=== PATIENT | male | born 1960 | race Caucasian/White ===

== ENCOUNTER 2017-02-16 21:49 | Emergency (ER) | payer OTHER ==
--- NOTE | 2017-02-17 00:19 | ED ---
General Adult HPI - General Chief complaint: Urogenital Stated complaint: Blood in Urine Time Seen by Provider: 02/16/17 23:46 Source: patient, RN notes reviewed, old records reviewed Mode of arrival: ambulatory Limitations: no limitations - History of Present Illness Initial comments: This is a 48-year-old male to the ER for evaluation. This patient presents to ER for evaluation of blood in his urine. Patient has no history of blood and urine blood thinners. Patient denies any significant history of similar symptoms. Patient is a history of smoking. Patient has had blood in his urine for about a day and a half with occasional clots. No burning or urinary symptoms. No recent fevers or abdominal pain. No back pain or flank pain - Related Data Home Medications Medication Instructions Recorded Confirmed Aspirin 325 mg PO DAILY 02/16/17 02/16/17 Atorvastatin Calcium [Lipitor] 10 mg PO HS 02/16/17 02/16/17 Gabapentin [Neurontin] 100 mg PO 02/16/17 HYDROcodone/APAP 10-325MG [[place] 1 tab PO Q6H PRN 02/16/17 02/16/17 10-325] Hydrochlorothiazide 25 mg PO 02/16/17 Metoprolol Tartrate [Lopressor] 37.5 mg PO 02/16/17 Naproxen Sodium [Aleve] 220 mg PO BID 02/16/17 02/16/17 amLODIPine BESYLATE [Norvasc] 10 mg PO 02/16/17 metFORMIN HCL [Glucophage] 1,000 mg PO BID 02/16/17 02/16/17 Allergies Allergy/AdvReac Type Severity Reaction Status Date / Time No Known Allergies Allergy Verified 02/16/17 22:32 Review of Systems ROS Statement: Those systems with pertinent positive or pertinent negative responses have been documented in the HPI. ROS Other: All systems not noted in ROS Statement are negative. Past Medical History Past Medical History: Diabetes Mellitus, Hypertension, Myocardial Infarction ([place] ) History of Any Multi-Drug Resistant Organisms: None Reported Past Surgical History: Heart Catheterization With Stent, Hernia Repair Past Psychological History: No Psychological Hx Reported Smoking Status: Current every day smoker Past Alcohol Use History: Occasional Past Drug Use History: None Reported General Exam Limitations: no limitations General appearance: alert, in no apparent distress Head exam: Present: atraumatic, normocephalic, normal inspection Eye exam: Present: normal appearance, PERRL, EOMI. Absent: scleral icterus, conjunctival injection, periorbital swelling ENT exam: Present: normal exam, mucous membranes moist Neck exam: Present: normal inspection. Absent: tenderness, meningismus, lymphadenopathy Respiratory exam: Present: normal lung sounds bilaterally. Absent: respiratory distress, wheezes, rales, rhonchi, stridor Cardiovascular Exam: Present: regular rate, normal rhythm, normal heart sounds. Absent: systolic murmur, diastolic murmur, rubs, gallop, clicks GI/Abdominal exam: Present: soft, normal bowel sounds. Absent: distended, tenderness, guarding, rebound, rigid Extremities exam: Present: normal inspection, full ROM, normal capillary refill. Absent: tenderness, pedal edema, joint swelling, calf tenderness Back exam: Present: normal inspection Neurological exam: Present: alert, oriented X3, CN II-XII intact Psychiatric exam: Present: normal affect, normal mood Skin exam: Present: warm, dry, intact, normal color. Absent: rash Course Vital Signs 02/16/17 02/17/17 22:28 00:06 Temperature 97.7 F 98.0 F Pulse Rate 85 84 Respiratory 18 16 Rate Blood Pressure 158/76 147/89 O2 Sat by Pulse 99 99 Oximetry Medical Decision Making - Medical Decision Making Physical female here for evaluation of hematuria, patient installs at length regarding need to follow-up with urology, CT negative, no infection, patient to be discharged home - Radiology Data Radiology results: report reviewed (CT pelvis is negative for acute disease), image reviewed Disposition Clinical Impression: Hematuria Disposition: HOME SELF-CARE Condition: Undetermined Instructions: Hematuria (ED) Referrals: Teodoro Blanchard MD [STAFF PHYSICIAN] - 1-2 days
[2017-02-17 00:27] LABS: Appearance,Urine Clear (Clear); Bilirubin,Urine Negative (Negative); Glucose,Urine (UA) Negative (Negative); Ketones,Urine Negative (Negative); Leukocyte Esterase,Urine Negative (Negative); Mucus,Urine Rare /hpf; Nitrite,Urine Negative (Negative); Particle Count 8052; Protein,Urine 1+ (Negative); RBC,Urine >182 /hpf (0-5); Specific Gravity,Urine 1.017 (1.001-1.035); Squamous Epithelial Cell,Urine <1 /hpf (0-4); UA Billing (MACRO vs. MICRO) MICRO; Urobilinogen,Urine <2.0 mg/dL (<2.0); WBC,Urine 21 /hpf (0-5)
--- NOTE | 2017-02-17 01:06 | CT ---
EXAM: CT Abdomen and Pelvis Without Intravenous Contrast CLINICAL HISTORY: Reason: Low back pain and hematuria TECHNIQUE: Axial computed tomography images of the abdomen and pelvis without intravenous contrast. CTDI is 9.10 mGy and DLP is 458.30 mGy-cm. This CT exam was performed using one or more of the following dose reduction techniques: automated exposure control, adjustment of the mA and/or kV according to patient size, and/or use of iterative reconstruction technique. COMPARISON: None. FINDINGS: Lower thorax: Diffuse coronary arterial, partially imaged aortic valve, and heavy mitral annular calcifications. ABDOMEN: Liver: Unremarkable. Gallbladder and bile ducts: Unremarkable. No calcified stones. No ductal dilation. Pancreas: Within normal limits. Spleen: Unremarkable. No splenomegaly. Adrenals: Unremarkable. No mass. Kidneys and ureters: The kidneys are symmetric in appearance without evidence of stone or hydronephrosis. No ureter stone or hydroureter. Stomach and bowel: Descending and sigmoid colonic diverticulosis without diverticulitis. Of incidental note is redundancy of the sigmoid colon. No obstruction. Appendix: No findings to suggest acute appendicitis. PELVIS: Bladder: No bladder stone or wall thickening. Reproductive: Enlarged prostate gland, containing calcification centrally within, and causing extrinsic mass effect upon the bladder base. ABDOMEN and PELVIS: Intraperitoneal space: No free air. No significant fluid collection. Bones/joints: Moderate dextroscoliosis, and multilevel degenerative changes throughout the spine, and notably including severe right hip joint DJD with a lesser degree of left hip joint DJD. No acute fracture or dislocation. Soft tissues: Unremarkable. Vasculature: Diffuse arterial vascular calcifications without abdominal aortic aneurysm. Lymph nodes: No bulky adenopathy. IMPRESSION: 1. No urinary tract stone or secondary signs of urinary tract obstruction. 2. Enlarged prostate gland. 3. Additional nonacute findings including distal colonic diverticulosis, moderate dextroscoliosis and multilevel degenerative changes throughout the spine and notably within the right hip, as above.
[2017-02-17 01:41] VITALS: BP 142/76; PULSE 75; RESP 18; TEMP 98.4
== END 2017-02-17 01:54 | disposition home or self-care (01) ==
LOC: EC 21:49
DX: R31.9 Hematuria, unspecified (principal); E11.9 Type 2 diabetes mellitus without complications; I10 Essential (primary) hypertension; I25.2 Old myocardial infarction; F17.200 Nicotine dependence, unspecified, uncomplicated; Z79.82 Long term (current) use of aspirin; Z79.84 Long term (current) use of oral hypoglycemic drugs; Z79.899 Other long term (current) drug therapy
CPT/HCPCS: 74176; 81001; 87086; 99284

== ENCOUNTER → 2017-04-12 | Outpatient (CLI) | payer OTHER ==
--- NOTE | 2017-04-12 18:55 | US ---
EXAMINATION TYPE: US venous doppler duplex LE RT DATE OF EXAM: 04/12/2017 5:28 PM COMPARISON: NONE CLINICAL HISTORY: M25.551 Pain R hip, I80.9 Phlebitis/thrombophlebit. right leg edema SIDE PERFORMED: Right TECHNIQUE: The lower extremity deep venous system is examined utilizing real time linear array sonog trev with graded compression, doppler sonography and color-flow sonography. VESSELS IMAGED: External Iliac Vein (EIV) Common Femoral Vein Deep Femoral Vein Greater Saphenous Vein * Femoral Vein Popliteal Vein Small Saphenous Vein * Proximal Calf Veins (* superficial vessels) Right Leg: Negative for DVT No evidence of DVT right leg IMPRESSION: Normal exam. No evidence of deep venous thrombosis in the right leg.
== END | disposition home or self-care (01) ==
LOC: RADUSMAIN 16:58
PROVIDERS: ATTEND Orthopaedic Surgery
DX: I80.9 Phlebitis and thrombophlebitis of unspecified site (principal); M16.11 Unilateral primary osteoarthritis, right hip

== ENCOUNTER → 2017-05-16 | Outpatient (CLI) | payer OTHER ==
[2017-05-16 11:37] LABS: Appearance,Urine Clear (Clear); Bilirubin,Urine Negative (Negative); CH 29.5; CHCM 32.6; Glucose,Urine (UA) Negative (Negative); HCT 38.6 % (39.0-53.0); HDW 2.46; Ketones,Urine Negative (Negative); Leukocyte Esterase,Urine Negative (Negative); MCH 30.5 pg (25.0-35.0); MCHC 33.6 g/dL (31.0-37.0); MCV 90.9 fL (80.0-100.0); Mean Platelet Volume 7.2; Nitrite,Urine Negative (Negative); PH, Urine 6.5 (5.0-8.0); Protein,Urine Negative (Negative); RBC 4.25 m/uL (4.30-5.90); Specific Gravity,Urine 1.017 (1.001-1.035); UA Billing (MACRO vs. MICRO) CHEM; Urobilinogen,Urine <2.0 mg/dL (<2.0)
[2017-05-16 11:39] LABS: Partial Thromboplastin Time 25.1 sec (22.0-30.0)
[2017-05-16 11:52] LABS: ALT 28 U/L (21-72); AST 16 U/L (17-59); Alkaline Phosphatase 62 U/L (38-126); Anion Gap 13 mmol/L; Blood Urea Nitrogen 18 mg/dL (9-20); Calcium 9.8 mg/dL (8.4-10.2); Carbon Dioxide 25 mmol/L (22-30); Chloride 101 mmol/L (98-107); Glucose 156 mg/dL (74-99); Non-African American GFR(MDRD) >60 (>60 ml/min/1.73 sqM); Potassium 4.1 mmol/L (3.5-5.1); Sodium 139 mmol/L (137-145); Total Bilirubin 0.2 mg/dL (0.2-1.3); Total Protein 7.3 g/dL (6.3-8.2)
== END | disposition home or self-care (01) ==
LOC: LABPAT 11:04
PROVIDERS: ATTEND Orthopaedic Surgery
DX: Z01.812 Encounter for preprocedural laboratory examination (principal)
CPT/HCPCS: 36415; 80053; 81003; 85027; 85610; 85730; 87070

== ENCOUNTER → 2017-07-03 | Outpatient (CLI) | payer OTHER ==
[2017-07-03 15:05] LABS: CH 29.3; CHCM 32.2; HCT 40.6 % (39.0-53.0); HGB 13.2 gm/dL (13.0-17.5); MCH 29.7 pg (25.0-35.0); MCHC 32.4 g/dL (31.0-37.0); MCV 91.5 fL (80.0-100.0); Mean Platelet Volume 7.4; RBC 4.43 m/uL (4.30-5.90); RDW 14.4 % (11.5-15.5); WBC 7.9 k/uL (3.8-10.6)
[2017-07-03 15:14] LABS: Partial Thromboplastin Time 24.8 sec (22.0-30.0); Prothrombin Time 10.3 sec (9.0-12.0)
[2017-07-03 15:20] LABS: Appearance,Urine Clear (Clear); Bilirubin,Urine Negative (Negative); Glucose,Urine (UA) Negative (Negative); Ketones,Urine Negative (Negative); Leukocyte Esterase,Urine Negative (Negative); Nitrite,Urine Negative (Negative); PH, Urine 6.5 (5.0-8.0); Protein,Urine Negative (Negative); Specific Gravity,Urine 1.018 (1.001-1.035); UA Billing (MACRO vs. MICRO) CHEM; Urobilinogen,Urine <2.0 mg/dL (<2.0)
[2017-07-03 15:21] LABS: ALT 34 U/L (21-72); AST 16 U/L (17-59); Alkaline Phosphatase 56 U/L (38-126); Anion Gap 12 mmol/L; Blood Urea Nitrogen 24 mg/dL (9-20); Calcium 9.8 mg/dL (8.4-10.2); Carbon Dioxide 26 mmol/L (22-30); Chloride 100 mmol/L (98-107); Glucose 133 mg/dL (74-99); Non-African American GFR(MDRD) >60 (>60 ml/min/1.73 sqM); Potassium 4.2 mmol/L (3.5-5.1); Sodium 138 mmol/L (137-145); Total Bilirubin 0.3 mg/dL (0.2-1.3); Total Protein 6.9 g/dL (6.3-8.2)
== END | disposition home or self-care (01) ==
LOC: LABPAT 14:18
PROVIDERS: ATTEND Orthopaedic Surgery
DX: Z01.812 Encounter for preprocedural laboratory examination (principal)
CPT/HCPCS: 80053; 81003; 85027; 85610; 85730

== ENCOUNTER → 2017-11-30 | Outpatient (CLI) | payer OTHER ==
--- NOTE | 2017-11-30 12:36 | MR ---
EXAMINATION TYPE: MR lumbar spine wo con DATE OF EXAM: 11/30/2017 COMPARISON: CT abdomen pelvis 02/17/2017 HISTORY: Low back pain / Disc degeneration TECHNIQUE: Multiplanar, multisequence images of the lumbar spine were acquired. L1-L2: Facet arthropathy with hypertrophy ligamentum flavum causes some encroachment on the lateral r ecesses, circumferential posterior disc bulge causes mild anterior mass effect on the thecal sac, the re is no significant central stenosis, lateral extension of endplate disc complex encroaches minimall y on the foramina. L2-L3: Circumferential extension of endplate disc complex results in some foraminal encroachment grea ter on the left likely contributed by the scoliosis, there is anterior mass effect on the thecal sac causing mild to moderate central canal stenosis. Facet arthropathy changes are present. L3-L4: Circumferential extension endplate disc complex results in foraminal encroachment greater on t he left, there is mild anterior mass effect on the thecal sac. Facet arthropathy with hypertrophy lig amentum flavum results in a trefoil appearance of the thecal sac, moderate to severe central canal st enosis. L4-L5: Circumferential posterior disc bulge causes anterior mass effect on the thecal sac, there is m ild to moderate central canal stenosis. Facet arthropathy is present with hypertrophy ligamentum flav um encroaches somewhat on the lateral recesses, differential extension endplate disc complex results in foraminal encroachment greater on the right. L5-S1: There is facet arthropathy change present causing some encroachment on the lateral recesses. C ircumferential extension of endplate disc complex results in bilateral foraminal encroachment bilater ally. Small central disc protrusion noted. No significant central stenosis. Lumbar segments are intact. No paraspinal masses are identified. Conus medullaris has a normal appe arance. There is a marked dextroscoliosis of the lumbar spine as noted on prior exam. Multilevel spon dylosis is present with endplate discogenic marrow signal change, loss of disc height signal at the i ntervertebral levels is accompanied by vacuum phenomenon. Small cystic focus is associated with the r ight kidney measuring approximately 1 cm. IMPRESSION: Degenerative disc disease, multilevel foraminal encroachment, spinal stenosis, facet arthropathy as d escribed.
== END | disposition home or self-care (01) ==
LOC: RADMRIMAIN 09:39
PROVIDERS: ATTEND Physical Medicine & Rehabilitation
DX: M48.061 Spinal stenosis, lumbar region without neurogenic claudication (principal); M51.16 Intervertebral disc disorders with radiculopathy, lumbar region; M46.96 Unspecified inflammatory spondylopathy, lumbar region; E11.9 Type 2 diabetes mellitus without complications
CPT/HCPCS: 72148

== ENCOUNTER 2018-06-27 23:16 | Inpatient (IN) | payer OTHER ==
[2018-06-27] MEDS ORDERED: ASPIRIN 81 MG PO STA (23:27)
--- NOTE | 2018-06-27 23:30 | ED ---
General Adult HPI - General Stated complaint: CHEST PAIN Time Seen by Provider: 06/27/18 23:23 Source: patient, family, RN notes reviewed Limitations: no limitations - History of Present Illness Initial comments: Patient is a pleasant 58-year-old male presenting to the emergency department complaints of chest discomfort. Onset of symptoms was around an hour or so ago prior to arrival. Patient was at rest. Discomfort is starting to become severe. Discomfort feels like pressure. No associated dyspnea, nausea, or diaphoresis. No radiation. Patient does have history of previous cardiac stents. - Related Data Home Medications Medication Instructions Recorded Confirmed Atorvastatin Calcium [Lipitor] 10 mg PO HS 02/16/17 06/27/18 Hydrochlorothiazide 25 mg PO DAILY 02/16/17 06/27/18 amLODIPine BESYLATE [Norvasc] 10 mg PO DAILY 02/16/17 06/27/18 metFORMIN HCL [Glucophage] 1,000 mg PO BID 02/16/17 06/27/18 Metoprolol Tartrate [Lopressor] 37.5 mg PO HS 07/11/17 06/27/18 Aspirin 325 mg PO DAILY 06/27/18 06/27/18 Gabapentin [Neurontin] 300 mg PO TID PRN 06/27/18 06/27/18 HYDROcodone/APAP 10-325MG [[place] 1 tab PO Q6H PRN 06/27/18 06/27/18 10-325] Naproxen Sodium [Aleve] 440 mg PO BID PRN 06/27/18 06/27/18 Nitroglycerin Sl Tabs [Nitrostat] 0.4 mg SUBLINGUAL Q5M PRN 06/27/18 06/27/18 Allergies Allergy/AdvReac Type Severity Reaction Status Date / Time No Known Allergies Allergy Verified 06/27/18 23:37 Review of Systems ROS Statement: Those systems with pertinent positive or pertinent negative responses have been documented in the HPI. ROS Other: All systems not noted in ROS Statement are negative. Constitutional: Denies: fever Eyes: Denies: eye pain ENT: Denies: ear pain Respiratory: Denies: cough Cardiovascular: Reports: chest pain Endocrine: Denies: fatigue Gastrointestinal: Denies: abdominal pain, nausea Genitourinary: Denies: dysuria Musculoskeletal: Reports: back pain (Chronic and unchanged) Neurological: Denies: weakness Past Medical History Past Medical History: Diabetes Mellitus, Hypertension, Myocardial Infarction ([place] ) Additional Past Medical History / Comment(s): BACK AND RIGHT HIP PAIN., STATES SURGERY RESCHEDULED DUE TO RASH MIRIAM GROINS WHICH IS NOW RESOLVED. Last Myocardial Infarction Date:: 2000 History of Any Multi-Drug Resistant Organisms: None Reported Past Surgical History: Heart Catheterization With Stent, Hernia Repair Past Anesthesia/Blood Transfusion Reactions: No Reported Reaction Date of Last Stent Placement:: 2000 Additional Past Alcohol Use History / Comment(s): 1ppd for on & off since early - Past Family History Mother Family Medical History: No Reported History General Exam Limitations: no limitations General appearance: alert, other (Patient does appear uncomfortable) Head exam: Present: atraumatic Eye exam: Present: normal appearance, PERRL ENT exam: Present: normal oropharynx Neck exam: Present: normal inspection Respiratory exam: Present: normal lung sounds bilaterally. Absent: chest wall tenderness Cardiovascular Exam: Present: regular rate, normal rhythm Expanded Peripheral pulses: 2+: Radial (R), Radial (L), Dorsalis Pedis (R), Dorsalis Pedis (L) GI/Abdominal exam: Present: soft. Absent: tenderness Extremities exam: Present: normal inspection. Absent: pedal edema, calf tenderness Neurological exam: Present: alert Psychiatric exam: Present: normal affect, normal mood Skin exam: Present: normal color Course Vital Signs 06/27/18 06/27/18 06/27/18 23:18 23:40 23:45 Temperature 98.2 F Pulse Rate 72 86 101 H Respiratory 18 18 18 Rate Blood Pressure 170/105 153/98 143/95 O2 Sat by Pulse 98 99 99 Oximetry 06/27/18 23:50 Temperature Pulse Rate 92 Respiratory 18 Rate Blood Pressure 140/90 O2 Sat by Pulse 98 Oximetry - Reevaluation(s) Reevaluation #1: 06/27/18 23:27 STEMI alert was called. Cardiology was paged. 06/27/18 23:39 Cardiology paged again and tried at home. 06/27/18 23:44 Right-sided EKG does not have elevation in lead V4. Normal sinus rhythm 96. WA 184. QRS 92. QT 350. QTC 442. Normal axis. Normal QRS. Inferior ST elevation. 06/27/18 23:52 Unable to get a hold of Dr. Cole. I did speak with Dr. Min who states he is on backup and will come in. 06/27/18 23:56 Patient reevaluated. Case was discussed with Dr. Lopez, who will admit covering for Dr. Jarvis. EKG Findings - EKG Comments: EKG Findings:: Normal sinus rhythm 95. WA 196. QRS 90. QT 352. QTC 442. Normal axis. Inferior ST elevation. Normal QRS. Borderline ST elevation in V5 V6. Medical Decision Making - Lab Data Result diagrams: 06/27/18 23:39 Lab Results 06/27/18 Range/Units 23:39 WBC 10.8 H (3.8-10.6) k/uL RBC 4.53 (4.30-5.90) m/uL Hgb 13.9 (13.0-17.5) gm/dL Hct 40.8 (39.0-53.0) % MCV 90.1 (80.0-100.0) fL MCH 30.7 (25.0-35.0) pg MCHC 34.1 (31.0-37.0) g/dL RDW 13.6 (11.5-15.5) % Plt Count 313 (150-450) k/uL Neutrophils % 59 % Lymphocytes % 26 % Monocytes % 8 % Eosinophils % 3 % Basophils % 1 % Neutrophils # 6.4 (1.3-7.7) k/uL Lymphocytes # 2.8 (1.0-4.8) k/uL Monocytes # 0.9 (0-1.0) k/uL Eosinophils # 0.4 (0-0.7) k/uL Basophils # 0.1 (0-0.2) k/uL - Radiology Data Interpreted by me: Chest x-ray shows no acute process Critical Care Time Critical Care Time: Yes Total Critical Care Time: 33 Disposition Clinical Impression: ST elevation myocardial infarction (STEMI) Disposition: ADMITTED IP TO THIS HOSP Condition: Serious Is patient prescribed a controlled substance at d/c from ED?: No Referrals: Shaji Jarvis MD [Primary Care Provider] - 1-2 days Decision Time: 23:59
[2018-06-27] MEDS ORDERED: HEPARIN SODIUM,PORCINE 5,000 UNIT/ML 1 ML VIAL IV PRN (23:37)
[2018-06-27] MEDS ORDERED: HEPARIN SODIUM,PORCINE 5,000 UNIT/ML 1 ML VIAL IV ONE (23:37)
[2018-06-27] MEDS: NITROGLYCERIN SL TABS 0.4 MG TAB SUBLINGUAL PRN ×3 (23:40→23:50)
[2018-06-27] MEDS ORDERED: HEPARIN SOD,PORK IN 0.45% NACL 25,000 UNIT in 0.45% NACL 1 500ML.BAG IV SCH (23:45)
--- NOTE | 2018-06-27 23:47 | XR ---
EXAMINATION TYPE: XR chest 1V portable DATE OF EXAM: 06/27/2018 COMPARISON: NONE HISTORY: Chest pain TECHNIQUE: Single frontal view of the chest is obtained. FINDINGS: There is no heart failure nor confluent pneumonic infiltrate. Costophrenic angles are berenice r. Thoracic aorta is atheromatous. There are chest leads. IMPRESSION: No active cardiopulmonary disease. Normal heart.
[2018-06-27] MEDS ORDERED: MORPHINE SULFATE 4 MG/ML SYRINGE IVP STA (23:53)
[2018-06-27 23:54] LABS: Basophils # (A) 0.1 k/uL (0-0.2); Basophils % (A) 1 %; Eosinophils # (A) 0.4 k/uL (0-0.7); Eosinophils % (A) 3 %; HCT 40.8 % (39.0-53.0); HGB 13.9 gm/dL (13.0-17.5); Lymphocytes # (A) 2.8 k/uL (1.0-4.8); Lymphocytes % (A) 26 %; MCH 30.7 pg (25.0-35.0); MCHC 34.1 g/dL (31.0-37.0); MCV 90.1 fL (80.0-100.0); Monocytes # (A) 0.9 k/uL (0-1.0); Monocytes % (A) 8 %; Neutrophils # (A) 6.4 k/uL (1.3-7.7); Neutrophils % (A) 59 %; Platelet Count 313 k/uL (150-450); RBC 4.53 m/uL (4.30-5.90); RDW 13.6 % (11.5-15.5); WBC 10.8 k/uL (3.8-10.6)
[2018-06-27] MEDS ORDERED: ATORVASTATIN 80 MG TAB PO STA (23:54)
[2018-06-28 00:14] LABS: Partial Thromboplastin Time 22.5 sec (22.0-30.0); Prothrombin Time 9.7 sec (9.0-12.0)
[2018-06-28 00:16] LABS: ALT 21 U/L (21-72); AST 17 U/L (17-59); Albumin 4.1 g/dL (3.5-5.0); Alkaline Phosphatase 44 U/L (38-126); Anion Gap 11 mmol/L; Blood Urea Nitrogen 24 mg/dL (9-20); Calcium 10.1 mg/dL (8.4-10.2); Carbon Dioxide 24 mmol/L (22-30); Chloride 101 mmol/L (98-107); Glucose 252 mg/dL (74-99); Potassium 4.4 mmol/L (3.5-5.1); Sodium 136 mmol/L (137-145); Total Bilirubin 0.5 mg/dL (0.2-1.3); Total Protein 6.7 g/dL (6.3-8.2)
[2018-06-28] MEDS ORDERED: LIDOCAINE 2% INJ 20 MG/ML SQ ONE (00:20)
[2018-06-28 00:21] LABS: Creatine Kinase 55 U/L (55-170)
[2018-06-28] MEDS ORDERED: fentaNYL (PF) 50 MCG/ML 2 ML AMP IVP ONE (00:23)
[2018-06-28] MEDS ORDERED: MIDAZOLAM 2 MG/2 ML VIAL IVP ONE (00:23)
[2018-06-28] MEDS ORDERED: IV FLUID CONTINUATION 1,000 ML IV ONE (00:24)
[2018-06-28] MEDS ORDERED: BIVALIRUDIN BOLUS 250 MG/50 ML IV ONE (00:29)
[2018-06-28] MEDS ORDERED: TICAGRELOR 90 MG TAB PO ONE (00:29)
[2018-06-28] MEDS ORDERED: BIVALIRUDIN 250 MG in SODIUM CHLORIDE 0.9% 50 ML IV ONE ×2 (00:30→01:11)
[2018-06-28 00:34] LABS: Creatine Kinase MB 2.7 ng/mL (0.0-2.4); Troponin I <0.012 ng/mL (0.000-0.034)
[2018-06-28] MEDS ORDERED: IOPAMIDOL-370 125ML BTL INJ ONE (00:50)
[2018-06-28] MEDS ORDERED: IOPAMIDOL-370 100ML BTL INJ ONE ×3 (01:18→01:55)
[2018-06-28] MEDS ORDERED: NITROGLYCERIN SL TABS 0.4 MG TAB SUBLINGUAL PRN (02:07)
[2018-06-28] MEDS ORDERED: MAG HYDROX/AL HYDROX/SIMETH 30 ML CUP PO PRN (02:07)
[2018-06-28] MEDS ORDERED: ATROPINE SULFATE 0.1 MG/ML 10ML SYRINGE IV PRN (02:07)
[2018-06-28] MEDS ORDERED: RX INFO: IV CONTRAST WAS GIVEN 1 EACH MISC MISCELLANE PRN (02:07)
[2018-06-28] MEDS ORDERED: ZOLPIDEM 5 MG TAB PO PRN (02:07)
[2018-06-28] MEDS ORDERED: GABAPENTIN 100 MG CAP PO PRN (02:09)
[2018-06-28] MEDS ORDERED: SODIUM CHLORIDE 0.9% 1,000 ML IV SCH (02:15)
[2018-06-28 02:32] LABS: Glucose,Whole Blood 204 mg/dL (75-99)
[2018-06-28 04:13] LABS: Basophils % (A) 0 %; Eosinophils # (A) 0.1 k/uL (0-0.7); Eosinophils % (A) 1 %; HCT 36.5 % (39.0-53.0); HGB 12.4 gm/dL (13.0-17.5); Lymphocytes # (A) 1.6 k/uL (1.0-4.8); Lymphocytes % (A) 16 %; MCH 30.3 pg (25.0-35.0); MCHC 33.9 g/dL (31.0-37.0); MCV 89.5 fL (80.0-100.0); Mean Platelet Volume 6.9; Monocytes # (A) 0.6 k/uL (0-1.0); Monocytes % (A) 6 %; Neutrophils # (A) 7.1 k/uL (1.3-7.7); Neutrophils % (A) 74 %; Platelet Count 284 k/uL (150-450); RBC 4.07 m/uL (4.30-5.90); RDW 13.5 % (11.5-15.5); WBC 9.5 k/uL (3.8-10.6)
[2018-06-28 04:23] LABS: INR 1.1 (<1.2); Partial Thromboplastin Time 32.9 sec (22.0-30.0); Prothrombin Time 10.6 sec (9.0-12.0)
[2018-06-28 04:51] VITALS: BMI 26.9
[2018-06-28 04:58] LABS: Anion Gap 8 mmol/L; Blood Urea Nitrogen 18 mg/dL (9-20); Calcium 9.4 mg/dL (8.4-10.2); Carbon Dioxide 23 mmol/L (22-30); Chloride 103 mmol/L (98-107); Cholesterol 190 mg/dL (<200); Glucose 187 mg/dL (74-99); HDL Cholesterol 34 mg/dL (40-60); LDL Cholesterol,Calculated 119 mg/dL (0-99); Magnesium 1.9 mg/dL (1.6-2.3); Potassium 4.2 mmol/L (3.5-5.1); Sodium 134 mmol/L (137-145); Triglycerides 184 mg/dL (<150)
[2018-06-28] MEDS: MAGNESIUM SULFATE-D5W PMX 1 GM in DEXTROSE/WATER 1 100ML.BAG IVPB SCH ×2 (06:55→09:50)
[2018-06-28] MEDS: INSULIN ASPART 100 UNIT/ML 1 ML 10 ML VIAL SQ SCH ×5 (06:55→21:04)
[2018-06-28 06:56] LABS: Glucose,Whole Blood 176 mg/dL (75-99)
[2018-06-28] MEDS: METOPROLOL TARTRATE 25 MG TAB PO SCH ×2 (09:33→21:04)
[2018-06-28] MEDS: LISINOPRIL 5 MG TAB PO SCH ×2 (09:33→21:04)
[2018-06-28] MEDS: ASPIRIN 81 MG PO SCH (09:33)
[2018-06-28] MEDS: TICAGRELOR 90 MG TAB PO SCH ×2 (09:33→21:04)
--- NOTE | 2018-06-28 11:23 | CONS ---
CONSULTATION Mr. Jo is a 58-year-old male with known history of hypertension, hyperlipidemia, diabetes mellitus, and history of coronary artery disease, status post stenting about 15 years ago as well as history of chronic tobacco use, who presented with an acute onset chest discomfort. He has not been followed since his intervention today after getting home. He complained of severe chest discomfort and jaw discomfort, came into the emergency room and was found to have EKG changes consistent with an inferior wall myocardial infarction. The patient according to him, has been having exertional chest pain for the last week on and off. He denies any history of chronic peripheral edema noted. No PND, no orthopnea. No dizziness, palpitation, or syncope. His coronary risk factors are remarkable for hypertension, hyperlipidemia, diabetes mellitus, and chronic tobacco use. MEDICATION: At home include aspirin once a day, metformin, amlodipine 10 mg daily, Naprosyn, metoprolol tartrate 37.5 mg daily, hydrochlorothiazide 25 mg daily, gabapentin 300 mg on a p.r.n. basis, Lipitor 10 mg daily. REVIEW OF SYSTEMS: RESPIRATORY SYSTEM: He has no dyspnea on exertion. No recent wheezing. Had a history of chronic tobacco use. GI SYSTEM: No recent GI bleeding. No peptic ulcer disease. SYSTEM: No dysuria or hematuria. NERVOUS SYSTEM: No stroke or seizure. PHYSICAL EXAMINATION: He is a 58-year-old male, alert, oriented, in no apparent distress. Blood pressure 140/70 with a heart rate in the 80s. HEAD: Normocephalic. EYES: Sclerae nonicteric. NECK: Good upstroke, no bruit, no jugular venous distention. LUNGS: Clear to auscultation. HEART: Regular rate and rhythm. S1, S2. No S3. No S4. No rub. ABDOMEN: Soft, nontender. Positive bowel sounds, no organomegaly. EXTREMITIES: No edema, intact distal pulses. LAB DATA: EKG sinus mechanism with ST-segment elevation in the inferior leads consistent with an acute inferior myocardial infarction. BUN and creatinine of 24 and 0.52. Troponin less than 0.052. Hemoglobin of 13.9. The chest x-ray shows no acute infiltrate. IMPRESSION: 1. Acute ST-segment elevation myocardial infarction in the inferior leads. 2. History of coronary artery disease with prior stenting. 3. Hypertension. 4. Hyperlipidemia. 5. Diabetes mellitus. 6. Chronic tobacco use. RECOMMENDATION: I recommend proceeding with coronary angiography. The procedures, risks and complications were discussed with the patient who is in full understanding and agreement. Thank you for this consult. Will follow with you. MARAH / DOROTHYN: [id number] /
--- NOTE | 2018-06-28 11:26 | CC ---
CARDIAC CATHETERIZATION REPORT Ms. Jo is a 58-year-old male with a known history of coronary artery disease who presented with an acute inferior myocardial infarction. He has a history of hypertension, hyperlipidemia, diabetes mellitus, and chronic tobacco use. In view of that, recommendation regarding cardiac catheterization. The procedures, risks and complications were discussed with the patient who is in full understanding and agreement. PROCEDURE: Patient was brought to the carpenter/labor. He received Benadryl and fentanyl and after achieving moderate conscious sedated state, using Xylocaine anesthesia and Seldinger technique, a 6-[place] sheath was introduced in the right femoral artery. Selective right coronary angiography was performed using 6-[place] FR4 guiding catheter after obtaining images with the right coronary artery and performing coronary angioplasty and stenting, images of the left system using a 6-[place] 4 bend left Janet catheter were performed. Following that, a 6-[place] tight pigtail catheter was introduced in the left ventricle and pressures were calculated. Following that, catheter was removed, sheath was sutured in place. The patient is returned to his room in stable condition. FINDINGS: LEFT MAIN: This is a large-sized vessel, bifurcating into left circumflex, left anterior descending artery. Left main coronary artery has no evidence of high-grade stenosis. LEFT ANTERIOR DESCENDING ARTERY: This is a large-sized vessel, reaching toward the apex with a wraparound apex segment. The left anterior descending artery proximally has a 20% to 30% plaque at the apex, has an area of stenosis up to 85%,, beyond that the vessel is small in caliber. LEFT CIRCUMFLEX: This is a nondominant vessel, giving rise to a very large proximal obtuse marginal branch that has a 30% to 40% plaque. The second obtuse marginal branch is small in caliber and has diffuse intimal disease with area of stenosis up to 80%. The caliber of the vessel is small. RIGHT CORONARY ARTERY: This is a large dominant vessel, bifurcating distally into PDA and posterolateral segment and branches. The stented segment proximally has a 70%-80% stenosis. The mid stent is patent, beyond this mid stent there is an area of 70%-80% stenosis. The vessel bifurcating in the PLV that is totally occluded and a PDA that has a 99% stenosis. LEFT VENTRICULOGRAM: Left ventriculogram was not performed. HEMODYNAMICS: There was no gradient across the aortic valve. The left ventricular end-diastolic pressure was 8-10 mmHg. CONCLUSION: 1. Acutely occluded right PLV with severe stenosis involving the right PDA as well as significant stenosis in the mid and proximal right coronary artery. 2. Significant stenosis in the distal apical segment of the LAD and in the second small obtuse marginal branch. RECOMMENDATION: In view of finding anatomy, I recommend proceeding with angioplasty and stenting of the right coronary artery. The procedures, risks and complication were discussed with the patient who is in full understanding and agreement. MMDORENEL / DOROTHYN: [id number] /
--- NOTE | 2018-06-28 11:39 | PTCA ---
PERCUTANEOUSTRANS CORORONARY ANGIOGRAPHY Mr. Jo is a 58-year-old male who presented with an acute inferior myocardial infarction, underwent cardiac catheterization, was found to have a totally occluded right PLV with significant stenosis involving the right PDA as well as the proximal and mid right coronary artery. In view of that, recommendation were made regarding coronary angioplasty and stenting. The procedures, risks and complication were discussed with the patient who is in full understanding and agreement. PROCEDURE: After obtaining images of the right coronary artery, a 0.014 balanced medium weight J- wire was advanced across the system with a FineCross catheter and a total occlusion of the right PLV was crossed. Following that, a FineCross catheter was removed and a 2.5 x 12 mm Trek balloon was advanced and 2 inflations at 8 atmospheres were done. Following that, a 2.5 x 18 mm Xience CR stent was deployed, postdilated at 16 atmospheres and after removing the balloon, a 2.5 x 12 mm Xience stent was deployed proximal to the first one and postdilated to 16 atmospheres. Following that, the balloon was removed and a whisper J-wire was advanced into the right PLV and a 2.5 x 12 mm Trek balloon was advanced and one inflation was done at 8 atmospheres. Following that, a 2.5 x 15 mm Xience Ellyn stent was deployed, postdilated at 16 atmospheres. After removing the balloon, the whisper J-wire was removed and a 3.25 x 15 mm Xience Ellyn stent was deployed in the mid segment, post dilated to 16 atmospheres. After removing the balloon, a 3.5 x 18 mm Xience CR stent was deployed proximally and post dilated at 16 atmospheres. After removing the balloon, a 4.0 x 12 mm NC Trek balloon was advanced and inflation in the proximal segment of the proximal stent was done at 12 atmospheres. After the last inflation, after appropriate wait, the balloon and the guidewire were withdrawn back in the guiding catheter. Images were obtained and repeated. Those images reveal stable successful stenting. Following that, angiography of the left coronary artery system and left ventricle end-diastolic pressure were measured. Following that, catheter were removed, sheath was sutured in place. The patient was returned to his room in stable condition. Of note, the patient received Angiomax per protocol as well as oral loading dose of Brilinta. His EKG changes have resolved and his chest discomfort has improved. RESULTS: 1. Successful stenting of the right PLV with reduction of stenosis from 100% to 0%. 2. Successful stenting of the right PDA with reduction of stenosis from 99% to 0%. 3. Successful stenting of the mid right coronary artery with reduction of stenosis from 80% to 0%. 4. Successful stenting of the proximal right coronary artery with reduction of stenosis from 80% to 0%. RECOMMENDATION: Patient will be continued on aspirin, Brilinta, beta tomas, MINISTERIO inhibitor, statin. The importance of dual antiplatelet treatment were discussed with the patient and his family who are in full understanding and agreement. Duration of the procedure is 93 minutes. MMODL / IJN: [id number] /
[2018-06-28 12:14] LABS: Glucose,Whole Blood 246 mg/dL (75-99)
--- NOTE | 2018-06-28 12:17 | ECHOF ---
Referral Reason:mi MEASUREMENTS -------- HEIGHT: 177.8 cm WEIGHT: 88.5 kg BP: 128/82 RVIDd: 3.2 cm (< 3.3) IVSd: 1.1 cm (0.6 - 1.1) LVIDd: 4.3 cm (3.9 - 5.3) LVPWd: 1.1 cm (0.6 - 1.1) IVSs: 1.3 cm LVIDs: 3.3 cm LVPWs: 1.3 cm LAESV Index (A-L): 24.98 ml/m Ao Diam: 2.8 cm (2.0 - 3.7) AV Cusp: 1.2 cm (1.5 - 2.6) LA Diam: 3.6 cm (2.7 - 3.8) MV E Casey: 0.79 m/s MV DecT: 366 ms MV A Casey: 1.16 m/s MV E/A Ratio: 0.68 AV maxP.03 mmHg AV meanP.36 mmHg RAP: 5.00 mmHg RVSP: 20.74 mmHg FINDINGS -------- Sinus rhythm. This was a technically good study. The left ventricular size is normal. There is borderline concentric left ventricular hypertrophy. Overall left ventricular systolic function is low-normal with, an EF between 50 - 55 %. The right ventricle is normal in size and function. Normal LA size by volume 22+/-6 ml/m2. The right atrium is normal in size. There is moderate aortic valve sclerosis. There is no evidence of aortic regurgitation. There is mild aortic stenosis present. Peak/mean gradient across the Aortic Valve is 18.03mmHg / 11.36mmHg. Mild mitral annular calcification present. There is trace to mild mitral regurgitation. Trace tricuspid regurgitation present. Right ventricular systolic pressure is normal at < 35 mmHg. There is no evidence of pulmonary hypertension. The pulmonic valve was not well visualized. The aortic root size is normal. Normal inferior vena cava with normal inspiratory collapse consistent with estimated right atrial pre ssure of 5 mmHg. There is no pericardial effusion. CONCLUSIONS -------- 1. Sinus rhythm. 2. This was a technically good study. 3. The left ventricular size is normal. 4. There is borderline concentric left ventricular hypertrophy. 5. Overall left ventricular systolic function is low-normal with, an EF between 50 - 55 %. 6. Normal LA size by volume 22+/-6 ml/m2. 7. There is moderate aortic valve sclerosis. 8. There is mild aortic stenosis present. 9. Peak/mean gradient across the Aortic Valve is 18.03mmHg / 11.36mmHg. 10. Mild mitral annular calcification present. 11. There is trace to mild mitral regurgitation. 12. Trace tricuspid regurgitation present. 13. Right ventricular systolic pressure is normal at < 35 mmHg. 14. There is no evidence of pulmonary hypertension. 15. The pulmonic valve was not well visualized. 16. The aortic root size is normal. 17. There is no pericardial effusion. PROFESSIONAL ORGANIZER: Richard Claire RDCS
--- NOTE | 2018-06-28 15:51 | P.PN ---
Subjective This patient is status post inferior wall myocardial infarction and is status post stent placement. Patient is laying comfortably in bed does denies any chest pain or shortness of breath this and is stable hemodynamically Objective - Vital Signs Vital signs: Vital Signs Temp 98.8 F 06/28/18 09:00 Pulse 69 06/28/18 15:00 Resp 13 06/28/18 15:00 BP 121/80 06/28/18 15:00 Pulse Ox 94 L 06/28/18 15:00 Intake & Output 06/27/18 06/28/18 06/28/18 18:59 06:59 18:59 Intake Total 755 800 Output Total 1300 1500 Balance -545 -700 Weight 82.5 kg 82.5 kg Intake: IV 655 800 Magnesium Sulfate-D5w Pmx 200 1 gm In Dextrose/Water 1 100ml.bag @ 100 mls/hr IVPB Q1H TREVA Rx#: [id number] Sodium Chloride 0.9% 1, 400 600 000 ml @ 100 mls/hr IV . Q10H TREVA Rx#:[id number] Intake, IV Titration 100 Amount Sodium Chloride 0.9% 1, 100 000 ml @ 100 mls/hr IV . Q10H TREVA Rx#:[id number] Oral 0 Output: Urine 1300 1500 Other: Voiding Method Urinal ABP, PAP, CO, CI - Last Documented Arterial Blood Pressure 146/69 - Exam Patient is comfortable Patient's vital signs are reviewed. The patient is alert awake and in no acute distress. HEENT negative. Neck-supple no increase in JVP noted no carotid bruits noted. Chest-symmetrical. Heart-first and second heart sounds are normal. No S3 or S4 is noted. No significant murmurs are noted. Lungs bilateral good at entry is noted. No rales or rhonchi are noted Abdomen-soft. Liver and spleen are not enlarged. The bowel sounds are normal. No tenderness noted Extremities-peripheral pulses since are 2+. No significant leg edema noted. Neuro-no significant gross abnormality noted. - Labs CBC & Chem 7: 06/28/18 03:58 06/28/18 03:58 Labs: Abnormal Lab Results - Last 24 Hours (Table) 06/27/18 06/27/18 06/27/18 Range/Units 23:39 23:39 23:39 WBC 10.8 H (3.8-10.6) k/uL RBC (4.30-5.90) m/uL Hgb (13.0-17.5) gm/dL Hct (39.0-53.0) % APTT (22.0-30.0) sec Sodium 136 L (137-145) mmol/L BUN 24 H (9-20) mg/dL Creatinine 0.52 L (0.66-1.25) mg/dL Glucose 252 H (74-99) mg/dL POC Glucose (mg/dL) (75-99) mg/dL CK-MB (CK-2) 2.7 H (0.0-2.4) ng/mL Troponin I (0.000-0.034) ng/mL Triglycerides (<150) mg/dL LDL Cholesterol, Calc (0-99) mg/dL HDL Cholesterol (40-60) mg/dL 06/28/18 06/28/18 06/28/18 Range/Units 02:20 03:58 03:58 WBC (3.8-10.6) k/uL RBC 4.07 L (4.30-5.90) m/uL Hgb 12.4 L (13.0-17.5) gm/dL Hct 36.5 L (39.0-53.0) % APTT 32.9 H (22.0-30.0) sec Sodium (137-145) mmol/L BUN (9-20) mg/dL Creatinine (0.66-1.25) mg/dL Glucose (74-99) mg/dL POC Glucose (mg/dL) 204 H (75-99) mg/dL CK-MB (CK-2) (0.0-2.4) ng/mL Troponin I (0.000-0.034) ng/mL Triglycerides (<150) mg/dL LDL Cholesterol, Calc (0-99) mg/dL HDL Cholesterol (40-60) mg/dL 06/28/18 06/28/18 06/28/18 Range/Units 03:58 03:58 06:44 WBC (3.8-10.6) k/uL RBC (4.30-5.90) m/uL Hgb (13.0-17.5) gm/dL Hct (39.0-53.0) % APTT (22.0-30.0) sec Sodium 134 L (137-145) mmol/L BUN (9-20) mg/dL Creatinine 0.39 L (0.66-1.25) mg/dL Glucose 187 H (74-99) mg/dL POC Glucose (mg/dL) 176 H (75-99) mg/dL CK-MB (CK-2) (0.0-2.4) ng/mL Troponin I 13.500 H* (0.000-0.034) ng/mL Triglycerides 184 H (<150) mg/dL LDL Cholesterol, Calc 119 H (0-99) mg/dL HDL Cholesterol 34 L (40-60) mg/dL 06/28/18 06/28/18 Range/Units 11:38 12:02 WBC (3.8-10.6) k/uL RBC (4.30-5.90) m/uL Hgb (13.0-17.5) gm/dL Hct (39.0-53.0) % APTT (22.0-30.0) sec Sodium (137-145) mmol/L BUN (9-20) mg/dL Creatinine (0.66-1.25) mg/dL Glucose (74-99) mg/dL POC Glucose (mg/dL) 246 H (75-99) mg/dL CK-MB (CK-2) (0.0-2.4) ng/mL Troponin I 21.200 H* (0.000-0.034) ng/mL Triglycerides (<150) mg/dL LDL Cholesterol, Calc (0-99) mg/dL HDL Cholesterol (40-60) mg/dL Assessment and Plan Assessment: This patient is status post inferior wall myocardial infarction. Patient is stable hemodynamically or arrhythmias are noted. Continue the current medications
[2018-06-28 17:20] LABS: Glucose,Whole Blood 137 mg/dL (75-99)
--- NOTE | 2018-06-28 20:03 | HP ---
HISTORY AND PHYSICAL DATE OF ADMISSION: 06/27/2018 DATE OF SERVICE: 06/28/2018 PRESENTING COMPLAINT: Indigestion. HISTORY OF PRESENTING COMPLAINT: This is a very pleasant 58-year-old patient of Dr. Jarvis. Chronic stable medical conditions include diabetes, hypertension, osteoarthritis. The patient had a stent back in 1999. Yesterday patient felt indigestion and it kept going up his chest to his throat. There was no shortness of breath, no dizziness, but he did feel nauseated. The patient did feel tired and rundown. Then the discomfort started going to the jaw and shoulder. Patient decided to present to the ER last night. The patient was found to have inferior wall ST-elevation myocardial infarction and the patient was taken to the cardiac animal laboratory technician by Dr. Min. About 5 stents were placed; more details in his notes. The patient was then admitted to the ICU. The patient is currently symptom-free. The patient had been a smoker; stopped smoking for 13 years, then started smoking again about 5 years ago. REVIEW OF SYSTEMS: CONSTITUTIONAL: Tired. HEENT: None. RESPIRATORY: As above. CARDIOVASCULAR: As above. GASTROINTESTINAL: Some heartburn. GENITOURINARY: None. MUSCULOSKELETAL: Arthritic pain in the joints. DERMATOLOGICAL: None. HEMATOLOGICAL: None. LYMPHATICS: None. PSYCHIATRY: None. NEUROLOGICAL: None. PAST MEDICAL HISTORY: 1. Coronary artery disease with stent. 2. Diabetes. 3. Hypertension. 4. Back and right hip pain. PAST SURGICAL HISTORY: 1. Hernia repair. 2. Cardiac cath with stent. SOCIAL HISTORY: The patient smoked for close to 33 years, stopped for 13 years and started smoking again 5 years ago, averaging about a pack a day. Used to work for [employer]. . FAMILY HISTORY: Myocardial infarction. HOME MEDICATIONS: 1. Glucophage 1000 mg p.o. b.i.d. 2. Norvasc 10 mg p.o. daily. 3. Nitrostat 0.4 sublingually p.r.n. 4. Naproxen 440 mg p.o. b.i.d. p.r.n. 5. Lopressor 37.5 p.o. at bedtime. 6. Hydrochlorothiazide 25 mg p.o. daily. 7. [place] 10 one tablet q.6 p.r.n. 8. Neurontin 300 mg p.o. t.i.d. p.r.n. 9. Lipitor 10 mg p.o. at bedtime. 10.Aspirin 325 p.o. daily. ALLERGIES: NONE. PHYSICAL EXAMINATION: Temperature 98.8, pulse 81, respiration 14, blood pressure 134/88, pulse ox 96% on room air. GENERAL APPEARANCE: Average build. Lying in bed, comfortable. EYES: Pupils equal. Conjunctivae normal. HEENT: External appearance of nose and ears normal. Oral cavity normal. NECK: JVD not raised. Mass not palpable. RESPIRATORY: Effort normal. LUNGS: Fair air entry. CARDIOVASCULAR: First and second sounds normal. No edema. ABDOMEN: Soft, non-tender. Liver and spleen not palpable. LYMPHATIC: No lymph node palpable in neck or axillae. PSYCHIATRY: Alert and oriented x3. Mood and affect normal. NEUROLOGICAL: Pupils equal. Cranial nerves grossly intact. Power and sensation grossly intact. INVESTIGATIONS: White count 9.5, hemoglobin 12.4, potassium 4.2, BUN 18, creatinine 0.39. Accu-Cheks 204, 176. Troponin less than 0.012, 13.5, 21.2. LDL 119. EKG tracing, personally reviewed by me, showed ST elevation in inferior leads. Chest x- ray film, personally reviewed by me, shows slight cardiomegaly. Lung roche are clear. ASSESSMENT: 1. Acute ST-elevation inferior wall acute myocardial infarction leading to emergent cardiac catheterization with patient getting 4 stents. 2. Coronary artery disease with prior history of stent. 3. Hyperlipidemia. 4. Essential hypertension. 5. Diabetes mellitus, type 2, on oral hypoglycemic, uncontrolled with hyperglycemia. 6. Primary osteoarthritis. 7. Chronic nicotine dependence. Patient is a cigarette smoker. PLAN: Patient is status post coronary intervention. More details in cardiology notes. Patient's current medications include aspirin, Lipitor, Neurontin, Zestril, Lopressor, Brilinta. Patient was prescribed Chantix per Dr. Paul Waller. The patient does not want to take the same. In the past, acupuncture and hypnosis have worked for him. For his diabetes, currently metformin is held because of the contrast dye. Will start the patient on NovoLog 4 units with meals and 14 units of Levemir starting tonight. Will go further from here, depending how his sugars behave. We will also check a glycosylated hemoglobin in the morning. Care was discussed with the patient and his . Questions were answered. Smoking cessation counseling was done with the patient. Different modalities of smoking cessation were discussed. The patient is not keen to take Chantix at the present time. More than 3 minutes was spent on this aspect of the case. MARAH / JONAS: [id number] /
[2018-06-28 20:59] LABS: Glucose,Whole Blood 188 mg/dL (75-99)
[2018-06-28] MEDS: ATORVASTATIN 80 MG TAB PO SCH (21:04)
[2018-06-28] MEDS: INSULIN DETEMIR 100 UNIT/ML 10 ML VIAL SQ SCH (21:04)
[2018-06-29 05:48] LABS: Anion Gap 7 mmol/L; Blood Urea Nitrogen 15 mg/dL (9-20); Calcium 9.2 mg/dL (8.4-10.2); Carbon Dioxide 23 mmol/L (22-30); Chloride 107 mmol/L (98-107); Cholesterol 165 mg/dL (<200); Glucose 159 mg/dL (74-99); HDL Cholesterol 30 mg/dL (40-60); LDL Cholesterol,Calculated 103 mg/dL (0-99); Magnesium 2.2 mg/dL (1.6-2.3); Potassium 4.3 mmol/L (3.5-5.1); Sodium 137 mmol/L (137-145); Triglycerides 159 mg/dL (<150)
[2018-06-29 06:05] LABS: Prothrombin Time 9.9 sec (9.0-12.0)
[2018-06-29 06:33] LABS: Basophils % (A) 0 %; Eosinophils # (A) 0.1 k/uL (0-0.7); Eosinophils % (A) 1 %; HCT 39.2 % (39.0-53.0); HGB 12.9 gm/dL (13.0-17.5); Lymphocytes # (A) 1.6 k/uL (1.0-4.8); Lymphocytes % (A) 15 %; MCH 29.9 pg (25.0-35.0); MCV 90.6 fL (80.0-100.0); Mean Platelet Volume 6.7; Monocytes # (A) 0.8 k/uL (0-1.0); Monocytes % (A) 7 %; Neutrophils # (A) 8.1 k/uL (1.3-7.7); Neutrophils % (A) 75 %; Platelet Count 297 k/uL (150-450); RBC 4.33 m/uL (4.30-5.90); RDW 13.5 % (11.5-15.5); WBC 10.8 k/uL (3.8-10.6)
[2018-06-29] MEDS: INSULIN ASPART 100 UNIT/ML 1 ML 10 ML VIAL SQ SCH ×7 (07:05→22:13)
[2018-06-29 07:11] LABS: Glucose,Whole Blood 166 mg/dL (75-99)
[2018-06-29] MEDS: METOPROLOL TARTRATE 25 MG TAB PO SCH ×2 (08:26→20:18)
[2018-06-29] MEDS: LISINOPRIL 5 MG TAB PO SCH ×3 (08:26→20:18)
[2018-06-29] MEDS: ASPIRIN 81 MG PO SCH (08:26)
[2018-06-29] MEDS: TICAGRELOR 90 MG TAB PO SCH ×2 (08:27→20:18)
[2018-06-29] MEDS: HYDROcodone/APAP 10-325MG 1 EACH TAB PO PRN ×2 (08:30→20:18)
[2018-06-29] MEDS: VARENICLINE 0.5 MG TAB PO SCH (08:39)
--- NOTE | 2018-06-29 10:46 | PN ---
PROGRESS NOTE This patient is status post inferior wall myocardial infarction and multiple stents in the RCA. Patient remains stable, hemodynamically. Denies any chest pain or shortness of breath. Patient's medications are reviewed. Blood pressure is 105/80 mmHg, heart rate is 78 per minute, oxygen saturation is 96%. First and second heart sounds are heard. Lungs are normal. Lungs are clinically clear to auscultation and percussion. Abdomen is soft. Patient's creatinine is 0.4. Patient will be ambulated and transferred to the step-down unit. MMODL / IJN: [id number] /
[2018-06-29 12:18] LABS: Glucose,Whole Blood 164 mg/dL (75-99)
[2018-06-29 17:52] LABS: Glucose,Whole Blood 144 mg/dL (75-99)
[2018-06-29] MEDS: ATORVASTATIN 80 MG TAB PO SCH (20:18)
[2018-06-29 20:59] LABS: Glucose,Whole Blood 184 mg/dL (75-99)
[2018-06-29] MEDS: INSULIN DETEMIR 100 UNIT/ML 10 ML VIAL SQ SCH (22:22)
--- NOTE | 2018-06-30 01:09 | PN ---
PROGRESS NOTE DATE OF SERVICE: 06/29/2018. PRESENT COMPLAINT: Acute CO. INTERVAL HISTORY: The patient presented with acute CO. Is doing much better. Moved out of ICU. Up and about in the hallway. No chest pain or short of breath. No lightheaded and dizziness. Did tolerate a diet. REVIEW OF SYSTEMS: Done for constitutional, cardiovascular, GI, pulmonary; relevant findings above. CURRENT MEDICATIONS: Reviewed that include aspirin and Brilinta. EXAMINATION: Afebrile, pulse 80, respiration 16, blood pressure 132/80, pulse ox 100 percent on room air general is lying in bed comfortable awake eyes look good normal. HEENT: External appearance of nose and ears normal. Oral cavity normal. NECK: JVD not raised. Mass not palpable. Respiratory effort normal. LUNGS: Clear. CARDIOVASCULAR: 1st and 2nd sounds no edema. ABDOMEN: Soft nontender liver is not palpable. PSYCHIATRY: Alert and oriented x3. Mood and affect normal. INVESTIGATIONS: White count 10.8, potassium 4.3 Accu-Cheks noted. LDL 103. ASSESSMENT: 1. Acute ST-elevation inferior wall acute CO leading to emergent cardiac catheterization with the patient getting for four stents. 2. Coronary artery disease with prior history of stents. 3. Hyperlipidemia. 4. Essential hypertension. 5. Diabetes mellitus type 2 on oral hypoglycemics, uncontrolled with hypoglycemia. 6. Primary osteoarthritis. 7. Chronic nicotine dependence patient is a cigarette smoker. PLAN: Care was discussed with the patient. Questions were answered. Encouraged to ambulate more. Hopefully looking at discharge tomorrow. MMODL / IJN: [id number] /
[2018-06-30] MEDS: HYDROcodone/APAP 10-325MG 1 EACH TAB PO PRN (04:43)
[2018-06-30 06:28] LABS: Glucose,Whole Blood 159 mg/dL (75-99)
[2018-06-30 06:29] LABS: Basophils % (A) 0 %; Eosinophils # (A) 0.2 k/uL (0-0.7); Eosinophils % (A) 2 %; HCT 36.9 % (39.0-53.0); HGB 12.8 gm/dL (13.0-17.5); Lymphocytes # (A) 1.5 k/uL (1.0-4.8); Lymphocytes % (A) 14 %; MCH 31.7 pg (25.0-35.0); MCHC 34.7 g/dL (31.0-37.0); MCV 91.1 fL (80.0-100.0); Monocytes # (A) 0.8 k/uL (0-1.0); Monocytes % (A) 8 %; Neutrophils # (A) 7.6 k/uL (1.3-7.7); Neutrophils % (A) 73 %; Platelet Count 266 k/uL (150-450); RBC 4.04 m/uL (4.30-5.90); RDW 13.5 % (11.5-15.5); WBC 10.4 k/uL (3.8-10.6)
[2018-06-30] MEDS: INSULIN ASPART 100 UNIT/ML 1 ML 10 ML VIAL SQ SCH ×4 (07:32→13:16)
[2018-06-30] MEDS: METOPROLOL TARTRATE 25 MG TAB PO SCH (08:32)
[2018-06-30] MEDS: TICAGRELOR 90 MG TAB PO SCH (08:32)
[2018-06-30] MEDS: VARENICLINE 0.5 MG TAB PO SCH (08:32)
[2018-06-30] MEDS: ASPIRIN 81 MG PO SCH (08:33)
[2018-06-30] MEDS: LISINOPRIL 5 MG TAB PO SCH (08:33)
[2018-06-30 08:37] VITALS: TEMP 98.1
[2018-06-30 11:58] LABS: Glucose,Whole Blood 126 mg/dL (75-99)
--- NOTE | 2018-06-30 15:10 | P.PN ---
Subjective Patient is seen and examined sitting up in chair in no acute distress. He denies any symptoms of chest discomfort, shortness of breath, dizziness or palpitations. He is status post inferior wall myocardial infarction and stent placement. Blood pressure 113/65 heart rate 75 afebrile maintaining oxygen saturation on room air. Laboratory data reviewed, hemoglobin 12.8 and platelets 266. He is currently maintained on aspirin 81 mg daily, atorvastatin 40 mg daily, Proventil 90 mg twice a day, Lopressor 25 mg twice a day and lisinopril 5 mg twice a day. GENERAL: Well-appearing, well-nourished and in no acute distress. NECK: Supple without JVD or thyromegaly. LUNGS: Breath sounds clear to auscultation bilaterally. Respiration equal and unlabored. No wheezes, rales or rhonchi. HEART: Regular rate and rhythm without murmurs, rubs or gallops. S1 and S2 heard. EXTREMITIES: Normal range of motion, no edema. No clubbing or cyanosis. Peripheral pulses intact. Right groin soft with no evidence of hematoma or bleeding. ASSESSMENT Acute inferior wall myocardial infarction status post angioplasty History of known coronary artery disease Hypertension Dyslipidemia Diabetes mellitus Chronic nicotine dependence PLAN Hemodynamically stable. Appropriate for discharge from a cardiac perspective. Follow-up with Dr. Mni in the office in one week. Discharge medications to include Brilinta, lisinopril, atorvastatin as well as aspirin. He will continue his metoprolol. Nurse Practitioner note has been reviewed, I agree with a documented findings and plan of care. Patient was seen and examined. Objective - Vital Signs Vital signs: Vital Signs Temp 98.1 F 06/30/18 08:00 Pulse 75 06/30/18 08:00 Resp 18 06/30/18 08:00 BP 113/65 06/30/18 08:00 Pulse Ox 96 06/30/18 08:00 Intake & Output 06/29/18 06/30/18 06/30/18 18:59 06:59 18:59 Intake Total 980 360 Balance 980 360 Weight 81.9 kg Intake: Oral 980 360 Other: Voiding Method Urinal Urinal # Voids 1 1 ABP, PAP, CO, CI - Last Documented Arterial Blood Pressure 146/69 - Labs CBC & Chem 7: 06/30/18 05:43 06/29/18 04:43 Labs: Abnormal Lab Results - Last 24 Hours (Table) 06/29/18 06/29/18 06/30/18 Range/Units 17:41 20:58 05:43 RBC 4.04 L (4.30-5.90) m/uL Hgb 12.8 L (13.0-17.5) gm/dL Hct 36.9 L (39.0-53.0) % POC Glucose (mg/dL) 144 H 184 H (75-99) mg/dL 06/30/18 06/30/18 Range/Units 06:27 11:56 RBC (4.30-5.90) m/uL Hgb (13.0-17.5) gm/dL Hct (39.0-53.0) % POC Glucose (mg/dL) 159 H 126 H (75-99) mg/dL
[2018-06-30 15:48] VITALS: BP 99/63; PULSE 68; RESP 16
[2018-06-30 16:26] LABS: Glucose,Whole Blood 190 mg/dL (75-99)
[2018-06-30] MEDS ORDERED: ATORVASTATIN 40 MG TAB PO SCH (21:00)
--- NOTE | 2018-07-01 08:32 | DS ---
DISCHARGE SUMMARY DATE OF ADMISSION: June 27, 2018. DATE OF DISCHARGE: June 30, 2018. FINAL DIAGNOSES: 1. Acute ST-elevation inferior wall myocardial infarction leading to emergent cardiac catheterization with 4 stents. 2. Coronary artery disease with prior history of stent. 3. Hyperlipidemia. 4. Essential hypertension. 5. Diabetes mellitus type 2, on oral hypoglycemics, uncontrolled with hypoglycemia. 6. Primary osteoarthritis. 7. Chronic nicotine dependence. Patient is a cigarette smoker. 8. Diabetes mellitus type 2, uncontrolled with hyperglycemia and not hypoglycemia as dictated above. CONSULTATIONS: Dr. Paul Waller from Cardiology, Dr. Min from interventional cardiology. HOSPITAL COURSE: This patient presented with acute [place], was still smoking, had 4 stents done. More details in Dr. Min's note. The patient's 2D echocardiogram showed the EF of 50-55 percent. The patient has moderate aortic valve sclerosis. By the time of discharge up and about in the hallway. No chest pain or shortness of breath. Care was discussed at length with the patient. PHYSICAL EXAMINATION: Temperature 98.1, pulse 68, respiratory rate 16, blood pressure 99/73, pulse ox 97% on room air. Lungs slightly decreased breath sounds. Cardiovascular: 1st and 2nd sounds normal. DISCHARGE MEDICATIONS: 1. Metformin 1000 mg p.o. b.i.d. 2. Neurontin 300 mg p.o. t.i.d. p.r.n. 3. Silvis 10 1 tablet p.o. q.6h p.r.n. 4. Nitrostat 0.4 sublingual q.5 p.r.n. 5. Aspirin 81 mg a day. 6. Lipitor 40 mg q.h.s. The patient gets cramps and lower dose is being given. 7. Zestril 10 mg p.o. daily. 8. Lopressor 25 mg b.i.d. 9. Brilinta 90 mg p.o. b.i.d. FOLLOWUP: Follow up with Dr. Min in 1 week, follow up with Dr. Jarvis in 1 week. Post cath orders per Dr. Min. The patient is counseled against smoking. Copy to Dr. Jarvis. MMODL / IJN: [id number] /
== END 2018-06-30 16:54 | disposition home or self-care (01) | DRG 246 ==
LOC: EC 23:16 → 2SICU 23:54 → 3SCARD 06-29 14:13
PROVIDERS: ADMIT Hospitalist; ATTEND Hospitalist
PROC: B3101ZZ Fluoroscopy of Thoracic Aorta using Low Osmolar Contrast (ICD-10-PCS; 2018-06-28)
PROC: 027237Z Dilation of Coronary Artery, Three Arteries with Four or More Drug-eluting Intraluminal Devices, Percutaneous Approach (ICD-10-PCS; principal; 2018-06-28 00:03)
PROC: 4A023N7 Measurement of Cardiac Sampling and Pressure, Left Heart, Percutaneous Approach (ICD-10-PCS; 2018-06-28 00:03)
PROC: B2111ZZ Fluoroscopy of Multiple Coronary Arteries using Low Osmolar Contrast (ICD-10-PCS; 2018-06-28 00:03)
DX: I21.19 ST elevation (STEMI) myocardial infarction involving other coronary artery of inferior wall (principal); E11.65 Type 2 diabetes mellitus with hyperglycemia; E78.5 Hyperlipidemia, unspecified; F17.210 Nicotine dependence, cigarettes, uncomplicated; Z71.6 Tobacco abuse counseling; I10 Essential (primary) hypertension; I25.10 Atherosclerotic heart disease of native coronary artery without angina pectoris; I35.8 Other nonrheumatic aortic valve disorders; M19.91 Primary osteoarthritis, unspecified site; Z79.82 Long term (current) use of aspirin; Z79.84 Long term (current) use of oral hypoglycemic drugs; Z79.899 Other long term (current) drug therapy; Z82.49 Family history of ischemic heart disease and other diseases of the circulatory system; M54.9 Dorsalgia, unspecified; M25.559 Pain in unspecified hip; Z95.5 Presence of coronary angioplasty implant and graft
CPT/HCPCS: 36415; 71045; 80048; 80053; 80061; 82550; 82553; 83735; 84100; 84484; 85025; 85610; 85730; 93005; 93306; 93458; 96374; 96375; 99291; C1874

== ENCOUNTER 2018-07-04 14:39 | Emergency (ER) | payer OTHER ==
[2018-07-04 15:20] VITALS: RESP 18
[2018-07-04] MEDS ORDERED: SODIUM CHLORIDE 0.9% 500 ML 500 ML IV STA (15:45)
[2018-07-04] MEDS ORDERED: ONDANSETRON 4 MG/2 ML VIAL IVP STA (15:45)
[2018-07-04] MEDS ORDERED: SODIUM CHLORIDE 0.9% 1,000 ML IV STA (15:45)
--- NOTE | 2018-07-04 15:50 | ED ---
General Adult HPI - General Chief complaint: Nausea/Vomiting/Diarrhea Stated complaint: Nausea, Referred by Dr Time Seen by Provider: 07/04/18 15:36 Source: patient, RN notes reviewed, old records reviewed Mode of arrival: ambulatory Limitations: no limitations - History of Present Illness Initial comments: 58 -year-old male presents for evaluation nausea, diarrhea, and decreased appetite. Patient was recently admitted to the hospital with [place]. He received 5 cardiac stents. He has been on aspirin and Brillinta. No chest pain. Patient does report some mild weakness. No fever. No cough. No recent antibiotic exposure. He's had several episodes of watery diarrhea. Patient states he felt this way prior to discharge and this has continued at home for the past several days. He is concerned about dehydration. - Related Data Home Medications Medication Instructions Recorded Confirmed metFORMIN HCL [Glucophage] 1,000 mg PO BID 02/16/17 06/27/18 Gabapentin [Neurontin] 300 mg PO TID PRN 06/27/18 06/27/18 HYDROcodone/APAP 10-325MG [[place] 1 tab PO Q6H PRN 06/27/18 06/27/18 10-325] Nitroglycerin Sl Tabs [Nitrostat] 0.4 mg SUBLINGUAL Q5M PRN 06/27/18 06/27/18 Previous Rx's Medication Instructions Recorded Aspirin 81 mg PO DAILY chew 06/30/18 Atorvastatin [Lipitor] 40 mg PO HS #30 tab 06/30/18 Lisinopril [Zestril] 10 mg PO DAILY #30 tab 06/30/18 Metoprolol Tartrate [Lopressor] 25 mg PO BID #60 tab 06/30/18 Ticagrelor [Brilinta] 90 mg PO BID #60 tab 06/30/18 Ondansetron Odt [Zofran Odt] 4 mg PO Q8HR PRN #10 tab 07/04/18 Allergies Allergy/AdvReac Type Severity Reaction Status Date / Time No Known Allergies Allergy Verified 07/04/18 15:18 Review of Systems ROS Statement: Those systems with pertinent positive or pertinent negative responses have been documented in the HPI. ROS Other: All systems not noted in ROS Statement are negative. Past Medical History Past Medical History: Diabetes Mellitus, Hypertension, Myocardial Infarction ([place] ) Additional Past Medical History / Comment(s): BACK AND RIGHT HIP PAIN., STATES SURGERY RESCHEDULED DUE TO RASH MIRIAM GROINS WHICH IS NOW RESOLVED. Last Myocardial Infarction Date:: 2000 History of Any Multi-Drug Resistant Organisms: None Reported Past Surgical History: Heart Catheterization With Stent, Hernia Repair Additional Past Surgical History / Comment(s): 5 recent stents placed Past Anesthesia/Blood Transfusion Reactions: No Reported Reaction Date of Last Stent Placement:: 2000 Past Psychological History: No Psychological Hx Reported Smoking Status: Current every day smoker Past Alcohol Use History: Occasional Past Drug Use History: None Reported - Past Family History Mother Family Medical History: Cancer, Myocardial Infarction ([place]) Father Family Medical History: Myocardial Infarction ([place]) General Exam Limitations: no limitations General appearance: alert, in no apparent distress Head exam: Present: atraumatic, normocephalic Eye exam: Present: normal appearance, PERRL ENT exam: Present: mucous membranes dry Neck exam: Present: normal inspection. Absent: tenderness, meningismus Respiratory exam: Present: normal lung sounds bilaterally. Absent: respiratory distress, wheezes Cardiovascular Exam: Present: regular rate, normal rhythm GI/Abdominal exam: Present: soft. Absent: distended, tenderness Extremities exam: Present: normal inspection, normal capillary refill. Absent: pedal edema Neurological exam: Present: alert, oriented X3, CN II-XII intact. Absent: motor sensory deficit Psychiatric exam: Present: normal affect, normal mood Skin exam: Present: warm, dry, intact. Absent: cyanosis, diaphoretic Course Vital Signs 07/04/18 07/04/18 15:16 17:00 Temperature 98.7 F Pulse Rate 83 75 Respiratory 18 18 Rate Blood Pressure 128/79 135/75 O2 Sat by Pulse 98 100 Oximetry EKG Findings - EKG Comments: EKG Findings:: EKG: Normal sinus rhythm, rate of 81, MS interval 160, QRS duration 98, QTC 425 T waves are upright, there is questionable ST segment elevation in V3 although there is no change in V2 or V4 and no reciprocal change. This is likely baseline artifact. EKG significantly improved compared to previous which showed inferior [place]. Medical Decision Making - Medical Decision Making 58-year-old male presenting with nausea and decreased by mouth intake as well as 2 episodes of watery diarrhea. Patient has no chest pain, no dyspnea, no abdominal pain. Patient has normal CBC, normal CMP, he is unable to provide a stool sample, we will monitor his diarrhea and follow-up with his primary care physician. On reevaluation is feeling much better. He will be prescribed some Zofran and is encouraged to continue to eat and drink at home. We will repeat present with worsening or changing symptoms. - Lab Data Result diagrams: 07/04/18 15:54 07/04/18 15:54 Lab Results 07/04/18 07/04/18 Range/Units 15:54 15:54 WBC 9.0 (3.8-10.6) k/uL RBC 4.47 (4.30-5.90) m/uL Hgb 13.7 (13.0-17.5) gm/dL Hct 40.8 (39.0-53.0) % MCV 91.3 (80.0-100.0) fL MCH 30.6 (25.0-35.0) pg MCHC 33.5 (31.0-37.0) g/dL RDW 13.3 (11.5-15.5) % Plt Count 322 (150-450) k/uL Neutrophils % 75 % Lymphocytes % 14 % Monocytes % 6 % Eosinophils % 1 % Basophils % 1 % Neutrophils # 6.8 (1.3-7.7) k/uL Lymphocytes # 1.3 (1.0-4.8) k/uL Monocytes # 0.5 (0-1.0) k/uL Eosinophils # 0.1 (0-0.7) k/uL Basophils # 0.1 (0-0.2) k/uL Sodium 135 L (137-145) mmol/L Potassium 4.9 (3.5-5.1) mmol/L Chloride 101 (98-107) mmol/L Carbon Dioxide 23 (22-30) mmol/L Anion Gap 11 mmol/L BUN 18 (9-20) mg/dL Creatinine 0.57 L (0.66-1.25) mg/dL Est GFR (CKD-EPI)AfAm >90 (>60 ml/min/1.73 sqM) Est GFR (CKD-EPI)NonAf >90 (>60 ml/min/1.73 sqM) Glucose 143 H (74-99) mg/dL Calcium 9.8 (8.4-10.2) mg/dL Total Bilirubin 0.5 (0.2-1.3) mg/dL AST 20 (17-59) U/L ALT 35 (21-72) U/L Alkaline Phosphatase 43 (38-126) U/L Total Protein 6.7 (6.3-8.2) g/dL Albumin 3.9 (3.5-5.0) g/dL Disposition Clinical Impression: Dehydration, Nausea Disposition: HOME SELF-CARE Condition: Stable Instructions: Acute Nausea and Vomiting (ED) Prescriptions: Ondansetron Odt [Zofran Odt] 4 mg PO Q8HR PRN #10 tab PRN Reason: Vomiting Is patient prescribed a controlled substance at d/c from ED?: No When asked, does pt state using other controlled substances?: No Referrals: Shaji Jarvis MD [Primary Care Provider] - 1-2 days Time of Disposition: 17:15
[2018-07-04 16:25] LABS: Basophils # (A) 0.1 k/uL (0-0.2); Basophils % (A) 1 %; Eosinophils # (A) 0.1 k/uL (0-0.7); Eosinophils % (A) 1 %; HCT 40.8 % (39.0-53.0); HGB 13.7 gm/dL (13.0-17.5); Lymphocytes # (A) 1.3 k/uL (1.0-4.8); Lymphocytes % (A) 14 %; MCH 30.6 pg (25.0-35.0); MCHC 33.5 g/dL (31.0-37.0); MCV 91.3 fL (80.0-100.0); Mean Platelet Volume 6.5; Monocytes # (A) 0.5 k/uL (0-1.0); Monocytes % (A) 6 %; Neutrophils # (A) 6.8 k/uL (1.3-7.7); Neutrophils % (A) 75 %; Platelet Count 322 k/uL (150-450); RBC 4.47 m/uL (4.30-5.90); RDW 13.3 % (11.5-15.5)
[2018-07-04 16:39] LABS: ALT 35 U/L (21-72); AST 20 U/L (17-59); Albumin 3.9 g/dL (3.5-5.0); Alkaline Phosphatase 43 U/L (38-126); Anion Gap 11 mmol/L; Blood Urea Nitrogen 18 mg/dL (9-20); Calcium 9.8 mg/dL (8.4-10.2); Carbon Dioxide 23 mmol/L (22-30); Chloride 101 mmol/L (98-107); Glucose 143 mg/dL (74-99); Potassium 4.9 mmol/L (3.5-5.1); Sodium 135 mmol/L (137-145); Total Bilirubin 0.5 mg/dL (0.2-1.3); Total Protein 6.7 g/dL (6.3-8.2)
--- NOTE | 2018-07-04 16:42 | XR ---
EXAMINATION TYPE: XR KUB DATE OF EXAM: 07/04/2018 COMPARISON: NONE HISTORY: Vomiting and diarrhea. Nausea. TECHNIQUE: 2 views upright FINDINGS: There is no sign of intestinal obstruction or pneumoperitoneum. Fecal pattern is normal. Th ere is lumbar dextrorotoscoliosis. There are no pathologic calcifications over the kidneys. Lung base s are clear. There is right hip prosthesis. IMPRESSION: Nonacute abdomen.
[2018-07-04] MEDS ORDERED: CEFEPIME 2 GM in SODIUM CHLORIDE 0.9% 50 ML IVPB STA (17:02)
[2018-07-04] MEDS ORDERED: VANCOMYCIN IV PER PHARMACY 1 EACH MISC MISCELLANE PRN (17:02)
[2018-07-04 17:36] VITALS: BP 121/76; PULSE 70; TEMP 98
== END 2018-07-04 17:34 | disposition home or self-care (01) ==
LOC: EC 14:39
DX: E86.0 Dehydration (principal); R11.0 Nausea; R19.7 Diarrhea, unspecified; E11.9 Type 2 diabetes mellitus without complications; I25.2 Old myocardial infarction; F17.200 Nicotine dependence, unspecified, uncomplicated; Z95.5 Presence of coronary angioplasty implant and graft; Z98.890 Other specified postprocedural states; Z79.84 Long term (current) use of oral hypoglycemic drugs; Z79.899 Other long term (current) drug therapy
CPT/HCPCS: 36415; 93005; 80053; 85025; 74018; 99284; 96374; 96361; J2405

== ENCOUNTER → 2018-07-23 | Outpatient (CLI) | payer OTHER ==
--- NOTE | 2018-07-25 10:15 | P.ARTDOP ---
Arterial Doppler LOWER EXTREMITY ARTERIAL DOPPLER: DATE OF SERVICE: 07/23/2018 Reason for study: Suspected lower extremity occlusive disease. Doppler waveforms: Multiphasic bilaterally throughout. Pulse volume recording: Normal configuration. Pressure gradients: None. Ankle-brachial indices: Greater than 1 bilaterally. Toe pressures: 90 on the right, 125 on the left Impression: Normal study.
== END | disposition home or self-care (01) ==
LOC: RADUSWWP 08:49
PROVIDERS: ATTEND Family Medicine
DX: I73.9 Peripheral vascular disease, unspecified (principal)
CPT/HCPCS: 93923

== ENCOUNTER → 2018-10-02 | Outpatient (CLI) | payer OTHER ==
[2018-10-02 11:55] LABS: Albumin 4.5 g/dL (3.80-4.90); Albumin/Globulin Ratio 2.37 (1.60-3.17); Anion Gap 7.5 mmol/L (4.00-12.00); Calcium 9.4 mg/dL (8.7-10.3); Carbon Dioxide 28.5 mmol/L (21.6-31.8); Globulin 1.9 g/dL (1.6-3.3); LDL Cholesterol,Calculated 63.2 mg/dL (0.0-131.0); Potassium 4.6 mmol/L (3.5-5.5); Total Bilirubin 0.4 mg/dL (0.3-1.2); Total Protein 6.4 g/dL (6.2-8.2); VLDL Calculation 14.8 mg/dL (5.00-40.00)
== END | disposition home or self-care (01) ==
LOC: LABWHC1 06:51
PROVIDERS: ATTEND Internal Medicine Interventional Cardiology
DX: E78.2 Mixed hyperlipidemia (principal)
CPT/HCPCS: 36415; 80053; 80061

== ENCOUNTER 2018-10-31 19:50 | Observation (INO) | payer OTHER ==
[2018-10-31] MEDS ORDERED: ASPIRIN 81 MG PO STA (20:16)
[2018-10-31] MEDS ORDERED: SODIUM CHLORIDE 0.9% 1,000 ML IV STA ×2 (20:16)
--- NOTE | 2018-10-31 20:24 | ED ---
Headache HPI - General Chief Complaint: Headache Stated Complaint: Headache, sweating, nausea Time Seen by Provider: 10/31/18 20:00 Source: RN notes reviewed, old records reviewed Mode of arrival: ambulatory Limitations: no limitations - History of Present Illness Initial Comments: Patient is a 58-year-old male presents emergency Department today with c omplaints of a flushed, diaphoretic feeling today this morning while driving his vehicle. He also complains of nausea at that time. Patient states she's had intermittent nausea throughout the day. He also complains that he's been seen by Dr. Min or monitoring his blood pressure. He reports that he has been having daily headaches. He reports that his headache at this time is a 1 out of 10. Patient states that he has no chest pain at this time or associated shortness of breath. Patient denies any vomiting episodes or diarrhea. Patient states that he had a severe diaphoretic episode this morning while he was driving. Patient has had 5 stents placed in June as well as 2 previous stents and 2009. - Related Data Home Medications Medication Instructions Recorded Confirmed metFORMIN HCL [Glucophage] 1,000 mg PO BID 02/16/17 10/31/18 Gabapentin [Neurontin] 300 mg PO TID PRN 06/27/18 10/31/18 HYDROcodone/APAP 10-325MG [[place] 1 tab PO Q6H PRN 06/27/18 10/31/18 10-325] Nitroglycerin Sl Tabs [Nitrostat] 0.4 mg SUBLINGUAL Q5M PRN 06/27/18 10/31/18 Aspirin [Adult Low Dose Aspirin EC] 81 mg PO DAILY 10/31/18 10/31/18 Clopidogrel Bisulfate [Plavix] 75 mg PO DAILY 10/31/18 10/31/18 Previous Rx's Medication Instructions Recorded Atorvastatin [Lipitor] 40 mg PO HS #30 tab 06/30/18 Lisinopril [Zestril] 10 mg PO DAILY #30 tab 06/30/18 Metoprolol Tartrate [Lopressor] 25 mg PO BID #60 tab 06/30/18 Allergies Allergy/AdvReac Type Severity Reaction Status Date / Time No Known Allergies Allergy Verified 10/31/18 20:08 Review of Systems ROS Statement: Those systems with pertinent positive or pertinent negative responses have been documented in the HPI. ROS Other: All systems not noted in ROS Statement are negative. Past Medical History Past Medical History: Diabetes Mellitus, Hypertension, Myocardial Infarction ([place]) Additional Past Medical History / Comment(s): BACK AND RIGHT HIP PAIN., STATES SURGERY RESCHEDULED DUE TO RASH MIRIAM GROINS WHICH IS NOW RESOLVED. Last Myocardial Infarction Date:: 2000 History of Any Multi-Drug Resistant Organisms: None Reported Past Surgical History: Heart Catheterization, Heart Catheterization With Stent, Hernia Repair Additional Past Surgical History / Comment(s): 5 recent stents placed Past Anesthesia/Blood Transfusion Reactions: No Reported Reaction Date of Last Stent Placement:: 2000 Past Psychological History: No Psychological Hx Reported Smoking Status: Current every day smoker Past Alcohol Use History: Occasional Past Drug Use History: None Reported - Past Family History Mother Family Medical History: Cancer, Myocardial Infarction ([place]) Father Family Medical History: Myocardial Infarction ([place]) General Exam - General Exam Comments Initial Comments: 4-year-old male. Alert and oriented 3. No distress. Limitations: no limitations General appearance: alert, in no apparent distress Head exam: Present: atraumatic, normocephalic, normal inspection Eye exam: Present: normal appearance, PERRL, EOMI. Absent: scleral icterus, conjunctival injection, periorbital swelling ENT exam: Present: normal exam, mucous membranes moist Neck exam: Present: normal inspection. Absent: tenderness, meningismus, lymphadenopathy Respiratory exam: Present: normal lung sounds bilaterally. Absent: respiratory distress, wheezes, rales, rhonchi, stridor Cardiovascular Exam: Present: regular rate, normal rhythm, systolic murmur. Absent: normal heart sounds, diastolic murmur, rubs, gallop, clicks GI/Abdominal exam: Present: soft, normal bowel sounds. Absent: distended, tenderness, guarding, rebound, rigid Extremities exam: Present: normal inspection, full ROM, normal capillary refill. Absent: tenderness, pedal edema, joint swelling, calf tenderness Back exam: Present: normal inspection Neurological exam: Present: alert, oriented X3, CN II-XII intact Psychiatric exam: Present: normal affect, normal mood Skin exam: Present: warm, dry, intact, normal color. Absent: rash Course Vital Signs 10/31/18 10/31/18 19:52 21:21 Temperature 98.6 F Pulse Rate 80 72 Respiratory 17 18 Rate Blood Pressure 177/92 159/76 O2 Sat by Pulse 95 96 Oximetry - Reevaluation(s) Reevaluation #1: 10/31/18 21:30 Patient is reevaluated and resting comfortably in bed at this time. He denies any complaints of pain. Before Patient have some changes with an EKG. Medical Decision Making - Medical Decision Making Patient is a 4-year-old male who presents emergency department today after an episode of flushing feeling and diaphoresis. Patient states that he's had a slight headache at this time. He has no neurological deficits and otherwise appears well. Patient remove a slightly elevated blood pressure 177/86. After fluids and aspirin he had his blood pressure rechecked 154/76. Patient complains of no chest pain. With a significant cardiac history we did check an EKG. Does seem to be some changes over the inferior leads. Patient's troponin test is negative. Chest x-ray was negative for any acute process. Patient states he's had no further episodes of chest pain while in the emergency department. Patient will be admitted at this time for concerns for ACS rule out. Consults to patient's furniture fabricator Dr. Min. - Lab Data Result diagrams: 10/31/18 20:25 10/31/18 20:25 Lab Results 10/31/18 10/31/18 10/31/18 Range/Units 20:25 20:25 20:25 WBC 6.5 (3.8-10.6) k/uL RBC 4.51 (4.30-5.90) m/uL Hgb 12.9 L (13.0-17.5) gm/dL Hct 39.5 (39.0-53.0) % MCV 87.7 (80.0-100.0) fL MCH 28.7 (25.0-35.0) pg MCHC 32.7 (31.0-37.0) g/dL RDW 13.5 (11.5-15.5) % Plt Count 253 (150-450) k/uL Neutrophils % 61 % Lymphocytes % 24 % Monocytes % 8 % Eosinophils % 3 % Basophils % 1 % Neutrophils # 4.0 (1.3-7.7) k/uL Lymphocytes # 1.6 (1.0-4.8) k/uL Monocytes # 0.5 (0-1.0) k/uL Eosinophils # 0.2 (0-0.7) k/uL Basophils # 0.1 (0-0.2) k/uL PT 10.1 (9.0-12.0) sec INR 0.9 (<1.2) APTT 23.4 (22.0-30.0) sec Sodium 136 L (137-145) mmol/L Potassium 4.4 (3.5-5.1) mmol/L Chloride 100 (98-107) mmol/L Carbon Dioxide 26 (22-30) mmol/L Anion Gap 10 mmol/L BUN 16 (9-20) mg/dL Creatinine 0.51 L (0.66-1.25) mg/dL Est GFR (CKD-EPI)AfAm >90 (>60 ml/min/1.73 sqM) Est GFR (CKD-EPI)NonAf >90 (>60 ml/min/1.73 sqM) Glucose 225 H (74-99) mg/dL Calcium 9.7 (8.4-10.2) mg/dL Magnesium 1.8 (1.6-2.3) mg/dL Total Bilirubin 0.4 (0.2-1.3) mg/dL AST 19 (17-59) U/L ALT 27 (21-72) U/L Alkaline Phosphatase 44 (38-126) U/L Troponin I (0.000-0.034) ng/mL NT-Pro-B Natriuret Pep pg/mL Total Protein 6.7 (6.3-8.2) g/dL Albumin 4.2 (3.5-5.0) g/dL Amylase <30 L (30-110) U/L Lipase 28 (23-300) U/L 10/31/18 10/31/18 Range/Units 20:25 20:25 WBC (3.8-10.6) k/uL RBC (4.30-5.90) m/uL Hgb (13.0-17.5) gm/dL Hct (39.0-53.0) % MCV (80.0-100.0) fL MCH (25.0-35.0) pg MCHC (31.0-37.0) g/dL RDW (11.5-15.5) % Plt Count (150-450) k/uL Neutrophils % % Lymphocytes % % Monocytes % % Eosinophils % % Basophils % % Neutrophils # (1.3-7.7) k/uL Lymphocytes # (1.0-4.8) k/uL Monocytes # (0-1.0) k/uL Eosinophils # (0-0.7) k/uL Basophils # (0-0.2) k/uL PT (9.0-12.0) sec INR (<1.2) APTT (22.0-30.0) sec Sodium (137-145) mmol/L Potassium (3.5-5.1) mmol/L Chloride (98-107) mmol/L Carbon Dioxide (22-30) mmol/L Anion Gap mmol/L BUN (9-20) mg/dL Creatinine (0.66-1.25) mg/dL Est GFR (CKD-EPI)AfAm (>60 ml/min/1.73 sqM) Est GFR (CKD-EPI)NonAf (>60 ml/min/1.73 sqM) Glucose (74-99) mg/dL Calcium (8.4-10.2) mg/dL Magnesium (1.6-2.3) mg/dL Total Bilirubin (0.2-1.3) mg/dL AST (17-59) U/L ALT (21-72) U/L Alkaline Phosphatase (38-126) U/L Troponin I <0.012 (0.000-0.034) ng/mL NT-Pro-B Natriuret Pep 302 pg/mL Total Protein (6.3-8.2) g/dL Albumin (3.5-5.0) g/dL Amylase (30-110) U/L Lipase (23-300) U/L 10/31/18 20:42 EKG reviewed at 2025 shows normal sinus rhythm with ST elevation consider early re-pole pericarditis or injury. This is abnormal EKG noted. Ventricular rate 60 bpm. We'll is 172 ms. QRS duration is 86 ms. QT QTC 370/393 ms. - Radiology Data Radiology results: report reviewed Normal chest x-ray no changes. Disposition Clinical Impression: Unstable angina, HTN (hypertension) Disposition: ADMITTED IP TO THIS [facility] Condition: Stable Is patient prescribed a controlled substance at d/c from ED?: No Referrals: Shaji Jarvis MD [Primary Care Provider] - 1-2 days Time of Disposition: 21:34
[2018-10-31 20:38] LABS: Basophils # (A) 0.1 k/uL (0-0.2); Basophils % (A) 1 %; Eosinophils # (A) 0.2 k/uL (0-0.7); Eosinophils % (A) 3 %; HCT 39.5 % (39.0-53.0); HGB 12.9 gm/dL (13.0-17.5); Lymphocytes # (A) 1.6 k/uL (1.0-4.8); Lymphocytes % (A) 24 %; MCH 28.7 pg (25.0-35.0); MCHC 32.7 g/dL (31.0-37.0); MCV 87.7 fL (80.0-100.0); Mean Platelet Volume 6.7; Monocytes # (A) 0.5 k/uL (0-1.0); Monocytes % (A) 8 %; Neutrophils % (A) 61 %; Platelet Count 253 k/uL (150-450); RBC 4.51 m/uL (4.30-5.90); RDW 13.5 % (11.5-15.5); WBC 6.5 k/uL (3.8-10.6)
[2018-10-31 20:48] LABS: INR 0.9 (<1.2); Partial Thromboplastin Time 23.4 sec (22.0-30.0); Prothrombin Time 10.1 sec (9.0-12.0)
--- NOTE | 2018-10-31 20:52 | XR ---
EXAMINATION TYPE: XR chest 2V DATE OF EXAM: 10/31/2018 COMPARISON: 06/27/2018 HISTORY: Chest pain TECHNIQUE: Frontal and lateral views of the chest are obtained. FINDINGS: Heart and mediastinum are normal. Lungs are clear. Diaphragm is normal. Bony thorax appear s normal. There are chest leads. IMPRESSION: Normal chest. No change.
[2018-10-31 20:53] LABS: ALT 27 U/L (21-72); AST 19 U/L (17-59); Albumin 4.2 g/dL (3.5-5.0); Alkaline Phosphatase 44 U/L (38-126); Amylase <30 U/L (30-110); Anion Gap 10 mmol/L; Blood Urea Nitrogen 16 mg/dL (9-20); Calcium 9.7 mg/dL (8.4-10.2); Carbon Dioxide 26 mmol/L (22-30); Chloride 100 mmol/L (98-107); Glucose 225 mg/dL (74-99); Lipase 28 U/L (23-300); Magnesium 1.8 mg/dL (1.6-2.3); Potassium 4.4 mmol/L (3.5-5.1); Sodium 136 mmol/L (137-145); Total Bilirubin 0.4 mg/dL (0.2-1.3); Total Protein 6.7 g/dL (6.3-8.2)
[2018-10-31] MEDS ORDERED: hydrALAZINE HCL 20 MG/ML 1 ML VIAL IVP STA (21:14)
[2018-10-31] MEDS ORDERED: NALOXONE 0.4 MG/ML 1 ML VIAL IV PRN (21:35)
[2018-10-31] MEDS ORDERED: ONDANSETRON 4 MG/2 ML VIAL IVP PRN (21:35)
[2018-10-31] MEDS ORDERED: KETOROLAC 30 MG/ML 1 ML VIAL IVP PRN (21:35)
[2018-10-31] MEDS ORDERED: ACETAMINOPHEN TAB 325 MG TAB PO PRN (21:35)
[2018-10-31] MEDS ORDERED: MORPHINE SULFATE 4 MG/ML SYRINGE IV PRN (21:35)
[2018-10-31] MEDS ORDERED: IBUPROFEN 400 MG TAB PO PRN (21:35)
[2018-10-31] MEDS ORDERED: NITROGLYCERIN SL TABS 0.4 MG TAB SUBLINGUAL PRN (21:37)
[2018-11-01] MEDS: SODIUM CHLORIDE 0.9% 1,000 ML IV SCH ×2 (00:09→06:13)
[2018-11-01 00:45] VITALS: BMI 31.6
[2018-11-01 04:22] LABS: Cholesterol 113 mg/dL (<200); HDL Cholesterol 40 mg/dL (40-60); LDL Cholesterol,Calculated 52 mg/dL (0-99); Triglycerides 103 mg/dL (<150)
[2018-11-01 05:41] LABS: Glucose,Whole Blood 150 mg/dL (75-99)
[2018-11-01] MEDS: INSULIN ASPART (NovoLOG) 100 UNIT/ML VIAL SQ SCH ×4 (06:13→21:06)
--- NOTE | 2018-11-01 08:57 | P.CRDCN ---
History of Present Illness Consult date: 11/01/18 Requesting physician: Hilton Lopez Consult reason: hypertension Chief complaint: Nausea, diaphoresis History of present illness: This is a pleasant 58-year-old gentleman who follows regularly with Dr. Min in the office. He has a known history of hypertension, hyperlipidemia, diabetes, coronary artery disease for which the patient underwent stenting approximately 15 years ago, chronic nicotine dependence, most recently in June 2018 he presented to the hospital with an acute inferior wall myocardial infarction, at that time the patient underwent successful stenting of the right PLV, right PDA, mid RCA, and proximal RCA by Dr. Min. At that time patient was also found to have significant stenosis in the distal apical segment of the LAD and in the second small obtuse marginal branch. He presents to the hospital on this occasion with symptoms of nausea and diaphores is. According to the patient, he was driving down to the city to visit with his sister when all of a sudden he became quite nauseous, he states that he became sweaty from head to toe, and had a flushed sensation. He also had some mild associated body aches and chills. He denies any chest discomfort and is breathing overall has been stable. According to the patient, his blood pressure has been running high lately and Dr. Min is asked him to keep records of his blood pressures at home. Chest x-ray on admission was normal. Initial EKG on presentation here showed a normal sinus rhythm with ST-T wave changes noted in the inferior leads, similar to prior EKGs. Blood pressure on arrival here 177/90 with a heart rate in the 80s, 95% on room air. Blood pressure this morning 164/100 with a heart rate in the 60s, 97% on room air. White blood cell count is normal, hemoglobin 12.9, platelet count 253. Sodium 136, potassium 4.4, BUN 16 and creatinine 0.5. Troponins have been negative 2, BNP is 302. At the time of my examination this morning, patient denies any chest discomfort, no difficulty in breathing, no further episodes of nausea or diaphoresis. He does feel as though he is developing sinus cold at this time. Past Medical History Past Medical History: Diabetes Mellitus, Hypertension, Myocardial Infarction ([place]) Additional Past Medical History / Comment(s): Patient was a stemi in june 2018 got stents X 5 Last Myocardial Infarction Date:: 2018 History of Any Multi-Drug Resistant Organisms: None Reported Past Surgical History: Heart Catheterization, Heart Catheterization With Stent, Hernia Repair Additional Past Surgical History / Comment(s): 5 recent stents placed Past Anesthesia/Blood Transfusion Reactions: No Reported Reaction Date of Last Stent Placement:: 2017 Past Psychological History: No Psychological Hx Reported Smoking Status: Current every day smoker Past Alcohol Use History: Occasional Additional Past Alcohol Use History / Comment(s): 1ppd for on & off since 1971, quit for approx 13 years and restarted approx 3 years ago. Past Drug Use History: None Reported - Past Family History Mother Family Medical History: Cancer, Myocardial Infarction ([place]) Father Family Medical History: Myocardial Infarction ([place]) Medications and Allergies Home Medications Medication Instructions Recorded Confirmed Type metFORMIN HCL [Glucophage] 1,000 mg PO BID 02/16/17 10/31/18 History Gabapentin [Neurontin] 300 mg PO TID PRN 06/27/18 10/31/18 History HYDROcodone/APAP 10-325MG [[place] 1 tab PO Q6H PRN 06/27/18 10/31/18 History 10-325] Nitroglycerin Sl Tabs [Nitrostat] 0.4 mg SUBLINGUAL Q5M PRN 06/27/18 10/31/18 History Atorvastatin [Lipitor] 40 mg PO HS #30 tab 06/30/18 10/31/18 Rx Lisinopril [Zestril] 10 mg PO DAILY #30 tab 06/30/18 10/31/18 Rx Metoprolol Tartrate [Lopressor] 25 mg PO BID #60 tab 06/30/18 10/31/18 Rx Aspirin [Adult Low Dose Aspirin EC] 81 mg PO DAILY 10/31/18 10/31/18 History Clopidogrel Bisulfate [Plavix] 75 mg PO DAILY 10/31/18 10/31/18 History Allergies Allergy/AdvReac Type Severity Reaction Status Date / Time No Known Allergies Allergy Verified 10/31/18 20:08 Physical Exam Vitals: Vital Signs Temp Pulse Pulse Resp BP BP Pulse Ox 11/01/18 04:00 98 F 66 18 164/100 97 11/01/18 00:00 98.2 F 72 18 171/93 97 10/31/18 23:37 98.1 F 65 18 153/94 98 03/20/19 23:15 71 18 160/100 98 10/31/18 22:58 98.4 F 69 19 184/97 98 10/31/18 21:21 72 18 159/76 96 10/31/18 19:52 98.6 F 80 17 177/92 95 Intake and Output 10/31/18 11/01/18 11/01/18 22:59 06:59 14:59 Intake Total 500 Balance 500 Intake: Intake, IV Titration 500 Amount Sodium Chloride 0.9% 1, 500 000 ml @ 100 mls/hr IV . Q10H [facility] Rx#:[id number] Other: Weight 94.529 kg 92.8 kg PHYSICAL EXAMINATION: GENERAL: 58-year-old gentleman in no acute distress at the time of my examination HEENT: Head is atraumatic, normocephalic. Pupils equal, round. Sclera anicteric. Conjunctiva are clear. Mucous membranes of the mouth are moist. Neck is supple. There is no elevated jugular venous pressure. Left carotid bruit is heard. HEART EXAMINATION: Heart S1, S2 normal. No murmur or gallop heard. CHEST EXAMINATION: Lungs are clear to auscultation and precussion. No chest wall tenderness is noted on palpation or with deep breathing. ABDOMEN: Soft, nontender. Bowel sounds are heard. No organomegaly noted. EXTREMITIES: 2+ peripheral pulses with no evidence of peripheral edema and no calf tenderness noted. NEUROLOGIC patient is awake, alert and oriented 3 . . Results 10/31/18 20:25 10/31/18 20:25 Cardiac Enzymes 10/31/18 10/31/18 11/01/18 Range/Units 20:25 20:25 02:06 AST 19 (17-59) U/L Troponin I <0.012 <0.012 (0.000-0.034) ng/mL Coagulation 10/31/18 Range/Units 20:25 PT 10.1 (9.0-12.0) sec APTT 23.4 (22.0-30.0) sec Lipids 10/31/18 Range/Units 20:25 Triglycerides 103 (<150) mg/dL Cholesterol 113 (<200) mg/dL HDL Cholesterol 40 (40-60) mg/dL CBC 10/31/18 Range/Units 20:25 WBC 6.5 (3.8-10.6) k/uL RBC 4.51 (4.30-5.90) m/uL Hgb 12.9 L (13.0-17.5) gm/dL Hct 39.5 (39.0-53.0) % Plt Count 253 (150-450) k/uL Comprehensive Metabolic Panel 10/31/18 Range/Units 20:25 Sodium 136 L (137-145) mmol/L Potassium 4.4 (3.5-5.1) mmol/L Chloride 100 (98-107) mmol/L Carbon Dioxide 26 (22-30) mmol/L BUN 16 (9-20) mg/dL Creatinine 0.51 L (0.66-1.25) mg/dL Glucose 225 H (74-99) mg/dL Calcium 9.7 (8.4-10.2) mg/dL AST 19 (17-59) U/L ALT 27 (21-72) U/L Alkaline Phosphatase 44 (38-126) U/L Total Protein 6.7 (6.3-8.2) g/dL Albumin 4.2 (3.5-5.0) g/dL Current Medications Generic Name Dose Route Start Last Admin Trade Name Freq PRN Reason Stop Dose Admin Acetaminophen 650 mg 10/31/18 21:35 Tylenol Tab PO Q6HR PRN Mild Pain or Fever > 100.5 Sodium Chloride 1,000 mls @ 100 mls/hr 10/31/18 21:45 11/01/18 06:13 Saline 0.9% IV Not Given .Q10H [facility] Ibuprofen 400 mg 10/31/18 21:35 Motrin PO Q6HR PRN Mild Pain or Fever > 100.5 Insulin Aspart 0 unit 11/01/18 07:30 11/01/18 06:13 Novolog SQ Not Given ACHS [facility] Protocol Ketorolac Tromethamine 30 mg 10/31/18 21:35 Toradol IVP 11/05/18 21:36 Q6HR PRN Moderate Pain Morphine Sulfate 4 mg 10/31/18 21:35 Morphine Sulfate (Inj) IV Q4HR PRN Severe Pain Naloxone HCl 0.2 mg 10/31/18 21:35 Narcan IV Q2M PRN Opioid Reversal Nitroglycerin 0.4 mg 10/31/18 21:37 Nitrostat SUBLINGUAL Q5M PRN Chest Pain Ondansetron HCl 4 mg 10/31/18 21:35 Zofran IVP Q8HR PRN Nausea And Vomiting Pantoprazole Sodium 40 mg 11/01/18 09:00 Protonix IV DAILY [facility] Intake and Output 10/31/18 11/01/18 11/01/18 22:59 06:59 14:59 Intake Total 500 Balance 500 Intake: Intake, IV Titration 500 Amount Sodium Chloride 0.9% 1, 500 000 ml @ 100 mls/hr IV . Q10H [facility] Rx#:[id number] Other: Weight 94.529 kg 92.8 kg 10/31/18 20:25 10/31/18 20:25 EKG Interpretations (text) EKG shows a normal sinus rhythm with ST-T wave changes noted in the inferior leads similar to prior exam. Assessment and Plan Plan: Assessment and plan #1 symptoms of nausea with associated diaphoresis and chills #2 accelerated hypertension #3 known history of coronary artery disease with prior stent placements, most recently in June 2018 patient underwent successful stenting of the right PLV, right PDA, mid RCA, and proximal RCA. He was also found at that time to have distal stenosis of the LAD. #4 hyperlipidemia #5 diabetes #6 history of nicotine dependence #7 chronic back pain Plan We will obtain an echocardiogram with Doppler study. A third troponin will also be requested. We will obtain Dr. Min's progress note from the office and adjustments will be made to optimize blood pressure control. We will also obtain an influenza swab. Obtain carotid Doppler study. We will put the patient on a baby aspirin as well as Plavix, Lipitor and lisinopril, metoprolol. We will increase the dose of metoprolol to 50 mg one tablet by mouth twice a day. Further recommendations to follow. DNP note has been reviewed, I agree with a documented findings and plan of care. Patient was seen and examined.
[2018-11-01] MEDS ORDERED: METOPROLOL TARTRATE 25 MG TAB PO SCH (09:00)
[2018-11-01] MEDS: PANTOPRAZOLE 40 MG/10 ML VIAL IV SCH (09:40)
[2018-11-01] MEDS: METOPROLOL TARTRATE 50 MG TAB PO SCH ×2 (09:40→21:06)
[2018-11-01] MEDS: LISINOPRIL 10 MG TAB PO SCH (09:40)
[2018-11-01] MEDS: ASPIRIN 81 MG PO SCH (09:40)
[2018-11-01] MEDS: CLOPIDOGREL 75 MG TAB PO SCH (09:41)
[2018-11-01 11:35] LABS: Glucose,Whole Blood 183 mg/dL (75-99)
--- NOTE | 2018-11-01 14:12 | US ---
EXAMINATION TYPE: US carotid duplex BILAT DATE OF EXAM: 11/01/2018 COMPARISON: NONE CLINICAL HISTORY: carotid bruit. sweating and nausea episode EXAM MEASUREMENTS: RIGHT: Peak Systolic Velocity (PSV) cm/sec ----- Right CCA: 60.9 ----- Right ICA: 85.3 ----- Right ECA: 92.0 ICA/CCA ratio: 1.4 RIGHT: End Diastole cm/sec ----- Right CCA: 15.9 ----- Right ICA: 39.1 ----- Right ECA: 2.5 LEFT: Peak Systolic Velocity (PSV) cm/sec ----- Left CCA: 57.2 ----- Left ICA: 83.1 ----- Left ECA: 98.6 ICA/CCA ratio: 1.5 LEFT: End Diastole cm/sec ----- Left CCA: 16.2 ----- Left ICA: 25.9 ----- Left ECA: 0.0 VERTEBRALS (direction of flow): Right Vertebral: Antegrade Left Vertebral: Antegrade Rhythm: Normal Mild intimal wall changes are seen at bilateral carotid bifurcation, but PSV is wnl bilaterally. Salter scale, color Doppler, spectral Doppler imaging performed of the carotid arteries. Waveform analysis d oes not show significant stenosis. IMPRESSION: No hemodynamic significant stenosis of the proximal internal carotid arteries bilaterall y by Doppler criteria, an indirect measurement of carotid stenosis
--- NOTE | 2018-11-01 14:27 | ECHOF ---
Referral Reason:nausea, diaph MEASUREMENTS -------- HEIGHT: 172.7 cm WEIGHT: 92.5 kg BP: IVSd: 1.4 cm (0.6 - 1.1) LVIDd: 5.6 cm (3.9 - 5.3) LVPWd: 1.5 cm (0.6 - 1.1) IVSs: 1.8 cm LVIDs: 3.8 cm LVPWs: 1.3 cm LA Diam: 3.5 cm (2.7 - 3.8) LAESV Index (A-L): 33.14 ml/m Ao Diam: 3.3 cm (2.0 - 3.7) AV Cusp: 1.6 cm (1.5 - 2.6) LA Diam: 4.0 cm (2.7 - 3.8) MV EXCURSION: 15.965 mm (> 18.000) MV EF SLOPE: 66 mm/s (70 - 150) EPSS: 0.9 cm MV E Casey: 0.58 m/s MV DecT: 216 ms MV A Casey: 1.07 m/s MV E/A Ratio: 0.55 AV maxP.20 mmHg AV meanP.32 mmHg RAP: 5.00 mmHg RVSP: 21.66 mmHg FINDINGS -------- Sinus rhythm. This was a technically good study. The left ventricular size is normal. There is mild concentric left ventricular hypertrophy. Overa ll left ventricular systolic function is low-normal with, an EF between 50 - 55 %. Basal inferior L V wall motion is hypokinetic. The right ventricle is normal in size. The left atrial size is normal. The right atrial size is normal. There is mild aortic valve sclerosis. Peak/mean gradient across the Aortic Valve is 21.20mmHg / 11. 32mmHg. Mild mitral annular calcification present. Mild mitral regurgitation is present. Mild tricuspid regurgitation present. There is no evidence of pulmonary hypertension. The right v entricular systolic pressure, as measured by Doppler, is 21.66mmHg. There is no pulmonic regurgitation present. The aortic root size is normal. There is no pericardial effusion. CONCLUSIONS -------- 1. The left ventricular size is normal. 2. There is mild concentric left ventricular hypertrophy. 3. Overall left ventricular systolic function is low-normal with, an EF between 50 - 55 %. 4. Basal inferior LV wall motion is hypokinetic. 5. The right ventricle is normal in size. 6. The left atrial size is normal. 7. The right atrial size is normal. 8. There is mild aortic valve sclerosis. 9. Peak/mean gradient across the Aortic Valve is 21.20mmHg / 11.32mmHg. 10. Mild mitral annular calcification present. 11. Mild mitral regurgitation is present. 12. Mild tricuspid regurgitation present. 13. There is no evidence of pulmonary hypertension. 14. The right ventricular systolic pressure, as measured by Doppler, is 21.66mmHg. 15. There is no pulmonic regurgitation present. 16. The aortic root size is normal. 17. There is no pericardial effusion. INTERFACE DESIGNER: Shu Hagan RDCS
[2018-11-01 16:45] LABS: Glucose,Whole Blood 149 mg/dL (75-99)
[2018-11-01] MEDS ORDERED: MAG HYDROX/AL HYDROX/SIMETH 30 ML CUP PO PRN (17:22)
[2018-11-01] MEDS ORDERED: ALPRAZolam 0.25 MG TAB PO PRN (17:22)
[2018-11-01] MEDS ORDERED: CALCIUM CARBONATE 500 MG CHEWABLE PO PRN (17:22)
[2018-11-01] MEDS ORDERED: MELATONIN 3 MG TABLET PO PRN (17:22)
[2018-11-01] MEDS ORDERED: MAGNESIUM HYDROXIDE 2,400 MG/10 ML CUP PO PRN (17:22)
[2018-11-01] MEDS ORDERED: LACTULOSE 20 GM/30 ML CUP PO PRN (17:22)
--- NOTE | 2018-11-01 18:28 | HP ---
HISTORY AND PHYSICAL DATE OF ADMISSION: 10/31/2018 DATE OF SERVICE: 11/01/2018 PRESENTING COMPLAINT: Broke out in a sweat. HISTORY OF PRESENTING COMPLAINT: This is a pleasant 58-year-old patient of Dr. Shaji Jarvis. The patient was here in June of last year and at that time did undergo angioplasty and stenting to the PLV, PDA, mid RCA and proximal RCA following an acute ST-elevation myocardial infarction. The patient has been stable from a cardiac standpoint since that time. Other chronic stable medical conditions include hypertension, hyperlipidemia, diabetes, osteoarthritis. The patient was driving to his sister's yesterday and suddenly became very clammy and became drenched, had to take off his hat and became wet. He also was having nausea. He went down to his sister's place and he was told that he was very pale. They went out for lunch, but he really did not feel like eating. He felt extremely tired and rundown. There was no chest pain, no palpitations. He finally decided to get to the ER. Troponin was negative. His blood pressure has been running high and he has seen Dr. Min. It is often up to 170s, 180s. Because he has chronic low back pain, his medications were not adjusted, wondering if that was contributing to his blood pressure. The patient does feel a bit better this afternoon. His is present at the bedside. He was seen by Cardiology, who did increase his dose of Lopressor. Normally with exertion the patient does not get any chest pain or pressure. The patient has not smoked since the last episode in June. REVIEW OF SYSTEMS: CONSTITUTIONAL: Tired. HEENT: None. RESPIRATORY: None. CARDIOVASCULAR: None. GASTROINTESTINAL: None. GENITOURINARY: None. MUSCULOSKELETAL: Arthritic pain in the joints. DERMATOLOGICAL: None. HEMATOLOGICAL: None. LYMPHATICS: None. PSYCHIATRY: None. NEUROLOGICAL: None. PAST MEDICAL HISTORY: 1. ST-elevation myocardial infarction in June 2018 with 4 stents. 2. Hyperlipidemia. 3. Hypertension. 4. Diabetes mellitus, type 2. 5. Primary osteoarthritis. PAST SURGICAL HISTORY: 1. Coronary stents. 2. Hernia repair. SOCIAL HISTORY: The patient has been smoking since 1971; stopped finally in 2017. . Used to work for [employer] 7 years ago. Now helps out with his son's [employer]. FAMILY HISTORY: Myocardial infarction, cancer. HOME MEDICATIONS: 1. Glucophage 1000 mg b.i.d. 2. Nitrostat 0.4 sublingually q.5 p.r.n. 3. Lopressor 25 p.o. b.i.d. 4. Zestril 10 mg p.o. daily. 5. [place] 10 one tablet q.6 p.r.n. 6. Neurontin 300 mg p.o. t.i.d. p.r.n. 7. Plavix 75 mg p.o. daily. 8. Lipitor 40 mg at bedtime. 9. Aspirin 81 mg p.o. daily. ALLERGIES: NONE. PHYSICAL EXAMINATION: VITAL SIGNS ON PRESENTATION: Temperature 98.6, pulse 80, respiration 17, blood pressure 177/92, pulse ox 95% on room air. GENERAL APPEARANCE: Well built; BMI 31.1. Sitting up, comfortable. EYES: Pupils equal. Conjunctivae normal. HEENT: External appearance of nose and ears normal. Oral cavity normal. NECK: JVD not raised. Mass not palpable. RESPIRATORY: Effort normal. LUNGS: Fair air entry. CARDIOVASCULAR: First and second sounds normal. No edema. ABDOMEN: Soft, non-tender. Liver and spleen not palpable. LYMPHATIC: No lymph node palpable in neck or axillae. PSYCHIATRY: Alert and oriented x3. Mood and affect normal. NEUROLOGICAL: Pupils equal. Cranial nerves grossly intact. Power and sensation grossly intact. INVESTIGATIONS: White count 6.5, hemoglobin 12.9, platelets 253, potassium 4.4. BUN and creatinine are normal. Troponin x3 negative. Influenza A and B negative. Chest x-ray film, personally reviewed by me, shows cardiomegaly; no obvious venous prominence. EKG tracing shows nonspecific ST-segment findings and flipped T-waves in the inferior lead. Two-D echocardiogram shows an EF of 50% to 55%. No wall motion abnormality reported. Carotid Doppler: No significant stenosis reported. ASSESSMENT: 1. This is a patient who presented with a bout of severe perspiration, weak, tired, nausea lasting for quite a while. This could be unstable angina equivalent. Patient is a diabetic; hence may not manifest as chest pain. The troponins have been negative. Patient's dose of beta tomas has been increased. 2. Essential hypertension, uncontrolled. It has been running high even as an outpatient. Beta tomas has been increased. 3. Hyperlipidemia. 4. Diabetes mellitus, type 2, on oral hypoglycemic. 5. Primary osteoarthritis. 6. Chronic low back pain from arthritis. PLAN: Continue current medication and treatment plan. Troponins have been negative. Cardiology was consulted. Will increase patient's Lopressor. Two-D echo does not show any wall motion abnormality. Will see how the patient does. Encouraged him to ambulate. MMODL / IJN: [id number] /
[2018-11-01 20:45] LABS: Glucose,Whole Blood 183 mg/dL (75-99)
[2018-11-01] MEDS ORDERED: ATORVASTATIN 40 MG TAB PO SCH (21:00)
[2018-11-02 06:06] LABS: Glucose,Whole Blood 168 mg/dL (75-99)
[2018-11-02] MEDS: INSULIN ASPART (NovoLOG) 100 UNIT/ML VIAL SQ SCH ×3 (06:12→18:04)
[2018-11-02] MEDS: LISINOPRIL 10 MG TAB PO SCH (10:00)
[2018-11-02] MEDS: METOPROLOL TARTRATE 50 MG TAB PO SCH (10:00)
[2018-11-02] MEDS: CLOPIDOGREL 75 MG TAB PO SCH (10:00)
[2018-11-02] MEDS: ASPIRIN 81 MG PO SCH (10:00)
[2018-11-02] MEDS: PANTOPRAZOLE 40 MG/10 ML VIAL IV SCH ×2 (10:01→11:56)
[2018-11-02] MEDS ORDERED: amLODIPine 5 MG TAB PO SCH (11:30)
[2018-11-02 11:41] LABS: Glucose,Whole Blood 159 mg/dL (75-99)
[2018-11-02] MEDS: PANTOPRAZOLE 40 MG TABLET PO SCH ×2 (11:58→18:04)
--- NOTE | 2018-11-02 13:58 | P.PN ---
Subjective Progress Note Date: 11/02/18 This is a pleasant 58-year-old gentleman who follows regularly with Dr. Min in the office. He has a known history of hypertension, hyperlipidemia, diabetes, coronary artery disease for which the patient underwent stenting approximately 15 years ago, chronic nicotine dependence, most recently in June 2018 he presented to the hospital with an acute inferior wall myocardial infarction, at that time the patient underwent successful stenting of the right PLV, right PDA, mid RCA, and proximal RCA by Dr. Min. At that time patient was also found to have significant stenosis in the distal apical segment of the LAD and in the second small obtuse marginal branch. He presents to the hospital on this occasion with symptoms of nausea and diaphoresis. According to the patient, he was driving down to the city to visit with his sister when all of a sudden he became quite nauseous, he states that he became sweaty from head to toe, and had a flushed sensation. He also had some mild associated body aches and chills. He denies any chest discomfort and is breathing overall has been stable. According to the patient, his blood pressure has been running high lately and Dr. Min is asked him to keep records of his blood pressures at home. Chest x-ray on admission was normal. Initial EKG on presentation here showed a normal sinus rhythm with ST-T wave changes noted in the inferior leads, similar to prior EKGs. Blood pressure on arrival here 177/90 with a heart rate in the 80s, 95% on room air. Blood pressure this morning 164/100 with a heart rate in the 60s, 97% on room air. White blood cell count is normal, hemoglobin 12.9, platelet count 253. Sodium 136, potassium 4.4 , BUN 16 and creatinine 0.5. Troponins have been negative 2, BNP is 302. At the time of my examination this morning, patient denies any chest discomfort, no difficulty in breathing, no further episodes of nausea or diaphoresis. He does feel as though he is developing sinus cold at this time. 11/02/2018 Patient seen and examined this morning, he's been up ambulating in the hallway without any difficulty. Denies any nausea and no diaphoresis or chills. Blood pressure continues to be on the high side in the 160s systolic. We will add Norvasc 5 mg to his medication regime. Echo was performed which revealed an ejection fraction of 50-55%, carotid duplex study was negative overall. Objective - Vital Signs Vital signs: Vital Signs Temp 97.6 F 11/02/18 08:00 Pulse 77 11/02/18 08:00 Resp 16 11/02/18 08:00 BP 168/88 11/02/18 08:00 Pulse Ox 96 11/02/18 08:00 Intake & Output 11/01/18 11/02/18 11/02/18 18:59 06:59 18:59 Intake Total 1060 240 240 Balance 1060 240 240 Weight 89.3 kg Intake: Oral 1060 240 240 Other: # Voids 1 - Exam PHYSICAL EXAMINATION: GENERAL: 58-year-old gentleman in no acute distress at the time of my examination HEENT: Head is atraumatic, normocephalic. Pupils equal, round. Sclera anicte kaylynn. Conjunctiva are clear. Mucous membranes of the mouth are moist. Neck is supple. There is no elevated jugular venous pressure. Left carotid bruit is heard. HEART EXAMINATION: Heart S1, S2 normal. No murmur or gallop heard. CHEST EXAMINATION: Lungs are clear to auscultation and precussion. No chest wall tenderness is noted on palpation or with deep breathing. ABDOMEN: Soft, nontender. Bowel sounds are heard. No organomegaly noted. EXTREMITIES: 2+ peripheral pulses with no evidence of peripheral edema and no calf tenderness noted. NEUROLOGIC patient is awake, alert and oriented 3 . . - Labs CBC & Chem 7: 10/31/18 20:25 10/31/18 20:25 Labs: Abnormal Lab Results - Last 24 Hours (Table) 11/01/18 11/01/18 11/02/18 Range/Units 16:42 20:43 06:04 POC Glucose (mg/dL) 149 H 183 H 168 H (75-99) mg/dL 11/02/18 Range/Units 11:37 POC Glucose (mg/dL) 159 H (75-99) mg/dL Assessment and Plan Plan: Assessment and plan #1 symptoms of nausea with associated diaphoresis and chills #2 accelerated hypertension #3 known history of coronary artery disease with prior stent placements, most recently in June 2018 patient underwent successful stenting of the right PLV, right PDA, mid RCA, and proximal RCA. He was also found at that time to have distal stenosis of the LAD. #4 hyperlipidemia #5 diabetes #6 history of nicotine dependence #7 chronic back pain Plan Echocardiogram with Doppler study revealed a normal left ventricular systolic function. Carotid duplex study was negative. D-dimer 0.6. We will add Norvasc 5 mg daily to the patient's medication regime. He may be able to be discharged home from our perspective. We will recommend he follow-up with Dr. andrews on in the office post discharge. DNP note has been reviewed, I agree with a documented findings and plan of care. Patient was seen and examined.
[2018-11-02 16:15] VITALS: BP 125/74; PULSE 74; RESP 14; TEMP 98.1
[2018-11-02 16:28] LABS: Glucose,Whole Blood 200 mg/dL (75-99)
--- NOTE | 2018-11-03 05:08 | DS ---
DISCHARGE SUMMARY DATE OF ADMISSION: October 31, 2018 DATE OF DISCHARGE: November 02, 2018. FINAL DIAGNOSES: 1. Essential hypertension, uncontrolled. 2. Hyperlipidemia. 3. Diabetes mellitus type 2 on oral hypoglycemics. 4. Primary osteoarthritis. 5. Chronic low back pain from arthritis. 6. Coronary artery disease with prior stenting. HOSPITAL COURSE: This patient with known coronary artery disease, presented with episode of perspiration, dizzy, lightheaded. This patient's blood pressure is running high as an outpatient. The patient's 2D echocardiogram showed preserved LV function. Troponins were negative. Carotid Doppler is unremarkable. Blood pressure medications adjusted. No further episodes in the hospital. Cleared by Cardiology to go home. PHYSICAL EXAMINATION: Temperature 98.1, pulse 74, respirations 14, blood pressure 125/74, pulse ox 96 percent on room air. Lungs are clear. Cardiovascular: 1st and 2nd sounds normal. INVESTIGATIONS: Accu-Cheks are noted. Troponin was negative. DISCHARGE MEDICATIONS: 1. Glucophage 1000 mg p.o. b.i.d. 2. Neurontin 300 mg p.o. t.i.d. p.r.n. 3. [place] 10 1 tablet p.o. q.6h p.r.n. 4. Nitrostat 0.4 sublingual q.5 p.r.n. 5. Lipitor 40 mg at bedtime. 6. Zestril 10 mg p.o. daily. 7. Aspirin 81 mg p.o. daily. 8. Plavix 75 mg p.o. daily. 9. Lopressor 50 mg p.o. b.i.d. 10.Norvasc 5 mg p.o. daily. FOLLOWUP: Follow up with Dr. Min in 1 week, follow up with Dr. Jarvis on November 09, 2018. Copy to Dr. Jarvis. MMODL / IJN: [id number] /
--- NOTE | 2018-11-06 08:10 | CDI ---
Documentation Clarification Form Date: 11/06/18 From: Paulette Razo Phone: If you have a question regarding this query, please contact Ellie Juarez at [phone] between 8am and 5pm. Admit Date: 10/31/2018 9:56:00 PM Patient Name: Santiago Jo Visit Number: [id number] Discharge Date: 11/02/2018 6:38:00 PM ATTENTION: The Clinical Documentation Specialists (CDI) and [facility] Coding Staff appreciate your assistance in clarifying documentation. Please respond to the clarification below the line at the bottom and electronically sign. The CDI & [facility] Coding staff will review the response and follow-up if needed. Please note: Queries are made part of the Legal Health Record. If you have any questions, please contact the author of this message via ITS. Dr. Hilton Lopez The patient presented with a bout of severe perspiration, weak, tired, headaches and nausea for quite a while. History/Risk Factors: Patient's hypertension was uncontrolled on admission which has been running high as an outpatient. The patient also has diabetes, CAD with previous stent placement and a previous [place]. Clinical Indicators: Perspiration, dizzy, lightheaded Vital Signs: On admission: T. 98.6, P. 80, R. 17, BP 177/92. Other blood pressures 10/31/18: 23:15 160/100, 23:37 153/94, 22:58 184/97. On 11/01/18: 00:00 171/93, 04:00 164/100, 08:30 169/85 Treatment: Zestril 10 mg daily(home med), Lopressor (home med) increased from 25 mg bid to 50 mg bid, added Norvasc 5 mg daily Consults: Tawana bhatt documented accelerated hypertension. In your professional opinion, can you please clarify the patient's uncontrolled hypertension? Crisis Urgency Emergency Accelerated Other, please specify Unable to determine hypertensive urgency L[facility]AD
== END 2018-11-02 18:38 | disposition home or self-care (01) ==
LOC: EC 19:50 → INTOOBSV 21:56 → 3SCARD 21:56 → UNDODISIN 11-02 18:38
PROVIDERS: ADMIT Hospitalist; ATTEND Hospitalist
DX: I11.9 Hypertensive heart disease without heart failure (principal); I25.10 Atherosclerotic heart disease of native coronary artery without angina pectoris; E11.9 Type 2 diabetes mellitus without complications; E78.5 Hyperlipidemia, unspecified; G89.29 Other chronic pain; M25.551 Pain in right hip; M54.5 Low back pain; M47.9 Spondylosis, unspecified; R68.83 Chills (without fever); M19.91 Primary osteoarthritis, unspecified site; Z79.02 Long term (current) use of antithrombotics/antiplatelets; Z79.82 Long term (current) use of aspirin; Z79.84 Long term (current) use of oral hypoglycemic drugs; Z79.899 Other long term (current) drug therapy; I25.2 Old myocardial infarction; Z87.891 Personal history of nicotine dependence; Z95.5 Presence of coronary angioplasty implant and graft; Z82.49 Family history of ischemic heart disease and other diseases of the circulatory system; Z80.9 Family history of malignant neoplasm, unspecified
CPT/HCPCS: 96361 ×2; 96374; 99285; 36415; 94760 ×2; 93005; 93306; 85379; 83880; 80061; 80053; 82150; 83690; 83735; 84484 ×2; 85025; 85610; 85730; 87502; 71046; 93880; G0378 ×3; C9113; 96360

== ENCOUNTER 2018-11-09 13:28 | Inpatient (IN) | payer OTHER ==
[2018-11-09] MEDS ORDERED: SODIUM CHLORIDE 0.9% 1,000 ML IV STA ×3 (14:29→16:25)
--- NOTE | 2018-11-09 14:29 | ED ---
General Adult HPI - General Chief complaint: Extremity Injury, Lower Stated complaint: Infection in hip-Dr sent Time Seen by Provider: 11/09/18 14:03 Source: patient, RN notes reviewed, old records reviewed Mode of arrival: ambulatory Limitations: no limitations - History of Present Illness Initial comments: This is a 4-year-old male the ER for evaluation. Presents for evaluation of left hip pain. Patient was sent in by family doctor for evaluation of left hip pain. Recent diagnosis of prostatitis, medication no fevers. Patient did fall 2 days ago takes pain may relate may be related to his fall. Denies any dysuria or problems with his bowel movements. No abdominal pain. He also is complaining of pain into his left leg and left -: days(s) (2) Location: left, lower extremity Radiation: extremity Severity scale (1-10): 7 Quality: burning, aching Consistency: constant Improves with: none Worsens with: none Treatments Prior to Arrival: none - Related Data Home Medications Medication Instructions Recorded Confirmed metFORMIN HCL [Glucophage] 1,000 mg PO BID 02/16/17 11/09/18 Gabapentin [Neurontin] 300 mg PO TID PRN 06/27/18 11/09/18 HYDROcodone/APAP 10-325MG [[place] 1 tab PO TID PRN 06/27/18 11/09/18 10-325] Nitroglycerin Sl Tabs [Nitrostat] 0.4 mg SUBLINGUAL Q5M PRN 06/27/18 11/09/18 Aspirin [Adult Low Dose Aspirin EC] 81 mg PO DAILY 10/31/18 11/09/18 Clopidogrel Bisulfate [Plavix] 75 mg PO DAILY 10/31/18 11/09/18 Ciprofloxacin HCl [Cipro] 500 mg PO Q12HR 11/09/18 11/09/18 Lisinopril [Zestril] 20 mg PO DAILY 11/09/18 11/09/18 sitaGLIPtin [Januvia] 100 mg PO DAILY 11/09/18 11/09/18 Previous Rx's Medication Instructions Recorded Atorvastatin [Lipitor] 40 mg PO HS #30 tab 06/30/18 Metoprolol Tartrate [Lopressor] 50 mg PO BID #60 tab 11/02/18 amLODIPine [Norvasc] 5 mg PO DAILY #30 tab 11/02/18 Allergies Allergy/AdvReac Type Severity Reaction Status Date / Time No Known Allergies Allergy Verified 11/09/18 15:43 Review of Systems ROS Statement: Those systems with pertinent positive or pertinent negative responses have been documented in the HPI. ROS Other: All systems not noted in ROS Statement are negative. Past Medical History Past Medical History: Diabetes Mellitus, Hypertension, Myocardial Infarction ([place]) Additional Past Medical History / Comment(s): Patient was a stemi in june 2018 got stents X 5 Last Myocardial Infarction Date:: 2017 History of Any Multi-Drug Resistant Organisms: None Reported Past Surgical History: Heart Catheterization, Heart Catheterization With Stent, Hernia Repair Additional Past Surgical History / Comment(s): 5 recent stents placed Past Anesthesia/Blood Transfusion Reactions: No Reported Reaction Date of Last Stent Placement:: 2017 Past Psychological History: No Psychological Hx Reported Smoking Status: Current every day smoker Past Alcohol Use History: Occasional Past Drug Use History: None Reported - Past Family History Mother Family Medical History: Cancer, Myocardial Infarction ([place]) Father Family Medical History: Myocardial Infarction ([place]) General Exam Limitations: no limitations General appearance: alert, in no apparent distress Head exam: Present: atraumatic, normocephalic, normal inspection Eye exam: Present: normal appearance, PERRL, EOMI. Absent: scleral icterus, conjunctival injection, periorbital swelling ENT exam: Present: normal exam, mucous membranes moist Neck exam: Present: normal inspection. Absent: tenderness, meningismus, lymphadenopathy Respiratory exam: Present: normal lung sounds bilaterally. Absent: respiratory distress, wheezes, rales, rhonchi, stridor Cardiovascular Exam: Present: regular rate, normal rhythm, normal heart sounds. Absent: systolic murmur, diastolic murmur, rubs, gallop, clicks GI/Abdominal exam: Present: soft, normal bowel sounds. Absent: distended, guarding, rebound, rigid Extremities exam: Present: normal inspection, full ROM, normal capillary refill, other (Left hip tenderness left hip edema left hip tenderness and range of motion, swelling up into the pelvic area down to the upper thigh). Absent: tenderness, pedal edema, joint swelling, calf tenderness Back exam: Present: normal inspection Neurological exam: Present: alert, oriented X3, CN II-XII intact Psychiatric exam: Present: normal affect, normal mood Skin exam: Present: warm, dry, intact, normal color. Absent: rash Course Vital Signs 11/09/18 11/09/18 11/09/18 13:38 15:54 17:25 Temperature 97.5 F L 98.3 F Pulse Rate 71 63 85 Respiratory 16 16 16 Rate Blood Pressure 102/66 90/52 105/65 O2 Sat by Pulse 95 98 98 Oximetry 11/09/18 18:40 Temperature 98.8 F Pulse Rate 78 Respiratory 16 Rate Blood Pressure 100/69 O2 Sat by Pulse 98 Oximetry - Reevaluation(s) Reevaluation #1: 11/09/18 19:06 Medical record is reviewed Reevaluation #2: 11/09/18 19:06 Patient's pain is controlled Reevaluation #3: 11/09/18 19:[address] Garcia, some physicians okay for admission - Consultations Consultation #1: Spoke with Dr. Gutierrez who is aware of patient Consultation #2: Spoke with interventional radiology will be able to drain fluid Consultation #3: Spoke with Dr. Ratliff who is aware of patient Medical Decision Making - Medical Decision Making 4-year-old male the ER for evasive left hip pain. 2 days he thought it may be related to fall. Patient was on antibiotics for prostatitis recently. Has not been taking them. No fevers. Patient has persistent left hip pain. Patient did have computed tomography scan showing developing abscess, fluid in left hip, patient will be admitted for IV antibiotics, drainage of fluid, further consultation and management - Lab Data Result diagrams: 11/10/18 07:07 11/10/18 07:07 Lab Results 11/09/18 11/09/18 11/09/18 Range/Units 14:25 14:25 14:25 WBC 10.5 (3.8-10.6) k/uL RBC 4.01 L (4.30-5.90) m/uL Hgb 11.4 L (13.0-17.5) gm/dL Hct 34.3 L (39.0-53.0) % MCV 85.6 (80.0-100.0) fL MCH 28.3 (25.0-35.0) pg MCHC 33.1 (31.0-37.0) g/dL RDW 14.7 (11.5-15.5) % Plt Count 212 (150-450) k/uL Neutrophils % 90 % Lymphocytes % 4 % Monocytes % 3 % Eosinophils % 1 % Basophils % 0 % Neutrophils # 9.5 H (1.3-7.7) k/uL Lymphocytes # 0.4 L (1.0-4.8) k/uL Monocytes # 0.3 (0-1.0) k/uL Eosinophils # 0.1 (0-0.7) k/uL Basophils # 0.0 (0-0.2) k/uL ESR (0-15) mm/hr PT 9.9 (9.0-12.0) sec INR 0.9 (<1.2) APTT 28.1 (22.0-30.0) sec D-Dimer 7.05 H (<0.60) mg/L FEU Sodium 128 L (137-145) mmol/L Potassium 4.6 (3.5-5.1) mmol/L Chloride 94 L (98-107) mmol/L Carbon Dioxide 20 L (22-30) mmol/L Anion Gap 14 mmol/L BUN 58 H (9-20) mg/dL Creatinine 1.13 (0.66-1.25) mg/dL Est GFR (CKD-EPI)AfAm 82 (>60 ml/min/1.73 sqM) Est GFR (CKD-EPI)NonAf 71 (>60 ml/min/1.73 sqM) Glucose 225 H (74-99) mg/dL Lactic Ac Sepsis Rflx Plasma Lactic Acid Timothy (0.7-2.0) mmol/L Calcium 8.4 (8.4-10.2) mg/dL Phosphorus 4.3 (2.5-4.5) mg/dL Magnesium 2.5 H (1.6-2.3) mg/dL Total Bilirubin 1.1 (0.2-1.3) mg/dL AST 419 H (17-59) U/L ALT 155 H (21-72) U/L Alkaline Phosphatase 83 (38-126) U/L Troponin I (0.000-0.034) ng/mL C-Reactive Protein (<10.0) mg/L NT-Pro-B Natriuret Pep pg/mL Total Protein 6.2 L (6.3-8.2) g/dL Albumin 3.1 L (3.5-5.0) g/dL Urine Color Urine Appearance (Clear) Urine pH (5.0-8.0) Ur Specific [place] (1.001-1.035) Urine Protein (Negative) Urine Glucose (UA) (Negative) Urine Ketones (Negative) Urine Blood (Negative) Urine Nitrite (Negative) Urine Bilirubin (Negative) Urine Urobilinogen (<2.0) mg/dL Ur Leukocyte Esterase (Negative) Urine RBC (0-5) /hpf Urine WBC (0-5) /hpf Ur Squamous Epith Cells (0-4) /hpf Hyaline Casts (0-2) /lpf Urine Mucus (None) /hpf 11/09/18 11/09/18 11/09/18 Range/Units 14:25 14:25 14:25 WBC (3.8-10.6) k/uL RBC (4.30-5.90) m/uL Hgb (13.0-17.5) gm/dL Hct (39.0-53.0) % MCV (80.0-100.0) fL MCH (25.0-35.0) pg MCHC (31.0-37.0) g/dL RDW (11.5-15.5) % Plt Count (150-450) k/uL Neutrophils % % Lymphocytes % % Monocytes % % Eosinophils % % Basophils % % Neutrophils # (1.3-7.7) k/uL Lymphocytes # (1.0-4.8) k/uL Monocytes # (0-1.0) k/uL Eosinophils # (0-0.7) k/uL Basophils # (0-0.2) k/uL ESR (0-15) mm/hr PT (9.0-12.0) sec INR (<1.2) APTT (22.0-30.0) sec D-Dimer (<0.60) mg/L FEU Sodium (137-145) mmol/L Potassium (3.5-5.1) mmol/L Chloride (98-107) mmol/L Carbon Dioxide (22-30) mmol/L Anion Gap mmol/L BUN (9-20) mg/dL Creatinine (0.66-1.25) mg/dL Est GFR (CKD-EPI)AfAm (>60 ml/min/1.73 sqM) Est GFR (CKD-EPI)NonAf (>60 ml/min/1.73 sqM) Glucose (74-99) mg/dL Lactic Ac Sepsis Rflx Plasma Lactic Acid Timothy 2.4 H* (0.7-2.0) mmol/L Calcium (8.4-10.2) mg/dL Phosphorus (2.5-4.5) mg/dL Magnesium (1.6-2.3) mg/dL Total Bilirubin (0.2-1.3) mg/dL AST (17-59) U/L ALT (21-72) U/L Alkaline Phosphatase (38-126) U/L Troponin I 0.560 H* (0.000-0.034) ng/mL C-Reactive Protein (<10.0) mg/L NT-Pro-B Natriuret Pep 716 pg/mL Total Protein (6.3-8.2) g/dL Albumin (3.5-5.0) g/dL Urine Color Urine Appearance (Clear) Urine pH (5.0-8.0) Ur Specific [place] (1.001-1.035) Urine Protein (Negative) Urine Glucose (UA) (Negative) Urine Ketones (Negative) Urine Blood (Negative) Urine Nitrite (Negative) Urine Bilirubin (Negative) Urine Urobilinogen (<2.0) mg/dL Ur Leukocyte Esterase (Negative) Urine RBC (0-5) /hpf Urine WBC (0-5) /hpf Ur Squamous Epith Cells (0-4) /hpf Hyaline Casts (0-2) /lpf Urine Mucus (None) /hpf 11/09/18 11/09/18 11/09/18 Range/Units 14:25 14:53 16:30 WBC (3.8-10.6) k/uL RBC (4.30-5.90) m/uL Hgb (13.0-17.5) gm/dL Hct (39.0-53.0) % MCV (80.0-100.0) fL MCH (25.0-35.0) pg MCHC (31.0-37.0) g/dL RDW (11.5-15.5) % Plt Count (150-450) k/uL Neutrophils % % Lymphocytes % % Monocytes % % Eosinophils % % Basophils % % Neutrophils # (1.3-7.7) k/uL Lymphocytes # (1.0-4.8) k/uL Monocytes # (0-1.0) k/uL Eosinophils # (0-0.7) k/uL Basophils # (0-0.2) k/uL ESR (0-15) mm/hr PT (9.0-12.0) sec INR (<1.2) APTT (22.0-30.0) sec D-Dimer (<0.60) mg/L FEU Sodium (137-145) mmol/L Potassium (3.5-5.1) mmol/L Chloride (98-107) mmol/L Carbon Dioxide (22-30) mmol/L Anion Gap mmol/L BUN (9-20) mg/dL Creatinine (0.66-1.25) mg/dL Est GFR (CKD-EPI)AfAm (>60 ml/min/1.73 sqM) Est GFR (CKD-EPI)NonAf (>60 ml/min/1.73 sqM) Glucose (74-99) mg/dL Lactic Ac Sepsis Rflx Y Plasma Lactic Acid Timothy (0.7-2.0) mmol/L Calcium (8.4-10.2) mg/dL Phosphorus (2.5-4.5) mg/dL Magnesium (1.6-2.3) mg/dL Total Bilirubin (0.2-1.3) mg/dL AST (17-59) U/L ALT (21-72) U/L Alkaline Phosphatase (38-126) U/L Troponin I (0.000-0.034) ng/mL C-Reactive Protein 350.6 H (<10.0) mg/L NT-Pro-B Natriuret Pep pg/mL Total Protein (6.3-8.2) g/dL Albumin (3.5-5.0) g/dL Urine Color Yellow Urine Appearance Cloudy (Clear) Urine pH 5.0 (5.0-8.0) Ur Specific [place] 1.034 (1.001-1.035) Urine Protein 1+ H (Negative) Urine Glucose (UA) Negative (Negative) Urine Ketones Negative (Negative) Urine Blood Trace H (Negative) Urine Nitrite Negative (Negative) Urine Bilirubin Negative (Negative) Urine Urobilinogen <2.0 (<2.0) mg/dL Ur Leukocyte Esterase Moderate H (Negative) Urine RBC 2 (0-5) /hpf Urine WBC 25 H (0-5) /hpf Ur Squamous Epith Cells 1 (0-4) /hpf Hyaline Casts 6 H (0-2) /lpf Urine Mucus Rare H (None) /hpf 11/09/18 11/09/18 Range/Units 17:23 18:39 WBC (3.8-10.6) k/uL RBC (4.30-5.90) m/uL Hgb (13.0-17.5) gm/dL Hct (39.0-53.0) % MCV (80.0-100.0) fL MCH (25.0-35.0) pg MCHC (31.0-37.0) g/dL RDW (11.5-15.5) % Plt Count (150-450) k/uL Neutrophils % % Lymphocytes % % Monocytes % % Eosinophils % % Basophils % % Neutrophils # (1.3-7.7) k/uL Lymphocytes # (1.0-4.8) k/uL Monocytes # (0-1.0) k/uL Eosinophils # (0-0.7) k/uL Basophils # (0-0.2) k/uL ESR 126 H (0-15) mm/hr PT (9.0-12.0) sec INR (<1.2) APTT (22.0-30.0) sec D-Dimer (<0.60) mg/L FEU Sodium (137-145) mmol/L Potassium (3.5-5.1) mmol/L Chloride (98-107) mmol/L Carbon Dioxide (22-30) mmol/L Anion Gap mmol/L BUN (9-20) mg/dL Creatinine (0.66-1.25) mg/dL Est GFR (CKD-EPI)AfAm (>60 ml/min/1.73 sqM) Est GFR (CKD-EPI)NonAf (>60 ml/min/1.73 sqM) Glucose (74-99) mg/dL Lactic Ac Sepsis Rflx Plasma Lactic Acid [place] 1.8 (0.7-2.0) mmol/L Calcium (8.4-10.2) mg/dL Phosphorus (2.5-4.5) mg/dL Magnesium (1.6-2.3) mg/dL Total Bilirubin (0.2-1.3) mg/dL AST (17-59) U/L ALT (21-72) U/L Alkaline Phosphatase (38-126) U/L Troponin I (0.000-0.034) ng/mL C-Reactive Protein (<10.0) mg/L NT-Pro-B Natriuret Pep pg/mL Total Protein (6.3-8.2) g/dL Albumin (3.5-5.0) g/dL Urine Color Urine Appearance (Clear) Urine pH (5.0-8.0) Ur Specific [place] (1.001-1.035) Urine Protein (Negative) Urine Glucose (UA) (Negative) Urine Ketones (Negative) Urine Blood (Negative) Urine Nitrite (Negative) Urine Bilirubin (Negative) Urine Urobilinogen (<2.0) mg/dL Ur Leukocyte Esterase (Negative) Urine RBC (0-5) /hpf Urine WBC (0-5) /hpf Ur Squamous Epith Cells (0-4) /hpf Hyaline Casts (0-2) /lpf Urine Mucus (None) /hpf - Radiology Data Radiology results: report reviewed (Ultrasound left lower extremity negative for DVT, CT left hip left leg does show inflammation and fluid in joint likely developing abscess), image reviewed Disposition Clinical Impression: Abscess, gluteal, left Disposition: ADMITTED IP TO THIS HOSP Condition: Fair Is patient prescribed a controlled substance at d/c from ED?: No
[2018-11-09] MEDS ORDERED: MORPHINE SULFATE 4 MG/ML SYRINGE IVP STA (14:30)
[2018-11-09 14:40] LABS: Basophils % (A) 0 %; Eosinophils # (A) 0.1 k/uL (0-0.7); Eosinophils % (A) 1 %; HCT 34.3 % (39.0-53.0); HGB 11.4 gm/dL (13.0-17.5); Lymphocytes # (A) 0.4 k/uL (1.0-4.8); Lymphocytes % (A) 4 %; MCH 28.3 pg (25.0-35.0); MCHC 33.1 g/dL (31.0-37.0); MCV 85.6 fL (80.0-100.0); Mean Platelet Volume 9.4; Monocytes # (A) 0.3 k/uL (0-1.0); Monocytes % (A) 3 %; Neutrophils # (A) 9.5 k/uL (1.3-7.7); Neutrophils % (A) 90 %; Platelet Count 212 k/uL (150-450); RBC 4.01 m/uL (4.30-5.90); RDW 14.7 % (11.5-15.5); WBC 10.5 k/uL (3.8-10.6)
[2018-11-09 14:51] LABS: Albumin 3.1 g/dL (3.5-5.0); Calcium 8.4 mg/dL (8.4-10.2); Phosphorus 4.3 mg/dL (2.5-4.5); Total Bilirubin 1.1 mg/dL (0.2-1.3); Total Protein 6.2 g/dL (6.3-8.2)
[2018-11-09 14:53] LABS: Magnesium 2.5 mg/dL (1.6-2.3); Potassium 4.6 mmol/L (3.5-5.1)
--- NOTE | 2018-11-09 15:15 | US ---
EXAMINATION TYPE: US venous doppler duplex LE LT DATE OF EXAM: 11/09/2018 3:09 PM COMPARISON: NONE CLINICAL HISTORY: Pain. pain and swelling left leg SIDE PERFORMED: Left TECHNIQUE: The lower extremity deep venous system is examined utilizing real time linear array sonog trev with graded compression, doppler sonography and color-flow sonography. VESSELS IMAGED: External Iliac Vein (EIV) Common Femoral Vein Deep Femoral Vein Greater Saphenous Vein * Femoral Vein Popliteal Vein Small Saphenous Vein * Proximal Calf Veins (* superficial vessels) Left Leg: Negative for DVT Rouleaux flow noted throughout. IMPRESSION: 1. No diagnostic evidence of DVT as visualized.
[2018-11-09 15:18] LABS: INR 0.9 (<1.2); Partial Thromboplastin Time 28.1 sec (22.0-30.0); Prothrombin Time 9.9 sec (9.0-12.0)
[2018-11-09 15:43] LABS: D-Dimer 7.05 mg/L FEU (<0.60)
--- NOTE | 2018-11-09 15:54 | CT ---
EXAMINATION TYPE: CT pelvis w con, CT femur LT w con DATE OF EXAM: 11/09/2018 COMPARISON: None. HISTORY: Left side lower back, pelvic, and femur pain with posterior thigh redness and swelling. CT DLP: 981.1 mGycm Automated exposure control for dose reduction was used. CONTRAST: Performed with IV Contrast, patient injected with 100 mL of Isovue 300. FINDINGS: No acute fracture or dislocation in pelvis is identified. Metallic artifact from right hip arthroplas ty is seen. Dextroconvex scoliosis with multilevel disc space narrowing and vacuum disc phenomenon as well as left lateral spurring in the visualized lumbar spine. There is moderate axial joint space lo ss with mild to moderate acetabular spurring and mild subchondral cystic change in the left hip. Pubi c symphysis is intact. No suspicious bowel dilatation is seen. Bladder is felt within normal limits. Prostate gland is enlarged in size. Streak artifact right hip arthroplasty is present. Visualized right femur shows no acute fracture or dislocation. Incidental moderate narrowing medial t ibiofemoral and patellofemoral compartment of the left knee. Muscle bulk in the left lower extremity and thigh is maintained. There is [id number] diffuse subcutaneous edema along the lateral aspec t of the femur. In addition there is mild diffuse subcutaneous edema with blurring of fat planes in t he posterior gluteal muscles at level of left hip, there is focus of air and 1.3 cm round small fluid thin-walled collection posterior to the left hip joint seen best coronal image 46. There is larger t hin-walled fluid collection along superior lateral aspect of left hip joint measuring 2.1 cm coronal image 66 of pelvic images. No suspicious cortical destruction or periosteal reaction is identified currently. IMPRESSION: MARKED INFLAMMATORY CHANGE OR INFECTION INVOLVING THE LEFT POSTERIOR GLUTEAL MUSCLES AT LEVEL OF LEFT HIP WITH FORMING THIN-WALLED FLUID COLLECTIONS IDENTIFIED INCLUDING A LARGER COLLECTION ALONG SUPERI OR LATERAL ASPECT OF LEFT HIP JOINT WORRISOME FOR DEVELOPING ABSCESSES.
[2018-11-09] MEDS ORDERED: VANCOMYCIN IV PER PHARMACY 1 EACH MISC MISCELLANE PRN (16:43)
[2018-11-09] MEDS ORDERED: PIPERACILLIN-TAZOBACTAM 3.375 GM in SODIUM CHLORIDE 0.9% 100 ML IVPB STA (16:43)
[2018-11-09 16:44] LABS: Appearance,Urine Cloudy (Clear); Bilirubin,Urine Negative (Negative); Blood,Urine Trace (Negative); Color,Urine Yellow; Glucose,Urine (UA) Negative (Negative); Hyaline Casts,Urine 6 /lpf (0-2); Ketones,Urine Negative (Negative); Leukocyte Esterase,Urine Moderate (Negative); Mucus,Urine Rare /hpf; Nitrite,Urine Negative (Negative); Protein,Urine 1+ (Negative); RBC,Urine 2 /hpf (0-5); Specific Gravity,Urine 1.034 (1.001-1.035); Squamous Epithelial Cell,Urine 1 /hpf (0-4); Urobilinogen,Urine <2.0 mg/dL (<2.0); WBC,Urine 25 /hpf (0-5)
[2018-11-09] MEDS ORDERED: VANCOMYCIN 1,750 MG in SODIUM CHLORIDE 0.9% 500 ML 500 ML IVPB STA (16:50)
[2018-11-09] MEDS ORDERED: MORPHINE SULFATE 4 MG/ML SYRINGE IVP PRN (19:03)
--- NOTE | 2018-11-09 19:48 | US ---
EXAMINATION TYPE: US extremity nonvasc mass LT DATE OF EXAM: 11/09/2018 COMPARISON: CT done earlier today, please compare CLINICAL HISTORY: Left Hip. Technologist scanned left hip area. There is a hypoechoic somewhat circular area measuring with mixed echogenicity measuring 2.5 x 2.3 x 3.1cm. It is unclear whether this corresponds with either area seen on CT. IMPRESSION: Complex area is rounded and adjacent the bone and apparently is the hypodense area later al to the left acetabulum on the CT scan today. Sonographic appearance is nonspecific. This could be a phlegmon or complex abscess.
[2018-11-09 21:51] LABS: Glucose,Whole Blood 113 mg/dL (75-99)
[2018-11-09] MEDS ORDERED: GABAPENTIN 100 MG CAP PO PRN (22:41)
[2018-11-09] MEDS ORDERED: MAG HYDROX/AL HYDROX/SIMETH 30 ML CUP PO PRN (22:43)
[2018-11-09] MEDS ORDERED: ACETAMINOPHEN TAB 325 MG TAB PO PRN (22:43)
[2018-11-09] MEDS ORDERED: ONDANSETRON 4 MG/2 ML VIAL IVP PRN (22:43)
[2018-11-09] MEDS ORDERED: MELATONIN 3 MG TABLET PO PRN (22:43)
[2018-11-09] MEDS ORDERED: HYDROmorphone 1 MG/ML 1 ML SYRINGE IV PRN (22:43)
[2018-11-09] MEDS ORDERED: NALOXONE 0.4 MG/ML 1 ML VIAL IV PRN (22:43)
--- NOTE | 2018-11-09 23:20 | P.HPIM ---
History of Present Illness H&P Date: 11/09/18 Chief Complaint: sent in from his PCP office 58 year old male with history of hypertension , DM, CAD s/p stents. patient has not been feeling well for the past 2 weeks. he was discharged form the hospital 1 week ago where he was diagnosed with uncontrlled hypertension and his meds were adjusted. 2 days later he went to his pcp and was reporting some trouble urinating and loss of bladder control, he was given cipro for possible UTI and prostatitis. he admits to long history of weak stream interrupted stream, and difficulty urinating. patient also reports a fall at home 2 nights ago, in the middle of the night when he got up of the bed felt dizzy , then powered through it till he made it to the bathroom and fell. denies any loss of consciousness or hitting his head. he landed on his right side. did not think much of it. but his noticed that he was slower than usual and was not up to do anything . he admits to generalized malaise and weakness. today he visited his PCP who advised him to go to the hospital . he reported increase pain over his left hip than his usual arthritis pain, and feeling overall sick. denies any fevers or chills, denies any chest pain or trouble breathing. pain is mainly over the left hip and limiting his activity. he has history of severe arthritis and right hip replacement . pain is 6-8 /10 , burning in nature, constant non radiating, worse with movement and touch. he also noticed blister over his righ leg that he gets all the time. he denies any gi bleeding , nausea or vomiting , denes any abd pain , denies any alcohol use. in the ED, CT of the hip showed 2 abscesses and subcutaneous edema without any free gas. doppler US of the leg showed no acute DVT Review of Systems Pertinent positives as noted in HPI. All other systems were reviewed and are negative Past Medical History Past Medical History: Diabetes Mellitus, Hypertension, Myocardial Infarction ([place]) Additional Past Medical History / Comment(s): Patient was a stemi in june 2018 got stents X 5 Last Myocardial Infarction Date:: 2017 History of Any Multi-Drug Resistant Organisms: None Reported Past Surgical History: Heart Catheterization, Heart Catheterization With Stent, Hernia Repair Additional Past Surgical History / Comment(s): 5 recent stents placed Past Anesthesia/Blood Transfusion Reactions: No Reported Reaction Date of Last Stent Placement:: 2017 Past Psychological History: No Psychological Hx Reported Smoking Status: Current every day smoker Past Alcohol Use History: Occasional Past Drug Use History: None Reported - Past Family History Mother Family Medical History: Cancer, Myocardial Infarction ([place]) Father Family Medical History: Myocardial Infarction ([place]) Medications and Allergies Home Medications Medication Instructions Recorded Confirmed Type metFORMIN HCL [Glucophage] 1,000 mg PO BID 02/16/17 11/09/18 History Gabapentin [Neurontin] 300 mg PO TID PRN 06/27/18 11/09/18 History HYDROcodone/APAP 10-325MG [[place] 1 tab PO TID PRN 06/27/18 11/09/18 History 10-325] Nitroglycerin Sl Tabs [Nitrostat] 0.4 mg SUBLINGUAL Q5M PRN 06/27/18 11/09/18 History Atorvastatin [Lipitor] 40 mg PO HS #30 tab 06/30/18 11/09/18 Rx Aspirin [Adult Low Dose Aspirin EC] 81 mg PO DAILY 10/31/18 11/09/18 History Clopidogrel Bisulfate [Plavix] 75 mg PO DAILY 10/31/18 11/09/18 History Metoprolol Tartrate [Lopressor] 50 mg PO BID #60 tab 11/02/18 11/09/18 Rx amLODIPine [Norvasc] 5 mg PO DAILY #30 tab 11/02/18 11/09/18 Rx Ciprofloxacin HCl [Cipro] 500 mg PO Q12HR 11/09/18 11/09/18 History Lisinopril [Zestril] 20 mg PO DAILY 11/09/18 11/09/18 History sitaGLIPtin [Januvia] 100 mg PO DAILY 11/09/18 11/09/18 History Allergies Allergy/AdvReac Type Severity Reaction Status Date / Time No Known Allergies Allergy Verified 11/09/18 15:43 Physical Exam Vitals: Vital Signs Temp Pulse Resp BP Pulse Ox 11/09/18 18:40 98.8 F 78 16 100/69 98 11/09/18 17:25 85 16 105/65 98 11/09/18 15:54 98.3 F 63 16 90/52 98 11/09/18 13:38 97.5 F L 71 16 102/66 95 Intake and Output 11/09/18 11/09/1811/09/19 06:59 14:59 22:59 Other: Weight 88.451 kg Constitutional: No acute distress, conversant, pleasant Eyes: Anicteric sclerae, moist conjunctiva, no lid-lag Pupils equal round reactive to light ENMT: NC/AT Oropharynx clear, no erythema, exudates Neck: Supple, FROM, no masses, or JVD No carotid bruits No thyromegaly Lungs: Clear to auscultation Clear to percussion Normal respiratory effort, no accessory muscle use Cardiovascular: Heart regular in rate and rhythm, No murmurs, gallops, or rubs No peripheral edema Abdominal: Soft Nontender, no guarding, rebound or rigidity Abdomen moving with respiration Normoactive bowel sounds No hepatomegaly, No splenomegaly No palpable mass No abdominal wall hernia noted Skin: There is multiple superficial scrapings over right and left dorsum of the hand Patient has a small 1 x 1 cm list are filled with pus over the medial aspect of his right leg surrounded by minimal erythema no induration There is area of increased warmth to the touch and slight erythema over the lateral aspect of the left hip and thigh extending all the way down to the knee over the lateral aspect tender to palpation no visible cuts ulcers or any drainage Normal temperature, tone, texture, turgor No subcutaneous nodules Extremities: No digital cyanosis No clubbing Pedal pulses intact and symmetrical Radial pulses intact and symmetrical No calf tenderness Psychiatric: Alert and oriented to person, place and time Appropriate affect fair judgment Neuro Muscles Strength 4/5 in all 4 extremities Sensation to light touch grossly present throughout Cranial nerves II-XII grossly intact No focal sensory deficits Lymphatics: no palpable cervical or supraclavicular , or inguinal lymph nodes Results CBC & Chem 7: 11/09/18 14:25 11/09/18 14:25 Labs: Abnormal Lab Results - Last 24 Hours (Table) 11/09/18 11/09/18 11/09/18 Range/Units 14:25 14:25 14:25 RBC 4.01 L (4.30-5.90) m/uL Hgb 11.4 L (13.0-17.5) gm/dL Hct 34.3 L (39.0-53.0) % Neutrophils # 9.5 H (1.3-7.7) k/uL Lymphocytes # 0.4 L (1.0-4.8) k/uL ESR (0-15) mm/hr D-Dimer 7.05 H (<0.60) mg/L FEU Sodium 128 L (137-145) mmol/L Chloride 94 L (98-107) mmol/L Carbon Dioxide 20 L (22-30) mmol/L BUN 58 H (9-20) mg/dL Glucose 225 H (74-99) mg/dL Plasma Lactic Acid Timothy (0.7-2.0) mmol/L Magnesium 2.5 H (1.6-2.3) mg/dL AST 419 H (17-59) U/L ALT 155 H (21-72) U/L Troponin I (0.000-0.034) ng/mL C-Reactive Protein (<10.0) mg/L Total Protein 6.2 L (6.3-8.2) g/dL Albumin 3.1 L (3.5-5.0) g/dL Urine Protein (Negative) Urine Blood (Negative) Ur Leukocyte Esterase (Negative) Urine WBC (0-5) /hpf Hyaline Casts (0-2) /lpf Urine Mucus (None) /hpf 11/09/18 11/09/18 11/09/18 Range/Units 14:25 14:25 14:25 RBC (4.30-5.90) m/uL Hgb (13.0-17.5) gm/dL Hct (39.0-53.0) % Neutrophils # (1.3-7.7) k/uL Lymphocytes # (1.0-4.8) k/uL ESR (0-15) mm/hr D-Dimer (<0.60) mg/L FEU Sodium (137-145) mmol/L Chloride (98-107) mmol/L Carbon Dioxide (22-30) mmol/L BUN (9-20) mg/dL Glucose (74-99) mg/dL Plasma Lactic Acid Timothy 2.4 H* (0.7-2.0) mmol/L Magnesium (1.6-2.3) mg/dL AST (17-59) U/L ALT (21-72) U/L Troponin I 0.560 H* (0.000-0.034) ng/mL C-Reactive Protein 350.6 H (<10.0) mg/L Total Protein (6.3-8.2) g/dL Albumin (3.5-5.0) g/dL Urine Protein (Negative) Urine Blood (Negative) Ur Leukocyte Esterase (Negative) Urine WBC (0-5) /hpf Hyaline Casts (0-2) /lpf Urine Mucus (None) /hpf 11/09/18 11/09/18 Range/Units 16:30 17:23 RBC (4.30-5.90) m/uL Hgb (13.0-17.5) gm/dL Hct (39.0-53.0) % Neutrophils # (1.3-7.7) k/uL Lymphocytes # (1.0-4.8) k/uL ESR 126 H (0-15) mm/hr D-Dimer (<0.60) mg/L FEU Sodium (137-145) mmol/L Chloride (98-107) mmol/L Carbon Dioxide (22-30) mmol/L BUN (9-20) mg/dL Glucose (74-99) mg/dL Plasma Lactic Acid Timothy (0.7-2.0) mmol/L Magnesium (1.6-2.3) mg/dL AST (17-59) U/L ALT (21-72) U/L Troponin I (0.000-0.034) ng/mL C-Reactive Protein (<10.0) mg/L Total Protein (6.3-8.2) g/dL Albumin (3.5-5.0) g/dL Urine Protein 1+ H (Negative) Urine Blood Trace H (Negative) Ur Leukocyte Esterase Moderate H (Negative) Urine WBC 25 H (0-5) /hpf Hyaline Casts 6 H (0-2) /lpf Urine Mucus Rare H (None) /hpf Assessment and Plan Assessment: 58 year old male , history of HTN, DM, CAD s/p stents , admitted as inpatient with anticipated length of stay >48 hours. found to have two small abscess around left hip along with swelling and erythema over the left thigh. admitted for ABX, and drainage of the abscess. he also has transaminitis awaiting further workup , mild anemia, and hyponatremia patient reported feeling ill for about 1-2 weeks now. he was taking ciprofloxacin for possible prostatitis as OP,. Plan: left hip abscess skin blister right leg follow up cultures ID consultation vanc and zosyn IVF hydration pain control GEN surg evaluation IR for drainage of two abscess in the hip CT of the hip reviewed Lactic acidosis , resolved with IVF hydration Elevated D dimer doppler US was negative for acute DVT Slightly elevated troponin no chest pain continue to monitor Hyponatremia IVF hydration with normal saline , follow up electrolytes Transaminitis , possible cipro hepatotoxicity denies alcohol intake check liver US check hepatitis panel BPH clinical symptoms suggestive of BPH flomax mild anemia denies any GI bleeding chronic conditions DM , on insulin sliding scale while inpatient CAD s/p stents, continue plavix, aspirin , statin Hypertension , continue home meds ACEI DVT PPX , heparin sc tid Surrogate decision-maker: jackyt CODE STATUS:full code Discussed with: Patient, ER, RN Anticipated discharge: 48-[address]: pending clinical course , mostly home A total of 60 minutes was spent on the care of this complex patient more than 50% of the time was spent in counseling and care coordination.
[2018-11-09] MEDS: PIPERACILLIN-TAZOBACTAM 3.375 GM in SODIUM CHLORIDE 0.9% 100 ML IVPB SCH (23:52)
[2018-11-09] MEDS: MORPHINE SULFATE 4 MG/ML SYRINGE IVP PRN (23:52)
[2018-11-09] MEDS: HEPARIN SODIUM,PORCINE 5,000 UNIT/ML 1 ML VIAL SQ SCH (23:53)
[2018-11-09] MEDS: SODIUM CHLORIDE 0.9% 1,000 ML IV SCH (23:53)
[2018-11-09] MEDS: METOPROLOL TARTRATE 50 MG TAB PO SCH (23:53)
[2018-11-10 05:55] LABS: Glucose,Whole Blood 199 mg/dL (75-99)
[2018-11-10] MEDS ORDERED: VANCOMYCIN 1,500 MG in SODIUM CHLORIDE 0.9% 250 ML IVPB SCH ×2 (06:00→14:00)
[2018-11-10] MEDS: SODIUM CHLORIDE 0.9% 1,000 ML IV SCH ×3 (06:07→23:29)
[2018-11-10] MEDS: INSULIN ASPART (NovoLOG) 100 UNIT/ML VIAL SQ SCH ×4 (06:07→21:12)
[2018-11-10] MEDS: PANTOPRAZOLE 40 MG TABLET PO SCH (06:07)
[2018-11-10 07:54] LABS: Basophils % (A) 0 %; Eosinophils # (A) 0.1 k/uL (0-0.7); Eosinophils % (A) 2 %; HCT 30.8 % (39.0-53.0); HGB 10.3 gm/dL (13.0-17.5); Lymphocytes # (A) 0.3 k/uL (1.0-4.8); Lymphocytes % (A) 4 %; MCH 28.7 pg (25.0-35.0); MCHC 33.4 g/dL (31.0-37.0); Mean Platelet Volume 8.5; Monocytes # (A) 0.3 k/uL (0-1.0); Monocytes % (A) 4 %; Neutrophils # (A) 6.4 k/uL (1.3-7.7); Neutrophils % (A) 88 %; Platelet Count 194 k/uL (150-450); RBC 3.59 m/uL (4.30-5.90); RDW 14.7 % (11.5-15.5); WBC 7.3 k/uL (3.8-10.6)
[2018-11-10 08:17] LABS: ALT 146 U/L (21-72); AST 258 U/L (17-59); Albumin 2.5 g/dL (3.5-5.0); Alkaline Phosphatase 84 U/L (38-126); Anion Gap 7 mmol/L; Blood Urea Nitrogen 30 mg/dL (9-20); Calcium 7.8 mg/dL (8.4-10.2); Carbon Dioxide 24 mmol/L (22-30); Chloride 104 mmol/L (98-107); Glucose 180 mg/dL (74-99); Potassium 3.5 mmol/L (3.5-5.1); Sodium 135 mmol/L (137-145); Total Bilirubin 0.7 mg/dL (0.2-1.3)
--- NOTE | 2018-11-10 08:48 | P.CNOR ---
History of Present Illness - [facility] Consult date: 11/10/18 History of present illness: The patient is a very pleasant 58-year-old male with multiple medical problems including coronary artery disease having recently undergone 5 stents in June 2018 was well known to our group. He is previously undergone a right total hip replacement by Dr. Jun Zuniga and has had issues with his back managed by Dr. Lester and Sandro. Over the last week the patient is had increasing pain over the lateral aspect of his left hip. He denies any trauma. He is also had low-grade fevers and chills. He was seen in the office by his primary care physician who started him on an antibiotic for a presumed urinary tract infection and possibly prostatitis. He was seen in the office yesterday where there was concern for deep infection around the left hip. He was seen in the emergency department where workup included x-rays and a computed tomography scan with contrast. He was initially seen by general surgery who also had concern about septic arthritis of the left hip. The patient was given IV antibiotics and admitted to internal medicine. I was consulted this morning to evaluate the patient's left hip. At the time of my evaluation the patient is complaining of lateral sided hip pain over the gluteal region and low back. He denies any groin pain. He has chronic low back pain which is unchanged. He denies any pain in the right hip. Past Medical History Past Medical History: Diabetes Mellitus, Hypertension, Myocardial Infarction ([place]) Additional Past Medical History / Comment(s): Patient was a stemi in june 2018 got stents X 5 Last Myocardial Infarction Date:: 2017 History of Any Multi-Drug Resistant Organisms: None Reported Past Surgical History: Heart Catheterization, Heart Catheterization With Stent, Hernia Repair Additional Past Surgical History / Comment(s): 5 recent stents placed Past Anesthesia/Blood Transfusion Reactions: No Reported Reaction Date of Last Stent Placement:: 2017 Past Psychological History: No Psychological Hx Reported Smoking Status: Current every day smoker Past Alcohol Use History: Occasional Past Drug Use History: None Reported - Past Family History Mother Family Medical History: Cancer, Myocardial Infarction ([place]) Father Family Medical History: Myocardial Infarction ([place]) Medications and Allergies Home Medications Medication Instructions Recorded Confirmed Type metFORMIN HCL [Glucophage] 1,000 mg PO BID 02/16/17 11/09/18 History Gabapentin [Neurontin] 300 mg PO TID PRN 06/27/18 11/09/18 History HYDROcodone/APAP 10-325MG [[place] 1 tab PO TID PRN 06/27/18 11/09/18 History 10-325] Nitroglycerin Sl Tabs [Nitrostat] 0.4 mg SUBLINGUAL Q5M PRN 06/27/18 11/09/18 History Atorvastatin [Lipitor] 40 mg PO HS #30 tab 06/30/18 11/09/18 Rx Aspirin [Adult Low Dose Aspirin EC] 81 mg PO DAILY 10/31/18 11/09/18 History Clopidogrel Bisulfate [Plavix] 75 mg PO DAILY 10/31/18 11/09/18 History Metoprolol Tartrate [Lopressor] 50 mg PO BID #60 tab 11/02/18 11/09/18 Rx amLODIPine [Norvasc] 5 mg PO DAILY #30 tab 11/02/18 11/09/18 Rx Ciprofloxacin HCl [Cipro] 500 mg PO Q12HR 11/09/18 11/09/18 History Lisinopril [Zestril] 20 mg PO DAILY 11/09/18 11/09/18 History sitaGLIPtin [Januvia] 100 mg PO DAILY 11/09/18 11/09/18 History Allergies Allergy/AdvReac Type Severity Reaction Status Date / Time No Known Allergies Allergy Verified 11/09/18 15:43 Physical Examination The patient is alert and resting in bed in no apparent distress. He demonstrates nonlabored breathing. On inspection of the right hip there is a well-healed surgical incision with no surrounding erythema or warmth. He has no pain with passive range of motion of the right hip. On inspection of the left hip there is mild erythema and induration over the lateral aspect of the hip and buttock with no palpable fluctuance or open wounds. The patient has no pain with logroll or passive range of motion of the left hip. Distally the left leg is neurovascularly intact. Results X-rays of the pelvis and hip show a stable right total hip replacement. X-rays of the left hip show arthritic changes in the hip but no evidence of deep infection or pathologic processes. Computed tomography scan with contrast of the pelvis and hip showed possible fluid collection in the gluteal region and degenerative changes in the hip. - Labs Labs: Abnormal Lab Results - Last 24 Hours (Table) 11/09/18 11/09/18 11/09/18 Range/Units 14:25 14:25 14:25 RBC 4.01 L (4.30-5.90) m/uL Hgb 11.4 L (13.0-17.5) gm/dL Hct 34.3 L (39.0-53.0) % Neutrophils # 9.5 H (1.3-7.7) k/uL Lymphocytes # 0.4 L (1.0-4.8) k/uL ESR (0-15) mm/hr D-Dimer 7.05 H (<0.60) mg/L FEU Sodium 128 L (137-145) mmol/L Chloride 94 L (98-107) mmol/L Carbon Dioxide 20 L (22-30) mmol/L BUN 58 H (9-20) mg/dL Glucose 225 H (74-99) mg/dL POC Glucose (mg/dL) (75-99) mg/dL Plasma Lactic Acid Timothy (0.7-2.0) mmol/L Calcium (8.4-10.2) mg/dL Magnesium 2.5 H (1.6-2.3) mg/dL AST 419 H (17-59) U/L ALT 155 H (21-72) U/L Troponin I (0.000-0.034) ng/mL C-Reactive Protein (<10.0) mg/L Total Protein 6.2 L (6.3-8.2) g/dL Albumin 3.1 L (3.5-5.0) g/dL Urine Protein (Negative) Urine Blood (Negative) Ur Leukocyte Esterase (Negative) Urine WBC (0-5) /hpf Hyaline Casts (0-2) /lpf Urine Mucus (None) /hpf 11/09/18 11/09/18 11/09/18 Range/Units 14:25 14:25 14:25 RBC (4.30-5.90) m/uL Hgb (13.0-17.5) gm/dL Hct (39.0-53.0) % Neutrophils # (1.3-7.7) k/uL Lymphocytes # (1.0-4.8) k/uL ESR (0-15) mm/hr D-Dimer (<0.60) mg/L FEU Sodium (137-145) mmol/L Chloride (98-107) mmol/L Carbon Dioxide (22-30) mmol/L BUN (9-20) mg/dL Glucose (74-99) mg/dL POC Glucose (mg/dL) (75-99) mg/dL Plasma Lactic Acid Timothy 2.4 H* (0.7-2.0) mmol/L Calcium (8.4-10.2) mg/dL Magnesium (1.6-2.3) mg/dL AST (17-59) U/L ALT (21-72) U/L Troponin I 0.560 H* (0.000-0.034) ng/mL C-Reactive Protein 350.6 H (<10.0) mg/L Total Protein (6.3-8.2) g/dL Albumin (3.5-5.0) g/dL Urine Protein (Negative) Urine Blood (Negative) Ur Leukocyte Esterase (Negative) Urine WBC (0-5) /hpf Hyaline Casts (0-2) /lpf Urine Mucus (None) /hpf 11/09/18 11/09/18 11/09/18 Range/Units 16:30 17:23 21:50 RBC (4.30-5.90) m/uL Hgb (13.0-17.5) gm/dL Hct (39.0-53.0) % Neutrophils # (1.3-7.7) k/uL Lymphocytes # (1.0-4.8) k/uL ESR 126 H (0-15) mm/hr D-Dimer (<0.60) mg/L FEU Sodium (137-145) mmol/L Chloride (98-107) mmol/L Carbon Dioxide (22-30) mmol/L BUN (9-20) mg/dL Glucose (74-99) mg/dL POC Glucose (mg/dL) 113 H (75-99) mg/dL Plasma Lactic Acid Timothy (0.7-2.0) mmol/L Calcium (8.4-10.2) mg/dL Magnesium (1.6-2.3) mg/dL AST (17-59) U/L ALT (21-72) U/L Troponin I (0.000-0.034) ng/mL C-Reactive Protein (<10.0) mg/L Total Protein (6.3-8.2) g/dL Albumin (3.5-5.0) g/dL Urine Protein 1+ H (Negative) Urine Blood Trace H (Negative) Ur Leukocyte Esterase Moderate H (Negative) Urine WBC 25 H (0-5) /hpf Hyaline Casts 6 H (0-2) /lpf Urine Mucus Rare H (None) /hpf 11/10/18 11/10/18 11/10/18 Range/Units 05:54 07:07 07:07 RBC 3.59 L (4.30-5.90) m/uL Hgb 10.3 L (13.0-17.5) gm/dL Hct 30.8 L (39.0-53.0) % Neutrophils # (1.3-7.7) k/uL Lymphocytes # 0.3 L (1.0-4.8) k/uL ESR (0-15) mm/hr D-Dimer (<0.60) mg/L FEU Sodium 135 L (137-145) mmol/L Chloride (98-107) mmol/L Carbon Dioxide (22-30) mmol/L BUN 30 H (9-20) mg/dL Glucose 180 H (74-99) mg/dL POC Glucose (mg/dL) 199 H (75-99) mg/dL Plasma Lactic Acid Timothy (0.7-2.0) mmol/L Calcium 7.8 L (8.4-10.2) mg/dL Magnesium (1.6-2.3) mg/dL AST 258 H (17-59) U/L ALT 146 H (21-72) U/L Troponin I (0.000-0.034) ng/mL C-Reactive Protein (<10.0) mg/L Total Protein 5.0 L (6.3-8.2) g/dL Albumin 2.5 L (3.5-5.0) g/dL Urine Protein (Negative) Urine Blood (Negative) Ur Leukocyte Esterase (Negative) Urine WBC (0-5) /hpf Hyaline Casts (0-2) /lpf Urine Mucus (None) /hpf Microbiology - Last 24 Hours (Table) 11/09/18 14:25 Blood Culture Gram Stain - Preliminary Blood 11/09/18 14:25 Blood Culture - Final Blood 11/09/18 16:30 Urine Culture - Preliminary Urine,Voided H & H 11/09/18 11/10/18 Range/Units 14:25 07:07 Hgb 11.4 L 10.3 L (13.0-17.5) gm/dL Hct 34.3 L 30.8 L (39.0-53.0) % Coagulation 11/09/18 Range/Units 14:25 INR 0.9 (<1.2) Result Diagrams: 11/10/18 07:07 11/10/18 07:07 Assessment and Plan (1) Abscess, gluteal, left Current Visit: Yes Status: Acute Code(s): L02.31 - CUTANEOUS ABSCESS OF BUTTOCK SNOMED Code(s): 93894083 (2) S/P total hip arthroplasty Current Visit: No Status: Acute Code(s): Z96.649 - PRESENCE OF UNSPECIFIED ARTIFICIAL HIP JOINT SNOMED Code(s): 937398476984 Plan: At the time of my evaluation the patient has no evidence of left hip septic arth ritis as he has minimal to no pain with passive range of motion of the left hip. Most of his tenderness is over the lateral aspect of the hip and is consistent with a possible gluteal abscess as seen on the computed tomography scan with contrast. I have no plans for surgical intervention at this time. I would recommend an image guided aspiration and drainage of the gluteal fluid collection by interventional radiology and continued IV antibiotics under the guidance of infectious disease. If the patient fails to improve I would recommend getting an MRI of the patient's lumbar spine and pelvis. We will continue to follow while the patient is an inpatient. Time with Patient: Greater than 30
--- NOTE | 2018-11-10 08:54 | US ---
EXAMINATION TYPE: US liver DATE OF EXAM: 11/10/2018 COMPARISON: CT 02/17/2017 CLINICAL HISTORY: transaminitis. Difficult and limited exam due to overlying bowel gas EXAM MEASUREMENTS: Liver Length: 21.1 cm Gallbladder Wall: 0.2 cm CBD: 0.7 cm Right Kidney: 13.8 x 5.7 x 5.5 cm Pancreas: Obscured by bowel gas Liver: Enlarged. Echogenic, possible dilated intrahepatic ducts Gallbladder: wnl Evidence for sonographic Russell's sign: No CBD: Dilated, distal portion obscured by bowel gas Right Kidney: No hydronephrosis. Echogenic area visualized upper pole measuring 0.9 x 0.8 x 0.8 cm, possible angiomyolipoma Limited views of the pancreas are unremarkable. The liver is enlarged measuring 21 cm. It is echogenic and likely fatty infiltrated. The gallbladder is unremarkable without cholelithiasis. The gallbladder wall measures 2 mm. The dista l common hepatic duct measures 7 mm. There is an echogenic focus in the upper pole of the right kidney measuring 9 mm. This may represent an angiomyolipoma. IMPRESSION: 1. HEPATOMEGALY AND FATTY INFILTRATION OF THE LIVER. 2. 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
[2018-11-10] MEDS: MORPHINE SULFATE 4 MG/ML SYRINGE IVP PRN ×2 (11:01→21:13)
[2018-11-10] MEDS: CLOPIDOGREL 75 MG TAB PO SCH (11:01)
[2018-11-10] MEDS: PIPERACILLIN-TAZOBACTAM 3.375 GM in SODIUM CHLORIDE 0.9% 100 ML IVPB SCH (11:01)
[2018-11-10] MEDS: ASPIRIN 81 MG PO SCH (11:01)
[2018-11-10] MEDS: amLODIPine 5 MG TAB PO SCH (11:02)
[2018-11-10] MEDS: LISINOPRIL 20 MG TAB PO SCH (11:02)
[2018-11-10] MEDS: TAMSULOSIN 0.4 MG CAP.ER.24H PO SCH (11:02)
[2018-11-10] MEDS: METOPROLOL TARTRATE 50 MG TAB PO SCH ×2 (11:03→20:02)
[2018-11-10] MEDS: HEPARIN SODIUM,PORCINE 5,000 UNIT/ML 1 ML VIAL SQ SCH ×3 (11:03→23:23)
[2018-11-10 11:12] LABS: Color,BF Yellow
[2018-11-10 11:13] LABS: Appearance,BF Cloudy; Nucleated Cells, Body Fluid 120500 /uL; RBC, Body Fluid 4000 /uL
[2018-11-10 11:15] LABS: Mononuclear WBC,Body Fluid 4 %; Polynuclear WBC,Body Fluid 96 %; Total Cells Counted,Body Fluid 100
[2018-11-10 11:29] LABS: Hepatitis A Antibody IgM Non-Reactive (Non-Reactive); Hepatitis B Core IgM Non-Reactive (Non-Reactive)
[2018-11-10 11:43] LABS: Glucose,Whole Blood 160 mg/dL (75-99)
[2018-11-10 16:28] LABS: Glucose,Whole Blood 194 mg/dL (75-99)
[2018-11-10] MEDS: ceFAZolin IN SWFI 2 GM/20 ML SYRINGE IVP SCH ×2 (16:55→23:24)
--- NOTE | 2018-11-10 17:28 | P.PN ---
Subjective Progress Note Date: 11/10/18 The patient is a 58-year-old male with a PMH of hypertension, diabetes mellitus, and CAD status post stents who presented to the ED for feeling ill over the past few weeks. The patient reports that he was recently admitted to the hospital for chest pain, when he was diagnosed with uncontrolled hypertension and was started on new medications along with being started on oral ciprofloxacin for suspected prostatitis. He also reported having a fall at home 2 nights prior to presentation when he felt lightheaded and fell down on his right hip, though denied head trauma, loss of consciousness, urinary, or bowel incontinence. The patient subsequently was admitted his PCP on the day of presentation and re ported worsening left sided hip pain. The patient also reports noticing a blister on his right lombardo which appeared 2-3 days prior. The patient underwent an extensive evaluation in the ED and had a CT scan of the hip which revealed abscesses forming in the muscles along with a cutaneous edema. Venous duplex of left lower extremity was negative for DVT. The patient was started on broad- spectrum antibiotics and was admitted for further management. Interventional radiology was consulted and the patient underwent a needle aspiration of the abscesses uneventfully. Infectious disease was also consulted for guidance with antibiotics. The patient was seen and examined at the bedside on 11/10/2018. He reports continued left hip pain, especially worsened with movement, improved from presentation. He reports the pain at a 3-4 out of 10, burning like. He otherwise denied fever, chills, nausea, vomiting, chest pain, shortness of breath. Objective - Vital Signs Vital signs: Vital Signs Temp 97.7 F 11/10/18 12:00 Pulse 80 11/10/18 12:00 Resp 16 11/10/18 12:00 BP 105/64 11/10/18 12:00 Pulse Ox 97 11/10/18 12:00 Intake & Output 11/09/18 11/10/18 11/10/18 18:59 06:59 18:59 Intake Total 480 240 Output Total 600 Balance 480 -360 Weight 88.451 kg 90.4 kg Intake: Intake, IV Titration 480 Amount Sodium Chloride 0.9% 1, 480 000 ml @ 120 mls/hr IV . Q8H20M [facility] Rx#:[id number] Oral 240 Output: Urine 600 Other: Voiding Method Toilet Urinal # Voids 1 - Exam General: Non-toxic, in no acute distress, appears stated age, normal weight HEENT: NC/AT, anicteric sclerae, moist conjunctiva, no lid-lag, PERRLA Cardiovascular: S1/S2 wnl, no murmurs, rubs, or gallops Lungs: Clear to auscultation, normal respiratory effort, no accessory muscle use Abdominal: Soft, non-tender, non-distended, no guarding, rebound, or rigidity Skin: Warm, dry Extremities: Left lateral and posterior hip with erythema and warmth, extending to the level of the knee, with no ulcers or drainage, tender to palpation, pus filled 1 cm x 1 similar ulcer noted at the right lombardo Psychiatric: Alert and oriented to person, place and time, appropriate affect Neuro: CN II-XII grossly intact, Strength 4/5 in all 4 extremities, Speech intact, Sensation to light touch grossly intact throughout - Labs CBC & Chem 7: 11/10/18 07:07 11/10/18 07:07 Labs: Abnormal Lab Results - Last 24 Hours (Table) 11/09/18 11/09/18 11/09/18 Range/Units 14:25 17:23 21:50 RBC (4.30-5.90) m/uL Hgb (13.0-17.5) gm/dL Hct (39.0-53.0) % Lymphocytes # (1.0-4.8) k/uL ESR 126 H (0-15) mm/hr Sodium (137-145) mmol/L BUN (9-20) mg/dL Glucose (74-99) mg/dL POC Glucose (mg/dL) 113 H (75-99) mg/dL Calcium (8.4-10.2) mg/dL AST (17-59) U/L ALT (21-72) U/L C-Reactive Protein 350.6 H (<10.0) mg/L Total Protein (6.3-8.2) g/dL Albumin (3.5-5.0) g/dL 11/10/18 11/10/18 11/10/18 Range/Units 05:54 07:07 07:07 RBC 3.59 L (4.30-5.90) m/uL Hgb 10.3 L (13.0-17.5) gm/dL Hct 30.8 L (39.0-53.0) % Lymphocytes # 0.3 L (1.0-4.8) k/uL ESR (0-15) mm/hr Sodium 135 L (137-145) mmol/L BUN 30 H (9-20) mg/dL Glucose 180 H (74-99) mg/dL POC Glucose (mg/dL) 199 H (75-99) mg/dL Calcium 7.8 L (8.4-10.2) mg/dL AST 258 H (17-59) U/L ALT 146 H (21-72) U/L C-Reactive Protein (<10.0) mg/L Total Protein 5.0 L (6.3-8.2) g/dL Albumin 2.5 L (3.5-5.0) g/dL 11/10/18 11/10/18 Range/Units 11:12 16:14 RBC (4.30-5.90) m/uL Hgb (13.0-17.5) gm/dL Hct (39.0-53.0) % Lymphocytes # (1.0-4.8) k/uL ESR (0-15) mm/hr Sodium (137-145) mmol/L BUN (9-20) mg/dL Glucose (74-99) mg/dL POC Glucose (mg/dL) 160 H 194 H (75-99) mg/dL Calcium (8.4-10.2) mg/dL AST (17-59) U/L ALT (21-72) U/L C-Reactive Protein (<10.0) mg/L Total Protein (6.3-8.2) g/dL Albumin (3.5-5.0) g/dL Microbiology - Last 24 Hours (Table) 11/09/18 14:25 Blood Culture Gram Stain - Preliminary Blood Blood Culture - Preliminary Staphylococcus aureus 11/09/18 14:25 Blood Culture - Final Blood 11/09/18 16:30 Urine Culture - Preliminary Urine,Voided Assessment and Plan Plan: Left hip abscess, right leg 1 cm blister -Continue with broad-spectrum antibiotics -Awaiting culture results -ID consultation pending -Pain control Transaminitis, improved -Hepatitis panel negative -Possibly ciprofloxacin hepatotoxicity Hyponatremia, improved -Monitor for now Diabetes mellitus -Blood glucose monitoring and insulin sliding scale Hypertension -Resume home medications Coronary artery disease status post stents -Continue with home medications aspirin, Plavix, statin DVT//GI prophylaxis -Heparin -Protonix Discussed with: Patient Anticipated discharge date: 11/12/[address]: Home A total of 30 minutes was spent on the care of this complex patient more than 50% of the time was spent in counseling and care coordination.
[2018-11-10] MEDS: ATORVASTATIN 40 MG TAB PO SCH (20:02)
[2018-11-10 21:03] LABS: Glucose,Whole Blood 248 mg/dL (75-99)
[2018-11-11] MEDS: MORPHINE SULFATE 4 MG/ML SYRINGE IVP PRN ×2 (03:47→07:58)
[2018-11-11] MEDS ORDERED: VANCOMYCIN TROUGH DUE 1 EACH MISC MISCELLANE ONE (05:00)
[2018-11-11] MEDS: PANTOPRAZOLE 40 MG TABLET PO SCH (06:00)
[2018-11-11 06:11] LABS: Glucose,Whole Blood 179 mg/dL (75-99)
[2018-11-11] MEDS: INSULIN ASPART (NovoLOG) 100 UNIT/ML VIAL SQ SCH ×4 (06:25→22:21)
[2018-11-11 06:53] LABS: HCT 28.3 % (39.0-53.0); HGB 9.3 gm/dL (13.0-17.5); MCH 28.3 pg (25.0-35.0); MCHC 32.7 g/dL (31.0-37.0); MCV 86.5 fL (80.0-100.0); Mean Platelet Volume 8.7; Platelet Count 244 k/uL (150-450); RBC 3.27 m/uL (4.30-5.90); RDW 14.7 % (11.5-15.5); WBC 8.4 k/uL (3.8-10.6)
[2018-11-11 07:03] LABS: ALT 99 U/L (21-72); AST 104 U/L (17-59); Albumin 2.3 g/dL (3.5-5.0); Alkaline Phosphatase 87 U/L (38-126); Anion Gap 7 mmol/L; Blood Urea Nitrogen 14 mg/dL (9-20); Calcium 7.5 mg/dL (8.4-10.2); Carbon Dioxide 27 mmol/L (22-30); Chloride 102 mmol/L (98-107); Glucose 165 mg/dL (74-99); Potassium 3.6 mmol/L (3.5-5.1); Sodium 136 mmol/L (137-145); Total Bilirubin 0.8 mg/dL (0.2-1.3); Total Protein 4.8 g/dL (6.3-8.2)
[2018-11-11] MEDS: amLODIPine 5 MG TAB PO SCH (07:58)
[2018-11-11] MEDS: HEPARIN SODIUM,PORCINE 5,000 UNIT/ML 1 ML VIAL SQ SCH ×3 (07:58→22:20)
[2018-11-11] MEDS: TAMSULOSIN 0.4 MG CAP.ER.24H PO SCH (07:59)
[2018-11-11] MEDS: SODIUM CHLORIDE 0.9% 1,000 ML IV SCH (07:59)
[2018-11-11] MEDS: CLOPIDOGREL 75 MG TAB PO SCH (07:59)
[2018-11-11] MEDS: METOPROLOL TARTRATE 50 MG TAB PO SCH ×2 (07:59→22:21)
[2018-11-11] MEDS: LISINOPRIL 20 MG TAB PO SCH (07:59)
[2018-11-11] MEDS: ASPIRIN 81 MG PO SCH (07:59)
[2018-11-11] MEDS: ceFAZolin IN SWFI 2 GM/20 ML SYRINGE IVP SCH ×3 (08:05→22:20)
[2018-11-11] MEDS ORDERED: MORPHINE SULFATE 4 MG/ML SYRINGE IVP PRN (08:13)
--- NOTE | 2018-11-11 09:50 | P.PN ---
Subjective Progress Note Date: 11/11/18 Principal diagnosis: fatigue Patient is a 58-year-old male past medical history of hypertension, diabetes, coronary artery disease status post stenting who presented at the direction of his PCP for lightheadedness and dizziness. He has subsequently been found have a left gluteal abscess which was drained by interventional radiology. He has been found to have staph aureus bacteremia. He was seen by Ortho Tejal recommended I&D via interventional radiology but no surgical intervention. Patient seen and examined at bedside. He is having increasing pain in his left gluteal area today, he states the pain medications are feeling less effective. He still feeling overall fatigued and weak. He denies any chest pain, shortness of breath, nausea, vomiting, or diarrhea. He reports that he has a history of forming vesicles with purulent material and has one now on his left lombardo is noted by [employer]. Has seen dermatology about these in the past. Objective - Vital Signs Vital signs: Vital Signs Temp 98.2 F 11/11/18 08:00 Pulse 89 11/11/18 08:00 Resp 18 11/11/18 08:00 BP 109/69 11/11/18 08:00 Pulse Ox 93 L 11/11/18 08:00 Intake & Output 11/10/18 11/11/18 11/11/18 18:59 06:59 18:59 Intake Total 462 810 240 Output Total 1200 800 Balance -738 10 240 Weight 90.4 kg Intake: Intake, IV Titration 460 Amount Sodium Chloride 0.9% 1, 460 000 ml @ 120 mls/hr IV . Q8H20M [facility] Rx#:[id number] Oral 462 350 240 Output: Urine 1200 800 Other: Voiding Method Toilet Urinal # Voids 1 - Exam General: ill appearing, no distress, appears at stated age Derm: warm, dry Head: atraumatic, normocephalic, symmetric Eyes: EOMI, no lid lag, anicteric sclera Mouth: no lip lesion, mucus membranes moist Cardiovascular: S1S2 reg, no murmur, positive posterior tibial pulse bilateral, Lungs: CTA bilateral, no rhonchi, no rales , no accessory muscle use Abdominal: soft, nontender to palpation, no guarding, no appreciable organomegaly Ext: no gross muscle atrophy, no edema, no contractures, Left buttocks with edema Neuro: CN II-XI grossly intact, no focal neuro deficits Psych: Alert, oriented, appropriate affect Ext: Fluid filled blister containing pus. aspirated 1 CC of purulent material left open to drain. Culture sent - Labs CBC & Chem 7: 11/11/18 05:43 11/11/18 05:43 Labs: Abnormal Lab Results - Last 24 Hours (Table) 11/10/18 11/10/18 11/10/18 Range/Units 11:12 16:14 21:02 RBC (4.30-5.90) m/uL Hgb (13.0-17.5) gm/dL Hct (39.0-53.0) % Sodium (137-145) mmol/L Creatinine (0.66-1.25) mg/dL Glucose (74-99) mg/dL POC Glucose (mg/dL) 160 H 194 H 248 H (75-99) mg/dL Calcium (8.4-10.2) mg/dL AST (17-59) U/L ALT (21-72) U/L Total Protein (6.3-8.2) g/dL Albumin (3.5-5.0) g/dL 11/11/18 11/11/18 11/11/18 Range/Units 05:43 05:43 06:09 RBC 3.27 L (4.30-5.90) m/uL Hgb 9.3 L (13.0-17.5) gm/dL Hct 28.3 L (39.0-53.0) % Sodium 136 L (137-145) mmol/L Creatinine 0.41 L (0.66-1.25) mg/dL Glucose 165 H (74-99) mg/dL POC Glucose (mg/dL) 179 H (75-99) mg/dL Calcium 7.5 L (8.4-10.2) mg/dL AST 104 H (17-59) U/L ALT 99 H (21-72) U/L Total Protein 4.8 L (6.3-8.2) g/dL Albumin 2.3 L (3.5-5.0) g/dL Microbiology - Last 24 Hours (Table) 11/10/18 09:15 Gram Stain - Preliminary Aspirate Body Fluid Culture - Preliminary Presumptive Staph aureus 11/09/18 16:30 Urine Culture - Final Urine,Voided 11/10/18 09:15 Anaerobic Culture - Preliminary Aspirate 11/09/18 14:25 Blood Culture Gram Stain - Preliminary Blood Blood Culture - Preliminary Staphylococcus aureus 11/09/18 14:25 Blood Culture - Final Blood Assessment and Plan Assessment: Staph aureus gluteral abscess resulting in staph aureus bacteremia - Appears to be MSSA, cefazolin - ID consult - Increased pain will re ultrasound site - Pain control - no echo at this time as had one 11/01 without signs of valvular dysfunction. - fluid filled blister from right leg aspirated and sent for culture. DM 2 - on orals at home, resume januvia hold metformin - SSI - follow BS - await A1C Elevated toponin - ekg ordered and reviewed - repeat troponin pending - on ASA, plavix, statin and BB HTN, controlled - continue current medications - follow blood pressure Transaminitis, improving - likely due to stress from infection - hep profile negative - liver US without abscess/gallbladder disease - repeat in AM Hyponatremia, improved elevated lactic acid, resolved BPH - flomax Mild anemia, stable - follow CBC - outpatient evaluation DVT prophylaxis: Heparin Discussed with: PAtient and nursing Anticipated discharge: 1-[address]: home A total of 40 minutes was spent on the care of this complex patient more than 50 % of the time was spent in counseling and care coordination.
--- NOTE | 2018-11-11 11:10 | P.PN ---
Subjective Progress Note Date: 11/11/18 The patient is a very pleasant 58-year-old male with multiple medical problems including coronary artery disease having recently undergone 5 stents in June 2018 was well known to our group. He is previously undergone a right total hip replacement by Dr. Jun Zuniga and has had issues with his back managed by Dr. Lester and Sandro. Over the last week the patient is had increasing pain over the lateral aspect of his left hip. He denies any trauma. He is also had low-grade fevers and chills. He was seen in the office by his primary care physician who started him on an antibiotic for a presumed urinary tract infection and possibly prostatitis. He was seen in the office yesterday where there was concern for deep infection around the left hip. He was seen in the emergency department where workup included x-rays and a computed tomography scan with contrast. He was initially seen by general surgery who also had concern about septic arthritis of the left hip. The patient was given IV antibiotics and admitted to internal medicine. Orthopedics was consulted to evaluate the patient's left hip. Patient underwent a CT-guided needle aspiration yesterday with interventional radiology. Currently, the patient states the pain in his left hip has increased since yesterday. He states he believes IR only aspirated a very small amount from his hip yesterday. Per nursing, the patient has asked for pain medication more often than yesterday. The patient states overall he is feeling well, despite feeling generalized fatigue. He denies fevers, chills, shortness of breath, nausea, or vomiting. Vital signs stable. A superficial pus-filled vesicle was noticed on his left lombardo this morning, which was aspirated and sent to culture by Dr. Ratliff. Objective - Vital Signs Vital signs: Vital Signs Temp 98.2 F 11/11/18 08:00 Pulse 89 11/11/18 08:00 Resp 18 11/11/18 08:00 BP 109/69 11/11/18 08:00 Pulse Ox 93 L 11/11/18 08:00 Intake & Output 11/10/18 11/11/18 11/11/18 18:59 06:59 18:59 Intake Total 462 810 240 Output Total 1200 800 Balance -738 10 240 Weight 90.4 kg Intake: Intake, IV Titration 460 Amount Sodium Chloride 0.9% 1, 460 000 ml @ 120 mls/hr IV . Q8H20M [facility] Rx#:[id number] Oral 462 350 240 Output: Urine 1200 800 Other: Voiding Method Toilet Urinal # Voids 1 - Exam On examination, the patient is alert and orientated x3. He is resting in bed in no apparent distress. On inspection of the left hip there is a bandage present over the lateral aspect of the hip. There is mild induration over this area as well as the buttock with no palpable fluctuance. The patient has no pain with logroll or passive range of motion of the left hip. Distally the left leg is neurovascularly intact. - Labs CBC & Chem 7: 11/11/18 05:43 11/11/18 05:43 Labs: Abnormal Lab Results - Last 24 Hours (Table) 11/10/18 11/10/18 11/10/18 Range/Units 11:12 16:14 21:02 RBC (4.30-5.90) m/uL Hgb (13.0-17.5) gm/dL Hct (39.0-53.0) % Sodium (137-145) mmol/L Creatinine (0.66-1.25) mg/dL Glucose (74-99) mg/dL POC Glucose (mg/dL) 160 H 194 H 248 H (75-99) mg/dL Calcium (8.4-10.2) mg/dL AST (17-59) U/L ALT (21-72) U/L Troponin I (0.000-0.034) ng/mL Total Protein (6.3-8.2) g/dL Albumin (3.5-5.0) g/dL 11/11/18 11/11/18 11/11/18 Range/Units 05:43 05:43 05:43 RBC 3.27 L (4.30-5.90) m/uL Hgb 9.3 L (13.0-17.5) gm/dL Hct 28.3 L (39.0-53.0) % Sodium 136 L (137-145) mmol/L Creatinine 0.41 L (0.66-1.25) mg/dL Glucose 165 H (74-99) mg/dL POC Glucose (mg/dL) (75-99) mg/dL Calcium 7.5 L (8.4-10.2) mg/dL AST 104 H (17-59) U/L ALT 99 H (21-72) U/L Troponin I 0.125 H* (0.000-0.034) ng/mL Total Protein 4.8 L (6.3-8.2) g/dL Albumin 2.3 L (3.5-5.0) g/dL 11/11/18 Range/Units 06:09 RBC (4.30-5.90) m/uL Hgb (13.0-17.5) gm/dL Hct (39.0-53.0) % Sodium (137-145) mmol/L Creatinine (0.66-1.25) mg/dL Glucose (74-99) mg/dL POC Glucose (mg/dL) 179 H (75-99) mg/dL Calcium (8.4-10.2) mg/dL AST (17-59) U/L ALT (21-72) U/L Troponin I (0.000-0.034) ng/mL Total Protein (6.3-8.2) g/dL Albumin (3.5-5.0) g/dL Microbiology - Last 24 Hours (Table) 11/10/18 09:15 Gram Stain - Preliminary Aspirate Body Fluid Culture - Preliminary Presumptive Staph aureus 11/09/18 16:30 Urine Culture - Final Urine,Voided 11/10/18 09:15 Anaerobic Culture - Preliminary Aspirate 11/09/18 14:25 Blood Culture Gram Stain - Preliminary Blood Blood Culture - Preliminary Staphylococcus aureus 11/09/18 14:25 Blood Culture - Final Blood - Imaging and Cardiology X-rays of the pelvis and hip show a stable right total hip replacement. X-rays of the left hip show arthritic changes in the hip but no evidence of deep infection or pathologic processes. Computed tomography scan with contrast of the pelvis and hip showed possible fluid collection in the gluteal region and degenerative changes in the hip. Assessment and Plan Assessment: Left staph aureus gluteal abscess Staph aureus bacteremia History of right total hip arthroplasty (1) Bacteremia Current Visit: Yes Status: Acute Code(s): R78.81 - BACTEREMIA SNOMED Code(s): 2571452 (2) Abscess, gluteal, left Current Visit: Yes Status: Acute Code(s): L02.31 - CUTANEOUS ABSCESS OF BUTTOCK SNOMED Code(s): 00756297 (3) S/P total hip arthroplasty Current Visit: No Status: Acute Code(s): Z96.649 - PRESENCE OF UNSPECIFIED ARTIFICIAL HIP JOINT SNOMED Code(s): 131321751338 Plan: - Recommend MRI w and wo contrast of the patient's lumbar spine and pelvis, which is ordered today. This will not be able to be obtained until tomorrow, therefore we will obtain an US of the left gluteal area today. Interventional radiology re-consulted for placement of pig tail drain. - Culture results showing staph aureus gluteal abscess, and staph aureus bacteremia. Continue IV antibiotics per infectious disease. - Pain management per primary team. - We will continue to follow patient while he remains inpatient. Patient discussed with Dr. Ratliff.
[2018-11-11 11:35] LABS: Glucose,Whole Blood 230 mg/dL (75-99)
--- NOTE | 2018-11-11 14:15 | US ---
EXAMINATION TYPE: US extremity nonvascular ltd LT DATE OF EXAM: 11/11/2018 COMPARISON: US CLINICAL HISTORY: left gluteal area for reoccurrence of abscess. Left hip and gluteal pain. Oval hypoechoic area is noted posterior to needle aspiration site and may be area of abscess previous seen left posterolateral hip: size of this area = 2.4 x 3.0 x 1.3cm. IMPRESSION: 1. Persistent eccentric hypoechoic collection could represent persistent abscess following attempted are aspiration.
[2018-11-11 16:40] LABS: Glucose,Whole Blood 229 mg/dL (75-99)
[2018-11-11] MEDS ORDERED: chlorproMAZINE 25 MG TAB PO ONE (17:55)
--- NOTE | 2018-11-11 20:52 | P.PN ---
Progress Note - Text Progress Note Date: 11/11/18 The patient continues to have pain along the lateral aspect of the hip and buttock, but no pain with PROM of hip. Unfortunately, IR only attempted an aspiration and did not place a pig tail drain in the fluid collection as I had requested. The patient's CT scan from Monday and ultrasound today shows only a very small fluid collection, neither of which were that impressive. We are planning on getting an MRI of the lumbar spine, pelvis and left hip to further evaluate the source of the patient's infection and to identify if there is an abscess that needs to be surgically drained or is amenable to IR placing a drain. In the event that the patient requires surgical drainage, we will make him NPO after midnight.
[2018-11-11 20:54] LABS: Glucose,Whole Blood 216 mg/dL (75-99)
[2018-11-11] MEDS: ATORVASTATIN 40 MG TAB PO SCH (22:21)
--- NOTE | 2018-11-11 22:41 | P.CONS ---
History of Present Illness - Reason for Consult Consult date: 11/11/18 - Chief Complaint Pain left buttocks - History of Present Illness 58-year-old male with a history of recent hospitalization where he had uncontrolled hypertension, with alteration of his medications and cardiology intervention he had some improvement in was feeling somewhat better. He however several days ago suffered a fall. He denies loss of consciousness but likely was presyncopal ,he does not believe he had much injury but is now had progressive discomfort over the left buttocks and left hip area. He has a history of some chronic lower back pain which itself is not markedly worsened but has had increasing difficulties with day-to-day living because of increasing pain. He was seen by his primary care physician and advised for admission as of his changes of his status. Patient has a known history of diabetes mellitus type 2 also. Because of the pain at the site the patient imaging studies which failed to reveal evidence of fracture. However there was evidence of some phlegmon. Site is been aspirated and there is evidence now of a positive blood culture with staph aureus in with at the infectious diseases consultation was requested. No evidence of mecA gene with the staph aureus and likely not MRSA. Patient also has a known history of BPH and chronic urinary retention-like symptoms not acutely worsened as of now Review of Systems 58-year-old male modestly comfortable HEENT:Denies headache or acute visual change. Denies sinus or mouth discomforts. Denies neck stiffness or pain. Denies significant oral cavity pain. Denies difficulty on swallowing. Lungs: Denies significant shortness of breath, cough, sputum production, or hemoptysis. Cardiovascular: Denies significant shortness of breath, chest pain, chest wall pain, orthopnea, dyspnea on exertion, syncope Gastrointestinal:Denies nausea, vomiting, diarrhea, constipation, hematemesis, melena, hematochezia. No no significant change of bowel habit noticed. Musculoskeletal: denies significant myalgias or arthralgias. No new joint swelling. Denies new back pain. Skin: Denies new rash or lesions. No new ulcers or wounds are related.. Neuro: Denies headache or further episodes of fall he has had some difficulties with his gait he has a prior right total hip arthroplasty and chronic back pain Psychiatric:Denies anxiety or depression. Endocrine: Chronic fatigue weight is stable Past Medical History Past Medical History: Diabetes Mellitus, Hypertension, Myocardial Infarction ([place]) Additional Past Medical History / Comment(s): Patient was a stemi in june 2018 got stents X 5 Last Myocardial Infarction Date:: 2017 History of Any Multi-Drug Resistant Organisms: None Reported Past Surgical History: Heart Catheterization, Heart Catheterization With Stent, Hernia Repair Additional Past Surgical History / Comment(s): 5 recent stents placed Past Anesthesia/Blood Transfusion Reactions: No Reported Reaction Date of Last Stent Placement:: 2017 Past Psychological History: No Psychological Hx Reported Additional Psychological History / Comment(s): . Medically retired. Positive tobacco use. Not related to be a current alcohol user and no recreational drug use at this time. No animals in the home Smoking Status: Current every day smoker Past Alcohol Use History: Occasional Past Drug Use History: None Reported - Past Family History Mother Family Medical History: Cancer, Myocardial Infarction ([place]) Father Family Medical History: Myocardial Infarction ([place]) Medications and Allergies Home Medications and Allergies Comment(s): Current Medications Acetaminophen (Tylenol Tab) 650 mg PO Q6HR PRN PRN Reason: Mild Pain or Fever > 100.5 Hydrocodone Bitart/Acetaminophen (Chaplin 10) 1 each PO TID PRN PRN Reason: MODERATE Pain Al Hydroxide/Mg Hydroxide (Maalox) 15 ml PO Q6HR PRN PRN Reason: Indigestion Amlodipine Besylate (Norvasc) 5 mg PO DAILY [facility] Last Admin: 11/11/18 07:58 Dose: 5 mg Documented by: Aspirin (Aspirin) 81 mg PO DAILY [facility] Last Admin: 11/11/18 07:59 Dose: 81 mg Documented by: Atorvastatin Calcium (Lipitor) 40 mg PO HS [facility] Last Admin: 11/11/18 22:21 Dose: 40 mg Documented by: Cefazolin Sodium (Kefzol) 2 gm IVP Q8HR [facility] Last Admin: 11/11/18 22:20 Dose: 2 gm Documented by: Clopidogrel Bisulfate (Plavix) 75 mg PO DAILY [facility] Last Admin: 11/11/18 07:59 Dose: 75 mg Documented by: Gabapentin (Neurontin) 300 mg PO TID PRN PRN Reason: Pain Heparin Sodium (Porcine) (Heparin) 5,000 unit SQ Q8HR [facility] Last Admin: 11/11/18 22:20 Dose: 5,000 unit Documented by: Insulin Aspart (Novolog) 0 unit SQ [facility]; Protocol Last Admin: 11/11/18 22:21 Dose: 3 unit Documented by: Ketorolac Tromethamine (Toradol) 30 mg IVP Q6HR PRN PRN Reason: Moderate Pain Stop: 11/14/18 22:44 Linagliptin (Tradjenta) 5 mg PO DAILY [facility] Lisinopril (Zestril) 20 mg PO DAILY [facility] Last Admin: 11/11/18 07:59 Dose: 20 mg Documented by: Melatonin (Melatonin) 3 mg PO HS PRN PRN Reason: Insomnia Metoprolol Tartrate (Lopressor) 50 mg PO BID [facility] Last Admin: 11/11/18 22:21 Dose: 50 mg Documented by: Morphine Sulfate (Morphine Sulfate (Inj)) 4 mg IVP Q4HR PRN PRN Reason: SEVERE Pain Naloxone HCl (Narcan) 0.2 mg IV Q2M PRN PRN Reason: Opioid Reversal Ondansetron HCl (Zofran) 4 mg IVP Q8HR PRN PRN Reason: Nausea And Vomiting Pantoprazole Sodium (Protonix) 40 mg PO [facility] Last Admin: 11/11/18 06:00 Dose: 40 mg Documented by: Tamsulosin HCl (Flomax) 0.4 mg PO [facility] Last Admin: 11/11/18 07:59 Dose: 0.4 mg Documented by: Home Medications Medication Instructions Recorded Confirmed Type metFORMIN HCL [Glucophage] 1,000 mg PO BID 02/16/17 11/09/18 History Gabapentin [Neurontin] 300 mg PO TID PRN 06/27/18 11/09/18 History HYDROcodone/APAP 10-325MG [Chaplin 1 tab PO TID PRN 06/27/18 11/09/18 History 10-325] Nitroglycerin Sl Tabs [Nitrostat] 0.4 mg SUBLINGUAL Q5M PRN 06/27/18 11/09/18 History Atorvastatin [Lipitor] 40 mg PO HS #30 tab 06/30/18 11/09/18 Rx Aspirin [Adult Low Dose Aspirin EC] 81 mg PO DAILY 10/31/18 11/09/18 History Clopidogrel Bisulfate [Plavix] 75 mg PO DAILY 10/31/18 11/09/18 History Metoprolol Tartrate [Lopressor] 50 mg PO BID #60 tab 11/02/18 11/09/18 Rx amLODIPine [Norvasc] 5 mg PO DAILY #30 tab 11/02/18 11/09/18 Rx Ciprofloxacin HCl [Cipro] 500 mg PO Q12HR 11/09/18 11/09/18 History Lisinopril [Zestril] 20 mg PO DAILY 11/09/18 11/09/18 History sitaGLIPtin [Januvia] 100 mg PO DAILY 11/09/18 11/09/18 History Allergies Allergy/AdvReac Type Severity Reaction Status Date / Time No Known Allergies Allergy Verified 11/09/18 15:43 Physical Exam Vitals: Vital Signs Temp Pulse Resp BP Pulse Ox 11/11/18 16:00 98.7 F 83 16 124/67 96 11/11/18 12:00 98.7 F 83 16 114/64 11/11/18 08:00 98.2 F 89 18 109/69 93 L 11/11/18 03:51 82 20 11/11/18 03:45 98.6 F 82 20 120/69 96 11/10/18 23:59 80 20 11/10/18 23:20 98.7 F 80 20 115/67 97 Intake and Output 11/11/18 11/11/18 11/11/18 06:59 14:59 22:59 Intake Total 510 480 350 Output Total 800 700 Balance -290 -220 350 Intake: Intake, IV Titration 460 Amount Sodium Chloride 0.9% 1, 460 000 ml @ 120 mls/hr IV . Q8H20M [facility] Rx#:[id number] Oral 50 480 350 Output: Urine 800 700 Other: Voiding Method Toilet Toilet Urinal Urinal # Voids 1 Weight 90.4 kg 58-year-old male mildly overweight not in distress HEENT: Anicteric conjunctiva are pink and moist nasal mucosa grossly intact without significant lesions, there is no thrush. Neck: The neck is supple without significant lymphadenopathy or thyromegaly. Lungs: Good bilateral air entry without significant crackles or wheezing. There is no significant bronchial sounds. There is no egophony or dullness. Heart: Regular rate and rhythm with an audible S1-S2, no S3 no S4. There is no significant murmur click or rub, PMI was nondisplaced. Abdomen: Positive bowel sounds soft and nontender without palpable masses or organomegaly. There was no guarding or rebound. Extremities: The upper extremities have excellent pulses they are symmetric, no significant petechiae or telangiectasia. No splinter hemorrhages were noted. The right total hip arthroplasty site is well-healed without tenderness or erythema. The left buttocks and hip are evaluated. There is area of induration which is extremely tender especially over the buttocks at about the midpoint. The area is not fluctuant. It is warm to touch but there is no erythema Neuro: Awake alert oriented to person place and time. There are no acute new gross focal sensory motor deficits. The patient is somewhat vague though as a historian Results CBC & Chem 7: 11/11/18 05:43 11/11/18 05:43 Labs: Abnormal Lab Results - Last 24 Hours (Table) 11/11/18 11/11/18 11/11/18 Range/Units 05:43 05:43 05:43 RBC 3.27 L (4.30-5.90) m/uL Hgb 9.3 L (13.0-17.5) gm/dL Hct 28.3 L (39.0-53.0) % Sodium 136 L (137-145) mmol/L Creatinine 0.41 L (0.66-1.25) mg/dL Glucose 165 H (74-99) mg/dL POC Glucose (mg/dL) (75-99) mg/dL Calcium 7.5 L (8.4-10.2) mg/dL AST 104 H (17-59) U/L ALT 99 H (21-72) U/L Troponin I 0.125 H* (0.000-0.034) ng/mL Total Protein 4.8 L (6.3-8.2) g/dL Albumin 2.3 L (3.5-5.0) g/dL 11/11/18 11/11/18 11/11/18 Range/Units 06:09 11:33 16:14 RBC (4.30-5.90) m/uL Hgb (13.0-17.5) gm/dL Hct (39.0-53.0) % Sodium (137-145) mmol/L Creatinine (0.66-1.25) mg/dL Glucose (74-99) mg/dL POC Glucose (mg/dL) 179 H 230 H 229 H (75-99) mg/dL Calcium (8.4-10.2) mg/dL AST (17-59) U/L ALT (21-72) U/L Troponin I (0.000-0.034) ng/mL Total Protein (6.3-8.2) g/dL Albumin (3.5-5.0) g/dL 11/11/18 Range/Units 20:53 RBC (4.30-5.90) m/uL Hgb (13.0-17.5) gm/dL Hct (39.0-53.0) % Sodium (137-145) mmol/L Creatinine (0.66-1.25) mg/dL Glucose (74-99) mg/dL POC Glucose (mg/dL) 216 H (75-99) mg/dL Calcium (8.4-10.2) mg/dL AST (17-59) U/L ALT (21-72) U/L Troponin I (0.000-0.034) ng/mL Total Protein (6.3-8.2) g/dL Albumin (3.5-5.0) g/dL Microbiology - Last 24 Hours (Table) 11/11/18 09:20 Wound Culture - Preliminary Leg - Right 11/10/18 09:15 Gram Stain - Preliminary Aspirate Body Fluid Culture - Preliminary Presumptive Staph aureus 11/09/18 16:30 Urine Culture - Final Urine,Voided 11/10/18 09:15 Anaerobic Culture - Preliminary Aspirate Laboratory Results WBC 8.4 k/uL (3.8-10.6) 11/11/18 05:43 RBC 3.27 m/uL (4.30-5.90) L 11/11/18 05:43 Hgb 9.3 gm/dL (13.0-17.5) L 11/11/18 05:43 Hct 28.3 % (39.0-53.0) L 11/11/18 05:43 MCV 86.5 fL (80.0-100.0) 11/11/18 05:43 MCH 28.3 pg (25.0-35.0) 11/11/18 05:43 MCHC 32.7 g/dL (31.0-37.0) 11/11/18 05:43 RDW 14.7 % (11.5-15.5) 11/11/18 05:43 Plt Count 244 k/uL (150-450) 11/11/18 05:43 Neutrophils % 88 % 11/10/18 07:07 Lymphocytes % 4 % 11/10/18 07:07 Monocytes % 4 % 11/10/18 07:07 Eosinophils % 2 % 11/10/18 07:07 Basophils % 0 % 11/10/18 07:07 Neutrophils # 6.4 k/uL (1.3-7.7) 11/10/18 07:07 Lymphocytes # 0.3 k/uL (1.0-4.8) L 11/10/18 07:07 Monocytes # 0.3 k/uL (0-1.0) 11/10/18 07:07 Eosinophils # 0.1 k/uL (0-0.7) 11/10/18 07:07 Basophils # 0.0 k/uL (0-0.2) 11/10/18 07:07 ESR 126 mm/hr (0-15) H 11/09/18 17:23 PT 9.9 sec (9.0-12.0) 11/09/18 14:25 INR 0.9 (<1.2) 11/09/18 14:25 APTT 28.1 sec (22.0-30.0) 11/09/18 14:25 D-Dimer 7.05 mg/L FEU (<0.60) H 11/09/18 14:25 Sodium 136 mmol/L (137-145) L 11/11/18 05:43 Potassium 3.6 mmol/L (3.5-5.1) 11/11/18 05:43 Chloride 102 mmol/L (98-107) 11/11/18 05:43 Carbon Dioxide 27 mmol/L (22-30) 11/11/18 05:43 Anion Gap 7 mmol/L 11/11/18 05:43 BUN 14 mg/dL (9-20) 11/11/18 05:43 Creatinine 0.41 mg/dL (0.66-1.25) L 11/11/18 05:43 Est GFR (CKD-EPI)AfAm >90 (>60 ml/min/1.73 sqM) 11/11/18 05:43 Est GFR (CKD-EPI)NonAf >90 (>60 ml/min/1.73 sqM) 11/11/18 05:43 Glucose 165 mg/dL (74-99) H 11/11/18 05:43 POC Glucose (mg/dL) 216 mg/dL (75-99) H 11/11/18 20:53 POC Glu Portrait Photographer ID Kim Dudley 11/11/18 20:53 Lactic Ac Sepsis Rflx Y 11/09/18 14:53 Plasma Lactic Acid Timothy 1.8 mmol/L (0.7-2.0) 11/09/18 18:39 Calcium 7.5 mg/dL (8.4-10.2) L 11/11/18 05:43 Phosphorus 4.3 mg/dL (2.5-4.5) 11/09/18 14:25 Magnesium 2.5 mg/dL (1.6-2.3) H 11/09/18 14:25 Total Bilirubin 0.8 mg/dL (0.2-1.3) 11/11/18 05:43 AST 104 U/L (17-59) H 11/11/18 05:43 ALT 99 U/L (21-72) H 11/11/18 05:43 Alkaline Phosphatase 87 U/L (38-126) 11/11/18 05:43 Troponin I 0.125 ng/mL (0.000-0.034) H* 11/11/18 05:43 C-Reactive Protein 350.6 mg/L (<10.0) H 11/09/18 14:25 NT-Pro-B Natriuret Pep 716 pg/mL 11/09/18 14:25 Total Protein 4.8 g/dL (6.3-8.2) L 11/11/18 05:43 Albumin 2.3 g/dL (3.5-5.0) L 11/11/18 05:43 Urine Color Yellow 11/09/18 16:30 Urine Appearance Cloudy (Clear) 11/09/18 16:30 Urine pH 5.0 (5.0-8.0) 11/09/18 16:30 Ur Specific [place] 1.034 (1.001-1.035) 11/09/18 16:30 Urine Protein 1+ (Negative) H 11/09/18 16:30 Urine Glucose (UA) Negative (Negative) 11/09/18 16:30 Urine Ketones Negative (Negative) 11/09/18 16:30 Urine Blood Trace (Negative) H 11/09/18 16:30 Urine Nitrite Negative (Negative) 11/09/18 16:30 Urine Bilirubin Negative (Negative) 11/09/18 16:30 Urine Urobilinogen <2.0 mg/dL (<2.0) 11/09/18 16:30 Ur Leukocyte Esterase Moderate (Negative) H 11/09/18 16:30 Urine RBC 2 /hpf (0-5) 11/09/18 16:30 Urine WBC 25 /hpf (0-5) H 11/09/18 16:30 Ur Squamous Epith Cells 1 /hpf (0-4) 11/09/18 16:30 Hyaline Casts 6 /lpf (0-2) H 11/09/18 16:30 Urine Mucus Rare /hpf (None) H 11/09/18 16:30 Fluid Source 11/10/18 09:15 Fluid Color Yellow 11/10/18 09:15 Fluid Appearance Cloudy 11/10/18 09:15 Fluid RBC 4000 /uL 11/10/18 09:15 Fluid Nucleated Cells [id number] /uL 11/10/18 09:15 Fluid Polynuclear WBCs 96 % 11/10/18 09:15 Fluid Mononuclear WBCs 4 % 11/10/18 09:15 Vancomycin Trough <5.0 ug/mL 11/11/18 05:43 Hepatitis A IgM Ab Non-Reactive (Non-Reactive) 11/10/18 07:07 Hep Bs Antigen Non-Reactive (Non-Reactive) 11/10/18 07:07 Hep B Core IgM Ab Non-Reactive (Non-Reactive) 11/10/18 07:07 Hep C IgG Ab Non-Reactive (Non-Reactive) 11/10/18 07:07 Microbiology 11/11/18 09:20 Leg - Right Wound Culture - Preliminary 11/10/18 09:15 Aspirate Gram Stain - Preliminary 11/10/18 09:15 Aspirate Body Fluid Culture - Preliminary Presumptive Staph aureus 11/09/18 16:30 Urine,Voided Urine Culture - Final 11/10/18 09:15 Aspirate Anaerobic Culture - Preliminary 11/09/18 14:25 Blood Blood Culture Gram Stain - Preliminary 11/09/18 14:25 Blood Blood Culture - Preliminary Staphylococcus aureus 11/09/18 14:25 Blood Blood Culture - Final Assessment and Plan (1) Bacteremia due to Staphylococcus aureus Narrative/Plan: 58-year-old male who presents to Hospital with increasing pain and discomfort to his left hip area. His of the patient was recently hospitalized with a bout of uncontrolled hypertension and medications were altered. He was following with his primary care physician when he was noticing increasing discomfort to his left hip. As noted he had a episode that appeared to be presyncopal resulting in a fall to his left hip. He's had progressive discomfort since. He's had some fever at home and was feeling very poorly at the time of his presentation. It is noted there is evidence of positive blood culture likely with MSSA and aspiration to the left hip area has been performed and cultures are in process. Antibiotic therapy with cefazolin 2 g IV piggyback every 8 hours has been added in vancomycin has been discontinued. Patient is being evaluated by orthopedic surgeon and if there is evidence of ongoing abscess at the site may require more surgical incision and drainage of a percutaneous drain cannot be utilized to more effectively drain the site. Pain control appears to be adequate. He believes is up-to-date with his tetanus. Follow blood cultures are in process and negative so far. Patient needs enhance glucose control, the patient does have several risk factors for the current infection which includes a trauma and poorly controlled diabetes. Current Visit: Yes Status: Acute Code(s): R78.81 - BACTEREMIA SNOMED Code(s): 827653028 (2) Unspecified injury of muscle, fascia and tendon of left hip, initial encounter Current Visit: Yes Status: Acute Code(s): S76.002A - UNSP INJURY OF MUSCLE, FASCIA AND TENDON OF LEFT HIP, INIT SNOMED Code(s): 918257314 (3) Lactic acidosis Current Visit: Yes Status: Acute Code(s): E87.2 - ACIDOSIS SNOMED Code(s): 55396375
[2018-11-12 05:53] LABS: Glucose,Whole Blood 183 mg/dL (75-99)
[2018-11-12 07:23] LABS: ALT 65 U/L (21-72); AST 55 U/L (17-59); Albumin 2.3 g/dL (3.5-5.0); Alkaline Phosphatase 75 U/L (38-126); Anion Gap 4 mmol/L; Blood Urea Nitrogen 8 mg/dL (9-20); Calcium 7.7 mg/dL (8.4-10.2); Carbon Dioxide 31 mmol/L (22-30); Chloride 101 mmol/L (98-107); Glucose 175 mg/dL (74-99); Potassium 3.5 mmol/L (3.5-5.1); Sodium 136 mmol/L (137-145); Total Bilirubin 0.8 mg/dL (0.2-1.3); Total Protein 4.8 g/dL (6.3-8.2)
[2018-11-12 08:20] LABS: HCT 29.5 % (39.0-53.0); HGB 9.4 gm/dL (13.0-17.5); MCH 27.5 pg (25.0-35.0); MCHC 31.8 g/dL (31.0-37.0); MCV 86.6 fL (80.0-100.0); Platelet Count 271 k/uL (150-450); RDW 14.9 % (11.5-15.5); WBC 7.6 k/uL (3.8-10.6)
[2018-11-12] MEDS: INSULIN ASPART (NovoLOG) 100 UNIT/ML VIAL SQ SCH ×4 (09:45→22:17)
[2018-11-12] MEDS: ceFAZolin IN SWFI 2 GM/20 ML SYRINGE IVP SCH ×2 (10:08→16:46)
--- NOTE | 2018-11-12 10:12 | MR ---
EXAMINATION TYPE: MR lumbar spine wo/w con DATE OF EXAM: 11/12/2018 COMPARISON: MRI lumbar spine November 30, 2017 HISTORY: Gluteal abscess TECHNIQUE: Multiplanar, multisequence images of the lumbar spine is performed without and with IV contrast, util izing 9 mL intravenous Gadavist FINDINGS: Underlying dextroconvex scoliosis centered L2-L3 level is redemonstrated. Sagittal images o f the lumbar spine show vertebral body heights to remain satisfactory. Multilevel disc desiccation is redemonstrated with multilevel early moderate disc space narrowing and multilevel vacuum disc phenom enon. Multilevel posterior disc herniations are redemonstrated on sagittal images. The conus medullar is remains normal in position and signal ending mid L1 level. The bone marrow signal intensity is ov erall heterogeneous, there are some endplate changes identified Modic type II at left L2-L3 level wit h additional endplate changes superior L5 level. No suspicious enhancement is seen. Hemangioma right L2 level sagittal image 13 is redemonstrated. Axial images at the T12-L1 level shows mild broad disc bulge mildly effacing anterior thecal sac on i mage 28 with mild facet degenerative changes and ligamentum flavum hypertrophy effacing posterior lat eral thecal sac. Bilateral neural foramina are patent. No significant change from prior. Axial images at L1-L2 level show mild facet degenerative changes bilaterally effacing posterior later al thecal sac and mild broad disc bulge effacing anterior thecal sac with asymmetric mild right-sided anterior inferior neural foraminal narrowing. No significant change from prior. Axial images at the L2-L3 level show moderate to severe broad disc bulge effacing anterior thecal sac with mild facet degenerative changes bilaterally. There is left foraminal/lateral disc protrusion co mponent causing mild left-sided neural foraminal narrowing along posterior and inferior margin. Right -sided neural foramen is patent. No significant change from prior. Axial images at the L3-L4 level show moderate to severe broad disc bulge effacing anterior thecal sac on axial image 12 with mild/moderate facet degenerative changes bilaterally effacing posterior later al thecal sac. There is moderate left and mild right-sided neural foraminal narrowing. No significant change from prior. Axial images at the L4-L5 level show moderate facet degenerative changes bilaterally. There is broad disc bulge with central disc protrusion component effacing anterior thecal sac on axial image 8. Ther e is moderate to severe right-sided neural foraminal narrowing encroaching on the anterior margin rig ht L4 nerve sagittal image 12 redemonstrated. There is mild to moderate left-sided neural foraminal n arrowing noted. No significant change from prior. Axial images at L5-S1 level redemonstrate moderate facet degenerative changes bilaterally. There is c entral disc protrusion component effacing anterior thecal sac. There is moderate right and mild left- sided inferior neural foraminal narrowing. No suspicious enhancement is seen. No suspicious paraspinal fluid collections are noted. IMPRESSION: Scoliosis with multilevel degenerative changes as detailed above. No significant change o r progression from prior MRI. No suspicious enhancement is noted.
[2018-11-12] MEDS: CLOPIDOGREL 75 MG TAB PO SCH (11:01)
[2018-11-12] MEDS: ASPIRIN 81 MG PO SCH (11:01)
[2018-11-12] MEDS: HYDROcodone/APAP 10-325MG 1 EACH TAB PO PRN (11:01)
[2018-11-12] MEDS: PANTOPRAZOLE 40 MG TABLET PO SCH (11:01)
[2018-11-12] MEDS: METOPROLOL TARTRATE 50 MG TAB PO SCH ×2 (11:02→22:18)
--- NOTE | 2018-11-12 11:05 | CT ---
EXAMINATION TYPE: CT guided aspiration DATE OF EXAM: 11/12/2018 COMPARISON: 11/09/2018 HISTORY: Lt gluteal fluid aspiration. Request is for fine-needle aspiration of left hip fluid collect ion. CT DLP: 734 mGycm The procedure is discussed with the patient, the risks, complications, benefits and alternatives, wer e discussed and any questions were answered. Informed consent was obtained. The patient is placed p kait on the CT table, prepped and draped in the usual sterile fashion. Utilizing a 18 Chiba needle access into the left hip fluid collection was easily achieved. Sample obt ained and sent to pathology for analysis. All elements of maximal barrier and sterile technique were utilized. The patient remained stable throughout the procedure with no immediate postprocedural com plication. IMPRESSION: 1. Successful CT guided fine needle aspiration of a left hip fluid collection.
[2018-11-12] MEDS: TAMSULOSIN 0.4 MG CAP.ER.24H PO SCH (11:15)
[2018-11-12] MEDS: LINAGLIPTIN 5 MG TABLET PO SCH (11:15)
[2018-11-12] MEDS: HEPARIN SODIUM,PORCINE 5,000 UNIT/ML 1 ML VIAL SQ SCH ×2 (11:15→16:04)
--- NOTE | 2018-11-12 11:16 | P.PN ---
Subjective Progress Note Date: 11/12/18 Patient is doing well today. He was sleepy when I saw him. He denies any pain this morning. Objective - Vital Signs Vital signs: Vital Signs Temp 98.3 F 11/12/18 09:50 Pulse 73 11/12/18 08:00 Resp 18 11/12/18 08:00 BP 134/74 11/12/18 08:00 Pulse Ox 96 11/12/18 08:00 Intake & Output 11/11/18 11/12/18 11/12/18 18:59 06:59 18:59 Intake Total 830 Output Total 700 Balance 130 Intake: Oral 830 Output: Urine 700 Other: Voiding Method Toilet Toilet Urinal Urinal - Exam General: The patient is awake and alert, in no distress Eye: there is normal conjunctiva bilaterally. Neck: The neck is supple, there is no JVD. Cardiovascular: Normal S1-S2, no S3-S4, no murmurs. Respiratory: Lungs clear to auscultation bilaterally Gastrointestinal: Abdomen is soft, nontender Musculoskeletal: There is no pedal edema. Neurological:. Speech is normal. Skin: Skin is warm and dry - Labs CBC & Chem 7: 11/12/18 06:14 11/12/18 06:14 Labs: Abnormal Lab Results - Last 24 Hours (Table) 11/11/18 11/11/18 11/11/18 Range/Units 11:33 16:14 20:53 RBC (4.30-5.90) m/uL Hgb (13.0-17.5) gm/dL Hct (39.0-53.0) % Sodium (137-145) mmol/L Carbon Dioxide (22-30) mmol/L BUN (9-20) mg/dL Creatinine (0.66-1.25) mg/dL Glucose (74-99) mg/dL POC Glucose (mg/dL) 230 H 229 H 216 H (75-99) mg/dL Calcium (8.4-10.2) mg/dL Total Protein (6.3-8.2) g/dL Albumin (3.5-5.0) g/dL 11/12/18 11/12/18 11/12/18 Range/Units 05:51 06:14 06:14 RBC 3.40 L (4.30-5.90) m/uL Hgb 9.4 L (13.0-17.5) gm/dL Hct 29.5 L (39.0-53.0) % Sodium 136 L (137-145) mmol/L Carbon Dioxide 31 H (22-30) mmol/L BUN 8 L (9-20) mg/dL Creatinine 0.37 L (0.66-1.25) mg/dL Glucose 175 H (74-99) mg/dL POC Glucose (mg/dL) 183 H (75-99) mg/dL Calcium 7.7 L (8.4-10.2) mg/dL Total Protein 4.8 L (6.3-8.2) g/dL Albumin 2.3 L (3.5-5.0) g/dL Microbiology - Last 24 Hours (Table) 11/10/18 09:15 Gram Stain - Preliminary Aspirate Body Fluid Culture - Preliminary Staphylococcus aureus 11/11/18 06:26 Blood Culture - Preliminary Blood No Growth after 24 hours 11/11/18 09:20 Gram Stain - Preliminary Leg - Right Wound Culture - Preliminary Presumptive Staph aureus 11/11/18 05:43 Blood Culture Gram Stain - Preliminary Blood 11/11/18 05:43 Blood Culture - Final Blood 11/09/18 14:25 Blood Culture Gram Stain - Final Blood Blood Culture - Final Staphylococcus aureus Assessment and Plan Assessment: 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 MRI of the lumbar spine with no source of infection. Scheduled for MRI of the pelvis tomorrow - Appears to be MSSA, cefazolin - ID consult, appreciate recommendation - Pain control - no echo at this time as had one 11/01 without signs of valvular dysfunction. - fluid filled blister from right leg aspirated and sent for culture, pending DM 2 - on orals at home, hold metformin - SSI - follow BS - await A1C Elevated toponin - ekg with no acute ischemic changes. No chest pain. - repeat troponin trending down - on ASA, plavix, statin and BB HTN, controlled - continue current medications - follow blood pressure Transaminitis, improving - likely due to stress from infection - hep profile negative - liver US without abscess/gallbladder disease - repeat in AM Hyponatremia, improved elevated lactic acid, resolved BPH - flomax Mild anemia, stable - follow CBC - outpatient evaluation+
[2018-11-12 11:27] LABS: Glucose,Whole Blood 186 mg/dL (75-99)
[2018-11-12] MEDS: LISINOPRIL 20 MG TAB PO SCH (11:49)
[2018-11-12] MEDS: amLODIPine 5 MG TAB PO SCH (11:49)
[2018-11-12 12:54] LABS: Anion Gap 6 mmol/L; Blood Urea Nitrogen 8 mg/dL (9-20); Calcium 7.7 mg/dL (8.4-10.2); Carbon Dioxide 31 mmol/L (22-30); Chloride 99 mmol/L (98-107); Glucose 217 mg/dL (74-99); Potassium 3.2 mmol/L (3.5-5.1); Sodium 136 mmol/L (137-145)
--- NOTE | 2018-11-12 13:09 | P.PN ---
Subjective Progress Note Date: 11/12/18 This is a 58-year-old male who is admitted for increasing left hip pain and fever. Patient states that he continues to have pain in the left hip at rest or with walking. Patient states that his pain is over the entire left hip. Patient's blood cultures are positive for staph aureus. CT's of the pelvis and left femur show marked inflammatory change or infection involving the left posterior gluteal muscles at level of left hip with forming thin-walled fluid collections identified including a larger collection along superior lateral aspect of left joint worrisome for developing abscess. An ultrasound of the left lower extremity showed persistent eccentric hypoechoic collection which could r epresent persistent abscess. Patient underwent CT-guided fine needle aspiration of the left hip and cultures are positive for staph aureus. A lumbar spine MRI done today showed scoliosis with multilevel degenerative changes. No significant change or progression from prior MRI. No suspicious enhancement is noted. Additionally a Doppler ultrasound of the left lower extremity was negative for DVT. Patient is currently receiving IV cefazolin. Patient denies any new symptoms today. Objective - Vital Signs Vital signs: Vital Signs Temp 98.8 F 11/12/18 11:40 Pulse 89 11/12/18 11:40 Resp 20 11/12/18 11:40 BP 155/81 11/12/18 11:40 Pulse Ox 97 11/12/18 11:40 Intake & Output 11/11/18 11/12/18 11/12/18 18:59 06:59 18:59 Intake Total 830 Output Total 700 0 Balance 130 0 Intake: Oral 830 Output: Urine 700 0 Other: Voiding Method Toilet Toilet Toilet Urinal Urinal - Exam On exam patient is able to ambulate. Patient is alert and oriented x3 and in no acute distress. There is pain with active hip flexion. No pain with passive internal or external rotation. Mild swelling of the left lower extremity. Calf is soft and nontender to palpation. Patient has full foot and ankle motion without pain or difficulty. Sensation intact. Neurovascular status and circulatory status are intact. - Labs CBC & Chem 7: 11/12/18 06:14 11/12/18 12:21 Labs: Abnormal Lab Results - Last 24 Hours (Table) 11/11/18 11/11/18 11/12/18 Range/Units 16:14 20:53 05:51 RBC (4.30-5.90) m/uL Hgb (13.0-17.5) gm/dL Hct (39.0-53.0) % Sodium (137-145) mmol/L Carbon Dioxide (22-30) mmol/L BUN (9-20) mg/dL Creatinine (0.66-1.25) mg/dL Glucose (74-99) mg/dL POC Glucose (mg/dL) 229 H 216 H 183 H (75-99) mg/dL Calcium (8.4-10.2) mg/dL Total Protein (6.3-8.2) g/dL Albumin (3.5-5.0) g/dL 11/12/18 11/12/18 11/12/18 Range/Units 06:14 06:14 11:20 RBC 3.40 L (4.30-5.90) m/uL Hgb 9.4 L (13.0-17.5) gm/dL Hct 29.5 L (39.0-53.0) % Sodium 136 L (137-145) mmol/L Carbon Dioxide 31 H (22-30) mmol/L BUN 8 L (9-20) mg/dL Creatinine 0.37 L (0.66-1.25) mg/dL Glucose 175 H (74-99) mg/dL POC Glucose (mg/dL) 186 H (75-99) mg/dL Calcium 7.7 L (8.4-10.2) mg/dL Total Protein 4.8 L (6.3-8.2) g/dL Albumin 2.3 L (3.5-5.0) g/dL Microbiology - Last 24 Hours (Table) 11/11/18 05:43 Blood Culture Gram Stain - Preliminary Blood 11/10/18 09:15 Gram Stain - Preliminary Aspirate Body Fluid Culture - Preliminary Staphylococcus aureus 11/11/18 06:26 Blood Culture - Preliminary Blood No Growth after 24 hours 11/11/18 09:20 Gram Stain - Preliminary Leg - Right Wound Culture - Preliminary Presumptive Staph aureus 11/11/18 05:43 Blood Culture - Final Blood 11/09/18 14:25 Blood Culture Gram Stain - Final Blood Blood Culture - Final Staphylococcus aureus Assessment and Plan Assessment: Diabetes mellitus Hypertension History of STEMI with 5 stents. (1) Abscess, gluteal, left Current Visit: Yes Status: Acute Code(s): L02.31 - CUTANEOUS ABSCESS OF BUTTOCK SNOMED Code(s): 95938331 (2) Bacteremia due to Staphylococcus aureus Current Visit: Yes Status: Acute Code(s): R78.81 - BACTEREMIA SNOMED Code(s): 827050413 Plan: 1. Weightbearing as tolerated. 2. Awaiting MRI's of left hip and pelvis. 3. Continue IV antibiotics per infectious disease. 4. Cultures positive for staph aureus. 5. No surgical intervention planned. Will continue to follow closely.
[2018-11-12] MEDS ORDERED: POTASSIUM CHLORIDE ER 20 MEQ TAB.ER PO STA (14:52)
--- NOTE | 2018-11-12 15:55 | US ---
EXAMINATION TYPE: US venous doppler duplex LE LT DATE OF EXAM: 11/12/2018 3:25 PM COMPARISON: None CLINICAL HISTORY: R/O DVT. No hx of blood clots. On blood thinners. No pain. No previous surgeries . SIDE PERFORMED: Left TECHNIQUE: The lower extremity deep venous system is examined utilizing real time linear array sonog trev with graded compression, doppler sonography and color-flow sonography. VESSELS IMAGED: External Iliac Vein (EIV) Common Femoral Vein Deep Femoral Vein Greater Saphenous Vein * Femoral Vein Popliteal Vein Small Saphenous Vein * Proximal Calf Veins (* superficial vessels) Left Leg: Negative for DVT IMPRESSION: Grayscale, color doppler, spectral doppler imaging performed of the deep veins of the lo wer extremities. There is normal flow, compressibility, vascular waveforms.
[2018-11-12] MEDS: KETOROLAC 30 MG/ML 1 ML VIAL IVP PRN (16:03)
[2018-11-12 16:35] LABS: Glucose,Whole Blood 190 mg/dL (75-99)
[2018-11-12 20:46] LABS: Hemoglobin A1C 8.9 % (4.0-6.0)
[2018-11-12] MEDS: ATORVASTATIN 40 MG TAB PO SCH (22:17)
--- NOTE | 2018-11-12 22:35 | P.PN ---
Subjective Progress Note Date: 11/12/18 58-year-old male with a history of recent hospitalization where he had uncontrolled hypertension, with alteration of his medications and cardiology intervention he had some improvement in was feeling somewhat better. He however several days ago suffered a fall. He denies loss of consciousness but likely was presyncopal ,he does not believe he had much injury but is now had progressive discomfort over the left buttocks and left hip area. He has a history of some chronic lower back pain which itself is not markedly worsened but has had increasing difficulties with day-to-day living because of increasing pain. He was seen by his primary care physician and advised for admission as of his changes of his status. Patient has a known history of diabetes mellitus type 2 also. Because of the pain at the site the patient imaging studies which failed to reveal evidence of fracture. However there was evidence of some phlegmon. Site is been aspirated and there is evidence now of a positive blood culture with staph aureus in with at the infectious diseases consultation was requested. No evidence of mecA gene with the staph aureus and likely not MRSA. Patient also has a known history of BPH and chronic urinary retention-like symptoms not acutely worsened as of now 11/12/2018 the patient has had some improvement. His is present today. MRI of the lumbar spine roche reveal evidence of a new infection but does have degenerative joint disease. MRI of the left hip area is pending at this point in time to further characterize the fluid collection and abscess. The aspirate from the hip as well as a blood culture show evidence of MSSA. Receiving antibiotic therapy and feeling somewhat better. Still having pain to the left hip. is concerned that he was having some pain to that site before the fall occurred. Objective - Vital Signs Vital signs: Vital Signs Temp 99.8 F H 11/12/18 20:00 Pulse 83 11/12/18 20:00 Resp 18 11/12/18 20:00 BP 128/71 11/12/18 20:00 Pulse Ox 98 11/12/18 20:00 Intake & Output 11/12/18 11/12/18 11/13/18 06:59 18:59 06:59 Intake Total 120 Output Total 0 Balance 120 Intake: Oral 120 Output: Urine 0 Other: Voiding Method Toilet Toilet Toilet Urinal # Voids 2 - Exam 58-year-old male mildly overweight not in distress HEENT: Anicteric conjunctiva are pink and moist nasal mucosa grossly intact without significant lesions, there is no thrush. Neck: The neck is supple without significant lymphadenopathy or thyromegaly. Lungs: Good bilateral air entry without significant crackles or wheezing. There is no significant bronchial sounds. There is no egophony or dullness. Heart: Regular rate and rhythm with an audible S1-S2, no S3 no S4. There is no significant murmur click or rub, PMI was nondisplaced. Abdomen: Positive bowel sounds soft and nontender without palpable masses or organomegaly. There was no guarding or rebound. Extremities: The upper extremities have excellent pulses they are symmetric, no significant petechiae or telangiectasia. No splinter hemorrhages were noted. The right total hip arthroplasty site is well-healed without tenderness or erythema. The left buttocks and hip are evaluated. There is area of induration which is extremely tender especially over the buttocks at about the midpoint. The area is not fluctuant. It is warm to touch but there is no erythema Neuro: Awake alert oriented to person place and time. There are no acute new gross focal sensory motor deficits. The patient is somewhat vague though as a historian - Labs CBC & Chem 7: 11/12/18 06:14 11/12/18 12:21 Labs: Abnormal Lab Results - Last 24 Hours (Table) 11/12/18 11/12/18 11/12/18 Range/Units 05:51 06:14 06:14 RBC 3.40 L (4.30-5.90) m/uL Hgb 9.4 L (13.0-17.5) gm/dL Hct 29.5 L (39.0-53.0) % Sodium 136 L (137-145) mmol/L Potassium (3.5-5.1) mmol/L Carbon Dioxide 31 H (22-30) mmol/L BUN 8 L (9-20) mg/dL Creatinine 0.37 L (0.66-1.25) mg/dL Glucose 175 H (74-99) mg/dL POC Glucose (mg/dL) 183 H (75-99) mg/dL Hemoglobin A1c (4.0-6.0) % Calcium 7.7 L (8.4-10.2) mg/dL Total Protein 4.8 L (6.3-8.2) g/dL Albumin 2.3 L (3.5-5.0) g/dL 11/12/18 11/12/18 11/12/18 Range/Units 11:20 12:21 12:21 RBC (4.30-5.90) m/uL Hgb (13.0-17.5) gm/dL Hct (39.0-53.0) % Sodium 136 L (137-145) mmol/L Potassium 3.2 L (3.5-5.1) mmol/L Carbon Dioxide 31 H (22-30) mmol/L BUN 8 L (9-20) mg/dL Creatinine 0.35 L (0.66-1.25) mg/dL Glucose 217 H (74-99) mg/dL POC Glucose (mg/dL) 186 H (75-99) mg/dL Hemoglobin A1c 8.9 H (4.0-6.0) % Calcium 7.7 L (8.4-10.2) mg/dL Total Protein (6.3-8.2) g/dL Albumin (3.5-5.0) g/dL 11/12/18 Range/Units 16:29 RBC (4.30-5.90) m/uL Hgb (13.0-17.5) gm/dL Hct (39.0-53.0) % Sodium (137-145) mmol/L Potassium (3.5-5.1) mmol/L Carbon Dioxide (22-30) mmol/L BUN (9-20) mg/dL Creatinine (0.66-1.25) mg/dL Glucose (74-99) mg/dL POC Glucose (mg/dL) 190 H (75-99) mg/dL Hemoglobin A1c (4.0-6.0) % Calcium (8.4-10.2) mg/dL Total Protein (6.3-8.2) g/dL Albumin (3.5-5.0) g/dL Microbiology - Last 24 Hours (Table) 11/11/18 05:43 Blood Culture Gram Stain - Preliminary Blood Blood Culture - Preliminary Presumptive Staph aureus 11/10/18 09:15 Anaerobic Culture - Preliminary Aspirate 11/10/18 09:15 Gram Stain - Preliminary Aspirate Body Fluid Culture - Preliminary Staphylococcus aureus 11/11/18 06:26 Blood Culture - Preliminary Blood No Growth after 24 hours 11/11/18 09:20 Gram Stain - Preliminary Leg - Right Wound Culture - Preliminary Presumptive Staph aureus 11/11/18 05:43 Blood Culture - Final Blood 11/09/18 14:25 Blood Culture Gram Stain - Final Blood Blood Culture - Final Staphylococcus aureus Laboratory Results WBC 7.6 k/uL (3.8-10.6) 11/12/18 06:14 RBC 3.40 m/uL (4.30-5.90) L 11/12/18 06:14 Hgb 9.4 gm/dL (13.0-17.5) L 11/12/18 06:14 Hct 29.5 % (39.0-53.0) L 11/12/18 06:14 MCV 86.6 fL (80.0-100.0) 11/12/18 06:14 MCH 27.5 pg (25.0-35.0) 11/12/18 06:14 MCHC 31.8 g/dL (31.0-37.0) 11/12/18 06:14 RDW 14.9 % (11.5-15.5) 11/12/18 06:14 Plt Count 271 k/uL (150-450) 11/12/18 06:14 Neutrophils % 88 % 11/10/18 07:07 Lymphocytes % 4 % 11/10/18 07:07 Monocytes % 4 % 11/10/18 07:07 Eosinophils % 2 % 11/10/18 07:07 Basophils % 0 % 11/10/18 07:07 Neutrophils # 6.4 k/uL (1.3-7.7) 11/10/18 07:07 Lymphocytes # 0.3 k/uL (1.0-4.8) L 11/10/18 07:07 Monocytes # 0.3 k/uL (0-1.0) 11/10/18 07:07 Eosinophils # 0.1 k/uL (0-0.7) 11/10/18 07:07 Basophils # 0.0 k/uL (0-0.2) 11/10/18 07:07 ESR 126 mm/hr (0-15) H 11/09/18 17:23 PT 9.9 sec (9.0-12.0) 11/09/18 14:25 INR 0.9 (<1.2) 11/09/18 14:25 APTT 28.1 sec (22.0-30.0) 11/09/18 14:25 D-Dimer 7.05 mg/L FEU (<0.60) H 11/09/18 14:25 Sodium 136 mmol/L (137-145) L 11/12/18 12:21 Potassium 3.2 mmol/L (3.5-5.1) L 11/12/18 12:21 Chloride 99 mmol/L (98-107) 11/12/18 12:21 Carbon Dioxide 31 mmol/L (22-30) H 11/12/18 12:21 Anion Gap 6 mmol/L 11/12/18 12:21 BUN 8 mg/dL (9-20) L 11/12/18 12:21 Creatinine 0.35 mg/dL (0.66-1.25) L 11/12/18 12:21 Est GFR (CKD-EPI)AfAm >90 (>60 ml/min/1.73 sqM) 11/12/18 12:21 Est GFR (CKD-EPI)NonAf >90 (>60 ml/min/1.73 sqM) 11/12/18 12:21 Glucose 217 mg/dL (74-99) H 11/12/18 12:21 POC Glucose (mg/dL) 190 mg/dL (75-99) H 11/12/18 16:29 POC Glu Color Maker Dyer Victorina Gordon 11/12/18 16:[address] Glu mg/dL 209 11/12/18 12:21 Hemoglobin A1c 8.9 % (4.0-6.0) H 11/12/18 12:21 Lactic Ac Sepsis Rflx Y 11/09/18 14:53 Plasma Lactic Acid Timothy 1.8 mmol/L (0.7-2.0) 11/09/18 18:39 Calcium 7.7 mg/dL (8.4-10.2) L 11/12/18 12:21 Phosphorus 4.3 mg/dL (2.5-4.5) 11/09/18 14:25 Magnesium 2.5 mg/dL (1.6-2.3) H 11/09/18 14:25 Total Bilirubin 0.8 mg/dL (0.2-1.3) 11/12/18 06:14 AST 55 U/L (17-59) 11/12/18 06:14 ALT 65 U/L (21-72) 11/12/18 06:14 Alkaline Phosphatase 75 U/L (38-126) 11/12/18 06:14 Troponin I 0.125 ng/mL (0.000-0.034) H* 11/11/18 05:43 C-Reactive Protein 350.6 mg/L (<10.0) H 11/09/18 14:25 NT-Pro-B Natriuret Pep 716 pg/mL 11/09/18 14:25 Total Protein 4.8 g/dL (6.3-8.2) L 11/12/18 06:14 Albumin 2.3 g/dL (3.5-5.0) L 11/12/18 06:14 Urine Color Yellow 11/09/18 16:30 Urine Appearance Cloudy (Clear) 11/09/18 16:30 Urine pH 5.0 (5.0-8.0) 11/09/18 16:30 Ur Specific [place] 1.034 (1.001-1.035) 11/09/18 16:30 Urine Protein 1+ (Negative) H 11/09/18 16:30 Urine Glucose (UA) Negative (Negative) 11/09/18 16:30 Urine Ketones Negative (Negative) 11/09/18 16:30 Urine Blood Trace (Negative) H 11/09/18 16:30 Urine Nitrite Negative (Negative) 11/09/18 16:30 Urine Bilirubin Negative (Negative) 11/09/18 16:30 Urine Urobilinogen <2.0 mg/dL (<2.0) 11/09/18 16:30 Ur Leukocyte Esterase Moderate (Negative) H 11/09/18 16:30 Urine RBC 2 /hpf (0-5) 11/09/18 16:30 Urine WBC 25 /hpf (0-5) H 11/09/18 16:30 Ur Squamous Epith Cells 1 /hpf (0-4) 11/09/18 16:30 Hyaline Casts 6 /lpf (0-2) H 11/09/18 16:30 Urine Mucus Rare /hpf (None) H 11/09/18 16:30 Fluid Source 11/10/18 09:15 Fluid Color Yellow 11/10/18 09:15 Fluid Appearance Cloudy 11/10/18 09:15 Fluid RBC 4000 /uL 11/10/18 09:15 Fluid Nucleated Cells 014828 /uL 11/10/18 09:15 Fluid Polynuclear WBCs 96 % 11/10/18 09:15 Fluid Mononuclear WBCs 4 % 11/10/18 09:15 Vancomycin Trough <5.0 ug/mL 11/11/18 05:43 Hepatitis A IgM Ab Non-Reactive (Non-Reactive) 11/10/18 07:07 Hep Bs Antigen Non-Reactive (Non-Reactive) 11/10/18 07:07 Hep B Core IgM Ab Non-Reactive (Non-Reactive) 11/10/18 07:07 Hep C IgG Ab Non-Reactive (Non-Reactive) 11/10/18 07:07 Microbiology 11/11/18 05:43 Blood Blood Culture Gram Stain - Preliminary 11/11/18 05:43 Blood Blood Culture - Preliminary Presumptive Staph aureus 11/10/18 09:15 Aspirate Anaerobic Culture - Preliminary 11/10/18 09:15 Aspirate Gram Stain - Preliminary 11/10/18 09:15 Aspirate Body Fluid Culture - Preliminary Staphylococcus aureus 11/11/18 06:26 Blood Blood Culture - Preliminary No Growth after 24 hours 11/11/18 09:20 Leg - Right Gram Stain - Preliminary 11/11/18 09:20 Leg - Right Wound Culture - Preliminary Presumptive Staph aureus 11/11/18 05:43 Blood Blood Culture - Final 11/09/18 14:25 Blood Blood Culture Gram Stain - Final 11/09/18 14:25 Blood Blood Culture - Final Staphylococcus aureus 11/09/18 16:30 Urine,Voided Urine Culture - Final 11/09/18 14:25 Blood Blood Culture - Final Assessment and Plan (1) Bacteremia due to Staphylococcus aureus Narrative/Plan: 58-year-old male who presents to Hospital with increasing pain and discomfort to his left hip area. His of the patient was recently hospitalized with a bout of uncontrolled hypertension and medications were altered. He was following with his primary care physician when he was noticing increasing discomfort to his left hip. As noted he had a episode that appeared to be presyncopal resulting in a fall to his left hip. He's had progressive discomfort since. He's had some fever at home and was feeling very poorly at the time of his presentation. It is noted there is evidence of positive blood culture likely with MSSA and aspiration to the left hip area has been performed and cultures are in process. Antibiotic therapy with cefazolin 2 g IV piggyback every 8 hours has been added in vancomycin has been discontinued. Patient is being evaluated by orthopedic surgeon and if there is evidence of ongoing abscess at the site may require more surgical incision and drainage of a percutaneous drain cannot be utilized to more effectively drain the site. Pain control appears to be adequate. He believes is up-to-date with his tetanus. Follow blood cultures are in process and negative so far. Patient needs enhance glucose control, the patient does have several risk factors for the current infection which includes a trauma and poorly controlled diabetes. 11/12/2018 the patient continues to feel poorly. Continues to have pain to the left hip area which limits his ability to ambulate. This discussed that he has evidence of an abscess at that area and MRI will further help characterize that site. May still require surgical intervention depending on the findings of the MRI. The absolute area is likely the etiology of the current bacteremia. Follow blood culture is now also positive. Further cultures requested. Continue the high-dose Ancef at this point in time. No evidence of deep venous thrombosis. Echocardiogram requested given the persistent positive blood cultures. Patient and are instructed about the need for long-term intravenous antibiotic therapy for his Staphylococcus bacteremia. Current Visit: Yes Status: Acute Code(s): R78.81 - BACTEREMIA SNOMED Code(s): 298805148 (2) Unspecified injury of muscle, fascia and tendon of left hip, initial encounter Current Visit: Yes Status: Acute Code(s): S76.002A - UNSP INJURY OF MUSCLE, FASCIA AND TENDON OF LEFT HIP, INIT SNOMED Code(s): 603516111 (3) Lactic acidosis Current Visit: Yes Status: Acute Code(s): E87.2 - ACIDOSIS SNOMED Code(s): 20398528
[2018-11-12 23:18] LABS: Glucose,Whole Blood 261 mg/dL (75-99)
[2018-11-13] MEDS: ceFAZolin IN SWFI 2 GM/20 ML SYRINGE IVP SCH ×4 (00:23→23:13)
[2018-11-13] MEDS: HEPARIN SODIUM,PORCINE 5,000 UNIT/ML 1 ML VIAL SQ SCH ×4 (00:23→23:13)
[2018-11-13] MEDS: HYDROcodone/APAP 10-325MG 1 EACH TAB PO PRN ×4 (04:05→23:18)
[2018-11-13 05:46] LABS: Glucose,Whole Blood 167 mg/dL (75-99)
[2018-11-13] MEDS: PANTOPRAZOLE 40 MG TABLET PO SCH (05:55)
[2018-11-13] MEDS: INSULIN ASPART (NovoLOG) 100 UNIT/ML VIAL SQ SCH ×4 (06:30→21:31)
[2018-11-13 07:19] LABS: ALT 67 U/L (21-72); AST 72 U/L (17-59); Albumin 2.4 g/dL (3.5-5.0); Alkaline Phosphatase 81 U/L (38-126); Anion Gap 4 mmol/L; Blood Urea Nitrogen 9 mg/dL (9-20); Calcium 7.7 mg/dL (8.4-10.2); Carbon Dioxide 31 mmol/L (22-30); Chloride 100 mmol/L (98-107); Glucose 171 mg/dL (74-99); Potassium 3.9 mmol/L (3.5-5.1); Sodium 135 mmol/L (137-145); Total Bilirubin 0.7 mg/dL (0.2-1.3); Total Protein 5.3 g/dL (6.3-8.2)
[2018-11-13] MEDS: TAMSULOSIN 0.4 MG CAP.ER.24H PO SCH (09:08)
[2018-11-13] MEDS: LISINOPRIL 20 MG TAB PO SCH (09:09)
[2018-11-13] MEDS: amLODIPine 5 MG TAB PO SCH (09:09)
[2018-11-13] MEDS: CLOPIDOGREL 75 MG TAB PO SCH (09:09)
[2018-11-13] MEDS: METOPROLOL TARTRATE 50 MG TAB PO SCH ×2 (09:09→21:31)
[2018-11-13] MEDS: ASPIRIN 81 MG PO SCH (09:09)
[2018-11-13] MEDS: LINAGLIPTIN 5 MG TABLET PO SCH (09:09)
--- NOTE | 2018-11-13 09:25 | P.PN ---
Subjective Progress Note Date: 11/13/18 This is a 58-year-old male who is admitted for increasing left hip pain and fever. Patient states that he continues to have pain in the left hip at rest or with walking. Patient states that his pain is over the entire left hip. Patient's blood cultures are positive for staph aureus. CT's of the pelvis and left femur show marked inflammatory change or infection involving the left posterior gluteal muscles at level of left hip with forming thin-walled fluid collections identified including a larger collection along superior lateral aspect of left joint worrisome for developing abscess. An ultrasound of the left lower extremity showed persistent eccentric hypoechoic collection which could r epresent persistent abscess. Patient underwent CT-guided fine needle aspiration of the left hip and cultures are positive for staph aureus. A lumbar spine MRI done today showed scoliosis with multilevel degenerative changes. No significant change or progression from prior MRI. No suspicious enhancement is noted. Additionally a Doppler ultrasound of the left lower extremity was negative for DVT. Patient is currently receiving IV cefazolin. Patient denies any new symptoms today. 11/13/2018: Patient continues to complain of pain in the left hip at rest and with weightbearing. Patient denies any new complaints today. Patient is seen and evaluated at bedside with Dr. Jun Zuniga. Objective - Vital Signs Vital signs: Vital Signs Temp 99.3 F 11/13/18 04:15 Pulse 85 11/13/18 04:15 Resp 18 11/13/18 04:15 BP 143/78 11/13/18 04:15 Pulse Ox 96 11/13/18 04:15 Intake & Output 11/12/18 11/13/18 11/13/18 18:59 06:59 18:59 Intake Total 120 Output Total 0 Balance 120 Weight 93.8 kg Intake: Oral 120 Output: Urine 0 Other: Voiding Method Toilet Toilet # Voids 2 2 - Exam On exam patient is able to ambulate. Patient is alert and oriented x3 and in no acute distress. There is pain with active hip flexion. No pain with passive internal or external rotation. Mild swelling of the left lower extremity. Calf is soft and nontender to palpation. Patient has full foot and ankle motion without pain or difficulty. Sensation intact. Neurovascular status and circulatory status are intact. - Labs CBC & Chem 7: 11/12/18 06:14 11/13/18 06:04 Labs: Abnormal Lab Results - Last 24 Hours (Table) 11/12/18 11/12/18 11/12/18 Range/Units 11:20 12:21 12:21 Sodium 136 L (137-145) mmol/L Potassium 3.2 L (3.5-5.1) mmol/L Carbon Dioxide 31 H (22-30) mmol/L BUN 8 L (9-20) mg/dL Creatinine 0.35 L (0.66-1.25) mg/dL Glucose 217 H (74-99) mg/dL POC Glucose (mg/dL) 186 H (75-99) mg/dL Hemoglobin A1c 8.9 H (4.0-6.0) % Calcium 7.7 L (8.4-10.2) mg/dL AST (17-59) U/L Total Protein (6.3-8.2) g/dL Albumin (3.5-5.0) g/dL 11/12/18 11/12/18 11/13/18 Range/Units 16:29 21:20 05:44 Sodium (137-145) mmol/L Potassium (3.5-5.1) mmol/L Carbon Dioxide (22-30) mmol/L BUN (9-20) mg/dL Creatinine (0.66-1.25) mg/dL Glucose (74-99) mg/dL POC Glucose (mg/dL) 190 H 261 H 167 H (75-99) mg/dL Hemoglobin A1c (4.0-6.0) % Calcium (8.4-10.2) mg/dL AST (17-59) U/L Total Protein (6.3-8.2) g/dL Albumin (3.5-5.0) g/dL 11/13/18 Range/Units 06:04 Sodium 135 L (137-145) mmol/L Potassium (3.5-5.1) mmol/L Carbon Dioxide 31 H (22-30) mmol/L BUN (9-20) mg/dL Creatinine 0.40 L (0.66-1.25) mg/dL Glucose 171 H (74-99) mg/dL POC Glucose (mg/dL) (75-99) mg/dL Hemoglobin A1c (4.0-6.0) % Calcium 7.7 L (8.4-10.2) mg/dL AST 72 H (17-59) U/L Total Protein 5.3 L (6.3-8.2) g/dL Albumin 2.4 L (3.5-5.0) g/dL Microbiology - Last 24 Hours (Table) 11/11/18 06:26 Blood Culture - Preliminary Blood No Growth after 48 hours 11/11/18 05:43 Blood Culture Gram Stain - Preliminary Blood Blood Culture - Preliminary Presumptive Staph aureus 11/10/18 09:15 Anaerobic Culture - Preliminary Aspirate 11/10/18 09:15 Gram Stain - Preliminary Aspirate Body Fluid Culture - Preliminary Staphylococcus aureus 11/11/18 09:20 Gram Stain - Preliminary Leg - Right Wound Culture - Preliminary Presumptive Staph aureus Assessment and Plan Assessment: Diabetes mellitus Hypertension History of STEMI with 5 stents. (1) Abscess, gluteal, left Current Visit: Yes Status: Acute Code(s): L02.31 - CUTANEOUS ABSCESS OF BUTTOCK SNOMED Code(s): 42364108 (2) Bacteremia due to Staphylococcus aureus Current Visit: Yes Status: Acute Code(s): R78.81 - BACTEREMIA SNOMED Code(s): 150158789 Plan: 1. Weightbearing as tolerated. 2. Awaiting MRI's of left hip and pelvis. 3. Continue IV antibiotics per infectious disease. 4. Cultures positive for staph aureus. 5. No surgical intervention planned. Will continue to follow closely.
[2018-11-13] MEDS: INSULIN DETEMIR (LEVEMIR) 100 UNIT/ML SYR SQ SCH (09:55)
--- NOTE | 2018-11-13 09:58 | P.PN ---
Subjective Progress Note Date: 11/13/18 Patient is doing well today. He is scheduled for MRI of the pelvis today. He denies any pain at this time. Objective - Vital Signs Vital signs: Vital Signs Temp 99.3 F 11/13/18 04:15 Pulse 85 11/13/18 04:15 Resp 18 11/13/18 04:15 BP 143/78 11/13/18 04:15 Pulse Ox 96 11/13/18 04:15 Intake & Output 11/12/18 11/13/18 11/13/18 18:59 06:59 18:59 Intake Total 120 Output Total 0 Balance 120 Weight 93.8 kg Intake: Oral 120 Output: Urine 0 Other: Voiding Method Toilet Toilet # Voids 2 2 0 - Exam General: The patient is awake and alert, in no distress Eye: there is normal conjunctiva bilaterally. Neck: The neck is supple, there is no JVD. Cardiovascular: Normal S1-S2, no S3-S4, no murmurs. Respiratory: Lungs clear to auscultation bilaterally Gastrointestinal: Abdomen is soft, nontender Musculoskeletal: There is no pedal edema. Neurological:. Speech is normal. Skin: Skin is warm and dry - Labs CBC & Chem 7: 11/12/18 06:14 11/13/18 06:04 Labs: Abnormal Lab Results - Last 24 Hours (Table) 11/12/18 11/12/18 11/12/18 Range/Units 11:20 12:21 12:21 Sodium 136 L (137-145) mmol/L Potassium 3.2 L (3.5-5.1) mmol/L Carbon Dioxide 31 H (22-30) mmol/L BUN 8 L (9-20) mg/dL Creatinine 0.35 L (0.66-1.25) mg/dL Glucose 217 H (74-99) mg/dL POC Glucose (mg/dL) 186 H (75-99) mg/dL Hemoglobin A1c 8.9 H (4.0-6.0) % Calcium 7.7 L (8.4-10.2) mg/dL AST (17-59) U/L Total Protein (6.3-8.2) g/dL Albumin (3.5-5.0) g/dL 11/12/18 11/12/18 11/13/18 Range/Units 16:29 21:20 05:44 Sodium (137-145) mmol/L Potassium (3.5-5.1) mmol/L Carbon Dioxide (22-30) mmol/L BUN (9-20) mg/dL Creatinine (0.66-1.25) mg/dL Glucose (74-99) mg/dL POC Glucose (mg/dL) 190 H 261 H 167 H (75-99) mg/dL Hemoglobin A1c (4.0-6.0) % Calcium (8.4-10.2) mg/dL AST (17-59) U/L Total Protein (6.3-8.2) g/dL Albumin (3.5-5.0) g/dL 11/13/18 Range/Units 06:04 Sodium 135 L (137-145) mmol/L Potassium (3.5-5.1) mmol/L Carbon Dioxide 31 H (22-30) mmol/L BUN (9-20) mg/dL Creatinine 0.40 L (0.66-1.25) mg/dL Glucose 171 H (74-99) mg/dL POC Glucose (mg/dL) (75-99) mg/dL Hemoglobin A1c (4.0-6.0) % Calcium 7.7 L (8.4-10.2) mg/dL AST 72 H (17-59) U/L Total Protein 5.3 L (6.3-8.2) g/dL Albumin 2.4 L (3.5-5.0) g/dL Microbiology - Last 24 Hours (Table) 11/11/18 06:26 Blood Culture - Preliminary Blood No Growth after 48 hours 11/11/18 05:43 Blood Culture Gram Stain - Preliminary Blood Blood Culture - Preliminary Presumptive Staph aureus 11/10/18 09:15 Anaerobic Culture - Preliminary Aspirate 11/10/18 09:15 Gram Stain - Preliminary Aspirate Body Fluid Culture - Preliminary Staphylococcus aureus 11/11/18 09:20 Gram Stain - Preliminary Leg - Right Wound Culture - Preliminary Presumptive Staph aureus Assessment and Plan Assessment: 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 MRI of the lumbar spine with no source of infection. Scheduled for MRI of the pelvis today - Appears to be MSSA, on cefazolin - ID consult, appreciate recommendation - Pain control - Repeat echocardiogram ordered DM 2 - on orals at home, hold metformin - SSI - follow BS - await A1C Elevated toponin - ekg with no acute ischemic changes. No chest pain. - repeat troponin trending down - on ASA, plavix, statin and BB HTN, controlled - continue current medications - follow blood pressure Transaminitis, - likelyresolved due to stress from infection - hep profile negative - liver US without abscess/gallbladder disease Hyponatremia, improved elevated lactic acid, resolved BPH - flomax Mild anemia, stable - follow CBC - outpatient evaluation+
[2018-11-13 11:31] LABS: Glucose,Whole Blood 217 mg/dL (75-99)
--- NOTE | 2018-11-13 12:30 | ECHOF ---
Referral Reason:Endocarditis MEASUREMENTS -------- HEIGHT: 172.7 cm WEIGHT: 93.4 kg BP: RVIDd: 2.4 cm (< 3.3) IVSd: 1.2 cm (0.6 - 1.1) LVIDd: 4.7 cm (3.9 - 5.3) LVPWd: 1.1 cm (0.6 - 1.1) IVSs: 1.6 cm LVIDs: 3.5 cm LVPWs: 1.7 cm LAESV Index (A-L): 28.75 ml/m Ao Diam: 3.0 cm (2.0 - 3.7) AV Cusp: 2.3 cm (1.5 - 2.6) LA Diam: 3.9 cm (2.7 - 3.8) MV EXCURSION: 15.271 mm (> 18.000) MV EF SLOPE: 59 mm/s (70 - 150) EPSS: 1.2 cm MV E Casey: 1.02 m/s MV DecT: 243 ms MV A Casey: 1.38 m/s MV E/A Ratio: 0.74 AV maxP.09 mmHg AV meanP.90 mmHg RAP: 5.00 mmHg RVSP: 31.81 mmHg FINDINGS -------- Sinus rhythm. This was a technically good study. The left ventricular size is normal. There is borderline concentric left ventricular hypertrophy. Overall left ventricular systolic function is normal with, an EF between 55 - 60 %. The right ventricle is normal in size. Normal LA size by volume 22+/-6 ml/m2. The right atrial size is normal. Aortic valve is trileaflet and is mildly thickened. Peak/mean gradient across the Aortic Valve is 2 4.09mmHg / 14.90mmHg. Cannot rule out vegetation on the aortic valve. Valve is opening but has a gr adient. The mitral valve leaflets are mildly thickened. Mild mitral regurgitation is present. Mild tricuspid regurgitation present. The right ventricular systolic pressure, as measured by Doppl er, is 31.81mmHg. There is no pulmonic regurgitation present. The aortic root size is normal. Normal inferior vena cava with normal inspiratory collapse consistent with estimated right atrial pre ssure of 5 mmHg. There is no pericardial effusion. CONCLUSIONS -------- 1. Sinus rhythm. 2. This was a technically good study. 3. The left ventricular size is normal. 4. There is borderline concentric left ventricular hypertrophy. 5. Overall left ventricular systolic function is normal with, an EF between 55 - 60 %. 6. The right ventricle is normal in size. 7. Normal LA size by volume 22+/-6 ml/m2. 8. The right atrial size is normal. 9. Aortic valve is trileaflet and is mildly thickened. 10. Peak/mean gradient across the Aortic Valve is 24.09mmHg / 14.90mmHg. 11. Cannot rule out vegetation. on the aortic valve. Valve is opening but has a gradient. 12. The mitral valve leaflets are mildly thickened. 13. Mild mitral regurgitation is present. 14. Mild tricuspid regurgitation present. 15. The right ventricular systolic pressure, as measured by Doppler, is 31.81mmHg. 16. There is no pulmonic regurgitation present. 17. The aortic root size is normal. 18. Normal inferior vena cava with normal inspiratory collapse consistent with estimated right atrial pressure of 5 mmHg. 19. There is no pericardial effusion. DIRECTOR SOCIAL WELFARE: Cristina Carney RDCS
--- NOTE | 2018-11-13 16:14 | MR ---
MR pelvis with and without contrast HISTORY: Gluteal abscess Multiplanar multisequence and postcontrast images through the pelvis following 9 cc Gadavist IV. Correlation to CT pelvis dated 11/09/2018 Susceptibility artifact is present due to patient's right hip prosthesis. There is T2 hyperintense signal at the site of patient's previously identified gluteal abscess, appea jeramy is somewhat multilocular extending posterior to the proximal left femur and lesser trochanter. There are low signal internal foci present as well as a small air-fluid level, crescentic collection at the level of the lesser trochanter measures approximately 8.5 cm in transverse dimension by 3 cm i n anterior to posterior dimension by 17 cm in cephalad to caudal dimension extending to the level of the left sacral ala on coronal images but not included on the axial image data set, small crescentic collection extends to the level lateral to the greater trochanter which is sliver-like measuring 6.5 cm in anterior posterior dimension. Multilocular collection is present within the posterior aspect of the musculature measuring approximately 4 cm x 3 cm along the lateral level of the hamstring tendons and musculotendinous junction. Peripheral enhancement of these abscess collections is noted with ryan tral intermediate signal. There is an oval collection at the level of the gluteus angelika on the left measuring 5.6 x 1.7 cm on postcontrast axial image 34. At level posterior and slightly superior to t he left hip giant smaller collection is present measuring 2.3 cm in greatest dimension, axial image 2 5. There is diffuse muscular enhancement present on the left, enhancement along the intermuscular fas paul as well as superficial abnormal signal compatible with cellulitis. Small enhancing collection is present just deep to the left sacral ala on axial image 25 measuring approximately 2 cm in size. Erickson g the left pelvic sidewall there is a multilocular area of peripheral enhancement suggesting some loc al extension. The prostate is enlarged. Degenerative disc changes are noted in the visualized spine. Bone marrow si gnal is maintained. No evident osteomyelitis. Question an abnormal enhancement of the synovium on axi al image 17 on the postcontrast dataset, no definite septic arthritis identified however. Small hydro sol noted incidentally. IMPRESSION: Multilocular abscesses involving the left pelvis and proximal lower extremity as describe d. Suspect some extension into the left pelvic sidewall. Cellulitis and myositis. No definite septic arthritis or osteomyelitis. A Yellow level critical message alert has been initiated for Angel Garcia MD via the [employer] Critical Results System on 11/13/2018 4:12 PM. This message alert has been sent to Angel Garcia MD via the preferences provided by the clinician for the receipt of Radiology Critical Findings. Message ID [id number].
[2018-11-13 16:50] LABS: Glucose,Whole Blood 171 mg/dL (75-99)
[2018-11-13 20:53] LABS: Glucose,Whole Blood 167 mg/dL (75-99)
[2018-11-13] MEDS: ATORVASTATIN 40 MG TAB PO SCH (21:31)
[2018-11-13] MEDS: KETOROLAC 30 MG/ML 1 ML VIAL IVP PRN (21:31)
--- NOTE | 2018-11-13 22:04 | P.PN ---
Subjective Progress Note Date: 11/13/18 58-year-old male with a history of recent hospitalization where he had uncontrolled hypertension, with alteration of his medications and cardiology intervention he had some improvement in was feeling somewhat better. He however several days ago suffered a fall. He denies loss of consciousness but likely was presyncopal ,he does not believe he had much injury but is now had progressive discomfort over the left buttocks and left hip area. He has a history of some chronic lower back pain which itself is not markedly worsened but has had increasing difficulties with day-to-day living because of increasing pain. He was seen by his primary care physician and advised for admission as of his changes of his status. Patient has a known history of diabetes mellitus type 2 also. Because of the pain at the site the patient imaging studies which failed to reveal evidence of fracture. However there was evidence of some phlegmon. Site is been aspirated and there is evidence now of a positive blood culture with staph aureus in with at the infectious diseases consultation was requested. No evidence of mecA gene with the staph aureus and likely not MRSA. Patient also has a known history of BPH and chronic urinary retention-like symptoms not acutely worsened as of now 11/12/2018 the patient has had some improvement. His is present today. MRI of the lumbar spine roche reveal evidence of a new infection but does have degenerative joint disease. MRI of the left hip area is pending at this point in time to further characterize the fluid collection and abscess. The aspirate from the hip as well as a blood culture show evidence of MSSA. Receiving antibiotic therapy and feeling somewhat better. Still having pain to the left hip. is concerned that he was having some pain to that site before the fall occurred. 11/13/2018 patient is still feeling poorly. Ongoing pain to the left hip and buttocks area. Difficulty with ambulation. Fever has not recurred. But con tinues to have some possible cultures. MRI has been completed. Objective - Vital Signs Vital signs: Vital Signs Temp 98.4 F 11/13/18 16:00 Pulse 84 11/13/18 16:00 Resp 18 11/13/18 16:00 BP 129/71 11/13/18 16:00 Pulse Ox 95 11/13/18 16:00 Intake & Output 11/13/18 11/13/18 11/14/18 06:59 18:59 06:59 Intake Total 240 Balance 240 Weight 93.8 kg Intake: Oral 240 Other: Voiding Method Toilet # Voids 2 1 - Exam 58-year-old male mildly overweight not in distress HEENT: Anicteric conjunctiva are pink and moist nasal mucosa grossly intact without significant lesions, there is no thrush. Neck: The neck is supple without significant lymphadenopathy or thyromegaly. Lungs: Good bilateral air entry without significant crackles or wheezing. There is no significant bronchial sounds. There is no egophony or dullness. Heart: Regular rate and rhythm with an audible S1-S2, no S3 no S4. There is no significant murmur click or rub, PMI was nondisplaced. Abdomen: Positive bowel sounds soft and nontender without palpable masses or or ganomegaly. There was no guarding or rebound. Extremities: The upper extremities have excellent pulses they are symmetric, no significant petechiae or telangiectasia. No splinter hemorrhages were noted. The right total hip arthroplasty site is well-healed without tenderness or erythema. The left buttocks and hip are evaluated. There is area of induration which is extremely tender especially over the buttocks at about the midpoint. The area is not fluctuant. It is warm to touch but there is no erythema Neuro: Awake alert oriented to person place and time. There are no acute new gross focal sensory motor deficits. The patient is somewhat vague though as a historian - Labs CBC & Chem 7: 11/12/18 06:14 11/13/18 06:04 Labs: Abnormal Lab Results - Last 24 Hours (Table) 11/12/18 11/13/18 11/13/18 Range/Units 21:20 05:44 06:04 Sodium 135 L (137-145) mmol/L Carbon Dioxide 31 H (22-30) mmol/L Creatinine 0.40 L (0.66-1.25) mg/dL Glucose 171 H (74-99) mg/dL POC Glucose (mg/dL) 261 H 167 H (75-99) mg/dL Calcium 7.7 L (8.4-10.2) mg/dL AST 72 H (17-59) U/L Total Protein 5.3 L (6.3-8.2) g/dL Albumin 2.4 L (3.5-5.0) g/dL 11/13/18 11/13/1811/13/19 Range/Units 11:27 16:28 20:47 Sodium (137-145) mmol/L Carbon Dioxide (22-30) mmol/L Creatinine (0.66-1.25) mg/dL Glucose (74-99) mg/dL POC Glucose (mg/dL) 217 H 171 H 167 H (75-99) mg/dL Calcium (8.4-10.2) mg/dL AST (17-59) U/L Total Protein (6.3-8.2) g/dL Albumin (3.5-5.0) g/dL Microbiology - Last 24 Hours (Table) 11/11/18 05:43 Blood Culture Gram Stain - Final Blood Blood Culture - Final Staphylococcus aureus 11/12/18 12:21 Blood Culture Gram Stain - Preliminary Blood 11/12/18 12:48 Blood Culture - Preliminary Blood No Growth after 24 hours 11/12/18 12:21 Blood Culture - Preliminary Blood No Growth after 24 hours 11/10/18 09:15 Gram Stain - Final Aspirate Body Fluid Culture - Final Staphylococcus aureus 11/11/18 06:26 Blood Culture - Preliminary Blood No Growth after 48 hours Laboratory Results WBC 7.6 k/uL (3.8-10.6) 11/12/18 06:14 RBC 3.40 m/uL (4.30-5.90) L 11/12/18 06:14 Hgb 9.4 gm/dL (13.0-17.5) L 11/12/18 06:14 Hct 29.5 % (39.0-53.0) L 11/12/18 06:14 MCV 86.6 fL (80.0-100.0) 11/12/18 06:14 MCH 27.5 pg (25.0-35.0) 11/12/18 06:14 MCHC 31.8 g/dL (31.0-37.0) 11/12/18 06:14 RDW 14.9 % (11.5-15.5) 11/12/18 06:14 Plt Count 271 k/uL (150-450) 11/12/18 06:14 Neutrophils % 88 % 11/10/18 07:07 Lymphocytes % 4 % 11/10/18 07:07 Monocytes % 4 % 11/10/18 07:07 Eosinophils % 2 % 11/10/18 07:07 Basophils % 0 % 11/10/18 07:07 Neutrophils # 6.4 k/uL (1.3-7.7) 11/10/18 07:07 Lymphocytes # 0.3 k/uL (1.0-4.8) L 11/10/18 07:07 Monocytes # 0.3 k/uL (0-1.0) 11/10/18 07:07 Eosinophils # 0.1 k/uL (0-0.7) 11/10/18 07:07 Basophils # 0.0 k/uL (0-0.2) 11/10/18 07:07 ESR 126 mm/hr (0-15) H 11/09/18 17:23 PT 9.9 sec (9.0-12.0) 11/09/18 14:25 INR 0.9 (<1.2) 11/09/18 14:25 APTT 28.1 sec (22.0-30.0) 11/09/18 14:25 D-Dimer 7.05 mg/L FEU (<0.60) H 11/09/18 14:25 Sodium 135 mmol/L (137-145) L 11/13/18 06:04 Potassium 3.9 mmol/L (3.5-5.1) 11/13/18 06:04 Chloride 100 mmol/L (98-107) 11/13/18 06:04 Carbon Dioxide 31 mmol/L (22-30) H 11/13/18 06:04 Anion Gap 4 mmol/L 11/13/18 06:04 BUN 9 mg/dL (9-20) 11/13/18 06:04 Creatinine 0.40 mg/dL (0.66-1.25) L 11/13/18 06:04 Est GFR (CKD-EPI)AfAm >90 (>60 ml/min/1.73 sqM) 11/13/18 06:04 Est GFR (CKD-EPI)NonAf >90 (>60 ml/min/1.73 sqM) 11/13/18 06:04 Glucose 171 mg/dL (74-99) H 11/13/18 06:04 POC Glucose (mg/dL) 167 mg/dL (75-99) H 11/13/18 20:47 POC Glu Personalized Living Manager Nurse ID Isabel Pereira Candy 11/13/18 20:[address] Glu mg/dL 209 11/12/18 12:21 Hemoglobin A1c 8.9 % (4.0-6.0) H 11/12/18 12:21 Lactic Ac Sepsis Rflx Y 11/09/18 14:53 Plasma Lactic Acid Timothy 1.8 mmol/L (0.7-2.0) 11/09/18 18:39 Calcium 7.7 mg/dL (8.4-10.2) L 11/13/18 06:04 Phosphorus 4.3 mg/dL (2.5-4.5) 11/09/18 14:25 Magnesium 2.5 mg/dL (1.6-2.3) H 11/09/18 14:25 Total Bilirubin 0.7 mg/dL (0.2-1.3) 11/13/18 06:04 AST 72 U/L (17-59) H 11/13/18 06:04 ALT 67 U/L (21-72) 11/13/18 06:04 Alkaline Phosphatase 81 U/L (38-126) 11/13/18 06:04 Troponin I 0.125 ng/mL (0.000-0.034) H* 11/11/18 05:43 C-Reactive Protein 350.6 mg/L (<10.0) H 11/09/18 14:25 NT-Pro-B Natriuret Pep 716 pg/mL 11/09/18 14:25 Total Protein 5.3 g/dL (6.3-8.2) L 11/13/18 06:04 Albumin 2.4 g/dL (3.5-5.0) L 11/13/18 06:04 Urine Color Yellow 11/09/18 16:30 Urine Appearance Cloudy (Clear) 11/09/18 16:30 Urine pH 5.0 (5.0-8.0) 11/09/18 16:30 Ur Specific [place] 1.034 (1.001-1.035) 11/09/18 16:30 Urine Protein 1+ (Negative) H 11/09/18 16:30 Urine Glucose (UA) Negative (Negative) 11/09/18 16:30 Urine Ketones Negative (Negative) 11/09/18 16:30 Urine Blood Trace (Negative) H 11/09/18 16:30 Urine Nitrite Negative (Negative) 11/09/18 16:30 Urine Bilirubin Negative (Negative) 11/09/18 16:30 Urine Urobilinogen <2.0 mg/dL (<2.0) 11/09/18 16:30 Ur Leukocyte Esterase Moderate (Negative) H 11/09/18 16:30 Urine RBC 2 /hpf (0-5) 11/09/18 16:30 Urine WBC 25 /hpf (0-5) H 11/09/18 16:30 Ur Squamous Epith Cells 1 /hpf (0-4) 11/09/18 16:30 Hyaline Casts 6 /lpf (0-2) H 11/09/18 16:30 Urine Mucus Rare /hpf (None) H 11/09/18 16:30 Fluid Source 11/10/18 09:15 Fluid Color Yellow 11/10/18 09:15 Fluid Appearance Cloudy 11/10/18 09:15 Fluid RBC 4000 /uL 11/10/18 09:15 Fluid Nucleated Cells [id number] /uL 11/10/18 09:15 Fluid Polynuclear WBCs 96 % 11/10/18 09:15 Fluid Mononuclear WBCs 4 % 11/10/18 09:15 Vancomycin Trough <5.0 ug/mL 11/11/18 05:43 Hepatitis A IgM Ab Non-Reactive (Non-Reactive) 11/10/18 07:07 Hep Bs Antigen Non-Reactive (Non-Reactive) 11/10/18 07:07 Hep B Core IgM Ab Non-Reactive (Non-Reactive) 11/10/18 07:07 Hep C IgG Ab Non-Reactive (Non-Reactive) 11/10/18 07:07 Microbiology 11/11/18 05:43 Blood Blood Culture Gram Stain - Final 11/11/18 05:43 Blood Blood Culture - Final Staphylococcus aureus 11/12/18 12:21 Blood Blood Culture Gram Stain - Preliminary 11/12/18 12:48 Blood Blood Culture - Preliminary No Growth after 24 hours 11/12/18 12:21 Blood Blood Culture - Preliminary No Growth after 24 hours 11/10/18 09:15 Aspirate Gram Stain - Final 11/10/18 09:15 Aspirate Body Fluid Culture - Final Staphylococcus aureus 11/11/18 06:26 Blood Blood Culture - Preliminary No Growth after 48 hours 11/10/18 09:15 Aspirate Anaerobic Culture - Preliminary 11/11/18 09:20 Leg - Right Gram Stain - Preliminary 11/11/18 09:20 Leg - Right Wound Culture - Preliminary Presumptive Staph aureus 11/11/18 05:43 Blood Blood Culture - Final 11/09/18 14:25 Blood Blood Culture Gram Stain - Final 11/09/18 14:25 Blood Blood Culture - Final Staphylococcus aureus 11/09/18 16:30 Urine,Voided Urine Culture - Final 11/09/18 14:25 Blood Blood Culture - Final Assessment and Plan (1) Bacteremia due to Staphylococcus aureus Narrative/Plan: 58-year-old male who presents to Hospital with increasing pain and discomfort to his left hip area. His of the patient was recently hospitalized with a bout of uncontrolled hypertension and medications were altered. He was following with his primary care physician when he was noticing increasing discomfort to his left hip. As noted he had a episode that appeared to be presyncopal resulting in a fall to his left hip. He's had progressive discomfort since. He's had some fever at home and was feeling very poorly at the time of his presentation. It is noted there is evidence of positive blood culture likely with MSSA and aspiration to the left hip area has been performed and cultures are in process. Antibiotic therapy with cefazolin 2 g IV piggyback every 8 hours has been added in vancomycin has been discontinued. Patient is being evaluated by orthopedic surgeon and if there is evidence of ongoing abscess at the site may require more surgical incision and drainage of a percutaneous drain cannot be utilized to more effectively drain the site. Pain control appears to be adequate. He believes is up-to-date with his tetanus. Follow blood cultures are in process and negative so far. Patient needs enhance glucose control, the patient does have several risk fa ctors for the current infection which includes a trauma and poorly controlled diabetes. 11/12/2018 the patient continues to feel poorly. Continues to have pain to the left hip area which limits his ability to ambulate. This discussed that he has evidence of an abscess at that area and MRI will further help characterize that site. May still require surgical intervention depending on the findings of the MRI. The absolute area is likely the etiology of the current bacteremia. Follow blood culture is now also positive. Further cultures requested. Continue the high-dose Ancef at this point in time. No evidence of deep venous thrombosis. Echocardiogram requested given the persistent positive blood cultures. Patient and are instructed about the need for long-term intravenous antibiotic therapy for his Staphylococcus bacteremia. 11/13/2018 MRI has now been completed. The 5 x 8 x 17 cm fluid collection consistent with a abscess has been noted by MRI. Consequently the orthopedist surgeon is contacted. Patient is made nothing by mouth. We will evaluate for significant morning and schedule a surgical intervention tomorrow. The patient's and children are present and understand that the abscess to the left hip area which does not involve the joint or the bony structures is the etiology of his current illness. Once it strained would expect his bacteremia to resolve. He will then require the multiweek course of intravenous antibiotic therapy. Once the bacteremia clears IV access will be placed and hopefully he will be improved enough for discharge at that time. Current Visit: Yes Status: Acute Code(s): R78.81 - BACTEREMIA SNOMED Code(s): 309769894 (2) Unspecified injury of muscle, fascia and tendon of left hip, initial encounter Current Visit: Yes Status: Acute Code(s): S76.002A - UNSP INJURY OF MUSCLE, FASCIA AND TENDON OF LEFT HIP, INIT SNOMED Code(s): 450905814 (3) Lactic acidosis Current Visit: Yes Status: Acute Code(s): E87.2 - ACIDOSIS SNOMED Code(s): 79641625
[2018-11-14 06:13] LABS: Glucose,Whole Blood 154 mg/dL (75-99)
[2018-11-14] MEDS: PANTOPRAZOLE 40 MG TABLET PO SCH (06:14)
[2018-11-14] MEDS: INSULIN ASPART (NovoLOG) 100 UNIT/ML VIAL SQ SCH ×4 (06:15→21:15)
[2018-11-14] MEDS: HYDROcodone/APAP 10-325MG 1 EACH TAB PO PRN (06:19)
[2018-11-14] MEDS ORDERED: PROPOFOL 10 MG/ML 20 ML VIAL IV ONE (08:36)
[2018-11-14] MEDS ORDERED: SUCCINYLCHOLINE CHLORIDE 100 MG/5 ML SYR IV ONE (08:36)
[2018-11-14] MEDS ORDERED: fentaNYL (PF) 50 MCG/ML 2 ML AMP ONE (08:36)
[2018-11-14] MEDS ORDERED: MIDAZOLAM 2 MG/2 ML VIAL ONE (08:36)
[2018-11-14] MEDS ORDERED: HYDROmorphone (PF) 1 MG/ML ONE (08:36)
[2018-11-14] MEDS ORDERED: KETOROLAC 30 MG/ML 1 ML VIAL ONE (08:36)
[2018-11-14] MEDS: ceFAZolin IN SWFI 2 GM/20 ML SYRINGE IVP SCH ×3 (09:23→23:01)
[2018-11-14] MEDS: LISINOPRIL 20 MG TAB PO SCH (09:24)
[2018-11-14] MEDS: TAMSULOSIN 0.4 MG CAP.ER.24H PO SCH (09:24)
[2018-11-14] MEDS: HEPARIN SODIUM,PORCINE 5,000 UNIT/ML 1 ML VIAL SQ SCH ×3 (09:24→23:01)
[2018-11-14] MEDS: amLODIPine 5 MG TAB PO SCH (09:25)
[2018-11-14] MEDS: METOPROLOL TARTRATE 50 MG TAB PO SCH ×2 (09:25→21:15)
[2018-11-14] MEDS: INSULIN DETEMIR (LEVEMIR) 100 UNIT/ML SYR SQ SCH (10:01)
--- NOTE | 2018-11-14 11:39 | P.PN ---
Subjective Progress Note Date: 11/14/18 Patient is doing well today. He is scheduled for OR today. He denies any pain at this time. Objective - Vital Signs Vital signs: Vital Signs Temp 99.0 F 11/14/18 07:45 Pulse 83 11/14/18 07:45 Resp 18 11/14/18 07:45 BP 150/73 11/14/18 07:45 Pulse Ox 95 11/14/18 07:45 Intake & Output 11/13/18 11/14/18 11/14/18 18:59 06:59 18:59 Intake Total 240 Balance 240 Weight 92.8 kg Intake: Oral 240 Other: Voiding Method Toilet # Voids 1 1 - Exam General: The patient is awake and alert, in no distress Eye: there is normal conjunctiva bilaterally. Neck: The neck is supple, there is no JVD. Cardiovascular: Normal S1-S2, no S3-S4, no murmurs. Respiratory: Lungs clear to auscultation bilaterally Gastrointestinal: Abdomen is soft, nontender Musculoskeletal: There is no pedal edema. Neurological:. Speech is normal. Skin: Skin is warm and dry - Labs CBC & Chem 7: 11/12/18 06:14 11/13/18 06:04 Labs: Abnormal Lab Results - Last 24 Hours (Table) 11/13/18 11/13/18 11/14/18 Range/Units 16:28 20:47 06:05 POC Glucose (mg/dL) 171 H 167 H 154 H (75-99) mg/dL Microbiology - Last 24 Hours (Table) 11/12/18 12:21 Blood Culture - Final Blood 11/11/18 09:20 Gram Stain - Final Leg - Right Wound Culture - Final Staphylococcus aureus 11/11/18 06:26 Blood Culture - Preliminary Blood No Growth after 72 hours 11/12/18 12:21 Blood Culture Gram Stain - Preliminary Blood Blood Culture - Preliminary Presumptive Staph aureus 11/11/18 05:43 Blood Culture Gram Stain - Final Blood Blood Culture - Final Staphylococcus aureus 11/12/18 12:48 Blood Culture - Preliminary Blood No Growth after 24 hours 11/10/18 09:15 Gram Stain - Final Aspirate Body Fluid Culture - Final Staphylococcus aureus Assessment and Plan Assessment: Staph aureus gluteral abscess resulting in staph aureus bacteremia: Scheduled for OR today. - Multilocular abscess involving the left pelvis and proximal lower extremity as detailed in MRI report - MSSA bacteremia on cefazolin - ID consulted, appreciate recommendation - Pain control - Repeat echocardiogram ordered - Plan is to ensure clearance of bacteremia then inserted PICC line and arrange for home infusion DM 2 - on orals at home, hold metformin - SSI - follow BS - A1C 8.9 - Added Levemir 10 units once daily for better glucose control Elevated toponin - ekg with no acute ischemic changes. No chest pain. - repeat troponin trending down - on ASA, plavix, statin and BB HTN, controlled - continue current medications - follow blood pressure Transaminitis, - likelyresolved due to stress from infection - hep profile negative - liver US without abscess/gallbladder disease Hyponatremia, improved elevated lactic acid, resolved BPH - flomax Mild anemia, stable - follow CBC - outpatient evaluation+
[2018-11-14] MEDS ORDERED: HYDROcodone/APAP 5-325MG 1 EACH TAB PO PRN (11:52)
[2018-11-14] MEDS ORDERED: DIAZEPAM 5 MG TAB PO PRN (11:52)
[2018-11-14] MEDS ORDERED: NALOXONE 0.4 MG/ML 1 ML VIAL IV PRN (11:52)
[2018-11-14] MEDS ORDERED: hydrOXYzine PAMOATE 25 MG CAP PO PRN (11:52)
[2018-11-14] MEDS ORDERED: MAGNESIUM HYDROXIDE 2,400 MG/10 ML CUP PO PRN (11:52)
[2018-11-14 12:10] LABS: Glucose,Whole Blood 128 mg/dL (75-99)
--- NOTE | 2018-11-14 12:28 | P.PN ---
Subjective Progress Note Date: 11/14/18 This is a 58-year-old male who is admitted for increasing left hip pain and fever. Patient states that he continues to have pain in the left hip at rest or with walking. Patient states that his pain is over the entire left hip. Patient's blood cultures are positive for staph aureus. CT's of the pelvis and left femur show marked inflammatory change or infection involving the left posterior gluteal muscles at level of left hip with forming thin-walled fluid collections identified including a larger collection along superior lateral aspect of left joint worrisome for developing abscess. An ultrasound of the left lower extremity showed persistent eccentric hypoechoic collection which could r epresent persistent abscess. Patient underwent CT-guided fine needle aspiration of the left hip and cultures are positive for staph aureus. A lumbar spine MRI done today showed scoliosis with multilevel degenerative changes. No significant change or progression from prior MRI. No suspicious enhancement is noted. Additionally a Doppler ultrasound of the left lower extremity was negative for DVT. Patient is currently receiving IV cefazolin. Patient denies any new symptoms today. 11/13/2018: Patient continues to complain of pain in the left hip at rest and with weightbearing. Patient denies any new complaints today. Patient is seen and evaluated at bedside with Dr. Jun Zuniga. 11/14/2018: Patient is seen and evaluated at bedside with Dr. Jun Zuniga. Patient states that he is still having pain in the left hip. Patient denies any new complaints. Objective - Vital Signs Vital signs: Vital Signs Temp 97.2 F L 11/14/18 12:01 Pulse 77 11/14/18 12:15 Resp 18 11/14/18 12:15 BP 144/73 11/14/18 12:15 Pulse Ox 94 L 11/14/18 12:15 Intake & Output 11/13/18 11/14/18 11/14/18 18:59 06:59 18:59 Intake Total 240 Output Total 600 Balance 240 -600 Weight 92.8 kg Intake: Oral 240 Output: Urine 600 Other: Voiding Method Toilet # Voids 1 1 - Exam On exam patient is able to ambulate. Patient is alert and oriented x3 and in no acute distress. There is pain with active hip flexion. No pain with passive internal or external rotation. Mild swelling of the left lower extremity. Calf is soft and nontender to palpation. Patient has full foot and ankle motion without pain or difficulty. Sensation intact. Neurovascular status and circula tory status are intact. - Labs CBC & Chem 7: 11/12/18 06:14 11/13/18 06:04 Labs: Abnormal Lab Results - Last 24 Hours (Table) 11/13/18 11/13/18 11/14/18 Range/Units 16:28 20:47 06:05 POC Glucose (mg/dL) 171 H 167 H 154 H (75-99) mg/dL 11/14/18 Range/Units 11:54 POC Glucose (mg/dL) 128 H (75-99) mg/dL Microbiology - Last 24 Hours (Table) 11/10/18 09:15 Anaerobic Culture - Final Aspirate 11/12/18 12:21 Blood Culture - Final Blood 11/11/18 09:20 Gram Stain - Final Leg - Right Wound Culture - Final Staphylococcus aureus 11/11/18 06:26 Blood Culture - Preliminary Blood No Growth after 72 hours 11/12/18 12:21 Blood Culture Gram Stain - Preliminary Blood Blood Culture - Preliminary Presumptive Staph aureus 11/11/18 05:43 Blood Culture Gram Stain - Final Blood Blood Culture - Final Staphylococcus aureus 11/12/18 12:48 Blood Culture - Preliminary Blood No Growth after 24 hours 11/10/18 09:15 Gram Stain - Final Aspirate Body Fluid Culture - Final Staphylococcus aureus Assessment and Plan Assessment: Diabetes mellitus Hypertension History of STEMI with 5 stents. (1) Abscess, gluteal, left Current Visit: Yes Status: Acute Code(s): L02.31 - CUTANEOUS ABSCESS OF BUTTOCK SNOMED Code(s): 99973245 (2) Bacteremia due to Staphylococcus aureus Current Visit: Yes Status: Acute Code(s): R78.81 - BACTEREMIA SNOMED C ode(s): 379590610 Plan: 1. Weightbearing as tolerated. 2. MRI of the pelvis shows multilocular abscess of the left pelvis and proximal lower extremity. 3. Continue IV antibiotics per infectious disease. 4. Cultures positive for staph aureus. 5. I&D of left gluteal abscess scheduled for today.
[2018-11-14] MEDS ORDERED: LACTATED RINGERS 1,000 ML IV ONE ×3 (12:42→13:35)
[2018-11-14 12:47] LABS: Basophils % (A) 0 %; Eosinophils # (A) 0.2 k/uL (0-0.7); Eosinophils % (A) 2 %; HCT 29.9 % (39.0-53.0); HGB 9.9 gm/dL (13.0-17.5); Lymphocytes # (A) 0.7 k/uL (1.0-4.8); Lymphocytes % (A) 10 %; MCV 88.1 fL (80.0-100.0); Mean Platelet Volume 8.8; Monocytes # (A) 0.5 k/uL (0-1.0); Monocytes % (A) 7 %; Neutrophils # (A) 5.6 k/uL (1.3-7.7); Neutrophils % (A) 79 %; Platelet Count 466 k/uL (150-450); RBC 3.39 m/uL (4.30-5.90); RDW 15.3 % (11.5-15.5); WBC 7.1 k/uL (3.8-10.6)
[2018-11-14 12:48] LABS: Glucose,Whole Blood 120 mg/dL (75-99)
--- NOTE | 2018-11-14 13:20 | P.OP ---
Date of Procedure: 11/14/18 Preoperative Diagnosis: gluteal abscess left hip Postoperative Diagnosis: gluteal abscess left hip Procedure(s) Performed: incision and drainage of gluteal abscess left hip Surgeon: Jun Zuniga Radial Drill Press Operator #1: Luz Lee Estimated Blood Loss (ml): 50 Pathology: other (cultures 2) Condition: stable Disposition: PACU Indications for Procedure: this is a 58-year-old gentleman presented to Hospital with pain in his left hip. An extensive work up revealed a gluteal abscess of his left hip. After discussing the surgical nonsurgical treatment options with him and his at length, I recommended an incision and drainage of the abscess. Informed consent was obtained. Operative Findings: the operative findings are consistent with a gluteal abscess of the left hip Description of Procedure: patient was seen in the preoperative area, consent was reviewed, the operative site was marked with a skin marker. Patient was then brought to the operating room and given a general anesthetic by the anesthesia department. Patient was then placed in the right lateral decubitus position and held with a [place] hip positioner. Left hip was then prepped and draped in usual sterile fashion. A universal timeout was then performed which confirmed the patient's name, surgical site, ALLERGIES, and consent. Procedure began by making the incision on the lateral aspect of the hip with the skin and subcutaneous tissue sharply incised. Incision was carried out of the fascia which was then split in line with the incision. A large abscess was encountered and was extensively irrigated with pulsatile lavage. There was also cultured 2. After thorough irrigation, a medium Hemovac drain was placed. The fascia was then closed with #1 Vicryl followed by 3-0 Vicryl and rianna for the skin. Sterile dressings were applied and patient was transferred to recovery room stable condition. Asst. Luz ARTHUR was required due the complexity of surgery the need for skilled surgical coordinator.
[2018-11-14] MEDS ORDERED: ceFAZolin 3,000 MG in SODIUM CHLORIDE 0.9% IRRIGATIO 3,000 ML IRRIGATION ONE (13:21)
[2018-11-14] MEDS: HYDROmorphone 1 MG/ML 1 ML SYRINGE IVP ONE ×2 (13:54→14:11)
[2018-11-14 14:12] LABS: Glucose,Whole Blood 134 mg/dL (75-99)
[2018-11-14] MEDS ORDERED: ceFAZolin IN SWFI 2 GM/20 ML SYRINGE IVP SCH (16:00)
[2018-11-14] MEDS: LINAGLIPTIN 5 MG TABLET PO SCH (16:29)
[2018-11-14] MEDS: CLOPIDOGREL 75 MG TAB PO SCH (16:29)
[2018-11-14] MEDS: ASPIRIN 81 MG PO SCH (16:29)
[2018-11-14 16:34] LABS: Glucose,Whole Blood 103 mg/dL (75-99)
[2018-11-14] MEDS: SODIUM CHLORIDE 0.9% 1,000 ML IV SCH (16:41)
[2018-11-14] MEDS: HYDROmorphone 0.5 MG/0.5 ML SYRINGE IVP PRN (16:42)
[2018-11-14 20:43] LABS: Glucose,Whole Blood 172 mg/dL (75-99)
[2018-11-14] MEDS: SENNOSIDES-DOCUSATE SODIUM 1 EACH TAB PO SCH (21:15)
[2018-11-14] MEDS: ATORVASTATIN 40 MG TAB PO SCH (21:15)
[2018-11-14] MEDS: HYDROmorphone 1 MG/ML 1 ML SYRINGE IVP PRN (21:17)
--- NOTE | 2018-11-15 00:01 | P.PN ---
Subjective Progress Note Date: 11/14/18 58-year-old male with a history of recent hospitalization where he had uncontrolled hypertension, with alteration of his medications and cardiology intervention he had some improvement in was feeling somewhat better. He however several days ago suffered a fall. He denies loss of consciousness but likely was presyncopal ,he does not believe he had much injury but is now had progressive discomfort over the left buttocks and left hip area. He has a history of some chronic lower back pain which itself is not markedly worsened but has had increasing difficulties with day-to-day living because of increasing pain. He was seen by his primary care physician and advised for admission as of his changes of his status. Patient has a known history of diabetes mellitus type 2 also. Because of the pain at the site the patient imaging studies which failed to reveal evidence of fracture. However there was evidence of some phlegmon. Site is been aspirated and there is evidence now of a positive blood culture with staph aureus in with at the infectious diseases consultation was requested. No evidence of mecA gene with the staph aureus and likely not MRSA. Patient also has a known history of BPH and chronic urinary retention-like symptoms not acutely worsened as of now 11/12/2018 the patient has had some improvement. His is present today. MRI of the lumbar spine roche reveal evidence of a new infection but does have degenerative joint disease. MRI of the left hip area is pending at this point in time to further characterize the fluid collection and abscess. The aspirate from the hip as well as a blood culture show evidence of MSSA. Receiving antibiotic therapy and feeling somewhat better. Still having pain to the left hip. is concerned that he was having some pain to that site before the fall occurred. 11/13/2018 patient is still feeling poorly. Ongoing pain to the left hip and buttocks area. Difficulty with ambulation. Fever has not recurred. But con tinues to have some possible cultures. MRI has been completed. 11/14/2018 patient is feeling slightly better today. He has had the incision and drainage performed by orthopedic surgery with a large amount of grossly purulent material drained. Fevers are improved and he has no other acute complaints. Does have pain from the drains but does understand that he has on a course to improvement. Objective - Vital Signs Vital signs: Vital Signs Temp 99.3 F 11/14/18 23:38 Pulse 86 11/14/18 23:41 Resp 18 11/14/18 23:41 BP 124/64 11/14/18 23:38 Pulse Ox 97 11/14/18 23:38 Intake & Output 11/14/18 11/14/18 11/15/18 06:59 18:59 06:59 Intake Total 1241 Output Total 1500 400 Balance -259 -400 Weight 92.8 kg Intake: IV 801 Oral 440 Output: Urine 1450 400 Estimated Blood Loss 50 Other: Voiding Method Toilet Urinal # Voids 1 1 1 - Exam 58-year-old male mildly overweight not in distress HEENT: Anicteric conjunctiva are pink and moist nasal mucosa grossly intact without significant lesions, there is no thrush. Neck: The neck is supple without significant lymphadenopathy or thyromegaly. Lungs: Good bilateral air entry without significant crackles or wheezing. There is no significant bronchial sounds. There is no egophony or dullness. Heart: Regular rate and rhythm with an audible S1-S2, no S3 no S4. There is no significant murmur click or rub, PMI was nondisplaced. Abdomen: Positive bowel sounds soft and nontender without palpable masses or organomegaly. There was no guarding or rebound. Extremities: The upper extremities have excellent pulses they are symmetric, no significant petechiae or telangiectasia. No splinter hemorrhages were noted. The right total hip arthroplasty site is well-healed without tenderness or erythema. The left lateral hip and buttocks area as opposed the dressing in place of the surgical incision and drainage today. Dressings are not removed there are the drain tubes in place connecting to the drainage canister. Neuro: Awake alert oriented to person place and time. There are no acute new gross focal sensory motor deficits. The patient is somewhat vague though as a historian - Labs CBC & Chem 7: 11/14/18 06:26 11/13/18 06:04 Labs: Abnormal Lab Results - Last 24 Hours (Table) 11/14/18 11/14/18 11/14/18 Range/Units 06:05 06:26 11:54 RBC 3.39 L (4.30-5.90) m/uL Hgb 9.9 L (13.0-17.5) gm/dL Hct 29.9 L (39.0-53.0) % Plt Count 466 H (150-450) k/uL Lymphocytes # 0.7 L (1.0-4.8) k/uL POC Glucose (mg/dL) 154 H 128 H (75-99) mg/dL 11/14/18 11/14/18 11/14/18 Range/Units 12:41 14:09 16:28 RBC (4.30-5.90) m/uL Hgb (13.0-17.5) gm/dL Hct (39.0-53.0) % Plt Count (150-450) k/uL Lymphocytes # (1.0-4.8) k/uL POC Glucose (mg/dL) 120 H 134 H 103 H (75-99) mg/dL 11/14/18 Range/Units 20:41 RBC (4.30-5.90) m/uL Hgb (13.0-17.5) gm/dL Hct (39.0-53.0) % Plt Count (150-450) k/uL Lymphocytes # (1.0-4.8) k/uL POC Glucose (mg/dL) 172 H (75-99) mg/dL Microbiology - Last 24 Hours (Table) 11/14/18 13:14 Wound Culture - Preliminary Buttock 11/14/18 13:14 Wound Culture - Preliminary Buttock 11/14/18 13:14 Anaerobic Culture - Preliminary Buttock 11/14/18 13:14 Anaerobic Culture - Preliminary Buttock 11/12/18 12:48 Blood Culture - Preliminary Blood No Growth after 48 hours 11/10/18 09:15 Anaerobic Culture - Final Aspirate 11/12/18 12:21 Blood Culture - Final Blood 11/11/18 09:20 Gram Stain - Final Leg - Right Wound Culture - Final Staphylococcus aureus 11/11/18 06:26 Blood Culture - Preliminary Blood No Growth after 72 hours 11/12/18 12:21 Blood Culture Gram Stain - Preliminary Blood Blood Culture - Preliminary Presumptive Staph aureus Laboratory Results WBC 7.1 k/uL (3.8-10.6) 11/14/18 06:26 RBC 3.39 m/uL (4.30-5.90) L 11/14/18 06:26 Hgb 9.9 gm/dL (13.0-17.5) L 11/14/18 06:26 Hct 29.9 % (39.0-53.0) L 11/14/18 06:26 MCV 88.1 fL (80.0-100.0) 11/14/18 06:26 MCH 29.0 pg (25.0-35.0) 11/14/18 06:26 MCHC 33.0 g/dL (31.0-37.0) 11/14/18 06:26 RDW 15.3 % (11.5-15.5) 11/14/18 06:26 Plt Count 466 k/uL (150-450) H 11/14/18 06:26 Neutrophils % 79 % 11/14/18 06:26 Lymphocytes % 10 % 11/14/18 06:26 Monocytes % 7 % 11/14/18 06:26 Eosinophils % 2 % 11/14/18 06:26 Basophils % 0 % 11/14/18 06:26 Neutrophils # 5.6 k/uL (1.3-7.7) 11/14/18 06:26 Lymphocytes # 0.7 k/uL (1.0-4.8) L 11/14/18 06:26 Monocytes # 0.5 k/uL (0-1.0) 11/14/18 06:26 Eosinophils # 0.2 k/uL (0-0.7) 11/14/18 06:26 Basophils # 0.0 k/uL (0-0.2) 11/14/18 06:26 ESR 126 mm/hr (0-15) H 11/09/18 17:23 PT 9.9 sec (9.0-12.0) 11/09/18 14:25 INR 0.9 (<1.2) 11/09/18 14:25 APTT 28.1 sec (22.0-30.0) 11/09/18 14:25 D-Dimer 7.05 mg/L FEU (<0.60) H 11/09/18 14:25 Sodium 135 mmol/L (137-145) L 11/13/18 06:04 Potassium 3.9 mmol/L (3.5-5.1) 11/13/18 06:04 Chloride 100 mmol/L (98-107) 11/13/18 06:04 Carbon Dioxide 31 mmol/L (22-30) H 11/13/18 06:04 Anion Gap 4 mmol/L 11/13/18 06:04 BUN 9 mg/dL (9-20) 11/13/18 06:04 Creatinine 0.40 mg/dL (0.66-1.25) L 11/13/18 06:04 Est GFR (CKD-EPI)AfAm >90 (>60 ml/min/1.73 sqM) 11/13/18 06:04 Est GFR (CKD-EPI)NonAf >90 (>60 ml/min/1.73 sqM) 11/13/18 06:04 Glucose 171 mg/dL (74-99) H 11/13/18 06:04 POC Glucose (mg/dL) 172 mg/dL (75-99) H 11/14/18 20:41 POC Glu Filing Clerk ID Pau Lowe 11/14/18 20:[address] Glu mg/dL 209 11/12/18 12:21 Hemoglobin A1c 8.9 % (4.0-6.0) H 11/12/18 12:21 Lactic Ac Sepsis Rflx Y 11/09/18 14:53 Plasma Lactic Acid Timothy 1.8 mmol/L (0.7-2.0) 11/09/18 18:39 Calcium 7.7 mg/dL (8.4-10.2) L 11/13/18 06:04 Phosphorus 4.3 mg/dL (2.5-4.5) 11/09/18 14:25 Magnesium 2.5 mg/dL (1.6-2.3) H 11/09/18 14:25 Total Bilirubin 0.7 mg/dL (0.2-1.3) 11/13/18 06:04 AST 72 U/L (17-59) H 11/13/18 06:04 ALT 67 U/L (21-72) 11/13/18 06:04 Alkaline Phosphatase 81 U/L (38-126) 11/13/18 06:04 Troponin I 0.125 ng/mL (0.000-0.034) H* 11/11/18 05:43 C-Reactive Protein 350.6 mg/L (<10.0) H 11/09/18 14:25 NT-Pro-B Natriuret Pep 716 pg/mL 11/09/18 14:25 Total Protein 5.3 g/dL (6.3-8.2) L 11/13/18 06:04 Albumin 2.4 g/dL (3.5-5.0) L 11/13/18 06:04 Urine Color Yellow 11/09/18 16:30 Urine Appearance Cloudy (Clear) 11/09/18 16:30 Urine pH 5.0 (5.0-8.0) 11/09/18 16:30 Ur Specific [place] 1.034 (1.001-1.035) 11/09/18 16:30 Urine Protein 1+ (Negative) H 11/09/18 16:30 Urine Glucose (UA) Negative (Negative) 11/09/18 16:30 Urine Ketones Negative (Negative) 11/09/18 16:30 Urine Blood Trace (Negative) H 11/09/18 16:30 Urine Nitrite Negative (Negative) 11/09/18 16:30 Urine Bilirubin Negative (Negative) 11/09/18 16:30 Urine Urobilinogen <2.0 mg/dL (<2.0) 11/09/18 16:30 Ur Leukocyte Esterase Moderate (Negative) H 11/09/18 16:30 Urine RBC 2 /hpf (0-5) 11/09/18 16:30 Urine WBC 25 /hpf (0-5) H 11/09/18 16:30 Ur Squamous Epith Cells 1 /hpf (0-4) 11/09/18 16:30 Hyaline Casts 6 /lpf (0-2) H 11/09/18 16:30 Urine Mucus Rare /hpf (None) H 11/09/18 16:30 Fluid Source 11/10/18 09:15 Fluid Color Yellow 11/10/18 09:15 Fluid Appearance Cloudy 11/10/18 09:15 Fluid RBC 4000 /uL 11/10/18 09:15 Fluid Nucleated Cells [id number] /uL 11/10/18 09:15 Fluid Polynuclear WBCs 96 % 11/10/18 09:15 Fluid Mononuclear WBCs 4 % 11/10/18 09:15 Vancomycin Trough <5.0 ug/mL 11/11/18 05:43 Hepatitis A IgM Ab Non-Reactive (Non-Reactive) 11/10/18 07:07 Hep Bs Antigen Non-Reactive (Non-Reactive) 11/10/18 07:07 Hep B Core IgM Ab Non-Reactive (Non-Reactive) 11/10/18 07:07 Hep C IgG Ab Non-Reactive (Non-Reactive) 11/10/18 07:07 Microbiology 11/14/18 13:14 Buttock Wound Culture - Preliminary 11/14/18 13:14 Buttock Wound Culture - Preliminary 11/14/18 13:14 Buttock Anaerobic Culture - Preliminary 11/14/18 13:14 Buttock Anaerobic Culture - Preliminary 11/12/18 12:48 Blood Blood Culture - Preliminary No Growth after 48 hours 11/10/18 09:15 Aspirate Anaerobic Culture - Final 11/12/18 12:21 Blood Blood Culture - Final 11/11/18 09:20 Leg - Right Gram Stain - Final 11/11/18 09:20 Leg - Right Wound Culture - Final Staphylococcus aureus 11/11/18 06:26 Blood Blood Culture - Preliminary No Growth after 72 hours 11/12/18 12:21 Blood Blood Culture Gram Stain - Preliminary 11/12/18 12:21 Blood Blood Culture - Preliminary Presumptive Staph aureus 11/11/18 05:43 Blood Blood Culture Gram Stain - Final 11/11/18 05:43 Blood Blood Culture - Final Staphylococcus aureus 11/10/18 09:15 Aspirate Gram Stain - Final 11/10/18 09:15 Aspirate Body Fluid Culture - Final Staphylococcus aureus 11/11/18 05:43 Blood Blood Culture - Final 11/09/18 14:25 Blood Blood Culture Gram Stain - Final 11/09/18 14:25 Blood Blood Culture - Final Staphylococcus aureus 11/09/18 16:30 Urine,Voided Urine Culture - Final 11/09/18 14:25 Blood Blood Culture - Final Assessment and Plan (1) Bacteremia due to Staphylococcus aureus Narrative/Plan: 58-year-old male who presents to Hospital with increasing pain and discomfort to his left hip area. His of the patient was recently hospitalized with a bout of uncontrolled hypertension and medications were altered. He was following with his primary care physician when he was noticing increasing discomfort to his left hip. As noted he had a episode that appeared to be presyncopal resulting in a fall to his left hip. He's had progressive discomfort since. He's had some fever at home and was feeling very poorly at the time of his presentation. It is noted there is evidence of positive blood culture likely with MSSA and aspiration to the left hip area has been performed and cultures are in process. Antibiotic therapy with cefazolin 2 g IV piggyback every 8 hours has been added in vancomycin has been discontinued. Patient is being evaluated by orthopedic surgeon and if there is evidence of ongoing abscess at the site may require more surgical incision and drainage of a percutaneous drain cannot be utilized to more effectively drain the site. Pain control appears to be adequate. He believes is up-to-date with his tetanus. Follow blood cultures are in process and negative so far. Patient needs enhance glucose control, the patient does have several risk factors for the current infection which includes a trauma and poorly controlled diabetes. 11/12/2018 the patient continues to feel poorly. Continues to have pain to the left hip area which limits his ability to ambulate. This discussed that he has evidence of an abscess at that area and MRI will further help characterize that site. May still require surgical intervention depending on the findings of the MRI. The absolute area is likely the etiology of the current bacteremia. Follow blood culture is now also positive. Further cultures requested. Continue the high-dose Ancef at this point in time. No evidence of deep venous thrombosis. Echocardiogram requested given the persistent positive blood cultures. Patient and are instructed about the need for long-term intravenous antibiotic th erapy for his Staphylococcus bacteremia. 11/13/2018 MRI has now been completed. The 5 x 8 x 17 cm fluid collection consistent with a abscess has been noted by MRI. Consequently the orthopedist surgeon is contacted. Patient is made nothing by mouth. We will evaluate for significant morning and schedule a surgical intervention tomorrow. The patient's and children are present and understand that the abscess to the left hip area which does not involve the joint or the bony structures is the etiology of his current illness. Once it strained would expect his bacteremia to resolve. He will then require the multiweek course of intravenous antibiotic therapy. Once the bacteremia clears IV access will be placed and hopefully he will be improved enough for discharge at that time. 11/14/2018 the patient has now been taken to the operating room and had incision and drainage of the abscess to the left lateral hip and buttocks area. He is feeling somewhat better but does have some postoperative pain. Follow blood cultures are process to ensure that his clearance of his bacteremia. Once bacteremia clears will then be able to have PICC line placed to complete his course of antibiotic therapy for his MSSA sepsis. 2-D echocardiogram was requested and there is evidence of potential abnormality of the aortic valve. Cardiology evaluation for HENRI has been requested. Current Visit: Yes Status: Acute Code(s): R78.81 - BACTEREMIA SNOMED Code(s): 347189345 (2) Unspecified injury of muscle, fascia and tendon of left hip, initial encounter Current Visit: Yes Status: Acute Code(s): S76.002A - UNSP INJURY OF MUSCLE, FASCIA AND TENDON OF LEFT HIP, INIT SNOMED Code(s): 324547522 (3) Lactic acidosis Current Visit: Yes Status: Acute Code(s): E87.2 - ACIDOSIS SNOMED Code(s): 20931964
[2018-11-15] MEDS: HYDROcodone/APAP 5-325MG 1 EACH TAB PO PRN ×2 (04:17→15:51)
[2018-11-15] MEDS: SODIUM CHLORIDE 0.9% 1,000 ML IV SCH ×2 (04:18→20:31)
[2018-11-15 05:56] LABS: Glucose,Whole Blood 159 mg/dL (75-99)
[2018-11-15 06:30] LABS: Basophils % (A) 0 %; Eosinophils # (A) 0.1 k/uL (0-0.7); Eosinophils % (A) 1 %; HCT 28.7 % (39.0-53.0); HGB 9.2 gm/dL (13.0-17.5); Lymphocytes # (A) 0.7 k/uL (1.0-4.8); Lymphocytes % (A) 9 %; MCH 27.3 pg (25.0-35.0); MCHC 31.9 g/dL (31.0-37.0); MCV 85.7 fL (80.0-100.0); Mean Platelet Volume 7.5; Monocytes # (A) 0.4 k/uL (0-1.0); Monocytes % (A) 5 %; Neutrophils # (A) 6.9 k/uL (1.3-7.7); Neutrophils % (A) 84 %; Platelet Count 565 k/uL (150-450); RBC 3.35 m/uL (4.30-5.90); RDW 15.4 % (11.5-15.5); WBC 8.2 k/uL (3.8-10.6)
[2018-11-15 06:48] LABS: Anion Gap 6 mmol/L; Blood Urea Nitrogen 7 mg/dL (9-20); Calcium 7.9 mg/dL (8.4-10.2); Carbon Dioxide 28 mmol/L (22-30); Chloride 103 mmol/L (98-107); Glucose 153 mg/dL (74-99); Potassium 3.9 mmol/L (3.5-5.1); Sodium 137 mmol/L (137-145)
[2018-11-15] MEDS: INSULIN ASPART (NovoLOG) 100 UNIT/ML VIAL SQ SCH ×4 (06:55→21:30)
[2018-11-15] MEDS: PANTOPRAZOLE 40 MG TABLET PO SCH (06:55)
[2018-11-15] MEDS: HYDROmorphone 0.5 MG/0.5 ML SYRINGE IVP PRN (08:19)
[2018-11-15] MEDS: ceFAZolin IN SWFI 2 GM/20 ML SYRINGE IVP SCH ×3 (08:30→22:53)
[2018-11-15] MEDS: HEPARIN SODIUM,PORCINE 5,000 UNIT/ML 1 ML VIAL SQ SCH ×3 (08:44→22:53)
[2018-11-15] MEDS: amLODIPine 5 MG TAB PO SCH (08:46)
[2018-11-15] MEDS: TAMSULOSIN 0.4 MG CAP.ER.24H PO SCH (08:46)
[2018-11-15] MEDS: LINAGLIPTIN 5 MG TABLET PO SCH (08:47)
[2018-11-15] MEDS: CLOPIDOGREL 75 MG TAB PO SCH (08:47)
[2018-11-15] MEDS: METOPROLOL TARTRATE 50 MG TAB PO SCH ×2 (08:47→21:29)
[2018-11-15] MEDS: ASPIRIN 81 MG PO SCH (08:47)
[2018-11-15] MEDS: LISINOPRIL 20 MG TAB PO SCH (08:47)
[2018-11-15] MEDS: INSULIN DETEMIR (LEVEMIR) 100 UNIT/ML SYR SQ SCH (09:35)
--- NOTE | 2018-11-15 10:14 | P.PN ---
Subjective Progress Note Date: 11/15/18 Patient is doing well today. He is postoperative day #1 status post incision and drainage of pelvis abscess. Pain is well-controlled at rest but worse when patient moves. Objective - Vital Signs Vital signs: Vital Signs Temp 98.2 F 11/15/18 07:46 Pulse 97 11/15/18 07:46 Resp 16 11/15/18 07:46 BP 144/79 11/15/18 07:46 Pulse Ox 94 L 11/15/18 04:00 Intake & Output 11/14/18 11/15/18 11/15/18 18:59 06:59 18:59 Intake Total 1241 360 Output Total 1500 1800 400 Balance -259 -1800 -40 Weight 93.1 kg Intake: IV 801 Oral 440 360 Output: Urine 1450 1800 400 Estimated Blood Loss 50 Other: Voiding Method Urinal # Voids 1 1 - Exam General: The patient is awake and alert, in no distress Eye: there is normal conjunctiva bilaterally. Neck: The neck is supple, there is no JVD. Cardiovascular: Normal S1-S2, no S3-S4, no murmurs. Respiratory: Lungs clear to auscultation bilaterally Gastrointestinal: Abdomen is soft, nontender Musculoskeletal: There is no pedal edema. Neurological:. Speech is normal. Skin: Skin is warm and dry - Labs CBC & Chem 7: 11/15/18 06:01 11/15/18 06:01 Labs: Abnormal Lab Results - Last 24 Hours (Table) 11/14/18 11/14/18 11/14/18 Range/Units 06:26 11:54 12:41 RBC 3.39 L (4.30-5.90) m/uL Hgb 9.9 L (13.0-17.5) gm/dL Hct 29.9 L (39.0-53.0) % Plt Count 466 H (150-450) k/uL Lymphocytes # 0.7 L (1.0-4.8) k/uL BUN (9-20) mg/dL Creatinine (0.66-1.25) mg/dL Glucose (74-99) mg/dL POC Glucose (mg/dL) 128 H 120 H (75-99) mg/dL Calcium (8.4-10.2) mg/dL 11/14/18 11/14/18 11/14/18 Range/Units 14:09 16:28 20:41 RBC (4.30-5.90) m/uL Hgb (13.0-17.5) gm/dL Hct (39.0-53.0) % Plt Count (150-450) k/uL Lymphocytes # (1.0-4.8) k/uL BUN (9-20) mg/dL Creatinine (0.66-1.25) mg/dL Glucose (74-99) mg/dL POC Glucose (mg/dL) 134 H 103 H 172 H (75-99) mg/dL Calcium (8.4-10.2) mg/dL 11/15/18 11/15/18 11/15/18 Range/Units 05:47 06:01 06:01 RBC 3.35 L (4.30-5.90) m/uL Hgb 9.2 L (13.0-17.5) gm/dL Hct 28.7 L (39.0-53.0) % Plt Count 565 H (150-450) k/uL Lymphocytes # 0.7 L (1.0-4.8) k/uL BUN 7 L (9-20) mg/dL Creatinine 0.35 L (0.66-1.25) mg/dL Glucose 153 H (74-99) mg/dL POC Glucose (mg/dL) 159 H (75-99) mg/dL Calcium 7.9 L (8.4-10.2) mg/dL Microbiology - Last 24 Hours (Table) 11/14/18 06:26 Blood Culture - Preliminary Blood No Growth after 24 hours 11/11/18 06:26 Blood Culture - Preliminary Blood No Growth after 96 hours 11/12/18 12:21 Blood Culture Gram Stain - Final Blood Blood Culture - Final Staphylococcus aureus 11/14/18 13:14 Gram Stain - Preliminary Buttock Wound Culture - Preliminary 11/14/18 13:14 Gram Stain - Preliminary Buttock Wound Culture - Preliminary 11/14/18 13:14 Anaerobic Culture - Preliminary Buttock 11/14/18 13:14 Anaerobic Culture - Preliminary Buttock 11/12/18 12:48 Blood Culture - Preliminary Blood No Growth after 48 hours 11/10/18 09:15 Anaerobic Culture - Final Aspirate 11/12/18 12:21 Blood Culture - Final Blood 11/11/18 09:20 Gram Stain - Final Leg - Right Wound Culture - Final Staphylococcus aureus Assessment and Plan Assessment: Staph aureus gluteral abscess resulting in staph aureus bacteremia: - Multilocular abscess involving the left pelvis and proximal lower extremity as detailed in MRI report: Postoperative day #1 status post I&D in the OR by orthopedic. - MSSA bacteremia on cefazolin, culture positive to 11/12. Repeat blood culture ordered today. - ID consulted, appreciate recommendation - Pain control - Repeat echocardiogram ordered - Plan is to ensure clearance of bacteremia then inserted PICC line and arrange for home infusion DM 2 - on orals at home, hold metformin - SSI - follow BS - A1C 8.9 - Added Levemir 10 units once daily for better glucose control Elevated toponin - ekg with no acute ischemic changes. No chest pain. - repeat troponin trending down - on ASA, plavix, statin and BB HTN, controlled - continue current medications - follow blood pressure Transaminitis, - likelyresolved due to stress from infection - hep profile negative - liver US without abscess/gallbladder disease Hyponatremia, improved elevated lactic acid, resolved BPH - flomax Mild anemia, stable - follow CBC - outpatient evaluation+
[2018-11-15 11:27] LABS: Glucose,Whole Blood 202 mg/dL (75-99)
--- NOTE | 2018-11-15 11:36 | P.CRDCN ---
History of Present Illness Consult date: 11/15/18 Requesting physician: Angel Garcia Reason for Consult (text): Positive blood cultures Chief complaint: Dizziness and falls History of present illness: This is a pleasant 58-year-old gentleman who follows regularly with Dr. Min in the office. He has a known history of hypertension, hyperlipidemia, diabetes, coronary artery disease for which the patient underwent stenting approximately 15 years ago, most recently in June 2018 he presented to the hospital with an acute inferior wall myocardial infarction, he underwent successful stenting of the right PLV, right PDA, mid RCA and proximal RCA by Dr. Min. He was also found at that time to have significant stenosis in the distal apical segment of the LAD and in the second small obtuse marginal branch. Patient has chronic nicotine dependence as well. He had had a couple falls at home recently, denied any syncopal episodes, also was recently started on Cipro as an outpatient for possible UTI and prostatitis. He presented to the hospital after not feeling well for approximate 2 week duration. He was noted to have [address] of the hip with a subsequent subcutaneous edema. This is actually day 6 for him here in the hospital. Yesterday the patient underwent I&D of that abscess in his left hip. Blood cultures came back positive for presumptive staph aureus. The aspirate from the hip was also posi tive for MSSA. An echocardiogram with Doppler study was performed which revealed a normal left ventricular systolic function, there was question of vegetation on the aortic valve. Because of the positive blood cultures and questionable vegetation, Dr. Pleitez had requested that at [facility] be performed. I did speak with Dr. Min today, this will be scheduled tomorrow morning at 7:30. I did go over the risks and benefits with the patient and he is in agreement to proceed. Blood pressure this morning 144/70 with a heart rate in the 90s, 94% on room air. Low-grade temperature this morning of 99.6. White blood cell count is 8.2, hemoglobin 9.2, platelet count 565. Sodium 137, potassium 3.9, BUN 7 and creatinine 0.3. Past Medical History Past Medical History: Diabetes Mellitus, Hypertension, Myocardial Infarction ([place]) Additional Past Medical History / Comment(s): Patient was a stemi in june 2018 got stents X 5 Last Myocardial Infarction Date:: 2018 History of Any Multi-Drug Resistant Organisms: None Reported Past Surgical History: Heart Catheterization, Heart Catheterization With Stent, Hernia Repair Additional Past Surgical History / Comment(s): 5 recent stents placed Past Anesthesia/Blood Transfusion Reactions: No Reported Reaction Date of Last Stent Placement:: 2017 Past Psychological History: No Psychological Hx Reported Additional Psychological History / Comment(s): . Medically retired. Positive tobacco use. Not related to be a current alcohol user and no recreational drug use at this time. No animals in the home Smoking Status: Current every day smoker Past Alcohol Use History: Occasional Past Drug Use History: None Reported - Past Family History Mother Family Medical History: Cancer, Myocardial Infarction ([place]) Father Family Medical History: Myocardial Infarction ([place]) Medications and Allergies Home Medications Medication Instructions Recorded Confirmed Type metFORMIN HCL [Glucophage] 1,000 mg PO BID 02/16/17 11/09/18 History Gabapentin [Neurontin] 300 mg PO TID PRN 06/27/18 11/09/18 History HYDROcodone/APAP 10-325MG [Mission 1 tab PO TID PRN 06/27/18 11/09/18 History 10-325] Nitroglycerin Sl Tabs [Nitrostat] 0.4 mg SUBLINGUAL Q5M PRN 06/27/18 11/09/18 Hi story Atorvastatin [Lipitor] 40 mg PO HS #30 tab 06/30/18 11/09/18 Rx Aspirin [Adult Low Dose Aspirin EC] 81 mg PO DAILY 10/31/18 11/09/18 History Clopidogrel Bisulfate [Plavix] 75 mg PO DAILY 10/31/18 11/09/18 History Metoprolol Tartrate [Lopressor] 50 mg PO BID #60 tab 11/02/18 11/09/18 Rx amLODIPine [Norvasc] 5 mg PO DAILY #30 tab 11/02/18 11/09/18 Rx Ciprofloxacin HCl [Cipro] 500 mg PO Q12HR 11/09/18 11/09/18 History Lisinopril [Zestril] 20 mg PO DAILY 11/09/18 11/09/18 History sitaGLIPtin [Januvia] 100 mg PO DAILY 11/09/18 11/09/18 History Allergies Allergy/AdvReac Type Severity Reaction Status Date / Time No Known Allergies Allergy Verified 11/09/18 15:43 Physical Exam Vitals: Vital Signs Temp Pulse Resp BP Pulse Ox 11/15/18 07:46 98.2 F 97 16 144/79 11/15/18 04:00 99.6 F 94 18 160/80 94 L 11/14/18 23:41 86 18 11/14/18 23:38 99.3 F 86 18 124/64 97 11/14/18 20:00 101.1 F H 93 18 132/77 97 11/14/18 15:15 98.9 F 79 18 128/68 94 L 11/14/18 14:44 73 16 124/74 98 11/14/18 14:31 74 16 123/75 98 11/14/18 14:17 130/75 11/14/18 14:15 76 16 118/56 98 11/14/18 14:00 66 16 118/56 98 11/14/18 13:44 98.6 F 89 16 116/64 98 11/14/18 12:15 77 18 144/73 94 L 11/14/18 12:01 97.2 F L 78 18 158/69 97 Intake and Output 11/14/18 11/15/18 11/15/18 22:59 06:59 14:59 Intake Total 440 360 Output Total 1250 1400 400 Balance -810 -1400 -40 Intake: Oral 440 360 Output: Urine 1250 1400 400 Other: Voiding Method Urinal Urinal # Voids 1 Weight 93.1 kg HEENT: Anicteric conjunctiva are pink and moist nasal mucosa grossly intact without significant lesions, there is no thrush. Neck: The neck is supple without significant lymphadenopathy or thyromegaly. Lungs: Good bilateral air entry without significant crackles or wheezing. There is no significant bronchial sounds. There is no egophony or dullness. Heart: Regular rate and rhythm with an audible S1-S2, no S3 no S4. There is no significant murmur click or rub, PMI was nondisplaced. Abdomen: Positive bowel sounds soft and nontender without palpable masses or organomegaly. There was no guarding or rebound. Extremities: The upper extremities have excellent pulses they are symmetric, no significant petechiae or telangiectasia. No splinter hemorrhages were noted. The right total hip arthroplasty site is well-healed without tenderness or eryt suman. The left lateral hip and buttocks area as opposed the dressing in place of the surgical incision and drainage today. Dressings are not removed there are the drain tubes in place connecting to the drainage canister. Neuro: Awake alert oriented to person place and time. There are no acute new gross focal sensory motor deficits. The patient is somewhat vague though as a historian Results 11/15/18 06:01 11/15/18 06:01 CBC 11/14/18 11/15/18 Range/Units 06:26 06:01 WBC 7.1 8.2 (3.8-10.6) k/uL RBC 3.39 L 3.35 L (4.30-5.90) m/uL Hgb 9.9 L 9.2 L (13.0-17.5) gm/dL Hct 29.9 L 28.7 L (39.0-53.0) % Plt Count 466 H 565 H (150-450) k/uL Comprehensive Metabolic Panel 11/15/18 Range/Units 06:01 Sodium 137 (137-145) mmol/L Potassium 3.9 (3.5-5.1) mmol/L Chloride 103 (98-107) mmol/L Carbon Dioxide 28 (22-30) mmol/L BUN 7 L (9-20) mg/dL Creatinine 0.35 L (0.66-1.25) mg/dL Glucose 153 H (74-99) mg/dL Calcium 7.9 L (8.4-10.2) mg/dL Current Medications Generic Name Dose Route Start Last Admin Trade Name Freq PRN Reason Stop Dose Admin Acetaminophen 650 mg 11/09/18 22:43 11/14/18 21:23 Tylenol Tab PO 650 mg Q6HR PRN Administration Mild Pain or Fever > 100.5 Hydrocodone Bitart/Acetaminophen 1 each 11/14/18 11:52 Mission 5-325 PO Q6HR PRN Pain Scale 1 to 5 Hydrocodone Bitart/Acetaminophen 2 each 11/14/18 11:52 11/15/18 04:17 Mission 5-325 PO 2 each Q6HR PRN Administration Pain Scale 6 to 10 Al Hydroxide/Mg Hydroxide 15 ml 11/09/18 22:43 Maalox PO Q6HR PRN Indigestion Amlodipine Besylate 5 mg 11/10/18 09:00 11/15/18 08:46 Norvasc PO 5 mg DAILY TREVA Administration Aspirin 81 mg 11/10/18 09:00 11/15/18 08:47 Aspirin PO 81 mg DAILY TREVA Administration Atorvastatin Calcium 40 mg 11/10/18 21:00 11/14/18 21:15 Lipitor PO 40 mg HS TREVA Administration Cefazolin Sodium 2 gm 11/10/18 16:00 11/15/18 08:30 Kefzol IVP 2 gm Q8HR TREVA Administration Clopidogrel Bisulfate 75 mg 11/10/18 09:00 11/15/18 08:47 Plavix PO 75 mg DAILY TREVA Administration Diazepam 2.5 mg 11/14/18 11:52 Valium PO Q8HR PRN Mild Spasms Gabapentin 300 mg 11/09/18 22:41 Neurontin PO TID PRN Pain Heparin Sodium (Porcine) 5,000 unit 11/10/18 00:00 11/15/18 08:44 Heparin SQ 5,000 unit Q8HR TREVA Administration Hydromorphone HCl 0.25 mg 11/14/18 11:52 11/14/18 16:42 Dilaudid IVP 0.25 mg Q3HR PRN Administration Pain Scale 1 to 3 Hydromorphone HCl 1 mg 11/14/18 11:52 11/14/18 21:17 Dilaudid IVP 1 mg Q3HR PRN Administration Pain Scale 7 to 10 Hydromorphone HCl 0.5 mg 11/14/18 11:52 11/15/18 08:19 Dilaudid IVP 0.5 mg Q3HR PRN Administration Pain Scale 4 to 6 Hydroxyzine Pamoate 25 mg 11/14/18 11:52 Vistaril PO Q4HR PRN Mild Nausea and/or Anxiety Sodium Chloride 1,000 mls @ 65 mls/hr 11/14/18 12:00 11/15/18 04:18 Saline 0.9% IV 65 mls/hr .[id number] TREVA Administration Insulin Aspart 0 unit 11/10/18 07:30 11/15/18 06:55 Novolog SQ 1 unit ACHS TREVA Administration Protocol Insulin Detemir 10 unit 11/13/18 09:00 11/15/18 09:35 Levemir SQ 10 unit DAILY TREVA Administration Linagliptin 5 mg 11/12/18 09:00 11/15/18 08:47 Tradjenta PO 5 mg DAILY TREVA Administration Lisinopril 20 mg 11/10/18 09:00 04/04/19 08:47 Zestril PO 20 mg DAILY TREVA Administration Magnesium Hydroxide 2,400 mg 11/14/18 11:52 Milk Of Magnesia PO DAILY PRN Constipation Melatonin 3 mg 11/09/18 22:43 Melatonin PO HS PRN Insomnia Metoprolol Tartrate 50 mg 11/09/18 22:45 11/15/18 08:47 Lopressor PO 50 mg BID TREVA Administration Morphine Sulfate 4 mg 11/11/18 08:13 11/14/18 09:25 Morphine Sulfate (Inj) IVP 4 mg Q4HR PRN Administration SEVERE Pain Naloxone HCl 0.2 mg 11/09/18 22:43 Narcan IV Q2M PRN Opioid Reversal Naloxone HCl 0.2 mg 11/14/18 11:52 Narcan IV Q2M PRN Opioid Reversal Ondansetron HCl 4 mg 11/09/18 22:43 Zofran IVP Q8HR PRN Nausea And Vomiting Pantoprazole Sodium 40 mg 11/10/18 07:30 11/15/18 06:55 Protonix PO 40 mg [id number] TREVA Administration Senna/Docusate Sodium 2 each 11/14/18 21:00 11/14/18 21:15 Senokot-S PO 2 each HS TREVA Administration Tamsulosin HCl 0.4 mg 11/10/18 08:30 11/15/18 08:46 Flomax PO 0.4 mg [id number] TREVA Administration Intake and Output 11/14/18 11/15/18 11/15/18 22:59 06:59 14:59 Intake Total 440 360 Output Total 1250 1400 400 Balance -810 -1400 -40 Intake: Oral 440 360 Output: Urine 1250 1400 400 Other: Voiding Method Urinal Urinal # Voids 1 Weight 93.1 kg 11/15/18 06:01 11/15/18 06:01 EKG Interpretations (text) EKG shows a normal sinus rhythm with nonspecific ST-T wave changes noted in the inferior leads Assessment and Plan Plan: Assessment and plan #1 staph aureus gluteal abscess resulting in a staph aureus bacteremia #2 diabetes #3 known history of coronary artery disease with prior stent placements #4 nicotine dependence #5 hypertension #6 hyperlipidemia #7 diabetes #8 recent UTI #9 questionable vegetation on aortic valve Plan Because of the question of vegetation on aortic valve along with the positive blood cultures and bacteremia, and has been requested that patient undergo a [facility]. The risks and the benefits were explained to the patient in detail and he is willing to proceed. This will be performed tomorrow by Dr. Min. DNP note has been reviewed, I agree with a documented findings and plan of care. Patient was seen and examined.
--- NOTE | 2018-11-15 12:01 | P.PN ---
Subjective Progress Note Date: 11/15/18 This is a 58-year-old male who is admitted for increasing left hip pain and fever. Patient states that he continues to have pain in the left hip at rest or with walking. Patient states that his pain is over the entire left hip. Patient's blood cultures are positive for staph aureus. CT's of the pelvis and left femur show marked inflammatory change or infection involving the left posterior gluteal muscles at level of left hip with forming thin-walled fluid collections identified including a larger collection along superior lateral aspect of left joint worrisome for developing abscess. An ultrasound of the left lower extremity showed persistent eccentric hypoechoic collection which could r epresent persistent abscess. Patient underwent CT-guided fine needle aspiration of the left hip and cultures are positive for staph aureus. A lumbar spine MRI done today showed scoliosis with multilevel degenerative changes. No significant change or progression from prior MRI. No suspicious enhancement is noted. Additionally a Doppler ultrasound of the left lower extremity was negative for DVT. Patient is currently receiving IV cefazolin. Patient denies any new symptoms today. 11/13/2018: Patient continues to complain of pain in the left hip at rest and with weightbearing. Patient denies any new complaints today. Patient is seen and evaluated at bedside with Dr. Jun Zuniga. 11/14/2018: Patient is seen and evaluated at bedside with Dr. Jun Zuniga. Patient states that he is still having pain in the left hip. Patient denies any new complaints. 11/15/2018: Patient is status post I&D of the left hip. This is postoperative day #1. Patient is seen and evaluated at bedside. Patient states that his pain is under control and he denies any new symptoms or complaints. Objective - Vital Signs Vital signs: Vital Signs Temp 98.2 F 11/15/18 07:46 Pulse 97 11/15/18 07:46 Resp 16 11/15/18 08:00 BP 144/79 11/15/18 07:46 Pulse Ox 94 L 11/15/18 04:00 Intake & Output 11/14/18 11/15/18 11/15/18 18:59 06:59 18:59 Intake Total 1241 360 Output Total 1500 1800 400 Balance -259 -1800 -40 Weight 93.1 kg Intake: IV 801 Oral 440 360 Output: Urine 1450 1800 400 Estimated Blood Loss 50 Other: Voiding Method Urinal Urinal # Voids 1 1 - Exam On exam patient is lying comfortably in bed in no acute distress. Patient is alert and oriented 3. Drain is in place. Dressing is clean, dry and intact. Calf is soft and nontender to palpation. Sensation is intact. Neurovascular status and circulatory status are intact. - Labs CBC & Chem 7: 11/15/18 06:01 11/15/18 06:01 Labs: Abnormal Lab Results - Last 24 Hours (Table) 11/14/18 11/14/18 11/14/18 Range/Units 06:26 11:54 12:41 RBC 3.39 L (4.30-5.90) m/uL Hgb 9.9 L (13.0-17.5) gm/dL Hct 29.9 L (39.0-53.0) % Plt Count 466 H (150-450) k/uL Lymphocytes # 0.7 L (1.0-4.8) k/uL BUN (9-20) mg/dL Creatinine (0.66-1.25) mg/dL Glucose (74-99) mg/dL POC Glucose (mg/dL) 128 H 120 H (75-99) mg/dL Calcium (8.4-10.2) mg/dL 11/14/18 11/14/18 11/14/18 Range/Units 14:09 16:28 20:41 RBC (4.30-5.90) m/uL Hgb (13.0-17.5) gm/dL Hct (39.0-53.0) % Plt Count (150-450) k/uL Lymphocytes # (1.0-4.8) k/uL BUN (9-20) mg/dL Creatinine (0.66-1.25) mg/dL Glucose (74-99) mg/dL POC Glucose (mg/dL) 134 H 103 H 172 H (75-99) mg/dL Calcium (8.4-10.2) mg/dL 11/15/18 11/15/18 11/15/18 Range/Units 05:47 06:01 06:01 RBC 3.35 L (4.30-5.90) m/uL Hgb 9.2 L (13.0-17.5) gm/dL Hct 28.7 L (39.0-53.0) % Plt Count 565 H (150-450) k/uL Lymphocytes # 0.7 L (1.0-4.8) k/uL BUN 7 L (9-20) mg/dL Creatinine 0.35 L (0.66-1.25) mg/dL Glucose 153 H (74-99) mg/dL POC Glucose (mg/dL) 159 H (75-99) mg/dL Calcium 7.9 L (8.4-10.2) mg/dL 11/15/18 Range/Units 11:20 RBC (4.30-5.90) m/uL Hgb (13.0-17.5) gm/dL Hct (39.0-53.0) % Plt Count (150-450) k/uL Lymphocytes # (1.0-4.8) k/uL BUN (9-20) mg/dL Creatinine (0.66-1.25) mg/dL Glucose (74-99) mg/dL POC Glucose (mg/dL) 202 H (75-99) mg/dL Calcium (8.4-10.2) mg/dL Microbiology - Last 24 Hours (Table) 11/14/18 13:14 Gram Stain - Preliminary Buttock Wound Culture - Preliminary Presumptive Staph aureus 11/14/18 13:14 Gram Stain - Preliminary Buttock Wound Culture - Preliminary Presumptive Staph aureus 11/14/18 06:26 Blood Culture - Preliminary Blood No Growth after 24 hours 11/11/18 06:26 Blood Culture - Preliminary Blood No Growth after 96 hours 11/12/18 12:21 Blood Culture Gram Stain - Final Blood Blood Culture - Final Staphylococcus aureus 11/14/18 13:14 Anaerobic Culture - Preliminary Buttock 11/14/18 13:14 Anaerobic Culture - Preliminary Buttock 11/12/18 12:48 Blood Culture - Preliminary Blood No Growth after 48 hours 11/10/18 09:15 Anaerobic Culture - Final Aspirate 11/12/18 12:21 Blood Culture - Final Blood 11/11/18 09:20 Gram Stain - Final Leg - Right Wound Culture - Final Staphylococcus aureus Assessment and Plan Assessment: Diabetes mellitus Hypertension History of STEMI with 5 stents. (1) Abscess, gluteal, left Current Visit: Yes Status: Acute Code(s): L02.31 - CUTANEOUS ABSCESS OF BUTTOCK SNOMED Code(s): 64919735 (2) Bacteremia due to Staphylococcus aureus Current Visit: Yes Status: Acute Code(s): R78.81 - BACTEREMIA SNOMED Code(s): 078470266 Plan: 1. Continue routine postoperative care and pain control. Weightbearing as tolerated. 2. Daily dressing changes. 3. Continue IV antibiotics per infectious disease. 4. Cultures positive for staph aureus. 5. Will continue to follow closely.
[2018-11-15 16:36] LABS: Glucose,Whole Blood 192 mg/dL (75-99)
[2018-11-15 20:54] LABS: Glucose,Whole Blood 242 mg/dL (75-99)
[2018-11-15] MEDS: SENNOSIDES-DOCUSATE SODIUM 1 EACH TAB PO SCH (21:29)
[2018-11-15] MEDS: ATORVASTATIN 40 MG TAB PO SCH (21:29)
[2018-11-15] MEDS: HYDROmorphone 1 MG/ML 1 ML SYRINGE IVP PRN (21:47)
[2018-11-16] MEDS: HYDROmorphone 1 MG/ML 1 ML SYRINGE IVP PRN ×2 (00:46→04:28)
[2018-11-16 05:50] LABS: Glucose,Whole Blood 159 mg/dL (75-99)
[2018-11-16] MEDS: PANTOPRAZOLE 40 MG TABLET PO SCH (06:33)
[2018-11-16] MEDS: INSULIN ASPART (NovoLOG) 100 UNIT/ML VIAL SQ SCH ×4 (06:33→22:21)
[2018-11-16 06:44] LABS: Basophils % (A) 0 %; Eosinophils # (A) 0.1 k/uL (0-0.7); Eosinophils % (A) 2 %; HCT 28.5 % (39.0-53.0); HGB 9.3 gm/dL (13.0-17.5); Lymphocytes # (A) 0.9 k/uL (1.0-4.8); Lymphocytes % (A) 10 %; MCH 27.7 pg (25.0-35.0); MCHC 32.7 g/dL (31.0-37.0); MCV 84.7 fL (80.0-100.0); Mean Platelet Volume 8.5; Monocytes # (A) 0.4 k/uL (0-1.0); Monocytes % (A) 5 %; Neutrophils # (A) 7.3 k/uL (1.3-7.7); Neutrophils % (A) 81 %; Platelet Count 559 k/uL (150-450); RBC 3.36 m/uL (4.30-5.90); RDW 15.8 % (11.5-15.5)
[2018-11-16 07:01] LABS: Anion Gap 3 mmol/L; Blood Urea Nitrogen 7 mg/dL (9-20); Carbon Dioxide 29 mmol/L (22-30); Chloride 104 mmol/L (98-107); Glucose 147 mg/dL (74-99); Sodium 136 mmol/L (137-145)
[2018-11-16] MEDS ORDERED: BENZOCAINE SPRAY 1 CAN MUCOUS MEM ONE ×2 (07:30→07:35)
[2018-11-16] MEDS ORDERED: fentaNYL (PF) 50 MCG/ML 2 ML AMP ONE (07:31)
[2018-11-16] MEDS ORDERED: IV FLUID CONTINUATION 1,000 ML IV ONE (07:50)
--- NOTE | 2018-11-16 08:27 | ECHOT ---
TRANSESOPHAGEAL ECHOCARDIOGRAM INDICATION: Evaluation of aortic valve. PROCEDURE: After explaining the procedure to the patient, its risks and the complications, his blood pressure, heart rate, O2 saturation was monitored. The throat was sprayed with Cetacaine. He received 3 mg intravenous Versed, 50 mcg intravenous fentanyl. The probe was introduced esophagus without difficulty. Images were obtained. Following that, the probe was removed. There was no immediate complication. FINDINGS: Left atrial size is mildly dilated. Left ventricular size and systolic function normal. The aortic valve is a tricuspid valve with preserved opening and calcification is noted. No evidence to suggest regurgitation. The mitral valve and tricuspid valve are normal. Pulmonic valve is normal. Descending thoracic aorta is normal. No pericardial effusion was noted. Contrast bubble study revealed no evidence of shunting across the interatrial septum with Valsalva maneuver. Doppler pulse wave and color Doppler obtained and revealed a mild mitral and tricuspid regurgitation. There was no significant gradient across the aortic valve. No shunting was noted by color Doppler study. CONCLUSION: 1. Mildly dilated left atrium with normal appearance of left atrial appendage. 2. Normal left ventricular size and systolic function. 3. Aortic sclerosis with no evidence of significant stenosis and no evidence to suggest vegetation. 4. Mild mitral and tricuspid regurgitation. 5. No shunting across the interatrial septum. 6. Normal appearance of the descending thoracic aorta. MMODL / IJN: [id number] /
--- NOTE | 2018-11-16 10:04 | P.PN ---
Subjective Progress Note Date: 11/16/18 Patient is doing well today. He is postoperative day #2 status post incision and drainage of pelvis abscess. Pain is well-controlled. Objective - Vital Signs Vital signs: Vital Signs Temp 98.8 F 11/16/18 07:37 Pulse 92 11/16/18 07:44 Resp 16 11/16/18 07:44 BP 142/74 11/16/18 07:44 Pulse Ox 93 L 11/16/18 07:44 Intake & Output 11/15/18 11/16/18 11/16/18 18:59 06:59 18:59 Intake Total 1200 100 Output Total 720 875 Balance 480 -875 100 Weight 90.5 kg Intake: IV 100 Oral 1200 Output: Drainage 70 Left Hip 70 Urine 650 875 Other: Voiding Method Urinal Urinal # Voids 1 - Exam General: The patient is awake and alert, in no distress Eye: there is normal conjunctiva bilaterally. Neck: The neck is supple, there is no JVD. Cardiovascular: Normal S1-S2, no S3-S4, no murmurs. Respiratory: Lungs clear to auscultation bilaterally Gastrointestinal: Abdomen is soft, nontender Musculoskeletal: There is no pedal edema. Neurological:. Speech is normal. Skin: Skin is warm and dry - Labs CBC & Chem 7: 11/16/18 06:22 11/16/18 06:22 Labs: Abnormal Lab Results - Last 24 Hours (Table) 11/15/18 11/15/18 11/15/18 Range/Units 11:20 16:22 20:51 RBC (4.30-5.90) m/uL Hgb (13.0-17.5) gm/dL Hct (39.0-53.0) % RDW (11.5-15.5) % Plt Count (150-450) k/uL Lymphocytes # (1.0-4.8) k/uL Sodium (137-145) mmol/L BUN (9-20) mg/dL Creatinine (0.66-1.25) mg/dL Glucose (74-99) mg/dL POC Glucose (mg/dL) 202 H 192 H 242 H (75-99) mg/dL Calcium (8.4-10.2) mg/dL 11/16/18 11/16/18 11/16/18 Range/Units 05:48 06:22 06:22 RBC 3.36 L (4.30-5.90) m/uL Hgb 9.3 L (13.0-17.5) gm/dL Hct 28.5 L (39.0-53.0) % RDW 15.8 H (11.5-15.5) % Plt Count 559 H (150-450) k/uL Lymphocytes # 0.9 L (1.0-4.8) k/uL Sodium 136 L (137-145) mmol/L BUN 7 L (9-20) mg/dL Creatinine 0.34 L (0.66-1.25) mg/dL Glucose 147 H (74-99) mg/dL POC Glucose (mg/dL) 159 H (75-99) mg/dL Calcium 8.0 L (8.4-10.2) mg/dL Microbiology - Last 24 Hours (Table) 11/14/18 06:26 Blood Culture - Preliminary Blood No Growth after 48 hours 11/11/18 06:26 Blood Culture - Preliminary Blood No Growth after 120 hours 11/15/18 06:01 Blood Culture - Preliminary Blood No Growth after 24 hours 11/15/18 06:09 Blood Culture - Preliminary Blood No Growth after 24 hours 11/12/18 12:21 Blood Culture Gram Stain - Final Blood Blood Culture - Final Staphylococcus aureus 11/12/18 12:48 Blood Culture - Preliminary Blood No Growth after 72 hours 11/14/18 13:14 Gram Stain - Preliminary Buttock Wound Culture - Preliminary Presumptive Staph aureus 11/14/18 13:14 Gram Stain - Preliminary Buttock Wound Culture - Preliminary Presumptive Staph aureus Assessment and Plan Assessment: Staph aureus gluteral abscess resulting in staph aureus bacteremia: - Multilocular abscess involving the left pelvis and proximal lower extremity as detailed in MRI report: Postoperative day #2 status post I&D in the OR by orthopedic. - MSSA bacteremia on cefazolin, first negative blood culture on 11/15/2018. Awaiting direction from infectious disease to insert PICC line possibly later today. - ID following, appreciate recommendation - Pain control -HENRI showed no evidence of vegetation or endocarditis - Plan antibiotic at home with home infusion possibly on Monday DM 2 - on orals at home, hold metformin - SSI - follow BS - A1C 8.9 - Added Levemir 10 units once daily for better glucose control Elevated toponin - ekg with no acute ischemic changes. No chest pain. - repeat troponin trending down - on ASA, plavix, statin and BB HTN, controlled - continue current medications - follow blood pressure Transaminitis, - likelyresolved due to stress from infection - hep profile negative - liver US without abscess/gallbladder disease Hyponatremia, improved elevated lactic acid, resolved BPH - flomax Mild anemia, stable - follow CBC - outpatient evaluation+
[2018-11-16 11:33] LABS: Glucose,Whole Blood 177 mg/dL (75-99)
[2018-11-16] MEDS: SODIUM CHLORIDE 0.9% 1,000 ML IV SCH ×2 (12:00→12:22)
[2018-11-16] MEDS: HEPARIN SODIUM,PORCINE 5,000 UNIT/ML 1 ML VIAL SQ SCH ×3 (12:00→23:00)
[2018-11-16] MEDS: HYDROcodone/APAP 5-325MG 1 EACH TAB PO PRN (12:19)
[2018-11-16] MEDS: amLODIPine 5 MG TAB PO SCH (12:20)
[2018-11-16] MEDS: TAMSULOSIN 0.4 MG CAP.ER.24H PO SCH (12:20)
[2018-11-16] MEDS: CLOPIDOGREL 75 MG TAB PO SCH (12:21)
[2018-11-16] MEDS: ASPIRIN 81 MG PO SCH (12:21)
[2018-11-16] MEDS: LINAGLIPTIN 5 MG TABLET PO SCH (12:21)
[2018-11-16] MEDS: LISINOPRIL 20 MG TAB PO SCH (12:21)
[2018-11-16] MEDS: METOPROLOL TARTRATE 50 MG TAB PO SCH ×2 (12:21→22:22)
--- NOTE | 2018-11-16 12:53 | P.PN ---
Subjective Progress Note Date: 11/16/18 This is a 58-year-old male who is admitted for increasing left hip pain and fever. Patient states that he continues to have pain in the left hip at rest or with walking. Patient states that his pain is over the entire left hip. Patient's blood cultures are positive for staph aureus. CT's of the pelvis and left femur show marked inflammatory change or infection involving the left posterior gluteal muscles at level of left hip with forming thin-walled fluid collections identified including a larger collection along superior lateral aspect of left joint worrisome for developing abscess. An ultrasound of the left lower extremity showed persistent eccentric hypoechoic collection which could r epresent persistent abscess. Patient underwent CT-guided fine needle aspiration of the left hip and cultures are positive for staph aureus. A lumbar spine MRI done today showed scoliosis with multilevel degenerative changes. No significant change or progression from prior MRI. No suspicious enhancement is noted. Additionally a Doppler ultrasound of the left lower extremity was negative for DVT. Patient is currently receiving IV cefazolin. Patient denies any new symptoms today. 11/13/2018: Patient continues to complain of pain in the left hip at rest and with weightbearing. Patient denies any new complaints today. Patient is seen and evaluated at bedside with Dr. Jnu Zuniga. 11/14/2018: Patient is seen and evaluated at bedside with Dr. Jun Zuniga. Patient states that he is still having pain in the left hip. Patient denies any new complaints. 11/15/2018: Patient is status post I&D of the left hip. This is postoperative day #1. Patient is seen and evaluated at bedside. Patient states that his pain is under control and he denies any new symptoms or complaints. 11/16/2018: Patient is status post I&D of the left hip. This is postoperative day #2. Patient is seen and evaluated at bedside. Patient states that his pain is improving and he has been up and walking around his room. Per nursing, the pat ient's drain came out when the patient rolled over in bed yesterday. Patient denies any new complaints. Objective - Vital Signs Vital signs: Vital Signs Temp 98.7 F 11/16/18 08:40 Pulse 81 11/16/18 09:15 Resp 16 11/16/18 09:15 BP 140/67 11/16/18 09:15 Pulse Ox 94 L 11/16/18 09:15 Intake & Output 11/15/18 11/16/18 11/16/18 18:59 06:59 18:59 Intake Total 1200 100 Output Total 720 875 Balance 480 -875 100 Weight 90.5 kg Intake: IV 100 Oral 1200 0 Output: Drainage 70 Left Hip 70 Urine 650 875 Other: Voiding Method Urinal Urinal Urinal # Voids 1 - Exam On exam patient is lying comfortably in bed in no acute distress. Patient is alert and oriented 3. Dressing is intact with mild drainage present. Mild soft tissue swelling of the left thigh. Compartments are soft. Calf is soft and nontender to palpation. Sensation is intact. Neurovascular status and circulatory status are intact. - Labs CBC & Chem 7: 11/16/18 06:22 11/16/18 06:22 Labs: Abnormal Lab Results - Last 24 Hours (Table) 11/15/18 11/15/18 11/16/18 Range/Units 16:22 20:51 05:48 RBC (4.30-5.90) m/uL Hgb (13.0-17.5) gm/dL Hct (39.0-53.0) % RDW (11.5-15.5) % Plt Count (150-450) k/uL Lymphocytes # (1.0-4.8) k/uL Sodium (137-145) mmol/L BUN (9-20) mg/dL Creatinine (0.66-1.25) mg/dL Glucose (74-99) mg/dL POC Glucose (mg/dL) 192 H 242 H 159 H (75-99) mg/dL Calcium (8.4-10.2) mg/dL 11/16/18 11/16/18 11/16/18 Range/Units 06:22 06:22 11:31 RBC 3.36 L (4.30-5.90) m/uL Hgb 9.3 L (13.0-17.5) gm/dL Hct 28.5 L (39.0-53.0) % RDW 15.8 H (11.5-15.5) % Plt Count 559 H (150-450) k/uL Lymphocytes # 0.9 L (1.0-4.8) k/uL Sodium 136 L (137-145) mmol/L BUN 7 L (9-20) mg/dL Creatinine 0.34 L (0.66-1.25) mg/dL Glucose 147 H (74-99) mg/dL POC Glucose (mg/dL) 177 H (75-99) mg/dL Calcium 8.0 L (8.4-10.2) mg/dL Microbiology - Last 24 Hours (Table) 11/14/18 13:14 Gram Stain - Final Buttock Wound Culture - Final Staph aureus 11/14/18 13:14 Gram Stain - Final Buttock Wound Culture - Final Staphylococcus aureus 11/14/18 06:26 Blood Culture - Preliminary Blood No Growth after 48 hours 11/11/18 06:26 Blood Culture - Preliminary Blood No Growth after 120 hours 11/15/18 06:01 Blood Culture - Preliminary Blood No Growth after 24 hours 11/15/18 06:09 Blood Culture - Preliminary Blood No Growth after 24 hours 11/12/18 12:21 Blood Culture Gram Stain - Final Blood Blood Culture - Final Staphylococcus aureus 11/12/18 12:48 Blood Culture - Preliminary Blood No Growth after 72 hours Assessment and Plan Assessment: Diabetes mellitus Hypertension History of STEMI with 5 stents. (1) Abscess, gluteal, left Current Visit: Yes Status: Acute Code(s): L02.31 - CUTANEOUS ABSCESS OF BUTTOCK SNOMED Code(s): 48356166 (2) Bacteremia due to Staphylococcus aureus Current Visit: Yes Status: Acute Code(s): R78.81 - BACTEREMIA SNOMED Code(s): 877161869 Plan: 1. Continue routine postoperative care and pain control. Weightbearing as tolerated. 2. Daily dressing changes. 3. Continue IV antibiotics per infectious disease. Patient awaiting PICC line placement for home antibiotics. 4. Cultures positive for staph aureus. 5. Will continue to follow closely.
--- NOTE | 2018-11-16 13:43 | IR ---
PICC LINE PLACEMENT: HISTORY: Infection requiring long-term antibiotic therapy PROCEDURE: Ultrasound and fluoroscopic guidance of PICC line placement. COMPLICATIONS: None ANESTHESIA: 1. 1% Lidocaine locally. FINDINGS/TECHNIQUE: The procedure was explained to the patient. The risks, complications, benefits and alternatives were discussed and any questions were answered. Informed consent was obtained. The patient was placed supine on the fluoroscopic table and prepped and draped in the usual sterile fash ion. Utilizing a 21 gauge needle and sonographic and fluoroscopic guidance, access in the left basi lic vein was achieved and there is placement of a 0.018 guidewire. The vein is patent. A 4-F sheath was placed over the guidewire. The guidewire and dilator were removed and a 4-F. PICC line was plac ed through the sheath with the tip at the level of the SVC. The sheath was removed, the catheter was flushed and sutured into position. The patient was stable throughout the procedure and remained sta ble upon discharge from the Department of Radiology. The vein puncture was patent under ultrasound. A villatoro scale image was obtained to document patency of the vein punctured. All elements of the maximal barrier technique were utilized. FLUOROSCOPY TIME: 0.1 minutes and one image submitted IMPRESSION: Successful PICC line placement under ultrasound and fluoroscopic guidance.
[2018-11-16 14:23] LABS: Anisocytosis Slight; Basophils % (A) 0 %; Eosinophils # (A) 0.2 k/uL (0-0.7); Eosinophils % (A) 2 %; HCT 29.4 % (39.0-53.0); HGB 9.6 gm/dL (13.0-17.5); Lymphocytes # (A) 0.9 k/uL (1.0-4.8); Lymphocytes % (A) 10 %; MCH 27.9 pg (25.0-35.0); MCHC 32.7 g/dL (31.0-37.0); MCV 85.3 fL (80.0-100.0); Mean Platelet Volume 8.6; Monocytes # (A) 0.4 k/uL (0-1.0); Monocytes % (A) 5 %; Neutrophils % (A) 82 %; Platelet Count 541 k/uL (150-450); RBC 3.45 m/uL (4.30-5.90); RDW 16.1 % (11.5-15.5); WBC 8.5 k/uL (3.8-10.6)
[2018-11-16] MEDS: ceFAZolin IN SWFI 2 GM/20 ML SYRINGE IVP SCH ×2 (15:12→22:22)
[2018-11-16] MEDS: INSULIN DETEMIR (LEVEMIR) 100 UNIT/ML SYR SQ SCH (15:12)
[2018-11-16 15:33] VITALS: BMI 30.3
[2018-11-16 16:43] LABS: Glucose,Whole Blood 199 mg/dL (75-99)
[2018-11-16] MEDS: HYDROmorphone 0.5 MG/0.5 ML SYRINGE IVP PRN ×2 (16:47→22:32)
[2018-11-16 20:56] LABS: Glucose,Whole Blood 151 mg/dL (75-99)
[2018-11-16] MEDS: ATORVASTATIN 40 MG TAB PO SCH (22:21)
[2018-11-16] MEDS: SENNOSIDES-DOCUSATE SODIUM 1 EACH TAB PO SCH (22:22)
--- NOTE | 2018-11-16 23:47 | P.PN ---
Subjective Progress Note Date: 11/16/18 58-year-old male with a history of recent hospitalization where he had uncontrolled hypertension, with alteration of his medications and cardiology intervention he had some improvement in was feeling somewhat better. He however several days ago suffered a fall. He denies loss of consciousness but likely was presyncopal ,he does not believe he had much injury but is now had progressive discomfort over the left buttocks and left hip area. He has a history of some chronic lower back pain which itself is not markedly worsened but has had increasing difficulties with day-to-day living because of increasing pain. He was seen by his primary care physician and advised for admission as of his changes of his status. Patient has a known history of diabetes mellitus type 2 also. Because of the pain at the site the patient imaging studies which failed to reveal evidence of fracture. However there was evidence of some phlegmon. Site is been aspirated and there is evidence now of a positive blood culture with staph aureus in with at the infectious diseases consultation was requested. No evidence of mecA gene with the staph aureus and likely not MRSA. Patient also has a known history of BPH and chronic urinary retention-like symptoms not acutely worsened as of now 11/12/2018 the patient has had some improvement. His is present today. MRI of the lumbar spine roche reveal evidence of a new infection but does have degenerative joint disease. MRI of the left hip area is pending at this point in time to further characterize the fluid collection and abscess. The aspirate from the hip as well as a blood culture show evidence of MSSA. Receiving antibiotic therapy and feeling somewhat better. Still having pain to the left hip. is concerned that he was having some pain to that site before the fall occurred. 11/13/2018 patient is still feeling poorly. Ongoing pain to the left hip and buttocks area. Difficulty with ambulation. Fever has not recurred. But con tinues to have some possible cultures. MRI has been completed. 11/14/2018 patient is feeling slightly better today. He has had the incision and drainage performed by orthopedic surgery with a large amount of grossly purulent material drained. Fevers are improved and he has no other acute complaints. Does have pain from the drains but does understand that he has on a course to improvement. 11/16/2018 patient is now status post HENRI without evidence of endocarditis on his aortic valve. The bacteremia is starting to clear and he is feeling definitely better overall. Pain at the left hip area where the incision and drainage occurred is improved. Overall is feeling better. Plans are starting to become more clear about the plan for home. Objective - Vital Signs Vital signs: Vital Signs Temp 99 F 11/16/18 20:00 Pulse 82 11/16/18 20:00 Resp 18 11/16/18 20:00 BP 118/67 11/16/18 20:00 Pulse Ox 98 11/16/18 20:00 Intake & Output 11/16/18 11/16/18 11/17/18 06:59 18:59 06:59 Intake Total 950 Output Total 875 Balance -875 950 Weight 90.5 kg 90.5 kg Intake: IV 100 Oral 850 Output: Urine 875 Other: Voiding Method Urinal Urinal # Voids 1 - Exam 58-year-old male mildly overweight not in distress HEENT: Anicteric conjunctiva are pink and moist nasal mucosa grossly intact without significant lesions, there is no thrush. Neck: The neck is supple without significant lymphadenopathy or thyromegaly. Lungs: Good bilateral air entry without significant crackles or wheezing. There is no significant bronchial sounds. There is no egophony or dullness. Heart: Regular rate and rhythm with an audible S1-S2, no S3 no S4. There is no significant murmur click or rub, PMI was nondisplaced. Abdomen: Positive bowel sounds soft and nontender without palpable masses or organomegaly. There was no guarding or rebound. Extremities: The upper extremities have excellent pulses they are symmetric, no significant petechiae or telangiectasia. No splinter hemorrhages were noted. The right total hip arthroplasty site is well-healed without tenderness or erythema. The left lateral hip and buttocks area as opposed the dressing in place of the surgical incision and drainage today. Left hip dressing is intact dry without significant bloody drainage. The drainage tube is removed. Neuro: Awake alert oriented to person place and time. There are no acute new gross focal sensory motor deficits. - Labs CBC & Chem 7: 11/16/18 13:58 11/16/18 06:22 Labs: Abnormal Lab Results - Last 24 Hours (Table) 11/16/18 11/16/18 11/16/18 Range/Units 05:48 06:22 06:22 RBC 3.36 L (4.30-5.90) m/uL Hgb 9.3 L (13.0-17.5) gm/dL Hct 28.5 L (39.0-53.0) % RDW 15.8 H (11.5-15.5) % Plt Count 559 H (150-450) k/uL Lymphocytes # 0.9 L (1.0-4.8) k/uL Sodium 136 L (137-145) mmol/L BUN 7 L (9-20) mg/dL Creatinine 0.34 L (0.66-1.25) mg/dL Glucose 147 H (74-99) mg/dL POC Glucose (mg/dL) 159 H (75-99) mg/dL Calcium 8.0 L (8.4-10.2) mg/dL 11/16/18 11/16/18 11/16/18 Range/Units 11:31 13:58 16:37 RBC 3.45 L (4.30-5.90) m/uL Hgb 9.6 L (13.0-17.5) gm/dL Hct 29.4 L (39.0-53.0) % RDW 16.1 H (11.5-15.5) % Plt Count 541 H (150-450) k/uL Lymphocytes # 0.9 L (1.0-4.8) k/uL Sodium (137-145) mmol/L BUN (9-20) mg/dL Creatinine (0.66-1.25) mg/dL Glucose (74-99) mg/dL POC Glucose (mg/dL) 177 H 199 H (75-99) mg/dL Calcium (8.4-10.2) mg/dL 11/16/18 Range/Units 20:41 RBC (4.30-5.90) m/uL Hgb (13.0-17.5) gm/dL Hct (39.0-53.0) % RDW (11.5-15.5) % Plt Count (150-450) k/uL Lymphocytes # (1.0-4.8) k/uL Sodium (137-145) mmol/L BUN (9-20) mg/dL Creatinine (0.66-1.25) mg/dL Glucose (74-99) mg/dL POC Glucose (mg/dL) 151 H (75-99) mg/dL Calcium (8.4-10.2) mg/dL Microbiology - Last 24 Hours (Table) 11/14/18 13:14 Anaerobic Culture - Preliminary Buttock 11/14/18 13:14 Anaerobic Culture - Preliminary Buttock 11/12/18 12:48 Blood Culture - Preliminary Blood No Growth after 96 hours 11/14/18 13:14 Gram Stain - Final Buttock Wound Culture - Final Staph aureus 11/14/18 13:14 Gram Stain - Final Buttock Wound Culture - Final Staphylococcus aureus 11/14/18 06:26 Blood Culture - Preliminary Blood No Growth after 48 hours 11/11/18 06:26 Blood Culture - Preliminary Blood No Growth after 120 hours 11/15/18 06:01 Blood Culture - Preliminary Blood No Growth after 24 hours 11/15/18 06:09 Blood Culture - Preliminary Blood No Growth after 24 hours 11/12/18 12:21 Blood Culture Gram Stain - Final Blood Blood Culture - Final Staphylococcus aureus Laboratory Results WBC 8.5 k/uL (3.8-10.6) 11/16/18 13:58 RBC 3.45 m/uL (4.30-5.90) L 11/16/18 13:58 Hgb 9.6 gm/dL (13.0-17.5) L 11/16/18 13:58 Hct 29.4 % (39.0-53.0) L 11/16/18 13:58 MCV 85.3 fL (80.0-100.0) 11/16/18 13:58 MCH 27.9 pg (25.0-35.0) 11/16/18 13:58 MCHC 32.7 g/dL (31.0-37.0) 11/16/18 13:58 RDW 16.1 % (11.5-15.5) H 11/16/18 13:58 Plt Count 541 k/uL (150-450) H 11/16/18 13:58 Neutrophils % 82 % 11/16/18 13:58 Lymphocytes % 10 % 11/16/18 13:58 Monocytes % 5 % 11/16/18 13:58 Eosinophils % 2 % 11/16/18 13:58 Basophils % 0 % 11/16/18 13:58 Neutrophils # 7.0 k/uL (1.3-7.7) 11/16/18 13:58 Lymphocytes # 0.9 k/uL (1.0-4.8) L 11/16/18 13:58 Monocytes # 0.4 k/uL (0-1.0) 11/16/18 13:58 Eosinophils # 0.2 k/uL (0-0.7) 11/16/18 13:58 Basophils # 0.0 k/uL (0-0.2) 11/16/18 13:58 Anisocytosis Slight 11/16/18 13:58 ESR 126 mm/hr (0-15) H 11/09/18 17:23 PT 9.9 sec (9.0-12.0) 11/09/18 14:25 INR 0.9 (<1.2) 11/09/18 14:25 APTT 28.1 sec (22.0-30.0) 11/09/18 14:25 D-Dimer 7.05 mg/L FEU (<0.60) H 11/09/18 14:25 Sodium 136 mmol/L (137-145) L 11/16/18 06:22 Potassium 4.0 mmol/L (3.5-5.1) 11/16/18 06:22 Chloride 104 mmol/L (98-107) 11/16/18 06:22 Carbon Dioxide 29 mmol/L (22-30) 11/16/18 06:22 Anion Gap 3 mmol/L 11/16/18 06:22 BUN 7 mg/dL (9-20) L 11/16/18 06:22 Creatinine 0.34 mg/dL (0.66-1.25) L 11/16/18 06:22 Est GFR (CKD-EPI)AfAm >90 (>60 ml/min/1.73 sqM) 11/16/18 06:22 Est GFR (CKD-EPI)NonAf >90 (>60 ml/min/1.73 sqM) 11/16/18 06:22 Glucose 147 mg/dL (74-99) H 11/16/18 06:22 POC Glucose (mg/dL) 151 mg/dL (75-99) H 11/16/18 20:41 POC Glu Gypsum Block Setter KRISTIN Alyx Jerez 11/16/18 20:[address] Glu mg/dL 209 11/12/18 12:21 Hemoglobin A1c 8.9 % (4.0-6.0) H 11/12/18 12:21 Lactic Ac Sepsis Rflx Y 11/09/18 14:53 Plasma Lactic Acid Timothy 1.8 mmol/L (0.7-2.0) 11/09/18 18:39 Calcium 8.0 mg/dL (8.4-10.2) L 11/16/18 06:22 Phosphorus 4.3 mg/dL (2.5-4.5) 11/09/18 14:25 Magnesium 2.5 mg/dL (1.6-2.3) H 11/09/18 14:25 Total Bilirubin 0.7 mg/dL (0.2-1.3) 11/13/18 06:04 AST 72 U/L (17-59) H 11/13/18 06:04 ALT 67 U/L (21-72) 11/13/18 06:04 Alkaline Phosphatase 81 U/L (38-126) 11/13/18 06:04 Troponin I 0.125 ng/mL (0.000-0.034) H* 11/11/18 05:43 C-Reactive Protein 350.6 mg/L (<10.0) H 11/09/18 14:25 NT-Pro-B Natriuret Pep 716 pg/mL 11/09/18 14:25 Total Protein 5.3 g/dL (6.3-8.2) L 11/13/18 06:04 Albumin 2.4 g/dL (3.5-5.0) L 11/13/18 06:04 Urine Color Yellow 11/09/18 16:30 Urine Appearance Cloudy (Clear) 11/09/18 16:30 Urine pH 5.0 (5.0-8.0) 11/09/18 16:30 Ur Specific [place] 1.034 (1.001-1.035) 11/09/18 16:30 Urine Protein 1+ (Negative) H 11/09/18 16:30 Urine Glucose (UA) Negative (Negative) 11/09/18 16:30 Urine Ketones Negative (Negative) 11/09/18 16:30 Urine Blood Trace (Negative) H 11/09/18 16:30 Urine Nitrite Negative (Negative) 11/09/18 16:30 Urine Bilirubin Negative (Negative) 11/09/18 16:30 Urine Urobilinogen <2.0 mg/dL (<2.0) 11/09/18 16:30 Ur Leukocyte Esterase Moderate (Negative) H 11/09/18 16:30 Urine RBC 2 /hpf (0-5) 11/09/18 16:30 Urine WBC 25 /hpf (0-5) H 11/09/18 16:30 Ur Squamous Epith Cells 1 /hpf (0-4) 11/09/18 16:30 Hyaline Casts 6 /lpf (0-2) H 11/09/18 16:30 Urine Mucus Rare /hpf (None) H 11/09/18 16:30 Fluid Source 11/10/18 09:15 Fluid Color Yellow 11/10/18 09:15 Fluid Appearance Cloudy 11/10/18 09:15 Fluid RBC 4000 /uL 11/10/18 09:15 Fluid Nucleated Cells 164743 /uL 11/10/18 09:15 Fluid Polynuclear WBCs 96 % 11/10/18 09:15 Fluid Mononuclear WBCs 4 % 11/10/18 09:15 Vancomycin Trough <5.0 ug/mL 11/11/18 05:43 Hepatitis A IgM Ab Non-Reactive (Non-Reactive) 11/10/18 07:07 Hep Bs Antigen Non-Reactive (Non-Reactive) 11/10/18 07:07 Hep B Core IgM Ab Non-Reactive (Non-Reactive) 11/10/18 07:07 Hep C IgG Ab Non-Reactive (Non-Reactive) 11/10/18 07:07 Microbiology 11/14/18 13:14 Buttock Anaerobic Culture - Preliminary 11/14/18 13:14 Buttock Anaerobic Culture - Preliminary 11/12/18 12:48 Blood Blood Culture - Preliminary No Growth after 96 hours 11/14/18 13:14 Buttock Gram Stain - Final 11/14/18 13:14 Buttock Wound Culture - Final Staph aureus 11/14/18 13:14 Buttock Gram Stain - Final 11/14/18 13:14 Buttock Wound Culture - Final Staphylococcus aureus 11/14/18 06:26 Blood Blood Culture - Preliminary No Growth after 48 hours 11/11/18 06:26 Blood Blood Culture - Preliminary No Growth after 120 hours 11/15/18 06:01 Blood Blood Culture - Preliminary No Growth after 24 hours 11/15/18 06:09 Blood Blood Culture - Preliminary No Growth after 24 hours 11/12/18 12:21 Blood Blood Culture Gram Stain - Final 11/12/18 12:21 Blood Blood Culture - Final Staphylococcus aureus 11/10/18 09:15 Aspirate Anaerobic Culture - Final 11/12/18 12:21 Blood Blood Culture - Final 11/11/18 09:20 Leg - Right Gram Stain - Final 11/11/18 09:20 Leg - Right Wound Culture - Final Staphylococcus aureus 11/11/18 05:43 Blood Blood Culture Gram Stain - Final 11/11/18 05:43 Blood Blood Culture - Final Staphylococcus aureus 11/10/18 09:15 Aspirate Gram Stain - Final 11/10/18 09:15 Aspirate Body Fluid Culture - Final Staphylococcus aureus 11/11/18 05:43 Blood Blood Culture - Final 11/09/18 14:25 Blood Blood Culture Gram Stain - Final 11/09/18 14:25 Blood Blood Culture - Final Staphylococcus aureus 11/09/18 16:30 Urine,Voided Urine Culture - Final 11/09/18 14:25 Blood Blood Culture - Final - Imaging and Cardiology HENRI without evidence of endocarditis Assessment and Plan (1) Bacteremia due to Staphylococcus aureus Narrative/Plan: 58-year-old male who presents to Hospital with increasing pain and discomfort to his left hip area. His of the patient was recently hospitalized with a bout of uncontrolled hypertension and medications were altered. He was following with his primary care physician when he was noticing increasing discomfort to his left hip. As noted he had a episode that appeared to be presyncopal resulting in a fall to his left hip. He's had progressive discomfort since. He's had some fever at home and was feeling very poorly at the time of his presentation. It is noted there is evidence of positive blood culture likely with MSSA and aspiration to the left hip area has been performed and cultures are in process. Antibiotic therapy with cefazolin 2 g IV piggyback every 8 hours has been added in vancomycin has been discontinued. Patient is being evaluated by orthopedic surgeon and if there is evidence of ongoing abscess at the site may require more surgical incision and drainage of a percutaneous drain cannot be utilized to more effectively drain the site. Pain control appears to be adequate. He believes is up-to-date with his tetanus. Follow blood cultures are in process and negative so far. Patient needs enhance glucose control, the patient does have several risk factors for the current infection which includes a trauma and poorly controlled diabetes. 11/12/2018 the patient continues to feel poorly. Continues to have pain to the left hip area which limits his ability to ambulate. This discussed that he has evidence of an abscess at that area and MRI will further help characterize that site. May still require surgical intervention depending on the findings of the MRI. The absolute area is likely the etiology of the current bacteremia. Follow blood culture is now also positive. Further cultures requested. Continue the high-dose Ancef at this point in time. No evidence of deep venous thrombosis. Echocardiogram requested given the persistent positive blood cultures. Patient and are instructed about the need for long-term intravenous antibiotic therapy for his Staphylococcus bacteremia. 11/13/2018 MRI has now been completed. The 5 x 8 x 17 cm fluid collection consistent with a abscess has been noted by MRI. Consequently the orthopedist surgeon is contacted. Patient is made nothing by mouth. We will evaluate for significant morning and schedule a surgical intervention tomorrow. The patient's and children are present and understand that the abscess to the left hip area which does not involve the joint or the bony structures is the etiology of his current illness. Once it strained would expect his bacteremia to resolve. He will then require the multiweek course of intravenous antibiotic therapy. Once the bacteremia clears IV access will be placed and hopefully he will be improved enough for discharge at that time. 11/14/2018 the patient has now been taken to the operating room and had incision and drainage of the abscess to the left lateral hip and buttocks area. He is feeling somewhat better but does have some postoperative pain. Follow blood cultures are process to ensure that his clearance of his bacteremia. Once bacteremia clears will then be able to have PICC line placed to complete his course of antibiotic therapy for his MSSA sepsis. 2-D echocardiogram was requested and there is evidence of potential abnormality of the aortic valve. Cardiology evaluation for HENRI has been requested. 11/16/2018 the patient has now had stability and improvement of his status. He is much more comfortable and relates that the left hip pain is definitely imp roved. His appetite is improved. His fevers are resolved. Laboratories reveal evidence of clearance of his bacteremia PICC line is now been placed HENRI has been performed without evidence of endocarditis The aspirate from the left hip time of surgery shows evidence of the MSSA similar to his positive blood culture. Escalate appears that the persistent infection was related to that large abscess to his left hip and likely was traumatic in nature. This has not been draining is clinically improving. No the PICC line has been placed ongoing plans are in process as to his outpatient intravenous antibiotic therapy which I believe will happen at home. Current Visit: Yes Status: Acute Code(s): R78.81 - BACTEREMIA SNOMED Code(s): 809112136 (2) Unspecified injury of muscle, fascia and tendon of left hip, initial encounter Current Visit: Yes Status: Acute Code(s): S76.002A - UNSP INJURY OF MUSCLE, FASCIA AND TENDON OF LEFT HIP, INIT SNOMED Code(s): 782862075 (3) Lactic acidosis Current Visit: Yes Status: Acute Code(s): E87.2 - ACIDOSIS SNOMED Code(s): 34687850
[2018-11-17] MEDS: SODIUM CHLORIDE 0.9% 1,000 ML IV SCH ×4 (01:36→17:26)
[2018-11-17] MEDS: ceFAZolin IN SWFI 2 GM/20 ML SYRINGE IVP SCH (05:32)
[2018-11-17 06:33] LABS: Glucose,Whole Blood 186 mg/dL (75-99)
[2018-11-17] MEDS: INSULIN ASPART (NovoLOG) 100 UNIT/ML VIAL SQ SCH ×4 (06:48→20:37)
[2018-11-17] MEDS: PANTOPRAZOLE 40 MG TABLET PO SCH (06:48)
[2018-11-17 08:00] LABS: Anisocytosis Slight; Basophils % (A) 0 %; Eosinophils # (A) 0.2 k/uL (0-0.7); Eosinophils % (A) 2 %; HCT 29.5 % (39.0-53.0); HGB 9.4 gm/dL (13.0-17.5); Lymphocytes # (A) 0.9 k/uL (1.0-4.8); Lymphocytes % (A) 10 %; MCH 26.8 pg (25.0-35.0); MCHC 31.7 g/dL (31.0-37.0); MCV 84.5 fL (80.0-100.0); Monocytes # (A) 0.4 k/uL (0-1.0); Monocytes % (A) 5 %; Neutrophils # (A) 7.5 k/uL (1.3-7.7); Neutrophils % (A) 82 %; Platelet Count 585 k/uL (150-450); RDW 16.9 % (11.5-15.5); WBC 9.3 k/uL (3.8-10.6)
[2018-11-17 08:22] LABS: Anion Gap 7 mmol/L; Blood Urea Nitrogen 7 mg/dL (9-20); Calcium 8.4 mg/dL (8.4-10.2); Carbon Dioxide 26 mmol/L (22-30); Chloride 101 mmol/L (98-107); Glucose 161 mg/dL (74-99); Potassium 4.6 mmol/L (3.5-5.1); Sodium 134 mmol/L (137-145)
[2018-11-17] MEDS: TAMSULOSIN 0.4 MG CAP.ER.24H PO SCH (08:25)
[2018-11-17] MEDS: LISINOPRIL 20 MG TAB PO SCH (08:25)
[2018-11-17] MEDS: CLOPIDOGREL 75 MG TAB PO SCH (08:25)
[2018-11-17] MEDS: HEPARIN SODIUM,PORCINE 5,000 UNIT/ML 1 ML VIAL SQ SCH ×2 (08:25→17:25)
[2018-11-17] MEDS: LINAGLIPTIN 5 MG TABLET PO SCH (08:25)
[2018-11-17] MEDS: METOPROLOL TARTRATE 50 MG TAB PO SCH ×2 (08:25→20:37)
[2018-11-17] MEDS: ASPIRIN 81 MG PO SCH (08:25)
[2018-11-17] MEDS: amLODIPine 5 MG TAB PO SCH (08:25)
[2018-11-17] MEDS: HYDROmorphone 0.5 MG/0.5 ML SYRINGE IVP PRN (08:27)
[2018-11-17] MEDS: INSULIN DETEMIR (LEVEMIR) 100 UNIT/ML SYR SQ SCH (09:57)
--- NOTE | 2018-11-17 10:50 | P.PN ---
Subjective Progress Note Date: 11/17/18 This is a 58-year-old male who is admitted for increasing left hip pain and fever. Patient states that he continues to have pain in the left hip at rest or with walking. Patient states that his pain is over the entire left hip. Patient's blood cultures are positive for staph aureus. CT's of the pelvis and left femur show marked inflammatory change or infection involving the left posterior gluteal muscles at level of left hip with forming thin-walled fluid collections identified including a larger collection along superior lateral aspect of left joint worrisome for developing abscess. An ultrasound of the left lower extremity showed persistent eccentric hypoechoic collection which could r epresent persistent abscess. Patient underwent CT-guided fine needle aspiration of the left hip and cultures are positive for staph aureus. A lumbar spine MRI done today showed scoliosis with multilevel degenerative changes. No significant change or progression from prior MRI. No suspicious enhancement is noted. Additionally a Doppler ultrasound of the left lower extremity was negative for DVT. Patient is currently receiving IV cefazolin. Patient denies any new symptoms today. 11/13/2018: Patient continues to complain of pain in the left hip at rest and with weightbearing. Patient denies any new complaints today. Patient is seen and evaluated at bedside with Dr. Jun Zuniga. 11/14/2018: Patient is seen and evaluated at bedside with Dr. Jun Zuniga. Patient states that he is still having pain in the left hip. Patient denies any new complaints. 11/15/2018: Patient is status post I&D of the left hip. This is postoperative day #1. Patient is seen and evaluated at bedside. Patient states that his pain is under control and he denies any new symptoms or complaints. 11/16/2018: Patient is status post I&D of the left hip. This is postoperative day #2. Patient is seen and evaluated at bedside. Patient states that his pain is improving and he has been up and walking around his room. Per nursing, the pat ient's drain came out when the patient rolled over in bed yesterday. Patient denies any new complaints. 11/17/2018: Patient is status post I&D of the left hip. This is postoperative day #3. Patient is seen and evaluated at bedside. Patient reports improvement in pain of the left hip and states that he is able to walk without pain. Patient had a PICC line placed yesterday and is waiting for home IV antibiotics to be set up. Patient denies any new complaints today. Patient denies any fever/chills, numbness, weakness, tingling, abdominal pain, shortness of breath or chest pain. Objective - Vital Signs Vital signs: Vital Signs Temp 99 F 11/17/18 08:00 Pulse 89 11/17/18 08:00 Resp 18 11/17/18 08:00 BP 136/72 11/17/18 08:00 Pulse Ox 96 11/17/18 08:00 Intake & Output 11/16/18 11/17/18 11/17/18 18:59 06:59 18:59 Intake Total 950 370 465 Output Total 550 775 Balance 950 -180 -310 Weight 90.5 kg 90.7 kg Intake: IV 100 Intake, IV Titration 130 65 Amount Lactated Ringers 1,000 ml 65 @ 0 mls/hr IV .[facility] Rx#:[id number] Sodium Chloride 0.9% 1, 130 000 ml @ 65 mls/hr IV . [id number] [facility] Rx#:[id number] Oral 850 240 400 Output: Urine 550 775 Other: Voiding Method Urinal Urinal Urinal # Voids 0 # Bowel Movements 0 - Exam On exam patient is lying comfortably in bed in no acute distress. Patient is alert and oriented 3. Dressing with a moderate amount of yellow-bloody drainage present. Old dressing is removed and replaced with a new clean and dry dressing. Valentin are intact. There is no erythema around the incision site. Mild soft tissue swelling of the left thigh. Compartments are soft. Calf is soft and nontender to palpation. Sensation is intact. Neurovascular status and circulatory status are intact. - Labs CBC & Chem 7: 11/17/18 06:56 11/17/18 06:56 Labs: Abnormal Lab Results - Last 24 Hours (Table) 11/16/18 11/16/18 11/16/18 Range/Units 11:31 13:58 16:37 RBC 3.45 L (4.30-5.90) m/uL Hgb 9.6 L (13.0-17.5) gm/dL Hct 29.4 L (39.0-53.0) % RDW 16.1 H (11.5-15.5) % Plt Count 541 H (150-450) k/uL Lymphocytes # 0.9 L (1.0-4.8) k/uL Sodium (137-145) mmol/L BUN (9-20) mg/dL Creatinine (0.66-1.25) mg/dL Glucose (74-99) mg/dL POC Glucose (mg/dL) 177 H 199 H (75-99) mg/dL 11/16/18 11/17/18 11/17/18 Range/Units 20:41 06:28 06:56 RBC 3.50 L (4.30-5.90) m/uL Hgb 9.4 L (13.0-17.5) gm/dL Hct 29.5 L (39.0-53.0) % RDW 16.9 H (11.5-15.5) % Plt Count 585 H (150-450) k/uL Lymphocytes # 0.9 L (1.0-4.8) k/uL Sodium (137-145) mmol/L BUN (9-20) mg/dL Creatinine (0.66-1.25) mg/dL Glucose (74-99) mg/dL POC Glucose (mg/dL) 151 H 186 H (75-99) mg/dL 11/17/18 Range/Units 06:56 RBC (4.30-5.90) m/uL Hgb (13.0-17.5) gm/dL Hct (39.0-53.0) % RDW (11.5-15.5) % Plt Count (150-450) k/uL Lymphocytes # (1.0-4.8) k/uL Sodium 134 L (137-145) mmol/L BUN 7 L (9-20) mg/dL Creatinine 0.36 L (0.66-1.25) mg/dL Glucose 161 H (74-99) mg/dL POC Glucose (mg/dL) (75-99) mg/dL Microbiology - Last 24 Hours (Table) 11/14/18 06:26 Blood Culture - Preliminary Blood No Growth after 72 hours 11/11/18 06:26 Blood Culture - Final Blood No Growth after 144 hours 11/15/18 06:01 Blood Culture - Preliminary Blood No Growth after 48 hours 11/15/18 06:09 Blood Culture - Preliminary Blood No Growth after 48 hours 11/14/18 13:14 Anaerobic Culture - Preliminary Buttock 11/14/18 13:14 Anaerobic Culture - Preliminary Buttock 11/12/18 12:48 Blood Culture - Preliminary Blood No Growth after 96 hours 11/14/18 13:14 Gram Stain - Final Buttock Wound Culture - Final Staph aureus 11/14/18 13:14 Gram Stain - Final Buttock Wound Culture - Final Staphylococcus aureus 11/12/18 12:21 Blood Culture Gram Stain - Final Blood Blood Culture - Final Staphylococcus aureus Assessment and Plan Assessment: Diabetes mellitus Hypertension History of STEMI with 5 stents. (1) Abscess, gluteal, left Current Visit: Yes Status: Acute Code(s): L02.31 - CUTANEOUS ABSCESS OF BUTTOCK SNOMED Code(s): 21067261 (2) Bacteremia due to Staphylococcus aureus Current Visit: Yes Status: Acute Code(s): R78.81 - BACTEREMIA SNOMED Code(s): 536145021 Plan: 1. Continue routine postoperative care and pain control. Weightbearing as tolerated. 2. Daily dressing changes to keep dressing clean and dry. 3. Continue IV antibiotics per infectious disease. Patient is awaiting IV antibiotics to be set up for home. 4. Cultures positive for staph aureus. 5. Will continue to follow closely during the patient's hospital stay. Recommend outpatient follow-up after discharge from the hospital.
--- NOTE | 2018-11-17 11:55 | P.PN ---
Subjective Progress Note Date: 11/17/18 Principal diagnosis: Pelvic abscess Patient seen and examined. No acute events overnight. Patient reports left hip pain, well managed with current pain medication. He denies any fever or chills. Patient denies any chest pain, shortness of breath or palpitations. Postop day 3 of incision and drainage. Objective - Vital Signs Vital signs: Vital Signs Temp 99 F 11/17/18 08:00 Pulse 89 11/17/18 08:00 Resp 18 11/17/18 08:00 BP 136/72 11/17/18 08:00 Pulse Ox 96 11/17/18 08:00 Intake & Output 11/16/18 11/17/18 11/17/18 18:59 06:59 18:59 Intake Total 950 370 465 Output Total 550 775 Balance 950 -180 -310 Weight 90.5 kg 90.7 kg Intake: IV 100 Intake, IV Titration 130 65 Amount Lactated Ringers 1,000 ml 65 @ 0 mls/hr IV .[facility] Rx#:[id number] Sodium Chloride 0.9% 1, 130 000 ml @ 65 mls/hr IV . [id number] [facility] Rx#:[id number] Oral 850 240 400 Output: Urine 550 775 Other: Voiding Method Urinal Urinal Urinal # Voids 0 # Bowel Movements 0 - Exam General: [non toxic], [no distress], [appears at stated age] Derm: [warm], [dry] Head: [atraumatic], [normocephalic], [symmetric] Eyes: [EOMI], [no lid lag], [anicteric sclera] Mouth: [no lip lesion], [mucus membranes moist] Cardiovascular: [S1S2 reg], [no murmur], [positive DP pulse bilateral] Lungs: [CTA bilateral], [no rhonchi, no rales] , [no accessory muscle use] Abdominal: [soft], [ nontender to palpation], [no guarding], [no appreciable organomegaly] Ext: [no gross muscle atrophy], [no edema], [no contractures] Neuro: [no focal neuro deficits] Psych: [Alert], [oriented], [appropriate affect] - Labs CBC & Chem 7: 11/17/18 06:56 11/17/18 06:56 Labs: Abnormal Lab Results - Last 24 Hours (Table) 11/16/18 11/16/18 11/16/18 Range/Units 11:31 13:58 16:37 RBC 3.45 L (4.30-5.90) m/uL Hgb 9.6 L (13.0-17.5) gm/dL Hct 29.4 L (39.0-53.0) % RDW 16.1 H (11.5-15.5) % Plt Count 541 H (150-450) k/uL Lymphocytes # 0.9 L (1.0-4.8) k/uL Sodium (137-145) mmol/L BUN (9-20) mg/dL Creatinine (0.66-1.25) mg/dL Glucose (74-99) mg/dL POC Glucose (mg/dL) 177 H 199 H (75-99) mg/dL 11/16/18 11/17/18 11/17/18 Range/Units 20:41 06:28 06:56 RBC 3.50 L (4.30-5.90) m/uL Hgb 9.4 L (13.0-17.5) gm/dL Hct 29.5 L (39.0-53.0) % RDW 16.9 H (11.5-15.5) % Plt Count 585 H (150-450) k/uL Lymphocytes # 0.9 L (1.0-4.8) k/uL Sodium (137-145) mmol/L BUN (9-20) mg/dL Creatinine (0.66-1.25) mg/dL Glucose (74-99) mg/dL POC Glucose (mg/dL) 151 H 186 H (75-99) mg/dL 11/17/18 Range/Units 06:56 RBC (4.30-5.90) m/uL Hgb (13.0-17.5) gm/dL Hct (39.0-53.0) % RDW (11.5-15.5) % Plt Count (150-450) k/uL Lymphocytes # (1.0-4.8) k/uL Sodium 134 L (137-145) mmol/L BUN 7 L (9-20) mg/dL Creatinine 0.36 L (0.66-1.25) mg/dL Glucose 161 H (74-99) mg/dL POC Glucose (mg/dL) (75-99) mg/dL Microbiology - Last 24 Hours (Table) 11/14/18 06:26 Blood Culture - Preliminary Blood No Growth after 72 hours 11/11/18 06:26 Blood Culture - Final Blood No Growth after 144 hours 11/15/18 06:01 Blood Culture - Preliminary Blood No Growth after 48 hours 11/15/18 06:09 Blood Culture - Preliminary Blood No Growth after 48 hours 11/14/18 13:14 Anaerobic Culture - Preliminary Buttock 11/14/18 13:14 Anaerobic Culture - Preliminary Buttock 11/12/18 12:48 Blood Culture - Preliminary Blood No Growth after 96 hours 11/14/18 13:14 Gram Stain - Final Buttock Wound Culture - Final Staph aureus 11/14/18 13:14 Gram Stain - Final Buttock Wound Culture - Final Staphylococcus aureus 11/12/18 12:21 Blood Culture Gram Stain - Final Blood Blood Culture - Final Staphylococcus aureus Assessment and Plan Assessment: Assessment and Plan Staph aureus bacteremia secondary to gluteal abscess Diabetes mellitus Elevated troponin Hypertension BPH Anemia Seen on MRI imaging. Postop day 3 status post I&D of pelvic abscess. Pain management with Tylenol, [place], morphine, Dilaudid. Continue cefazolin 2 g IV every 8 hours. Blood culture positive for staph aureus, repeat cultures negative at 48 hours. HENRI shows no vegetations or signs of endocarditis. Infectious disease consulted, recommends PICC line and IV antibiotics in the outpatient setting. Follow ID recommendations. [id number] glucose 151. Levemir 10 units daily, continue Linagliptin. Insulin sliding scale. Hypoglycemic precautions. Regular Accu-Cheks. Troponin 0.560, 0.125 with EKG showing normal sinus rhythm. Echocardiogram shows EF 55-60% with borderline LVH. Continue aspirin and statin. Continue Plavix. Continue beta tomas. Likely from demand, Trend 1 Trop/EKG to rule out ACS. BP 103/58. Continue amlodipine, metoprolol, lisinopril. Monitor vitals, adjust medications as necessary. Continue Flomax. Hemoglobin 9.6, stable. Normocytic. Possibly iron deficiency given elevated platelet count. Daily CBC. Will need evaluation in the outpatient setting. Patient admitted for IV antibiotics for pelvic abscess. Cultures growing staph aureus sensitive to cefazolin. PICC line obtained. Pending approval for IV antibiotics in the outpatient setting. Infectious diseases on board, will discuss with Dr. Pleitez. Likely DC on Monday.
[2018-11-17 12:03] LABS: Glucose,Whole Blood 201 mg/dL (75-99)
[2018-11-17] MEDS: HYDROcodone/APAP 5-325MG 1 EACH TAB PO PRN ×2 (12:35→20:37)
[2018-11-17 14:38] LABS: Creatine Kinase 22 U/L (55-170)
[2018-11-17 14:51] LABS: Creatine Kinase MB 0.5 ng/mL (0.0-2.4); Troponin I <0.012 ng/mL (0.000-0.034)
[2018-11-17 17:04] LABS: Glucose,Whole Blood 175 mg/dL (75-99)
[2018-11-17 19:25] LABS: Glucose,Whole Blood 181 mg/dL (75-99)
[2018-11-17] MEDS: ATORVASTATIN 40 MG TAB PO SCH (20:37)
[2018-11-17] MEDS: SENNOSIDES-DOCUSATE SODIUM 1 EACH TAB PO SCH (21:15)
[2018-11-18] MEDS: HEPARIN SODIUM,PORCINE 5,000 UNIT/ML 1 ML VIAL SQ SCH ×3 (00:21→17:04)
[2018-11-18 06:45] LABS: Glucose,Whole Blood 136 mg/dL (75-99)
[2018-11-18] MEDS: HYDROcodone/APAP 5-325MG 1 EACH TAB PO PRN ×2 (07:42→21:31)
--- NOTE | 2018-11-18 07:42 | P.PN ---
Subjective Progress Note Date: 11/18/18 This is a 58-year-old male who is admitted for increasing left hip pain and fever. Patient states that he continues to have pain in the left hip at rest or with walking. Patient states that his pain is over the entire left hip. Patient's blood cultures are positive for staph aureus. CT's of the pelvis and left femur show marked inflammatory change or infection involving the left posterior gluteal muscles at level of left hip with forming thin-walled fluid collections identified including a larger collection along superior lateral aspect of left joint worrisome for developing abscess. An ultrasound of the left lower extremity showed persistent eccentric hypoechoic collection which could r epresent persistent abscess. Patient underwent CT-guided fine needle aspiration of the left hip and cultures are positive for staph aureus. A lumbar spine MRI done today showed scoliosis with multilevel degenerative changes. No significant change or progression from prior MRI. No suspicious enhancement is noted. Additionally a Doppler ultrasound of the left lower extremity was negative for DVT. Patient is currently receiving IV cefazolin. Patient denies any new symptoms today. 11/13/2018: Patient continues to complain of pain in the left hip at rest and with weightbearing. Patient denies any new complaints today. Patient is seen and evaluated at bedside with Dr. Jun Zuniga. 11/14/2018: Patient is seen and evaluated at bedside with Dr. Jun Zuniga. Patient states that he is still having pain in the left hip. Patient denies any new complaints. 11/15/2018: Patient is status post I&D of the left hip. This is postoperative day #1. Patient is seen and evaluated at bedside. Patient states that his pain is under control and he denies any new symptoms or complaints. 11/16/2018: Patient is status post I&D of the left hip. This is postoperative day #2. Patient is seen and evaluated at bedside. Patient states that his pain is improving and he has been up and walking around his room. Per nursing, the pat ient's drain came out when the patient rolled over in bed yesterday. Patient denies any new complaints. 11/17/2018: Patient is status post I&D of the left hip. This is postoperative day #3. Patient is seen and evaluated at bedside. Patient reports improvement in pain of the left hip and states that he is able to walk without pain. Patient had a PICC line placed yesterday and is waiting for home IV antibiotics to be set up. Patient denies any new complaints today. Patient denies any fever/chills, numbness, weakness, tingling, abdominal pain, shortness of breath or chest pain. 11/18/2018: Patient is status post I&D of the left hip. This is postoperative day #4. Patient is seen and evaluated at bedside. Patient states that his left hip is feeling very well. Patient denies any new complaints today. Patient is waiting on approval for home IV antibiotic therapy. Patient denies any fever/chills, numbness, weakness, tingling, abdominal pain, shortness of breath or chest pain. Objective - Vital Signs Vital signs: Vital Signs Temp 98.5 F 11/18/18 01:42 Pulse 74 11/18/18 01:42 Resp 16 11/18/18 01:42 BP 131/72 11/18/18 01:42 Pulse Ox 98 11/18/18 01:42 Intake & Output 11/17/18 11/18/18 11/18/18 18:59 06:59 18:59 Intake Total 815 Output Total 775 950 Balance 40 -950 Weight 84.5 kg Intake: Intake, IV Titration 295 Amount Lactated Ringers 1,000 ml 65 @ 0 mls/hr IV .[facility] Rx#:[id number] Sodium Chloride 0.9% 1, 180 000 ml @ 20 mls/hr IV . [facility] Rx#:[id number] cefTRIAXone 2 gm In 50 Sodium Chloride 0.9% 50 ml @ 100 mls/hr IVPB [facility] Rx#:[id number] Oral 520 Output: Urine 775 950 Other: Voiding Method Urinal # Voids 0 # Bowel Movements 0 - Exam On exam patient is lying comfortably in bed in no acute distress. Patient is alert and oriented 3. Dressing is clean, dry and intact. Compartments are soft. Calf is soft and nontender to palpation. Sensation is intact. Neurovascular status and circulatory status are intact. - Labs CBC & Chem 7: 11/17/18 06:56 11/17/18 06:56 Labs: Abnormal Lab Results - Last 24 Hours (Table) 11/17/18 11/17/18 11/17/18 Range/Units 06:56 06:56 12:01 RBC 3.50 L (4.30-5.90) m/uL Hgb 9.4 L (13.0-17.5) gm/dL Hct 29.5 L (39.0-53.0) % RDW 16.9 H (11.5-15.5) % Plt Count 585 H (150-450) k/uL Lymphocytes # 0.9 L (1.0-4.8) k/uL Sodium 134 L (137-145) mmol/L BUN 7 L (9-20) mg/dL Creatinine 0.36 L (0.66-1.25) mg/dL Glucose 161 H (74-99) mg/dL POC Glucose (mg/dL) 201 H (75-99) mg/dL Total Creatine Kinase (55-170) U/L 11/17/18 11/17/18 11/17/18 Range/Units 14:03 17:02 19:23 RBC (4.30-5.90) m/uL Hgb (13.0-17.5) gm/dL Hct (39.0-53.0) % RDW (11.5-15.5) % Plt Count (150-450) k/uL Lymphocytes # (1.0-4.8) k/uL Sodium (137-145) mmol/L BUN (9-20) mg/dL Creatinine (0.66-1.25) mg/dL Glucose (74-99) mg/dL POC Glucose (mg/dL) 175 H 181 H (75-99) mg/dL Total Creatine Kinase 22 L (55-170) U/L 11/18/18 Range/Units 06:44 RBC (4.30-5.90) m/uL Hgb (13.0-17.5) gm/dL Hct (39.0-53.0) % RDW (11.5-15.5) % Plt Count (150-450) k/uL Lymphocytes # (1.0-4.8) k/uL Sodium (137-145) mmol/L BUN (9-20) mg/dL Creatinine (0.66-1.25) mg/dL Glucose (74-99) mg/dL POC Glucose (mg/dL) 136 H (75-99) mg/dL Total Creatine Kinase (55-170) U/L Microbiology - Last 24 Hours (Table) 11/12/18 12:48 Blood Culture - Preliminary Blood No Growth after 120 hours 11/14/18 06:26 Blood Culture - Preliminary Blood No Growth after 72 hours 11/11/18 06:26 Blood Culture - Final Blood No Growth after 144 hours 11/15/18 06:01 Blood Culture - Preliminary Blood No Growth after 48 hours 11/15/18 06:09 Blood Culture - Preliminary Blood No Growth after 48 hours Assessment and Plan Assessment: Diabetes mellitus Hypertension History of STEMI with 5 stents. (1) Abscess, gluteal, left Current Visit: Yes Status: Acute Code(s): L02.31 - CUTANEOUS ABSCESS OF BUTTOCK SNOMED Code(s): 69029379 (2) Bacteremia due to Staphylococcus aureus Current Visit: Yes Status: Acute Code(s): R78.81 - BACTEREMIA SNOMED Code(s): 643883282 Plan: 1. Continue routine postoperative care and pain control. Weightbearing as tolerated. 2. Daily dressing changes to keep dressing clean and dry. 3. Continue IV antibiotics per infectious disease. Patient is awaiting IV antibiotics to be set up for home. 4. Cultures positive for staph aureus. 5. Will continue to follow closely during the patient's hospital stay. Recommend outpatient follow-up after discharge from the hospital.
[2018-11-18] MEDS: INSULIN ASPART (NovoLOG) 100 UNIT/ML VIAL SQ SCH ×4 (07:44→21:31)
[2018-11-18 09:14] LABS: Basophils % (A) 0 %; Eosinophils # (A) 0.2 k/uL (0-0.7); Eosinophils % (A) 2 %; HCT 30.5 % (39.0-53.0); HGB 10.4 gm/dL (13.0-17.5); Lymphocytes # (A) 0.9 k/uL (1.0-4.8); Lymphocytes % (A) 9 %; MCH 29.6 pg (25.0-35.0); MCHC 34.1 g/dL (31.0-37.0); Mean Platelet Volume 7.6; Monocytes # (A) 1.4 k/uL (0-1.0); Monocytes % (A) 13 %; Neutrophils # (A) 7.8 k/uL (1.3-7.7); Neutrophils % (A) 74 %; Platelet Count 637 k/uL (150-450); RBC 3.51 m/uL (4.30-5.90); RDW 15.3 % (11.5-15.5); WBC 10.5 k/uL (3.8-10.6)
[2018-11-18] MEDS: TAMSULOSIN 0.4 MG CAP.ER.24H PO SCH (09:38)
[2018-11-18] MEDS: LISINOPRIL 20 MG TAB PO SCH (09:38)
[2018-11-18] MEDS: CLOPIDOGREL 75 MG TAB PO SCH (09:38)
[2018-11-18] MEDS: ASPIRIN 81 MG PO SCH (09:38)
[2018-11-18] MEDS: METOPROLOL TARTRATE 50 MG TAB PO SCH ×2 (09:38→21:32)
[2018-11-18] MEDS: PANTOPRAZOLE 40 MG TABLET PO SCH (09:38)
[2018-11-18] MEDS: LINAGLIPTIN 5 MG TABLET PO SCH (09:38)
[2018-11-18] MEDS: amLODIPine 5 MG TAB PO SCH (09:38)
[2018-11-18] MEDS: INSULIN DETEMIR (LEVEMIR) 100 UNIT/ML SYR SQ SCH (09:39)
[2018-11-18 10:03] LABS: Creatine Kinase <20 U/L (55-170)
[2018-11-18 10:13] LABS: Anion Gap 8 mmol/L; Blood Urea Nitrogen 8 mg/dL (9-20); Calcium 8.3 mg/dL (8.4-10.2); Carbon Dioxide 25 mmol/L (22-30); Chloride 102 mmol/L (98-107); Glucose 175 mg/dL (74-99); Potassium 4.8 mmol/L (3.5-5.1); Sodium 135 mmol/L (137-145)
--- NOTE | 2018-11-18 10:13 | P.PN ---
Subjective Progress Note Date: 11/18/18 Principal diagnosis: left hip abscess Patient seen and examined. No acute events overnight. Postop day for incision and drainage left hip abscess. Pain is well-controlled. Patient denies any fever or chills. He denies any chest pain, shortness of breath or palpitations. Plans on discharge yesterday aborted due to insurance pending for IV antibiotics. Objective - Vital Signs Vital signs: Vital Signs Temp 98.7 F 11/18/18 08:00 Pulse 90 11/18/18 08:00 Resp 16 11/18/18 08:00 BP 144/77 11/18/18 08:00 Pulse Ox 97 11/18/18 08:00 Intake & Output 11/17/18 11/18/18 11/18/18 18:59 06:59 18:59 Intake Total 815 426 Output Total 775 950 Balance 40 -950 426 Weight 84.5 kg Intake: Intake, IV Titration 295 Amount Lactated Ringers 1,000 ml 65 @ 0 mls/hr IV .[facility] Rx#:[id number] Sodium Chloride 0.9% 1, 180 000 ml @ 20 mls/hr IV . Q24H [facility] Rx#:[id number] cefTRIAXone 2 gm In 50 Sodium Chloride 0.9% 50 ml @ 100 mls/hr IVPB [facility]CE [facility] Rx#:[id number] Oral 520 426 Output: Urine 775 950 Other: Voiding Method Urinal # Voids 0 # Bowel Movements 0 - Exam General: [non toxic], [no distress], [appears at stated age] Derm: [warm], [dry] Head: [atraumatic], [normocephalic], [symmetric] Eyes: [EOMI], [no lid lag], [anicteric sclera] Mouth: [no lip lesion], [mucus membranes moist] Cardiovascular: [S1S2 reg], [no murmur], [positive DP pulse bilateral] Lungs: [CTA bilateral], [no rhonchi, no rales] , [no accessory muscle use] Abdominal: [soft], [ nontender to palpation], [no guarding], [no appreciable organomegaly] Ext: [no gross muscle atrophy], [no edema], [no contractures], [left hip dressing clean dry and intact] Neuro: [no focal neuro deficits] Psych: [Alert], [oriented], [appropriate affect] - Labs CBC & Chem 7: 11/18/18 08:07 11/17/18 06:56 Labs: Abnormal Lab Results - Last 24 Hours (Table) 11/17/18 11/17/18 11/17/18 Range/Units 12:01 14:03 17:02 RBC (4.30-5.90) m/uL Hgb (13.0-17.5) gm/dL Hct (39.0-53.0) % Plt Count (150-450) k/uL Neutrophils # (1.3-7.7) k/uL Lymphocytes # (1.0-4.8) k/uL Monocytes # (0-1.0) k/uL POC Glucose (mg/dL) 201 H 175 H (75-99) mg/dL Total Creatine Kinase 22 L (55-170) U/L 11/17/18 11/18/18 11/18/18 Range/Units 19:23 06:44 08:07 RBC 3.51 L (4.30-5.90) m/uL Hgb 10.4 L (13.0-17.5) gm/dL Hct 30.5 L (39.0-53.0) % Plt Count 637 H (150-450) k/uL Neutrophils # 7.8 H (1.3-7.7) k/uL Lymphocytes # 0.9 L (1.0-4.8) k/uL Monocytes # 1.4 H (0-1.0) k/uL POC Glucose (mg/dL) 181 H 136 H (75-99) mg/dL Total Creatine Kinase (55-170) U/L 11/18/18 Range/Units 08:07 RBC (4.30-5.90) m/uL Hgb (13.0-17.5) gm/dL Hct (39.0-53.0) % Plt Count (150-450) k/uL Neutrophils # (1.3-7.7) k/uL Lymphocytes # (1.0-4.8) k/uL Monocytes # (0-1.0) k/uL POC Glucose (mg/dL) (75-99) mg/dL Total Creatine Kinase <20 L (55-170) U/L Microbiology - Last 24 Hours (Table) 11/14/18 06:26 Blood Culture - Preliminary Blood No Growth after 96 hours 11/14/18 13:14 Anaerobic Culture - Final Buttock 11/14/18 13:14 Anaerobic Culture - Final Buttock 11/15/18 06:01 Blood Culture - Preliminary Blood No Growth after 72 hours 11/15/18 06:09 Blood Culture - Preliminary Blood No Growth after 72 hours 11/12/18 12:48 Blood Culture - Preliminary Blood No Growth after 120 hours 11/11/18 06:26 Blood Culture - Final Blood No Growth after 144 hours Assessment and Plan Assessment: Assessment and Plan Staph aureus bacteremia secondary to gluteal abscess Diabetes mellitus Elevated troponin Hypertension BPH Anemia Seen on MRI imaging. Postop day 3 status post I&D of pelvic abscess. Pain management with Tylenol, [place], morphine, Dilaudid. Continue cefazolin 2 g IV every 8 hours. Blood culture positive for staph aureus, repeat cultures negative at 48 hours. HENRI shows no vegetations or signs of endocarditis. Infectious disease consulted, recommends PICC line and IV antibiotics in the outpatient setting. Follow ID recommendations. Vsejx-[id number] glucose 136. Levemir 10 units daily, continue Linagliptin. Insulin sliding scale. Hypoglycemic precautions. Regular Accu-Cheks. Troponin 0.560, 0.125, < 0.012 with EKG showing normal sinus rhythm. Echocardiogram shows EF 55-60% with borderline LVH. Continue aspirin and statin. Continue Plavix. Continue beta tomas. Likely from demand, ACS ruled out. BP 144/77. Continue amlodipine, metoprolol, lisinopril. Monitor vitals, adjust medications as necessary. Continue Flomax. Hemoglobin 9.6, stable. Normocytic. Possibly iron deficiency given elevated platelet count. Daily CBC. Will need evaluation in the outpatient setting. Patient admitted for IV antibiotics for pelvic abscess. Cultures growing staph aureus sensitive to Rocephin. PICC line obtained. Pending approval for IV antibiotics in the outpatient setting. Likely DC on Monday.
[2018-11-18 10:15] LABS: Creatine Kinase MB 0.5 ng/mL (0.0-2.4); Troponin I <0.012 ng/mL (0.000-0.034)
[2018-11-18 12:13] LABS: Glucose,Whole Blood 178 mg/dL (75-99)
[2018-11-18 16:48] LABS: Glucose,Whole Blood 179 mg/dL (75-99)
[2018-11-18] MEDS: HYDROmorphone 0.5 MG/0.5 ML SYRINGE IVP PRN (17:03)
[2018-11-18 20:06] LABS: Glucose,Whole Blood 180 mg/dL (75-99)
[2018-11-18] MEDS: ATORVASTATIN 40 MG TAB PO SCH (21:32)
[2018-11-18] MEDS: SENNOSIDES-DOCUSATE SODIUM 1 EACH TAB PO SCH (22:16)
[2018-11-18] MEDS: SODIUM CHLORIDE 0.9% 1,000 ML IV SCH (22:16)
[2018-11-19] MEDS: SODIUM CHLORIDE 0.9% 1,000 ML IV SCH (01:10)
[2018-11-19] MEDS: HEPARIN SODIUM,PORCINE 5,000 UNIT/ML 1 ML VIAL SQ SCH ×2 (01:11→07:50)
[2018-11-19 01:52] VITALS: RESP 16
[2018-11-19] MEDS: HYDROmorphone 1 MG/ML 1 ML SYRINGE IVP PRN ×3 (04:39→12:07)
[2018-11-19 06:56] LABS: Glucose,Whole Blood 149 mg/dL (75-99)
[2018-11-19 07:40] LABS: Basophils % (A) 0 %; Eosinophils # (A) 0.1 k/uL (0-0.7); Eosinophils % (A) 2 %; HCT 30.1 % (39.0-53.0); HGB 9.7 gm/dL (13.0-17.5); Lymphocytes # (A) 1.2 k/uL (1.0-4.8); Lymphocytes % (A) 16 %; MCH 27.9 pg (25.0-35.0); MCHC 32.3 g/dL (31.0-37.0); MCV 86.4 fL (80.0-100.0); Mean Platelet Volume 6.5; Monocytes # (A) 0.4 k/uL (0-1.0); Monocytes % (A) 6 %; Neutrophils # (A) 5.2 k/uL (1.3-7.7); Neutrophils % (A) 74 %; Platelet Count 595 k/uL (150-450); RBC 3.49 m/uL (4.30-5.90); RDW 15.2 % (11.5-15.5)
[2018-11-19] MEDS: TAMSULOSIN 0.4 MG CAP.ER.24H PO SCH (07:42)
[2018-11-19] MEDS: METOPROLOL TARTRATE 50 MG TAB PO SCH (07:42)
[2018-11-19] MEDS: LISINOPRIL 20 MG TAB PO SCH (07:42)
[2018-11-19] MEDS: CLOPIDOGREL 75 MG TAB PO SCH (07:42)
[2018-11-19] MEDS: PANTOPRAZOLE 40 MG TABLET PO SCH (07:43)
[2018-11-19] MEDS: LINAGLIPTIN 5 MG TABLET PO SCH (07:43)
[2018-11-19] MEDS: ASPIRIN 81 MG PO SCH (07:43)
[2018-11-19] MEDS: amLODIPine 5 MG TAB PO SCH (07:43)
[2018-11-19] MEDS: INSULIN ASPART (NovoLOG) 100 UNIT/ML VIAL SQ SCH ×2 (07:44→12:02)
[2018-11-19] MEDS: INSULIN DETEMIR (LEVEMIR) 100 UNIT/ML SYR SQ SCH (07:45)
[2018-11-19 08:05] LABS: Anion Gap 6 mmol/L; Blood Urea Nitrogen 9 mg/dL (9-20); Calcium 8.6 mg/dL (8.4-10.2); Carbon Dioxide 28 mmol/L (22-30); Chloride 102 mmol/L (98-107); Glucose 139 mg/dL (74-99); Potassium 4.8 mmol/L (3.5-5.1); Sodium 136 mmol/L (137-145)
[2018-11-19 08:14] VITALS: BP 127/77; PULSE 76; TEMP 98.7
--- NOTE | 2018-11-19 08:50 | P.PN ---
Subjective Progress Note Date: 11/19/18 This is a 58-year-old male who is admitted for increasing left hip pain and fever. Patient states that he continues to have pain in the left hip at rest or with walking. Patient states that his pain is over the entire left hip. Patient's blood cultures are positive for staph aureus. CT's of the pelvis and left femur show marked inflammatory change or infection involving the left posterior gluteal muscles at level of left hip with forming thin-walled fluid collections identified including a larger collection along superior lateral aspect of left joint worrisome for developing abscess. An ultrasound of the left lower extremity showed persistent eccentric hypoechoic collection which could r epresent persistent abscess. Patient underwent CT-guided fine needle aspiration of the left hip and cultures are positive for staph aureus. A lumbar spine MRI done today showed scoliosis with multilevel degenerative changes. No significant change or progression from prior MRI. No suspicious enhancement is noted. Additionally a Doppler ultrasound of the left lower extremity was negative for DVT. Patient is currently receiving IV cefazolin. Patient denies any new symptoms today. 11/13/2018: Patient continues to complain of pain in the left hip at rest and with weightbearing. Patient denies any new complaints today. Patient is seen and evaluated at bedside with Dr. Jun Zuniga. 11/14/2018: Patient is seen and evaluated at bedside with Dr. Jun Zuniga. Patient states that he is still having pain in the left hip. Patient denies any new complaints. 11/15/2018: Patient is status post I&D of the left hip. This is postoperative day #1. Patient is seen and evaluated at bedside. Patient states that his pain is under control and he denies any new symptoms or complaints. 11/16/2018: Patient is status post I&D of the left hip. This is postoperative day #2. Patient is seen and evaluated at bedside. Patient states that his pain is improving and he has been up and walking around his room. Per nursing, the pat ient's drain came out when the patient rolled over in bed yesterday. Patient denies any new complaints. 11/17/2018: Patient is status post I&D of the left hip. This is postoperative day #3. Patient is seen and evaluated at bedside. Patient reports improvement in pain of the left hip and states that he is able to walk without pain. Patient had a PICC line placed yesterday and is waiting for home IV antibiotics to be set up. Patient denies any new complaints today. Patient denies any fever/chills, numbness, weakness, tingling, abdominal pain, shortness of breath or chest pain. 11/18/2018: Patient is status post I&D of the left hip. This is postoperative day #4. Patient is seen and evaluated at bedside. Patient states that his left hip is feeling very well. Patient denies any new complaints today. Patient is waiting on approval for home IV antibiotic therapy. Patient denies any fever/chills, numbness, weakness, tingling, abdominal pain, shortness of breath or chest pain. 11/19/2018:Patient is status post I&D of the left hip. This is postoperative day #5. Patient is seen and evaluated at bedside. Patient states that his pain is well controlled. Patient denies any new complaints today. Patient denies any fever/chills, numbness, weakness, tingling, abdominal pain, shortness of breath or chest pain. Objective - Vital Signs Vital signs: Vital Signs Temp 98.7 F 11/19/18 07:40 Pulse 76 11/19/18 07:40 Resp 16 11/19/18 01:30 BP 127/77 11/19/18 07:40 Pulse Ox 96 11/19/18 07:40 Intake & Output 11/18/18 11/19/18 11/19/18 18:59 06:59 18:59 Intake Total 898 70 Output Total 850 600 Balance 898 780 -600 Weight 84.5 kg Intake: Intake, IV Titration 70 Amount Sodium Chloride 0.9% 1, 70 000 ml @ 20 mls/hr IV . Q24H [facility] Rx#:[id number] Oral 898 Output: Urine 850 600 Other: # Voids 1 2 - Exam On exam patient is lying comfortably in bed in no acute distress. Patient is alert and oriented 3. Dressing is clean, dry and intact. Compartments are soft. Calf is soft and nontender to palpation. Sensation is intact. Neurovascular status and circulatory status are intact. - Labs CBC & Chem 7: 11/19/18 06:49 11/19/18 06:49 Labs: Abnormal Lab Results - Last 24 Hours (Table) 11/18/18 11/18/18 11/18/18 Range/Units 08:07 08:07 08:07 RBC 3.51 L (4.30-5.90) m/uL Hgb 10.4 L (13.0-17.5) gm/dL Hct 30.5 L (39.0-53.0) % Plt Count 637 H (150-450) k/uL Neutrophils # 7.8 H (1.3-7.7) k/uL Lymphocytes # 0.9 L (1.0-4.8) k/uL Monocytes # 1.4 H (0-1.0) k/uL Sodium 135 L (137-145) mmol/L BUN 8 L (9-20) mg/dL Creatinine 0.33 L (0.66-1.25) mg/dL Glucose 175 H (74-99) mg/dL POC Glucose (mg/dL) (75-99) mg/dL Calcium 8.3 L (8.4-10.2) mg/dL Total Creatine Kinase <20 L (55-170) U/L 11/18/18 11/18/18 11/18/18 Range/Units 12:12 16:47 20:04 RBC (4.30-5.90) m/uL Hgb (13.0-17.5) gm/dL Hct (39.0-53.0) % Plt Count (150-450) k/uL Neutrophils # (1.3-7.7) k/uL Lymphocytes # (1.0-4.8) k/uL Monocytes # (0-1.0) k/uL Sodium (137-145) mmol/L BUN (9-20) mg/dL Creatinine (0.66-1.25) mg/dL Glucose (74-99) mg/dL POC Glucose (mg/dL) 178 H 179 H 180 H (75-99) mg/dL Calcium (8.4-10.2) mg/dL Total Creatine Kinase (55-170) U/L 11/19/18 11/19/18 11/19/18 Range/Units 06:49 06:49 06:55 RBC 3.49 L (4.30-5.90) m/uL Hgb 9.7 L (13.0-17.5) gm/dL Hct 30.1 L (39.0-53.0) % Plt Count 595 H (150-450) k/uL Neutrophils # (1.3-7.7) k/uL Lymphocytes # (1.0-4.8) k/uL Monocytes # (0-1.0) k/uL Sodium 136 L (137-145) mmol/L BUN (9-20) mg/dL Creatinine 0.36 L (0.66-1.25) mg/dL Glucose 139 H (74-99) mg/dL POC Glucose (mg/dL) 149 H (75-99) mg/dL Calcium (8.4-10.2) mg/dL Total Creatine Kinase (55-170) U/L Microbiology - Last 24 Hours (Table) 11/15/18 06:01 Blood Culture - Preliminary Blood No Growth after 96 hours 11/15/18 06:09 Blood Culture - Preliminary Blood No Growth after 96 hours 11/12/18 12:48 Blood Culture - Final Blood No Growth after 144 hours 11/14/18 06:26 Blood Culture - Preliminary Blood No Growth after 96 hours 11/14/18 13:14 Anaerobic Culture - Final Buttock 11/14/18 13:14 Anaerobic Culture - Final Buttock Assessment and Plan Assessment: Diabetes mellitus Hypertension History of STEMI with 5 stents. (1) Abscess, gluteal, left Current Visit: Yes Status: Acute Code(s): L02.31 - CUTANEOUS ABSCESS OF BUTTOCK SNOMED Code(s): 90788708 (2) Bacteremia due to Staphylococcus aureus Current Visit: Yes Status: Acute Code(s): R78.81 - BACTEREMIA SNOMED Code(s): 589950900 Plan: 1. Continue routine postoperative care and pain control. Weightbearing as tolerated. 2. Daily dressing changes to keep dressing clean and dry. 3. Continue IV antibiotics per infectious disease. Patient is awaiting IV antibiotics to be set up for home. 4. Cultures positive for staph aureus. 5. Will continue to follow closely during the patient's hospital stay. Recommend outpatient follow-up after discharge from the hospital.
[2018-11-19 11:39] LABS: Glucose,Whole Blood 224 mg/dL (75-99)
--- NOTE | 2018-11-20 09:47 | CDI ---
Documentation Clarification Form Date: 11/20/2018 9:31:55 AM From: Merly Rivera Phone: If you have a question, please contact Ellie Juarez, [employer] at [phone] -8am to 5pm. Admit Date: 11/09/2018 7:03:00 PM Patient Name: Santiago Jo Visit Number: [id number] Discharge Date: 11/19/2018 2:29:00 PM ATTENTION: The Clinical Documentation Specialists (CDI) and [facility] Coding Staff appreciate your assistance in clarifying documentation. Please respond to the clarification below the line at the bottom and electronically sign. The CDI & [facility] Coding staff will review the response and follow-up if needed. Please note: Queries are made part of the Legal Health Record. If you have any questions, please contact the author of this message via ITS. Dr. Heredia, The patient presented with MSSA abscess LT gluteal hip area with Staph in blood. ID-Pleitez- documents "Once bacteremia clears will then be able to have PICC line placed to complete his course of ABX therapy for his MSSA sepsis. Documentation of sepsis not carried through chart. Please clarify if patient had sepsis or was it ruled out. History/Risk Factors: abscess Clinical Indicators: Staph Aureus in blood WBC 10.5 Lactic acid: 2.4 Resolved with IVF hydration Blood cultures: +MSSA Vitals signs on admission: 97.5F 71 16 102/66 95% RA Treatment: PICC line for ABX IVF hydration ID Consult: ID documents sepsis Antibiotics:Vanco and Zosyn In your professional opinion, please clarify if these findings signify one of the following conditions, Sepsis ruled in Sepsis ruled out Other, please specify Unable to determine Sepsis ruled out as did not have 2 SIRS criteria MTDD
--- NOTE | 2018-11-25 23:34 | DS ---
DISCHARGE SUMMARY DATE OF ADMISSION: 11/09/2018 DATE OF DISCHARGE: 11/19/2018 FINAL DIAGNOSES: 1. Left hip gluteal abscess growing MSSA, status post I and D. 2. Diabetes mellitus type 2. 3. Essential hypertension. 4. Coronary artery disease with stent in June of 2018. 5. Chronic nicotine dependence patient is a cigarette smoker. 6. Benign prostatic hypertrophy. CONSULTATION: Dr. Zuniga from General surgery, Dr. Pleitez, infectious Disease; Dr. Min/Dr. Kam from Cardiology. HOSPITAL COURSE: This patient presented with pain and swelling of the left hip. The patient seen by Orthopedics, and the patient incision and drainage of the gluteal abscess was carried out of the left hip. The patient's cultures did grow including blood culture did grow MSSA. The patient also had a pelvis MRI that had shown a multilocular abscess involving the left pelvis. The patient was cleared by Dr. Zuniga and Dr. Pleitez for discharge with IV antibiotics through a PICC line. The patient was doing better. The patient also underwent a HENRI by Dr. Min and that is essentially unremarkable. The patient was earlier seen by Dr. Kam from Cardiology. Since there was a question of vegetation aortic valve, hence HENRI was carried out. PHYSICAL EXAMINATION: Temperature 98, pulse 70, respiration 16, blood pressure 120/73, pulse ox 96 on room air. Lungs are clear. Cardiovascular 1st 2nd sounds normal. Dressing over the left hip. INVESTIGATIONS: White count 7, hemoglobin 9.7, potassium 4.8, BUN 9, creatinine 036. DISCHARGE MEDICATIONS: 1. Metformin 1000 mg p.o. b.i.d. 2. Neurontin 300 mg p.o. t.i.d. p.r.n. 3. [place]ainbridge 10 1 tablet p.o. t.i.d. p.r.n. 4. Nitrostat 0.4 sublingual q.5 p.r.n. 5. Lipitor 40 mg q.h.s. 6. Aspirin 81 mg p.o. daily. 7. Plavix 75 mg p.o. daily. 8. Lopressor 50 mg p.o. b.i.d. 9. Norvasc 5 mg p.o. daily. 10.Zestril 20 mg p.o. daily. 11.Januvia 100 mg p.o. daily. 12.Ceftriaxone 2 grams IV piggyback q.24 for 28 while. 13.Flomax 0.4 mg p.o. daily. FOLLOWUP: Follow up with Dr. Min 12/04/2018; Dr. Shaji Pleitez on November 29, 2018, Dr. Shaji Jarvis on November 27, 2018; Dr. Zuniga on November 28, 2018. BMP, CBC. Wound care orders per Dr. Pleitez and Dr. Min. Copy to Dr. Jarvis. MMODL / IJN: [id number] /
== END 2018-11-19 14:29 | disposition home or self-care (01) | DRG 982 ==
LOC: EC 13:28 → 3SCARD 19:03 → 4SSUR 11-17 18:24
PROVIDERS: ADMIT Hospitalist; ATTEND Hospitalist
PROC: 0K9P3ZX Drainage of Left Hip Muscle, Percutaneous Approach, Diagnostic (ICD-10-PCS; 2018-11-10)
PROC: 0J9M00Z Drainage of Left Upper Leg Subcutaneous Tissue and Fascia with Drainage Device, Open Approach (ICD-10-PCS; 2018-11-14)
PROC: B246ZZ4 Ultrasonography of Right and Left Heart, Transesophageal (ICD-10-PCS; 2018-11-16)
PROC: 02HV33Z Insertion of Infusion Device into Superior Vena Cava, Percutaneous Approach (ICD-10-PCS; principal; 2018-11-16 07:30)
DX: L02.31 Cutaneous abscess of buttock (principal); E87.1 Hypo-osmolality and hyponatremia; E87.2 Acidosis; B95.61 Methicillin susceptible Staphylococcus aureus infection as the cause of diseases classified elsewhere; D64.9 Anemia, unspecified; E11.65 Type 2 diabetes mellitus with hyperglycemia; Z79.84 Long term (current) use of oral hypoglycemic drugs; E78.5 Hyperlipidemia, unspecified; G89.29 Other chronic pain; M54.5 Low back pain; F17.210 Nicotine dependence, cigarettes, uncomplicated; I10 Essential (primary) hypertension; I25.2 Old myocardial infarction; I25.10 Atherosclerotic heart disease of native coronary artery without angina pectoris; M41.9 Scoliosis, unspecified; M51.36 Other intervertebral disc degeneration, lumbar region; N40.0 Benign prostatic hyperplasia without lower urinary tract symptoms; N41.9 Inflammatory disease of prostate, unspecified; R79.1 Abnormal coagulation profile; W18.30XS Fall on same level, unspecified, sequela; Z91.81 History of falling; Z79.02 Long term (current) use of antithrombotics/antiplatelets; Z79.2 Long term (current) use of antibiotics; Z79.82 Long term (current) use of aspirin; Z79.899 Other long term (current) drug therapy; Z82.49 Family history of ischemic heart disease and other diseases of the circulatory system; Z95.5 Presence of coronary angioplasty implant and graft; Z96.641 Presence of right artificial hip joint; M16.12 Unilateral primary osteoarthritis, left hip; Z87.440 Personal history of urinary (tract) infections; R53.82 Chronic fatigue, unspecified; R74.0 Nonspecific elevation of levels of transaminase and lactic acid dehydrogenase [LDH]
CPT/HCPCS: 36415; 36573; 72158; 72193; 72197; 76705; 77012; 80048; 80053; 80074; 80202; 81001; 82550; 82553; 83036; 83605; 83735; 83880; 84100; 84484; 85025; 85027; 85379; 85610; 85652; 85730; 86140; 87040; 87070; 87075; 87077; 87086; 87186; 87205; 89050; 93306; 93312; 93320; 93325; 96361; 96365; 96366; 96375; 99285

== ENCOUNTER 2018-11-22 10:59 | Inpatient (IN) | payer OTHER ==
[2018-11-22 14:03] LABS: Basophils % (A) 1 %; Eosinophils # (A) 0.1 k/uL (0-0.7); Eosinophils % (A) 2 %; HCT 33.4 % (39.0-53.0); HGB 10.4 gm/dL (13.0-17.5); Lymphocytes # (A) 1.3 k/uL (1.0-4.8); Lymphocytes % (A) 24 %; MCH 27.8 pg (25.0-35.0); MCHC 31.2 g/dL (31.0-37.0); MCV 89.1 fL (80.0-100.0); Mean Platelet Volume 7.1; Monocytes # (A) 0.4 k/uL (0-1.0); Monocytes % (A) 7 %; Neutrophils # (A) 3.5 k/uL (1.3-7.7); Neutrophils % (A) 64 %; Platelet Count 556 k/uL (150-450); RBC 3.75 m/uL (4.30-5.90); RDW 14.8 % (11.5-15.5); WBC 5.5 k/uL (3.8-10.6)
[2018-11-22 14:20] LABS: INR 0.9 (<1.2); Partial Thromboplastin Time 27.6 sec (22.0-30.0); Prothrombin Time 10.1 sec (9.0-12.0)
[2018-11-22] MEDS ORDERED: SODIUM CHLORIDE 0.9% 1,000 ML IV STA (14:47)
--- NOTE | 2018-11-22 15:02 | ED ---
General Adult HPI <Geronimo Urrutia - Last Filed: 11/22/18 18:48> - General Source: patient, RN notes reviewed, old records reviewed Mode of arrival: ambulatory Limitations: no limitations <Tye Odonnell - Last Filed: 11/22/18 20:36> - General Chief complaint: Extremity Problem,Nontraumatic Stated complaint: leg swelling/infection Time Seen by Provider: 11/22/18 14:20 - History of Present Illness Initial comments: 58-year-old male patient presents to ED with pain in his left gluteal region for one day. Patient has a past medical history of a abscess in his left gluteal region and bacteremia for which he was admitted from 11/09/18 to 11/19/18. Patient had I&D and PICC line placed. Patient was discharged with daily ceftriaxone administered through his PICC line. Patient reports that he was well initially after discharge. However patient reports that today he experienced a moderate amount of pain in his left gluteal region where the abscess was. Patient reports that this pain is exacerbated by walking, denies any pain at rest. Patient also reports that he had nausea without emesis and a subjective fever earlier in the day. Patient denies any new discharge from the incision site however does report a mild amount of lower extremity swelling that she has experienced since the surgery. Patient denies any chest pain, shortness of breath or abdominal pain. Systemic: Pt denies fatigue, myalgia, fever/chills, rash. Pt denies weakness, night sweats, weight loss. Neuro: Pt denies headache, visual disturbances, syncope or pre-syncope. HEENT: Pt denies ocular discharge or irritation, otalgia, rhinorrhea, pharyngitis or notable lymphadenopathy. Cardiopulmonary: Pt denies chest pain, SOB, heart palpitations, dyspnea on exertion. Abdominal/GI: Pt denies abdominal pain, n/v/d. : Pt denies dysuria, burning w/ urination, frequency/urgency. Denies new onset urinary or bowel incontinence. MSK: Pt denies myalgia, loss of strength or function in extremities. Neuro: Pt denies new onset weakness, paresthesias. (Tye Odonnell) - Related Data Home Medications Medication Instructions Recorded Confirmed metFORMIN HCL [Glucophage] 1,000 mg PO BID 02/16/17 11/22/18 Gabapentin [Neurontin] 300 mg PO TID PRN 06/27/18 11/22/18 HYDROcodone/APAP 10-325MG [[place] 1 tab PO TID PRN 06/27/18 11/22/18 10-325] Nitroglycerin Sl Tabs [Nitrostat] 0.4 mg SUBLINGUAL Q5M PRN 06/27/18 11/22/18 Aspirin [Adult Low Dose Aspirin EC] 81 mg PO DAILY 10/31/18 11/22/18 Clopidogrel Bisulfate [Plavix] 75 mg PO DAILY 10/31/18 11/22/18 Lisinopril [Zestril] 20 mg PO DAILY 11/09/18 11/22/18 sitaGLIPtin [Januvia] 100 mg PO DAILY 11/09/18 11/22/18 Tamsulosin [Flomax] 0.4 mg PO DAILY 11/22/18 11/22/18 Previous Rx's Medication Instructions Recorded Atorvastatin [Lipitor] 40 mg PO HS #30 tab 06/30/18 Metoprolol Tartrate [Lopressor] 50 mg PO BID #60 tab 11/02/18 amLODIPine [Norvasc] 5 mg PO DAILY #30 tab 11/02/18 cefTRIAXone [Rocephin] 2,000 mg IVPB Q24HR #28 vial 11/17/18 Allergies Allergy/AdvReac Type Severity Reaction Status Date / Time No Known Allergies Allergy Verified 11/22/18 14:47 Review of Systems ROS Other: All systems not noted in ROS Statement are negative. <Geronimo Urrutia - Last Filed: 11/22/18 18:48> ROS Other: All systems not noted in ROS Statement are negative. <Tye Odonnell - Last Filed: 11/22/18 20:36> ROS Statement: Those systems with pertinent positive or pertinent negative responses have been documented in the HPI. Past Medical History Past Medical History: Diabetes Mellitus, Hypertension, Myocardial Infarction ([place]) Additional Past Medical History / Comment(s): Patient was a stemi in june 2018 got stents X 5 Last Myocardial Infarction Date:: 2017 History of Any Multi-Drug Resistant Organisms: None Reported Past Surgical History: Heart Catheterization, Heart Catheterization With Stent, Hernia Repair Additional Past Surgical History / Comment(s): 5 recent stents placed Past Anesthesia/Blood Transfusion Reactions: No Reported Reaction Date of Last Stent Placement:: 2018 Past Psychological History: No Psychological Hx Reported Smoking Status: Current every day smoker Past Alcohol Use History: Occasional Past Drug Use History: None Reported - Past Family History Mother Family Medical History: Cancer, Myocardial Infarction ([place]) Father Family Medical History: Myocardial Infarction ([place]) <Tye Odonnell - Last Filed: 11/22/18 20:36> General Exam Limitations: no limitations <Tye Odonnell - Last Filed: 11/22/18 20:36> - General Exam Comments Initial Comments: Constitutional: NAD, AOX3, Pt has pleasant affect. HEENT: NC/AT, trachea midline, neck supple, no lymphadenopathy. Posterior pharynx non erythematous, without exudates. External ears appear normal, without discharge. Mucous membranes moist. Eyes PERRLA, EOM intact. There is no scleral icterus. No pallor noted. Cardiopulmonary: RRR, no murmurs, rubs or gallops, no JVD noted. Lungs CTAB in anterior and posterior roche.+1 edema LLE. Abdominal exam: Abdomen soft and non-distended. Abdomen non-tender to palpation in all 4 quadrants. Bowel sounds active in LLQ. No hepatosplenomegaly. No ecchymosis Neuro: CN II-XII grossly intact. No nuchal rigidity. MSK: No posterior calf tenderness bilaterally, homans sign negative bilaterally. Posterior tibialis and radial pulse +2 bilaterally. Sensation intact in upper and lower extremities. Full active ROM in upper and lower extremities, 5/5 stregnth. Derm: LLE Incision site clean, dry, no erythema or warmth. No discharge. Mild amount of tenderness to palpation. (Tye Odonnell) Course <Geronimo Urrutia - Last Filed: 11/22/18 18:48> Vital Signs 11/22/18 11/22/18 11:06 16:37 Temperature 98 F 97.8 F Pulse Rate 85 70 Respiratory 22 18 Rate Blood Pressure 154/96 143/69 O2 Sat by Pulse 97 98 Oximetry - Reevaluation(s) Reevaluation #1: 11/22/18 17:29 Patient was reevaluated. Left hip does have mild swelling and tenderness. There is possibly a trace amount of erythema. CT report reviewed. Patient and family updated. Case was discussed in detail with Dr. Dubois was not familiar with this case and will discuss case with Dr. Zuniga and call back. 11/22/18 18:45 Case was again discussed with Dr. Dubois who does recommend medical admission and orthopedics will consult. 11/22/18 18:48 Case was also discussed with Dr. Lopez, who will admit for Dr. Jarvis. (Geronimo Urrutia) Medical Decision Making - Lab Data Result diagrams: 11/22/18 13:51 11/22/18 13:51 <Geronimo Urrutia - Last Filed: 11/22/18 18:48> - Lab Data Result diagrams: 11/22/18 13:51 11/22/18 13:51 <Tye Odonnell - Last Filed: 11/22/18 20:36> - Medical Decision Making 58-year-old male patient presents to ED with pain in his left gluteal region for one day. Patient has a past medical history of a abscess in his left gluteal region and bacteremia for which he was admitted from 11/09/18 to 11/19/18. Patient had I&D and PICC line placed. Patient was discharged with daily ceftriaxone administered through his PICC line. Patient reports that he was well initially after discharge. However patient reports that today he experienced a moderate amount of pain in his left gluteal region where the abscess was. Patient reports that this pain is exacerbated by walking, denies any pain at rest. Patient also reports that he had nausea without emesis and a subjective fever e arlier in the day. Patient denies any new discharge from the incision site however does report a mild amount of lower extremity swelling that she has experienced since the surgery. Patient denies any chest pain, shortness of breath or abdominal pain. Patient vital signs stable, afebrile. Physical exam displayed: LLE Incision site clean, dry, no erythema or warmth. No discharge. Mild amount of tenderness to palpation. CT of abdomen and pelvis and femur displayed recurrence of 2 abscesses as well as pulmonary nodule. Case discussed and patient seen by Dr. Urrutia. Pt to be admitted for further evaluation. Pt already administered home dose of ceftriaxone, 2g. Additionally began on vancomycin. Pt admitted with orthopedic and ID consult. (Tye Odonnell) - Lab Data Lab Results 11/22/18 11/22/18 11/22/18 Range/Units 13:51 13:51 13:51 WBC 5.5 (3.8-10.6) k/uL RBC 3.75 L (4.30-5.90) m/uL Hgb 10.4 L (13.0-17.5) gm/dL Hct 33.4 L (39.0-53.0) % MCV 89.1 (80.0-100.0) fL MCH 27.8 (25.0-35.0) pg MCHC 31.2 (31.0-37.0) g/dL RDW 14.8 (11.5-15.5) % Plt Count 556 H (150-450) k/uL Neutrophils % 64 % Lymphocytes % 24 % Monocytes % 7 % Eosinophils % 2 % Basophils % 1 % Neutrophils # 3.5 (1.3-7.7) k/uL Lymphocytes # 1.3 (1.0-4.8) k/uL Monocytes # 0.4 (0-1.0) k/uL Eosinophils # 0.1 (0-0.7) k/uL Basophils # 0.0 (0-0.2) k/uL PT 10.1 (9.0-12.0) sec INR 0.9 (<1.2) APTT 27.6 (22.0-30.0) sec Sodium 136 L (137-145) mmol/L Potassium 4.3 (3.5-5.1) mmol/L Chloride 99 (98-107) mmol/L Carbon Dioxide 30 (22-30) mmol/L Anion Gap 7 mmol/L BUN 13 (9-20) mg/dL Creatinine 0.38 L (0.66-1.25) mg/dL Est GFR (CKD-EPI)AfAm >90 (>60 ml/min/1.73 sqM) Est GFR (CKD-EPI)NonAf >90 (>60 ml/min/1.73 sqM) Glucose 223 H (74-99) mg/dL Lactic Ac Sepsis Rflx Plasma Lactic Acid Timothy (0.7-2.0) mmol/L Calcium 9.2 (8.4-10.2) mg/dL Total Bilirubin 0.4 (0.2-1.3) mg/dL AST 100 H (17-59) U/L ALT 34 (21-72) U/L Alkaline Phosphatase 72 (38-126) U/L Total Protein 7.6 (6.3-8.2) g/dL Albumin 3.4 L (3.5-5.0) g/dL Lipase (23-300) U/L Urine Color Urine Appearance (Clear) Urine pH (5.0-8.0) Ur Specific Sidney (1.001-1.035) Urine Protein (Negative) Urine Glucose (UA) (Negative) Urine Ketones (Negative) Urine Blood (Negative) Urine Nitrite (Negative) Urine Bilirubin (Negative) Urine Urobilinogen (<2.0) mg/dL Ur Leukocyte Esterase (Negative) 11/22/18 11/22/18 11/22/18 Range/Units 13:51 15:00 15:24 WBC (3.8-10.6) k/uL RBC (4.30-5.90) m/uL Hgb (13.0-17.5) gm/dL Hct (39.0-53.0) % MCV (80.0-100.0) fL MCH (25.0-35.0) pg MCHC (31.0-37.0) g/dL RDW (11.5-15.5) % Plt Count (150-450) k/uL Neutrophils % % Lymphocytes % % Monocytes % % Eosinophils % % Basophils % % Neutrophils # (1.3-7.7) k/uL Lymphocytes # (1.0-4.8) k/uL Monocytes # (0-1.0) k/uL Eosinophils # (0-0.7) k/uL Basophils # (0-0.2) k/uL PT (9.0-12.0) sec INR (<1.2) APTT (22.0-30.0) sec Sodium (137-145) mmol/L Potassium (3.5-5.1) mmol/L Chloride (98-107) mmol/L Carbon Dioxide (22-30) mmol/L Anion Gap mmol/L BUN (9-20) mg/dL Creatinine (0.66-1.25) mg/dL Est GFR (CKD-EPI)AfAm (>60 ml/min/1.73 sqM) Est GFR (CKD-EPI)NonAf (>60 ml/min/1.73 sqM) Glucose (74-99) mg/dL Lactic Ac Sepsis Rflx Y Plasma Lactic Acid Timothy 2.1 H* (0.7-2.0) mmol/L Calcium (8.4-10.2) mg/dL Total Bilirubin (0.2-1.3) mg/dL AST (17-59) U/L ALT (21-72) U/L Alkaline Phosphatase (38-126) U/L Total Protein (6.3-8.2) g/dL Albumin (3.5-5.0) g/dL Lipase 20 L (23-300) U/L Urine Color Urine Appearance (Clear) Urine pH (5.0-8.0) Ur Specific [place] (1.001-1.035) Urine Protein (Negative) Urine Glucose (UA) (Negative) Urine Ketones (Negative) Urine Blood (Negative) Urine Nitrite (Negative) Urine Bilirubin (Negative) Urine Urobilinogen (<2.0) mg/dL Ur Leukocyte Esterase (Negative) 11/22/18 Range/Units 16:35 WBC (3.8-10.6) k/uL RBC (4.30-5.90) m/uL Hgb (13.0-17.5) gm/dL Hct (39.0-53.0) % MCV (80.0-100.0) fL MCH (25.0-35.0) pg MCHC (31.0-37.0) g/dL RDW (11.5-15.5) % Plt Count (150-450) k/uL Neutrophils % % Lymphocytes % % Monocytes % % Eosinophils % % Basophils % % Neutrophils # (1.3-7.7) k/uL Lymphocytes # (1.0-4.8) k/uL Monocytes # (0-1.0) k/uL Eosinophils # (0-0.7) k/uL Basophils # (0-0.2) k/uL PT (9.0-12.0) sec INR (<1.2) APTT (22.0-30.0) sec Sodium (137-145) mmol/L Potassium (3.5-5.1) mmol/L Chloride (98-107) mmol/L Carbon Dioxide (22-30) mmol/L Anion Gap mmol/L BUN (9-20) mg/dL Creatinine (0.66-1.25) mg/dL Est GFR (CKD-EPI)AfAm (>60 ml/min/1.73 sqM) Est GFR (CKD-EPI)NonAf (>60 ml/min/1.73 sqM) Glucose (74-99) mg/dL Lactic Ac Sepsis Rflx Plasma Lactic Acid Timothy (0.7-2.0) mmol/L Calcium (8.4-10.2) mg/dL Total Bilirubin (0.2-1.3) mg/dL AST (17-59) U/L ALT (21-72) U/L Alkaline Phosphatase (38-126) U/L Total Protein (6.3-8.2) g/dL Albumin (3.5-5.0) g/dL Lipase (23-300) U/L Urine Color Yellow Urine Appearance Clear (Clear) Urine pH 5.5 (5.0-8.0) Ur Specific Sidney 1.034 (1.001-1.035) Urine Protein Negative (Negative) Urine Glucose (UA) Negative (Negative) Urine Ketones Negative (Negative) Urine Blood Negative (Negative) Urine Nitrite Negative (Negative) Urine Bilirubin Negative (Negative) Urine Urobilinogen <2.0 (<2.0) mg/dL Ur Leukocyte Esterase Negative (Negative) Disposition <Geronimo Urrutia - Last Filed: 11/22/18 18:48> Is patient prescribed a controlled substance at d/c from ED?: No <Tye Odonnell - Last Filed: 11/22/18 20:36> Clinical Impression: Abscess Disposition: ADMITTED IP TO THIS HOSP Condition: Serious
[2018-11-22 15:09] LABS: ALT 34 U/L (21-72); AST 100 U/L (17-59); Albumin 3.4 g/dL (3.5-5.0); Alkaline Phosphatase 72 U/L (38-126); Anion Gap 7 mmol/L; Blood Urea Nitrogen 13 mg/dL (9-20); Calcium 9.2 mg/dL (8.4-10.2); Carbon Dioxide 30 mmol/L (22-30); Chloride 99 mmol/L (98-107); Glucose 223 mg/dL (74-99); Potassium 4.3 mmol/L (3.5-5.1); Sodium 136 mmol/L (137-145); Total Bilirubin 0.4 mg/dL (0.2-1.3); Total Protein 7.6 g/dL (6.3-8.2)
--- NOTE | 2018-11-22 16:01 | CT ---
EXAMINATION TYPE: CT femur LT w con DATE OF EXAM: 11/22/2018 COMPARISON: 11/22/2018 CT abdomen pelvis HISTORY: Left leg pain and known infection, undergoing treatment. CT DLP: 1224.8 mGycm Automated exposure control for dose reduction was used. CONTRAST: Performed with IV Contrast, patient injected with 100 mL of Isovue 300. FINDINGS: This portion the examination concentrates on the left femur. The femoral head articulates with the ac etabulum. There is narrowing of the joint space compatible with moderate osteoarthritic degenerative change. No acute fractures evident. Some spurring is evident. Cortical margin appears preserved. The knee joint space is normal. No joint effusion is evident adjacent to the knee. Muscular signal within the mid and distal thigh is normal. There is superficial soft tissue inflammatory changes. Surgical skin rianna are present laterally. U nder the surgical skin rianna there is a collection with multiple small air pockets present compatib le with small infection in the axial plane measuring 4.2 x 2.2 cm. In the coronal plane this appears to extend 10.6 cm. There is a pocket of low-density with a small amount of free air deep to the greater trochanter and f emoral neck and deep to the gluteus muscle suspicious for an abscess. This has an estimated size of 8 .3 x 2.9 x 11.6 cm. This may be better visualized and also evident on the CT abdomen study. IMPRESSION: 1. POSTERIOR LEFT HIP ABSCESS APPEARS EXTERNAL TO THE CAPSULE BUT DEEP TO THE GLUTEAL MUSCULATURE ME ASURING 8.3 X 2.9 X 11.6 CM. 2. A MORE SUPERFICIAL COLLECTION UNDER THE SURGICAL CLIPS MEASURES 4.2 X 2.2 x 10.6 CM
--- NOTE | 2018-11-22 16:07 | CT ---
EXAMINATION TYPE: CT abdomen pelvis w con DATE OF EXAM: 11/22/2018 COMPARISON: Prior MRI pelvis 11/13/[address] 02/27/2017 HISTORY: No abdominal pelvic complaints at time of exam CT DLP: 1224.8 mGycm Automated exposure control for dose reduction was used. TECHNIQUE: Helical acquisition of images from the lung bases through the pelvis have been completed. CONTRAST: Performed without Oral Contrast and with IV Contrast, patient injected with 100 mL of Isovue 300. FINDINGS: Sizable gluteal abscess is again noted posterior to the proximal left femur. There is fluid present in the subcutaneous location with associated air just deep to the patient's surgical rianna as seen on prior exam. Air pockets also present in the gluteal region, the fluid collection measures approximately 9.8 x 2.5 x 12 cm. Additional pocket extends more superiorly posterior to the left lynsey um as described on MRI report and shows associated air pockets, smaller collection just posterior to the ileum on axial image 55 is also present which is also noted on prior MRI. The abnormal collection extending into the pelvis are somewhat less well-defined. Crescentic fluid collection with air pocke ts is also present laterally within the musculature axial image 70 as on prior MRI. Small hiatal hernia suspected. LUNG BASES: There is been interval development of subpleural lung nodules bilaterally the lung bases. Largest nodule seen posterior laterally on the left measures 15 mm in size, small nodule in the righ t measures only 6 mm and on axial image 13 left lower lobe nodule medially measures 11 mm. No pleural or pericardial effusion. AORTA: No significant abnormality is appreciated. LIVER/GB: No significant abnormality is appreciated. PANCREAS: No significant abnormality is seen. SPLEEN: No significant abnormality is seen. ADRENALS: No significant abnormality is seen. KIDNEYS: No significant abnormality is seen. REPRODUCTIVE ORGANS: Prostate is enlarged and shows associated calcifications. BOWEL: Diverticular changes associated with the sigmoid colon. The appendix shows no inflammatory ch mahesh FREE AIR: No Free Air visible. ASCITES: None visible. PELVIC ADENOPATHY: None visualized. RETROPERITONEAL ADENOPATHY: No Retroperitoneal Adenopathy visible. URINARY BLADDER: No significant abnormality is seen. OSSEOUS STRUCTURES: stable. IMPRESSION: INDETERMINATE LOWER LOBE PULMONARY NODULES COULD BE INDICATIVE OF METASTATIC DISEASE. MULTIPLE ABSCES SES INVOLVING THE LEFT PELVIS SIMILAR TO PRIOR MRI.
[2018-11-22] MEDS ORDERED: VANCOMYCIN IV PER PHARMACY 1 EACH MISC MISCELLANE PRN (16:43)
[2018-11-22 16:51] LABS: Appearance,Urine Clear (Clear); Bilirubin,Urine Negative (Negative); Blood,Urine Negative (Negative); Color,Urine Yellow; Glucose,Urine (UA) Negative (Negative); Ketones,Urine Negative (Negative); Leukocyte Esterase,Urine Negative (Negative); Nitrite,Urine Negative (Negative); PH, Urine 5.5 (5.0-8.0); Protein,Urine Negative (Negative); Specific Gravity,Urine 1.034 (1.001-1.035); Urobilinogen,Urine <2.0 mg/dL (<2.0)
[2018-11-22] MEDS ORDERED: VANCOMYCIN 1,500 MG in SODIUM CHLORIDE 0.9% 250 ML IVPB STA (16:56)
[2018-11-22] MEDS ORDERED: NALOXONE 0.4 MG/ML 1 ML VIAL IV PRN (18:56)
[2018-11-22] MEDS: SODIUM CHLORIDE 0.9% 1,000 ML IV SCH (22:14)
[2018-11-22] MEDS: MORPHINE SULFATE 2 MG/ML SYRINGE IVP PRN (22:14)
[2018-11-23] MEDS: VANCOMYCIN 1,500 MG in SODIUM CHLORIDE 0.9% 250 ML IVPB SCH ×4 (00:15→23:45)
[2018-11-23] MEDS: ceFAZolin IN SWFI 2 GM/20 ML SYRINGE IVP SCH ×4 (00:16→22:18)
--- NOTE | 2018-11-23 00:46 | P.CONS ---
History of Present Illness - Reason for Consult Consult date: 11/22/18 - Chief Complaint Increasing difficulty with ambulation - History of Present Illness 58-year-old male with a history of recent hospitalization where he had uncontrolled hypertension, with alteration of his medications and cardiology intervention he had some improvement in was feeling somewhat better. He however several days ago suffered a fall. He denies loss of consciousness but likely was presyncopal ,he does not believe he had much injury but is now had progressive discomfort over the left buttocks and left hip area. He has a history of some chronic lower back pain which itself is not markedly worsened but has had increasing difficulties with day-to-day living because of increasing pain. He was seen by his primary care physician and advised for admission as of his changes of his status. Patient has a known history of diabetes mellitus type 2 also. Because of the pain at the site the patient imaging studies which failed to reveal evidence of fracture. However there was evidence of some phlegmon. Site was aspirated as well as a blood culture obtained both of which showed evidence of staph aureus. The patient eventually was taken to the operating room and had an extensive incision and drainage performed to the site. He was improved. He was up moving about and was discharged home on intravenous antibiotic therapy with Rocephin at the office. The patient noted the day before starting have some increasing difficulty with ambulation. And on the day of admission he again was having great increasing difficulty with pain and ambulation. Consequently presents to the emergency center for further evaluation. At the time of evaluation the patient relates that his fevers improved. His pain has improved since coming in receiving some medication. He is most comfortable. There is no significant drainage that can be seen at the suture line. Review of Systems 58-year-old male modestly comfortable who now has the increasing difficulty with ambulation HEENT:Denies headache or acute visual change. Denies sinus or mouth discomf orts. Denies neck stiffness or pain. Denies significant oral cavity pain. Denies difficulty on swallowing. Lungs: Denies significant shortness of breath, cough, sputum production, or hemoptysis. Cardiovascular: Denies significant shortness of breath, chest pain, chest wall pain, orthopnea, dyspnea on exertion, syncope Gastrointestinal:Denies nausea, vomiting, diarrhea, constipation, hematemesis, melena, hematochezia. No no significant change of bowel habit noticed. Musculoskeletal: denies significant myalgias or arthralgias. No new joint swelling. Denies new back pain. Skin: Denies new rash or lesions. No new ulcers or wounds are related.. Neuro: Denies headache or further episodes of fall he has had some difficulties with his gait he has a prior right total hip arthroplasty and chronic back pain Psychiatric:Denies anxiety or depression. Endocrine: Chronic fatigue weight is stable Past Medical History Past Medical History: Diabetes Mellitus, Hypertension, Myocardial Infarction ([place]) Additional Past Medical History / Comment(s): Patient was a stemi in june 2018 got stents X 5 Last Myocardial Infarction Date:: 2017 History of Any Multi-Drug Resistant Organisms: None Reported Past Surgical History: Heart Catheterization, Heart Catheterization With Stent, Hernia Repair Additional Past Surgical History / Comment(s): 5 recent stents placed Past Anesthesia/Blood Transfusion Reactions: No Reported Reaction Date of Last Stent Placement:: 2017 Past Psychological History: No Psychological Hx Reported Smoking Status: Current every day smoker Past Alcohol Use History: Occasional Past Drug Use History: None Reported - Past Family History Mother Family Medical History: Cancer, Myocardial Infarction ([place]) Father Family Medical History: Myocardial Infarction ([place]) Medications and Allergies Home Medications and Allergies Comment(s): Current Medications Cefazolin Sodium (Kefzol) 2 gm IVP Q8HR [facility] Last Admin: 11/23/18 00:16 Dose: 2 gm Documented by: Vancomycin HCl 1,500 mg/ (Sodium Chloride) 250 mls @ 125 mls/hr IVPB Q8HR [facility] Last Admin: 11/23/18 00:15 Dose: 125 mls/hr Documented by: Sodium Chloride (Saline 0.9%) 1,000 mls @ 70 mls/hr IV .[id number] [facility] Last Admin: 11/22/18 22:14 Dose: 70 mls/hr Documented by: Morphine Sulfate (Morphine Sulfate (Inj)) 2 mg IVP Q6H PRN PRN Reason: Pain/Discomfort Last Admin: 11/22/18 22:14 Dose: 2 mg Documented by: Naloxone HCl (Narcan) 0.2 mg IV Q2M PRN PRN Reason: Opioid Reversal Home Medications Medication Instructions Recorded Confirmed Type metFORMIN HCL [Glucophage] 1,000 mg PO BID 02/16/17 11/22/18 History Gabapentin [Neurontin] 300 mg PO TID PRN 06/27/18 11/22/18 History HYDROcodone/APAP 10-325MG [[place] 1 tab PO TID PRN 06/27/18 11/22/18 History 10-325] Nitroglycerin Sl Tabs [Nitrostat] 0.4 mg SUBLINGUAL Q5M PRN 06/27/18 11/22/18 History Atorvastatin [Lipitor] 40 mg PO HS #30 tab 06/30/18 11/22/18 Rx Aspirin [Adult Low Dose Aspirin EC] 81 mg PO DAILY 10/31/18 11/22/18 History Clopidogrel Bisulfate [Plavix] 75 mg PO DAILY 10/31/18 11/22/18 History Metoprolol Tartrate [Lopressor] 50 mg PO BID #60 tab 11/02/18 11/22/18 Rx amLODIPine [Norvasc] 5 mg PO DAILY #30 tab 11/02/18 11/22/18 Rx Lisinopril [Zestril] 20 mg PO DAILY 11/09/18 11/22/18 History sitaGLIPtin [Januvia] 100 mg PO DAILY 11/09/18 11/22/18 History cefTRIAXone [Rocephin] 2,000 mg IVPB Q24HR #28 vial 11/17/18 11/22/18 Rx Tamsulosin [Flomax] 0.4 mg PO DAILY 11/22/18 11/22/18 History Allergies Allergy/AdvReac Type Severity Reaction Status Date / Time No Known Allergies Allergy Verified 11/22/18 14:47 Physical Exam Vitals: Vital Signs Temp Pulse Pulse Resp BP BP Pulse Ox 11/22/18 23:58 97.8 F 83 16 161/78 97 11/22/18 22:04 84 18 147/81 97 11/22/18 16:37 97.8 F 70 18 143/69 98 11/22/18 11:06 98 F 85 22 154/96 97 Intake and Output 11/22/18 11/22/18 11/23/18 14:59 22:59 06:59 Other: Weight 88.451 kg 58-year-old male mildly overweight not in distress HEENT: Anicteric conjunctiva are pink and moist nasal mucosa grossly intact without significant lesions, there is no thrush. Neck: The neck is supple without significant lymphadenopathy or thyromegaly. Lungs: Good bilateral air entry without significant crackles or wheezing. There is no significant bronchial sounds. There is no egophony or dullness. Heart: Regular rate and rhythm with an audible S1-S2, no S3 no S4. There is no significant murmur click or rub, PMI was nondisplaced. Abdomen: Positive bowel sounds soft and nontender without palpable masses or organomegaly. There was no guarding or rebound. Extremities: The upper extremities have excellent pulses they are symmetric, no significant petechiae or telangiectasia. No splinter hemorrhages were noted. The right total hip arthroplasty site is well-healed without tenderness or erythema. The left buttocks and hip are evaluated. The surgical incision is intact. Valent[place] are in place. There is some minimal erythema. There is distinct tenderness over the site. There does seem to be some fluctuance still. The patient does have difficulty with ambulation because of discomfort. Neuro: Awake alert oriented to person place and time. There are no acute new gross focal sensory motor deficits. The patient is somewhat vague though as a historian Results CBC & Chem 7: 11/22/18 13:51 11/22/18 13:51 Labs: Abnormal Lab Results - Last 24 Hours (Table) 11/22/18 11/22/18 11/22/18 Range/Units 13:51 13:51 13:51 RBC 3.75 L (4.30-5.90) m/uL Hgb 10.4 L (13.0-17.5) gm/dL Hct 33.4 L (39.0-53.0) % Plt Count 556 H (150-450) k/uL Sodium 136 L (137-145) mmol/L Creatinine 0.38 L (0.66-1.25) mg/dL Glucose 223 H (74-99) mg/dL Plasma Lactic Acid Timothy (0.7-2.0) mmol/L AST 100 H (17-59) U/L Albumin 3.4 L (3.5-5.0) g/dL Lipase 20 L (23-300) U/L 11/22/18 Range/Units 15:00 RBC (4.30-5.90) m/uL Hgb (13.0-17.5) gm/dL Hct (39.0-53.0) % Plt Count (150-450) k/uL Sodium (137-145) mmol/L Creatinine (0.66-1.25) mg/dL Glucose (74-99) mg/dL Plasma Lactic Acid Timothy 2.1 H* (0.7-2.0) mmol/L AST (17-59) U/L Albumin (3.5-5.0) g/dL Lipase (23-300) U/L Laboratory Results WBC 5.5 k/uL (3.8-10.6) 11/22/18 13:51 RBC 3.75 m/uL (4.30-5.90) L 11/22/18 13:51 Hgb 10.4 gm/dL (13.0-17.5) L 11/22/18 13:51 Hct 33.4 % (39.0-53.0) L 11/22/18 13:51 MCV 89.1 fL (80.0-100.0) 11/22/18 13:51 MCH 27.8 pg (25.0-35.0) 11/22/18 13:51 MCHC 31.2 g/dL (31.0-37.0) 11/22/18 13:51 RDW 14.8 % (11.5-15.5) 11/22/18 13:51 Plt Count 556 k/uL (150-450) H 11/22/18 13:51 Neutrophils % 64 % 11/22/18 13:51 Lymphocytes % 24 % 11/22/18 13:51 Monocytes % 7 % 11/22/18 13:51 Eosinophils % 2 % 11/22/18 13:51 Basophils % 1 % 11/22/18 13:51 Neutrophils # 3.5 k/uL (1.3-7.7) 11/22/18 13:51 Lymphocytes # 1.3 k/uL (1.0-4.8) 11/22/18 13:51 Monocytes # 0.4 k/uL (0-1.0) 11/22/18 13:51 Eosinophils # 0.1 k/uL (0-0.7) 11/22/18 13:51 Basophils # 0.0 k/uL (0-0.2) 11/22/18 13:51 PT 10.1 sec (9.0-12.0) 11/22/18 13:51 INR 0.9 (<1.2) 11/22/18 13:51 APTT 27.6 sec (22.0-30.0) 11/22/18 13:51 Sodium 136 mmol/L (137-145) L 11/22/18 13:51 Potassium 4.3 mmol/L (3.5-5.1) 11/22/18 13:51 Chloride 99 mmol/L (98-107) 11/22/18 13:51 Carbon Dioxide 30 mmol/L (22-30) 11/22/18 13:51 Anion Gap 7 mmol/L 11/22/18 13:51 BUN 13 mg/dL (9-20) 11/22/18 13:51 Creatinine 0.38 mg/dL (0.66-1.25) L 11/22/18 13:51 Est GFR (CKD-EPI)AfAm >90 (>60 ml/min/1.73 sqM) 11/22/18 13:51 Est GFR (CKD-EPI)NonAf >90 (>60 ml/min/1.73 sqM) 11/22/18 13:51 Glucose 223 mg/dL (74-99) H 11/22/18 13:51 Lactic Ac Sepsis Rflx Y 11/22/18 15:24 Plasma Lactic Acid Timothy 1.3 mmol/L (0.7-2.0) 11/22/18 19:04 Calcium 9.2 mg/dL (8.4-10.2) 11/22/18 13:51 Total Bilirubin 0.4 mg/dL (0.2-1.3) 11/22/18 13:51 AST 100 U/L (17-59) H 11/22/18 13:51 ALT 34 U/L (21-72) 11/22/18 13:51 Alkaline Phosphatase 72 U/L (38-126) 11/22/18 13:51 Total Protein 7.6 g/dL (6.3-8.2) 11/22/18 13:51 Albumin 3.4 g/dL (3.5-5.0) L 11/22/18 13:51 Lipase 20 U/L (23-300) L 11/22/18 13:51 Urine Color Yellow 11/22/18 16:35 Urine Appearance Clear (Clear) 11/22/18 16:35 Urine pH 5.5 (5.0-8.0) 11/22/18 16:35 Ur Specific [place] 1.034 (1.001-1.035) 11/22/18 16:35 Urine Protein Negative (Negative) 11/22/18 16:35 Urine Glucose (UA) Negative (Negative) 11/22/18 16:35 Urine Ketones Negative (Negative) 11/22/18 16:35 Urine Blood Negative (Negative) 11/22/18 16:35 Urine Nitrite Negative (Negative) 11/22/18 16:35 Urine Bilirubin Negative (Negative) 11/22/18 16:35 Urine Urobilinogen <2.0 mg/dL (<2.0) 11/22/18 16:35 Ur Leukocyte Esterase Negative (Negative) 11/22/18 16:35 Assessment and Plan (1) Abscess, gluteal, left Current Visit: No Status: Acute Code(s): L02.31 - CUTANEOUS ABSCESS OF BUTTOCK SNOMED Code(s): 83799272 (2) Bacteremia due to Staphylococcus aureus Narrative/Plan: 58-year-old male presents to the emergency center with the relatively sudden worsening of his status. So from hospital a few days after the abscess of the developed of the left hip area, he had incision and drainage and has been on intravenous antibiotic therapy for the bacteremic abscess from the left hip. He had increasing difficulties with ambulation which worsened over a days. Time in counseling presented to the emergency center. Repeat imaging studies reveal evidence of ongoing fluid accumulation in the left hip area. Orthopedic surgery consult has been requested and infectious disease for antibiotic therapy. Vancomycin was initiated at this point in time pending further culture results and Ancef 2 g every 8 hours is initiated also. Pain control seems to be adequate. Dietary to help ensure is adequate protein intake to help the healing. Await orthopedic intervention as far as likely repeated surgical incision and drainage for this complex abscess. Current Visit: No Status: Acute Code(s): R78.81 - BACTEREMIA SNOMED Code(s): 595833549
[2018-11-23 01:25] VITALS: BMI 29.6
[2018-11-23] MEDS: SODIUM CHLORIDE 0.9% 1,000 ML IV SCH (05:09)
[2018-11-23] MEDS: MORPHINE SULFATE 2 MG/ML SYRINGE IVP PRN ×2 (05:09→11:17)
[2018-11-23 06:50] LABS: Glucose,Whole Blood 166 mg/dL (75-99)
[2018-11-23 08:12] LABS: Basophils % (A) 0 %; Eosinophils # (A) 0.1 k/uL (0-0.7); Eosinophils % (A) 3 %; HCT 31.5 % (39.0-53.0); Lymphocytes % (A) 20 %; MCH 28.1 pg (25.0-35.0); MCHC 31.7 g/dL (31.0-37.0); MCV 88.7 fL (80.0-100.0); Mean Platelet Volume 6.3; Monocytes # (A) 0.4 k/uL (0-1.0); Monocytes % (A) 7 %; Neutrophils # (A) 3.5 k/uL (1.3-7.7); Neutrophils % (A) 68 %; Platelet Count 541 k/uL (150-450); RBC 3.55 m/uL (4.30-5.90); RDW 14.7 % (11.5-15.5); WBC 5.2 k/uL (3.8-10.6)
[2018-11-23 08:22] LABS: Anion Gap 8 mmol/L; Blood Urea Nitrogen 7 mg/dL (9-20); C Reactive Protein 33.4 mg/L (<10.0); Calcium 9.2 mg/dL (8.4-10.2); Carbon Dioxide 28 mmol/L (22-30); Chloride 103 mmol/L (98-107); Glucose 160 mg/dL (74-99); Potassium 4.4 mmol/L (3.5-5.1); Sodium 139 mmol/L (137-145)
--- NOTE | 2018-11-23 09:06 | P.CNOR ---
<Alfreda Rojas - Last Filed: 11/23/18 10:10> History of Present Illness - HPI Consult date: 11/23/18 Consult reason: other (Recurrent left gluteal abscess) History of present illness: The patient is a 58-year-old male who is known to our practice. He underwent a left gluteal abscess I&D on 11/14/[address] Jun Zuniga. He subsequently went home with a PICC line and IV antibiotics and follow-up Dr. Pleitez. The patient has received 2 doses of Rocephin in Dr[address] Pleitez's office. He was feeling well until 2 days ago when he noticed increase pain with ambulation. He denies fever, chills, rigors, significant drainage, or redness to the incision site. The patient was admitted for further evaluation and orthopedics was consulted for possible repeat I&D. Review of Systems Constitutional: Denies chills, Denies fatigue, Denies fever Cardiovascular: Denies chest pain, Denies shortness of breath Respiratory: Denies cough Gastrointestinal: Denies diarrhea, Denies nausea, Denies vomiting Musculoskeletal: left: hip pain, hip stiffness, hip swelling Past Medical History Past Medical History: Diabetes Mellitus, Hypertension, Myocardial Infarction ([place]) Additional Past Medical History / Comment(s): Patient was a stemi in june 2018 got stents X 5 Last Myocardial Infarction Date:: 2017 History of Any Multi-Drug Resistant Organisms: None Reported Past Surgical History: Heart Catheterization, Heart Catheterization With Stent, Hernia Repair Additional Past Surgical History / Comment(s): 5 recent stents placed Past Anesthesia/Blood Transfusion Reactions: No Reported Reaction Date of Last Stent Placement:: 2017 Past Psychological History: No Psychological Hx Reported Additional Psychological History / Comment(s): . Medically retired. Positive tobacco use. Not related to be a current alcohol user and no recreati onal drug use at this time. No animals in the home Smoking Status: Current every day smoker Past Alcohol Use History: Occasional Additional Past Alcohol Use History / Comment(s): 1ppd for on & off since 1971, quit for approx 13 years and restarted approx 3 years ago. Past Drug Use History: None Reported - Past Family History Mother Family Medical History: Cancer, Myocardial Infarction ([place]) Father Family Medical History: Myocardial Infarction ([place]) Medications and Allergies Home Medications Medication Instructions Recorded Confirmed Type metFORMIN HCL [Glucophage] 1,000 mg PO BID 02/16/17 11/22/18 History Gabapentin [Neurontin] 300 mg PO TID PRN 06/27/18 11/22/18 History HYDROcodone/APAP 10-325MG [[place] 1 tab PO TID PRN 06/27/18 11/22/18 History 10-325] Nitroglycerin Sl Tabs [Nitrostat] 0.4 mg SUBLINGUAL Q5M PRN 06/27/18 11/22/18 History Atorvastatin [Lipitor] 40 mg PO HS #30 tab 06/30/18 11/22/18 Rx Aspirin [Adult Low Dose Aspirin EC] 81 mg PO DAILY 10/31/18 11/22/18 History Clopidogrel Bisulfate [Plavix] 75 mg PO DAILY 10/31/18 11/22/18 History Metoprolol Tartrate [Lopressor] 50 mg PO BID #60 tab 11/02/18 11/22/18 Rx amLODIPine [Norvasc] 5 mg PO DAILY #30 tab 11/02/18 11/22/18 Rx Lisinopril [Zestril] 20 mg PO DAILY 11/09/18 11/22/18 History sitaGLIPtin [Januvia] 100 mg PO DAILY 11/09/18 11/22/18 History cefTRIAXone [Rocephin] 2,000 mg IVPB Q24HR #28 vial 11/17/18 11/22/18 Rx Tamsulosin [Flomax] 0.4 mg PO DAILY 11/22/18 11/22/18 History Allergies Allergy/AdvReac Type Severity Reaction Status Date / Time No Known Allergies Allergy Verified 11/22/18 14:47 Physical Examination The patient is a 58-year-old male who is in no acute distress. He is alert and oriented 3. Exam of the left hip reveals a healing incision site. [place] are in place. There is minimal erythema and no active drainage at this time. There is distinct tenderness over the posterior hip. There is slight fluctuance noted. Neurological and circulatory status is intact. Results CT of the left femur dated 11/22/2018 reveals a posterior left hip abscess appears external to the capsule but deep to the gluteal musculature measuring 8.3 x 2.9 x 11.6 cm. More superficial collection under the surgical clips - Labs Labs: Abnormal Lab Results - Last 24 Hours (Table) 11/22/18 11/22/18 11/22/18 Range/Units 13:51 13:51 13:51 RBC 3.75 L (4.30-5.90) m/uL Hgb 10.4 L (13.0-17.5) gm/dL Hct 33.4 L (39.0-53.0) % Plt Count 556 H (150-450) k/uL Sodium 136 L (137-145) mmol/L BUN (9-20) mg/dL Creatinine 0.38 L (0.66-1.25) mg/dL Glucose 223 H (74-99) mg/dL POC Glucose (mg/dL) (75-99) mg/dL Plasma Lactic Acid Timtohy (0.7-2.0) mmol/L AST 100 H (17-59) U/L C-Reactive Protein (<10.0) mg/L Albumin 3.4 L (3.5-5.0) g/dL Lipase 20 L (23-300) U/L 11/22/18 11/23/18 11/23/18 Range/Units 15:00 06:46 07:31 RBC (4.30-5.90) m/uL Hgb (13.0-17.5) gm/dL Hct (39.0-53.0) % Plt Count (150-450) k/uL Sodium (137-145) mmol/L BUN 7 L (9-20) mg/dL Creatinine 0.38 L (0.66-1.25) mg/dL Glucose 160 H (74-99) mg/dL POC Glucose (mg/dL) 166 H (75-99) mg/dL Plasma Lactic Acid Timothy 2.1 H* (0.7-2.0) mmol/L AST (17-59) U/L C-Reactive Protein 33.4 H (<10.0) mg/L Albumin (3.5-5.0) g/dL Lipase (23-300) U/L 11/23/18 Range/Units 07:31 RBC 3.55 L (4.30-5.90) m/uL Hgb 10.0 L (13.0-17.5) gm/dL Hct 31.5 L (39.0-53.0) % Plt Count 541 H (150-450) k/uL Sodium (137-145) mmol/L BUN (9-20) mg/dL Creatinine (0.66-1.25) mg/dL Glucose (74-99) mg/dL POC Glucose (mg/dL) (75-99) mg/dL Plasma Lactic Acid Timothy (0.7-2.0) mmol/L AST (17-59) U/L C-Reactive Protein (<10.0) mg/L Albumin (3.5-5.0) g/dL Lipase (23-300) U/L H & H 11/22/18 11/23/18 Range/Units 13:51 07:31 Hgb 10.4 L 10.0 L (13.0-17.5) gm/dL Hct 33.4 L 31.5 L (39.0-53.0) % Coagulation 11/22/18 Range/Units 13:51 INR 0.9 (<1.2) Result Diagrams: 11/23/18 07:31 11/23/18 07:31 Assessment and Plan (1) Abscess, gluteal, left Current Visit: No Status: Acute Code(s): L02.31 - CUTANEOUS ABSCESS OF BUTTOCK SNOMED Code(s): 65014692 (2) HTN (hypertension) Current Visit: No Status: Acute Code(s): I10 - ESSENTIAL (PRIMARY) HYPERTENSION SNOMED Code(s): 87582471 Plan: The clinical and CT findings were discussed with the patient. The case was also discussed at length with Dr. Rdz. We are recommending a repeat incision and drainage of the left gluteal abscess today. He will remain nothing by mouth. Continue pain control. Patient does not have any questions or concerns at this time. We will continue to follow patient closely with infectious disease and will make further recommendations as needed. <Francisco Rdz - Last Filed: 11/23/18 13:18> Results - Labs Labs: Abnormal Lab Results - Last 24 Hours (Table) 11/22/18 11/22/18 11/22/18 Range/Units 13:51 13:51 13:51 RBC 3.75 L (4.30-5.90) m/uL Hgb 10.4 L (13.0-17.5) gm/dL Hct 33.4 L (39.0-53.0) % Plt Count 556 H (150-450) k/uL ESR (0-15) mm/hr Sodium 136 L (137-145) mmol/L BUN (9-20) mg/dL Creatinine 0.38 L (0.66-1.25) mg/dL Glucose 223 H (74-99) mg/dL POC Glucose (mg/dL) (75-99) mg/dL Plasma Lactic Acid Timothy (0.7-2.0) mmol/L AST 100 H (17-59) U/L C-Reactive Protein (<10.0) mg/L Albumin 3.4 L (3.5-5.0) g/dL Lipase 20 L (23-300) U/L 11/22/18 11/23/18 11/23/18 Range/Units 15:00 06:46 07:31 RBC (4.30-5.90) m/uL Hgb (13.0-17.5) gm/dL Hct (39.0-53.0) % Plt Count (150-450) k/uL ESR (0-15) mm/hr Sodium (137-145) mmol/L BUN 7 L (9-20) mg/dL Creatinine 0.38 L (0.66-1.25) mg/dL Glucose 160 H (74-99) mg/dL POC Glucose (mg/dL) 166 H (75-99) mg/dL Plasma Lactic Acid Timothy 2.1 H* (0.7-2.0) mmol/L AST (17-59) U/L C-Reactive Protein 33.4 H (<10.0) mg/L Albumin (3.5-5.0) g/dL Lipase (23-300) U/L 11/23/18 11/23/18 Range/Units 07:31 12:02 RBC 3.55 L (4.30-5.90) m/uL Hgb 10.0 L (13.0-17.5) gm/dL Hct 31.5 L (39.0-53.0) % Plt Count 541 H (150-450) k/uL ESR 110 H (0-15) mm/hr Sodium (137-145) mmol/L BUN (9-20) mg/dL Creatinine (0.66-1.25) mg/dL Glucose (74-99) mg/dL POC Glucose (mg/dL) 159 H (75-99) mg/dL Plasma Lactic Acid Timothy (0.7-2.0) mmol/L AST (17-59) U/L C-Reactive Protein (<10.0) mg/L Albumin (3.5-5.0) g/dL Lipase (23-300) U/L H & H 11/22/18 11/23/18 Range/Units 13:51 07:31 Hgb 10.4 L 10.0 L (13.0-17.5) gm/dL Hct 33.4 L 31.5 L (39.0-53.0) % Coagulation 11/22/18 Range/Units 13:51 INR 0.9 (<1.2) Result Diagrams: 11/23/18 07:31 11/23/18 07:31 Assessment and Plan Plan: Discussed with SARIKA Rojas and agree with above. Patient was also seen and examined by myself as well. S: States the pain has been increasing since discharge on Monday. Worse with ambulation. Denies F/C/drainage. O: Incision well-approximated with rianna in place. Indurated and edematous but not erythematous. Mildly tender to palpation. No subcutaneous crepitus. Tiny amount of yellow, serous drainage on dresings. No discrete palpable subcutaneous fluid collection within the gluteal musculature. No pain with resisted hip extension but some with resisted abduction. No pain with circumduction. A: 1. Recurrent left gluteal abscess 2. Diabetes mellitus P: I reviewed the clinical and radiographic findings with the patient. The fluid collection within the gluteus muscle could be hematoma as well as abscess. The case was discussed with Dr. Jun uribe as well. Based on the amount of purulence present at the initial surgery, I recommended proceeding with repeat irrigation and debridement. He was in agreement with this plan. We will keep him NPO and proceed with surgery today. Francisco Rdz D.O. [facility]
[2018-11-23] MEDS ORDERED: NITROGLYCERIN SL TABS 0.4 MG TAB SUBLINGUAL PRN (09:38)
[2018-11-23] MEDS ORDERED: GABAPENTIN 300 MG CAP PO PRN (09:38)
[2018-11-23] MEDS: HYDROcodone/APAP 10-325MG 1 EACH TAB PO PRN ×2 (09:51→23:44)
[2018-11-23] MEDS: METOPROLOL TARTRATE 50 MG TAB PO SCH ×2 (09:51→21:50)
[2018-11-23 12:05] LABS: Glucose,Whole Blood 159 mg/dL (75-99)
[2018-11-23 12:55] LABS: Erythrocyte Sedimentation Rate 110 mm/hr (0-15)
[2018-11-23] MEDS ORDERED: IV FLUID CONTINUATION 1,000 ML IV ONE (13:52)
[2018-11-23] MEDS ORDERED: DEXAMETHASONE SOD PHOSPHATE 10 MG/ML 1 ML VIAL IV ONE (14:17)
[2018-11-23] MEDS ORDERED: ONDANSETRON 4 MG/2 ML VIAL IVP ONE ×2 (14:17→19:32)
[2018-11-23] MEDS ORDERED: VANCOMYCIN TROUGH DUE 1 EACH MISC MISCELLANE ONE (15:00)
[2018-11-23] MEDS ORDERED: LACTATED RINGERS 1,000 ML IV ONE (17:00)
[2018-11-23] MEDS ORDERED: HYDROmorphone (PF) 1 MG/ML ONE (17:30)
[2018-11-23] MEDS ORDERED: fentaNYL (PF) 50 MCG/ML 2 ML AMP ONE (17:30)
[2018-11-23] MEDS ORDERED: SUCCINYLCHOLINE CHLORIDE 100 MG/5 ML SYR IV ONE (17:30)
[2018-11-23] MEDS ORDERED: PHENYLEPHRINE-0.9% NACL SYG 1 MG/10 ML SYRINGE ONE (17:30)
[2018-11-23] MEDS ORDERED: PROPOFOL 10 MG/ML 20 ML VIAL IV ONE (17:30)
[2018-11-23] MEDS ORDERED: MIDAZOLAM 2 MG/2 ML VIAL ONE (17:30)
[2018-11-23] MEDS ORDERED: ENOXAPARIN 40 MG/0.4 ML SYRINGE SQ SCH (18:30)
[2018-11-23] MEDS ORDERED: BUPIVACAIN-EPI 0.25%-1:200,000 30 ML VIAL SQ ONE (18:48)
[2018-11-23] MEDS ORDERED: HYDROcodone/APAP 5-325MG 1 EACH TAB PO PRN ×2 (19:27)
[2018-11-23] MEDS ORDERED: ONDANSETRON 4 MG/2 ML VIAL IVP PRN (19:27)
[2018-11-23] MEDS: HYDROmorphone 1 MG/ML 1 ML SYRINGE IVP ONE ×2 (19:31→19:42)
[2018-11-23 19:38] LABS: Glucose,Whole Blood 202 mg/dL (75-99)
--- NOTE | 2018-11-23 19:59 | HP ---
HISTORY AND PHYSICAL DATE OF ADMISSION: 11/23/2018 DATE OF SERVICE: 11/23/2018 PRESENTING COMPLAINT: Pain around the left hip. HISTORY OF PRESENTING COMPLAINT: This is a pleasant 58-year-old patient who follows Dr. Jarvis. Chronic stable medical conditions include diabetes, hypertension, coronary artery disease with stent in June of 2018, diabetic peripheral neuropathy and hyperlipidemia. Patient was in the hospital on November 09 following a fall and was hurting in the area of the left hip. Abscess was found. I&D was carried out by Interventional Radiology. Patient was also seen by Dr. Ratliff. Subsequently patient was taken to the OR by Dr. Zuniga and a gluteal abscess of the left hip was again drained. Patient was growing MSSA and subsequently was discharged on IV ceftriaxone for 4 more weeks on November 19. Antibiotics were coordinated by Dr. Pleitez. The patient has stitches on the hips, gluteal site. The patient presented after there was increasing pain in that area. There was no drainage from the staple site. He denied any obvious fever or chills but was having increasing pain and finding it more difficult to walk; hence patient presented here. Patient in the ER underwent a repeat CT scan of the abdomen and pelvis and the patient was noted to have a gluteal abscess posterior to the proximal left femur. The patient was seen by me this afternoon. Patient is proceeding to the OR. Patient was seen by the partner of Dr. Zuniga, Dr. Rdz. Patient's is present at the bedside. The patient is a bit tired and rundown. Patient also noted some swelling of the left lower extremity. REVIEW OF SYSTEMS: CONSTITUTIONAL: Tired. HEENT: None. RESPIRATORY: None. CARDIOVASCULAR: None. GASTROINTESTINAL: None. GENITOURINARY: None. MUSCULOSKELETAL: Pain in the joints. DERMATOLOGICAL: As above. HEMATOLOGICAL: None. LYMPHATICS: None. PSYCHIATRY: None. NEUROLOGICAL: None. PAST MEDICAL HISTORY: 1. Diabetes. 2. Hypertension. 3. Coronary artery disease with stent in June of 2018. 4. Diabetic peripheral neuropathy. 5. Hyperlipidemia. PAST SURGICAL HISTORY: 1. Recent I&D of the left hip. 2. Cardiac cath with stent. 3. Hernia repair. SOCIAL HISTORY: . Retired. Patient smoked a pack a day on and off for close to 33 years in total. FAMILY HISTORY: Myocardial infarction. HOME MEDICATIONS: 1. Metformin 1000 mg b.i.d. 2. Norvasc 5 mg p.o. daily. 3. Nitrostat 0.4 sublingually q.5 p.r.n. 4. Lopressor 50 mg b.i.d. 5. Lipitor 40 mg at bedtime. 6. Januvia 100 mg p.o. daily. 7. Zestril 20 mg p.o. daily. 8. [place] 10 one tablet p.o. t.i.d. p.r.n. 9. Neurontin 300 mg p.o. t.i.d. p.r.n. 10.Plavix 75 mg p.o. daily. 11.Aspirin 81 mg p.o. daily. 12.Flomax 0.4 mg p.o. daily. 13.Ceftriaxone 2 grams IV piggyback q.24 for 28 days from November 19. ALLERGIES: NONE. PHYSICAL EXAMINATION: VITAL SIGNS ON PRESENTATION: Temperature 98, pulse 85, respiration 22, blood pressure 150/96, pulse ox 97% on room air. GENERAL APPEARANCE: Lying in bed, awake. EYES: Pupils equal. Conjunctivae normal. HEENT: External appearance of nose and ears normal. Oral cavity normal. NECK: JVD not raised. Mass not palpable. RESPIRATORY: Effort normal. Lungs are clear. CARDIOVASCULAR: First and second sounds normal. No edema. ABDOMEN: Soft, non-tender. Liver and spleen not palpable. LYMPHATIC: No lymph node palpable in neck or axillae. PSYCHIATRY: Alert and oriented x3. Mood and affect normal. NEUROLOGICAL: Pupils equal. Cranial nerves grossly intact. Power and sensation grossly intact. MUSCULOSKELETAL: There are rianna on the left hip. Deeper tenderness. Slight bogginess. INVESTIGATIONS: White count 5.2, hemoglobin 10.0, potassium 4.4, BUN 7, creatinine 0.38. CT scan of the abdomen and pelvis showing a sizable gluteal abscess posterior to the proximal left femur, a good size, also extending into the pelvis. Lung bases showing interval development of subpleural lung nodules bilaterally. Also diverticular changes are noted. ASSESSMENT: 1. Recurrence of left gluteal abscess in a patient who recently had an abscess that was drained; cultures growing Staphylococcus aureus that is methicillin-susceptible Staphylococcus aeruginosa. Patient had been on IV ceftriaxone. 2. Diabetes mellitus, type 2. 3. Essential hypertension. 4. Coronary artery disease with stent in June of 2018. 5. Chronic nicotine dependence. Patient is a cigarette smoker. 6. Benign prostatic hypertrophy. PLAN: Patient will be going to the OR this afternoon. In the meantime, patient is put on IV vancomycin. Home medications are resumed. Accu-Cheks will be followed with sliding scale insulin. Care was discussed with the patient and his at the bedside. Will add Lovenox for DVT prophylaxis. Infectious Disease Dr. Pleitez saw the patient. Will also add a nicotine patch. MMODL / IJN: [id number] /
[2018-11-23 20:57] LABS: Basophils % (A) 0 %; Eosinophils % (A) 1 %; HCT 41.9 % (39.0-53.0); HGB 12.9 gm/dL (13.0-17.5); Lymphocytes # (A) 0.4 k/uL (1.0-4.8); Lymphocytes % (A) 9 %; MCH 27.5 pg (25.0-35.0); MCHC 30.7 g/dL (31.0-37.0); MCV 89.6 fL (80.0-100.0); Mean Platelet Volume 6.5; Monocytes # (A) 0.1 k/uL (0-1.0); Monocytes % (A) 2 %; Neutrophils # (A) 3.9 k/uL (1.3-7.7); Neutrophils % (A) 88 %; Platelet Count 373 k/uL (150-450); RBC 4.68 m/uL (4.30-5.90); RDW 14.7 % (11.5-15.5); WBC 4.4 k/uL (3.8-10.6)
[2018-11-23] MEDS: amLODIPine 5 MG TAB PO SCH (21:12)
[2018-11-23] MEDS: ASPIRIN 81 MG PO SCH (21:12)
[2018-11-23] MEDS: TAMSULOSIN 0.4 MG CAP.ER.24H PO SCH (21:13)
[2018-11-23] MEDS: CLOPIDOGREL 75 MG TAB PO SCH (21:13)
[2018-11-23] MEDS: metFORMIN 500 MG TAB PO SCH ×2 (21:13→22:16)
[2018-11-23] MEDS: LISINOPRIL 20 MG TAB PO SCH (21:13)
[2018-11-23] MEDS: ATORVASTATIN 40 MG TAB PO SCH (21:51)
[2018-11-23 22:18] LABS: Glucose,Whole Blood 268 mg/dL (75-99)
[2018-11-23] MEDS: INSULIN ASPART (NovoLOG) 100 UNIT/ML VIAL SQ SCH (22:22)
[2018-11-24] MEDS: SODIUM CHLORIDE 0.9% 1,000 ML IV SCH ×2 (00:51→13:32)
[2018-11-24] MEDS: ceFAZolin IN SWFI 2 GM/20 ML SYRINGE IVP SCH ×3 (06:16→22:15)
[2018-11-24 08:09] LABS: Glucose,Whole Blood 253 mg/dL (75-99)
[2018-11-24] MEDS ORDERED: ENOXAPARIN 40 MG/0.4 ML SYRINGE SQ SCH (08:30)
[2018-11-24] MEDS: TAMSULOSIN 0.4 MG CAP.ER.24H PO SCH (08:33)
[2018-11-24] MEDS: metFORMIN 500 MG TAB PO SCH ×2 (08:33→17:14)
[2018-11-24] MEDS: METOPROLOL TARTRATE 50 MG TAB PO SCH ×2 (08:33→20:46)
[2018-11-24] MEDS: LISINOPRIL 20 MG TAB PO SCH (08:34)
[2018-11-24] MEDS: CLOPIDOGREL 75 MG TAB PO SCH (08:34)
[2018-11-24] MEDS: ASPIRIN 81 MG PO SCH (08:34)
[2018-11-24] MEDS: HYDROmorphone 0.5 MG/0.5 ML SYRINGE IVP PRN ×3 (08:34→19:16)
[2018-11-24] MEDS: amLODIPine 5 MG TAB PO SCH (08:34)
[2018-11-24] MEDS: INSULIN ASPART (NovoLOG) 100 UNIT/ML VIAL SQ SCH ×4 (08:34→20:46)
[2018-11-24] MEDS: VANCOMYCIN 1,500 MG in SODIUM CHLORIDE 0.9% 250 ML IVPB SCH ×3 (09:41→17:14)
[2018-11-24] MEDS: HYDROcodone/APAP 10-325MG 1 EACH TAB PO PRN ×2 (09:42→22:15)
[2018-11-24] MEDS ORDERED: HYDROcodone/APAP 7.5-325MG 1 EACH TAB PO PRN (11:16)
--- NOTE | 2018-11-24 11:16 | P.PN ---
Subjective Progress Note Date: 11/24/18 Principal diagnosis: S/P I&D left gluteal abcess Patient is seen at bedside this morning. He is postop day #1 from I&D of left gluteal abcess. He has pain at the surgical site as expected but denies any new complaints. He denies numbness, tingling or calf pain. Review of systems is negative for fever, chills, chest pain, shortness of breath or other Objective - Vital Signs Vital signs: Vital Signs Temp 98.4 F 11/24/18 08:00 Pulse 76 11/24/18 08:00 Resp 16 11/24/18 08:00 BP 132/68 11/24/18 08:00 Pulse Ox 95 11/24/18 08:00 Intake & Output 11/23/18 11/24/18 11/24/18 18:59 06:59 18:59 Intake Total 1700 220 Output Total 600 Balance 1700 -380 Intake: IV 1700 220 Output: Urine 575 Estimated Blood Loss 25 Other: Voiding Method Toilet Toilet Toilet # Voids 1 - Exam Inspection reveals a benign surgical wound. There is no active bleeding or drainage. Hemovac in place. Neurovascular status is intact throughout the lower extremity with motor and sensation fully intact. Calf is soft and nontender. 2+ dorsalis pedis pulse and less than 2 second cap refill is present. - Constitutional General appearance: Present: no acute distress - Labs CBC & Chem 7: 11/23/18 20:20 11/23/18 07:31 Labs: Abnormal Lab Results - Last 24 Hours (Table) 11/23/18 11/23/18 11/23/18 Range/Units 07:31 12:02 19:35 Hgb (13.0-17.5) gm/dL MCHC (31.0-37.0) g/dL Lymphocytes # (1.0-4.8) k/uL ESR 110 H (0-15) mm/hr POC Glucose (mg/dL) 159 H 202 H (75-99) mg/dL 11/23/18 11/23/18 11/24/18 Range/Units 20:20 22:18 08:07 Hgb 12.9 L (13.0-17.5) gm/dL MCHC 30.7 L (31.0-37.0) g/dL Lymphocytes # 0.4 L (1.0-4.8) k/uL ESR (0-15) mm/hr POC Glucose (mg/dL) 268 H 253 H (75-99) mg/dL Microbiology - Last 24 Hours (Table) 11/23/18 18:00 Gram Stain - Preliminary Hip - Left Wound Culture - Preliminary 11/23/18 18:00 Anaerobic Culture - Preliminary Hip - Left 11/22/18 15:00 Blood Culture - Preliminary Blood No Growth after 24 hours Assessment and Plan (1) Abscess, gluteal, left Narrative/Plan: He will continue with routine postop orthopedic protocol including pain management, wound care, PT, DVT prophylaxis, infectious disease and medical management. Intraop cultures pending. IV antibiotics per infectious disease. Further recommendations pending per clinical course. Current Visit: No Status: Acute Priority: Medium Code(s): L02.31 - CUTANEOUS ABSCESS OF BUTTOCK SNOMED Code(s): 24149647 Time with Patient: Less than 30
[2018-11-24 11:38] LABS: Glucose,Whole Blood 281 mg/dL (75-99)
--- NOTE | 2018-11-24 14:33 | P.PN ---
Subjective Progress Note Date: 11/24/18 The patient was seen and examined with his at the bedside. He states the postoperative pain is tolerable and well-controlled. He denies any issues overnight. He states he has not been moving around much. Objective - Vital Signs Vital signs: Vital Signs Temp 98.4 F 11/24/18 08:00 Pulse 76 11/24/18 08:00 Resp 16 11/24/18 08:00 BP 132/68 11/24/18 08:00 Pulse Ox 95 11/24/18 08:00 Intake & Output 11/23/18 11/24/18 11/24/18 18:59 06:59 18:59 Intake Total 1700 220 Output Total 600 Balance 1700 -380 Intake: IV 1700 220 Output: Urine 575 Estimated Blood Loss 25 Other: Voiding Method Toilet Toilet Toilet # Voids 1 - Exam Dressings are clean & dry without shadowing or strikethrough. Hemovac drain is in place with a good seal. Clotted blood is seen in the line but minimal fluid in the canister. There is no surrounding erythema. There is no palpable fluid collection within the gluteus musculature. - Labs CBC & Chem 7: 11/23/18 20:20 11/23/18 07:31 Labs: Abnormal Lab Results - Last 24 Hours (Table) 11/23/18 11/23/18 11/23/18 Range/Units 19:35 20:20 22:18 Hgb 12.9 L (13.0-17.5) gm/dL MCHC 30.7 L (31.0-37.0) g/dL Lymphocytes # 0.4 L (1.0-4.8) k/uL POC Glucose (mg/dL) 202 H 268 H (75-99) mg/dL 11/24/18 11/24/18 Range/Units 08:07 11:37 Hgb (13.0-17.5) gm/dL MCHC (31.0-37.0) g/dL Lymphocytes # (1.0-4.8) k/uL POC Glucose (mg/dL) 253 H 281 H (75-99) mg/dL Microbiology - Last 24 Hours (Table) 11/23/18 18:00 Gram Stain - Preliminary Hip - Left Wound Culture - Preliminary 11/23/18 18:00 Anaerobic Culture - Preliminary Hip - Left 11/22/18 15:00 Blood Culture - Preliminary Blood No Growth after 24 hours Assessment and Plan Assessment: 1. POD #1 status post incision and drainage of left gluteal seroma/abscess 2. Diabetes mellitus, poorly controlled Plan: I reviewed the intraoperative findings with and Mrs. Jo. The appearance of the fluid and tissues was more consistent with a seroma but, given the amount of purulence present at his index surgery, it is good that it was surgically evacuated. Even if new cultures do not show infection, it certainly could still be present (or likely would have become so). I do not anticipate the need for further surgical debridement at this time. I recommended he begin ambulating and mobilizing as much as possible. Record drain outputs every shift. Drain to remain in place until output is less than 50 mL per 12 hours. Timing of removal will be reassessed once the patient has increased his activity level. Change dressings if saturated. Cultures are still pending. Continue IV antibiotics per Dr. Pleitez -his input and assistance is appreciated.
--- NOTE | 2018-11-24 15:35 | P.OP ---
Date of Procedure: 11/23/18 Preoperative Diagnosis: Left gluteal abscess Postoperative Diagnosis: Left gluteal abscess / postoperative seroma Procedure(s) Performed: Incision and drainage of left gluteal abscess / postoperative seroma Anesthesia: RENE, local Surgeon: Francisco Rdz Estimated Blood Loss (ml): 25 Pathology: other (Culture swabs) Condition: stable Disposition: PACU Indications for Procedure: The patient is a 58-year-old patient of Dr. Jun Zuniga who previously underwent surgical debridement of a left gluteal abscess. The patient was discharged home on antibiotics. He will return to the emergency department with increasing pain, swelling and difficulty ambulating. CT scan showed a large fluid collection concerning for abscess. Surgical exploration and debridement was recommended. Risks and benefits were discussed, including (but not limited to) the risks of persistent infection, bleeding, injury to tendons or neurovascular structures and possible need for additional surgery. Questions were invited and answered. The patient expressed understanding and wished to proceed with surgery. Consent forms were signed. The operative site was confirmed and marked. Operative Findings: Large, sub-gluteal collection of cloudy villatoro fluid - not grossly purulent. Appearance most consistent with seroma but coexisting infection not excluded. Description of Procedure: The patient was brought to the operative suite and general anesthesia was administered. He was positioned on a beanbag in the right lateral decubitus position. An axillary roll was placed and all bony prominences were well- padded. The left hip was prepped and draped in standard, sterile fashion. A timeout was performed, confirming patient identifiers as well as the operative side, site and procedure to be performed: All team members expressed agreement. The previous incision was sharply opened. The subcutaneous tissues were spread. The tensor fascia was identified the previous suture repair was intact. This was re-incised and the sutures were removed. A large fluid collection was immediately encountered below the fascia and culture swab was obtained. The fluid was thin, cloudy and villatoro/serosanguineous. At least 200 mL of fluid was evacuated. The patient's scheduled antibiotics had been held in preparation for obtaining intraoperative cultures. These were administered once cultures were taken. The wound was manually and bluntly explored and several pockets of similar fluid were encountered beneath the gluteus, along the lateral thigh and superior to the greater trochanter. Fibrinous, but not frankly infected, tissue was atul rided from the trochanteric bursa and resected with a rongeur. The wound was copiously irrigated with 6 liters of normal saline using pulse lavage. A combination of sharp and mechanical debridement was employed to resect loose, unhealthy appearing tissue. No necrotic or frankly purulent material was identified. After thorough irrigation and debridement, a drain was placed beneath the fascia and gluteus muscle. The wound was closed in layers: a running 0-Stratafix for the fascia, 0 PDS for the deep fascia and a running 2-0 Stratafix for the subcutaneous tissues. The incision was closed with rianna. The drain was sewn in with a 2-0 nylon suture. Marcaine with epinephrine was injected into the perioperative subcutaneous tissues for postoperative pain control and hemostasis. A sterile dressing was applied. The patient tolerated the procedure well and was transferred to recovery in stable condition.
[2018-11-24 17:22] LABS: Glucose,Whole Blood 140 mg/dL (75-99)
[2018-11-24 20:38] LABS: Glucose,Whole Blood 160 mg/dL (75-99)
[2018-11-24] MEDS: ATORVASTATIN 40 MG TAB PO SCH (20:46)
[2018-11-25] MEDS: VANCOMYCIN 1,500 MG in SODIUM CHLORIDE 0.9% 250 ML IVPB SCH ×3 (00:41→17:10)
[2018-11-25] MEDS: HYDROmorphone 0.5 MG/0.5 ML SYRINGE IVP PRN ×4 (03:08→21:40)
[2018-11-25] MEDS: SODIUM CHLORIDE 0.9% 1,000 ML IV SCH ×2 (03:09→17:11)
[2018-11-25] MEDS: ceFAZolin IN SWFI 2 GM/20 ML SYRINGE IVP SCH ×3 (06:17→21:31)
[2018-11-25] MEDS: HYDROcodone/APAP 10-325MG 1 EACH TAB PO PRN (06:25)
[2018-11-25 07:10] LABS: Glucose,Whole Blood 156 mg/dL (75-99)
[2018-11-25] MEDS ORDERED: VANCOMYCIN TROUGH DUE 1 EACH MISC MISCELLANE ONE (08:00)
[2018-11-25] MEDS: TAMSULOSIN 0.4 MG CAP.ER.24H PO SCH (08:42)
[2018-11-25] MEDS: LISINOPRIL 20 MG TAB PO SCH (08:42)
[2018-11-25] MEDS: amLODIPine 5 MG TAB PO SCH (08:42)
[2018-11-25] MEDS: METOPROLOL TARTRATE 50 MG TAB PO SCH ×2 (08:42→21:30)
[2018-11-25] MEDS: metFORMIN 500 MG TAB PO SCH ×2 (08:42→17:10)
[2018-11-25] MEDS: CLOPIDOGREL 75 MG TAB PO SCH (08:42)
[2018-11-25] MEDS: INSULIN ASPART (NovoLOG) 100 UNIT/ML VIAL SQ SCH ×4 (08:43→21:30)
[2018-11-25] MEDS: ASPIRIN 81 MG PO SCH (08:43)
[2018-11-25 09:29] LABS: Anion Gap 7 mmol/L; Blood Urea Nitrogen 10 mg/dL (9-20); Calcium 8.6 mg/dL (8.4-10.2); Carbon Dioxide 26 mmol/L (22-30); Chloride 102 mmol/L (98-107); Glucose 182 mg/dL (74-99); Potassium 4.3 mmol/L (3.5-5.1); Sodium 135 mmol/L (137-145)
--- NOTE | 2018-11-25 11:17 | P.PN ---
Subjective Progress Note Date: 11/25/18 Principal diagnosis: S/P I&D left gluteal abcess Patient is seen at bedside this morning. He is postop day #2 from I&D of left gluteal abcess. He has pain at the surgical site which is controlled. he has no new complaints. He denies numbness, tingling or calf pain. Review of systems is negative for fever, chills, chest pain, shortness of breath or other Objective - Vital Signs Vital signs: Vital Signs Temp 97.1 F L 11/25/18 05:22 Pulse 69 11/25/18 05:22 Resp 17 11/25/18 05:22 BP 144/76 11/25/18 05:22 Pulse Ox 97 11/25/18 05:22 Intake & Output 11/24/18 11/25/18 11/25/18 18:59 06:59 18:59 Intake Total 1200 Output Total 1050 10 Balance 1200 -1050 -10 Intake: Oral 1200 Output: Drainage 100 10 Left Hip 100 10 Urine 950 Other: Voiding Method Toilet Toilet # Voids 1 - Exam Inspection reveals a benign surgical wound. There is no active bleeding or drainage through bandage. Hemovac in place showing serosangous drainage. Neurovascular status is intact throughout the lower extremity with motor and sensation fully intact. Calf is soft and nontender. 2+ dorsalis pedis pulse and less than 2 second cap refill is present. - Constitutional General appearance: Present: no acute distress - Labs CBC & Chem 7: 11/25/18 08:24 11/25/18 08:24 Labs: Abnormal Lab Results - Last 24 Hours (Table) 11/24/18 11/24/18 11/24/18 Range/Units 11:37 17:20 20:37 RBC (4.30-5.90) m/uL Hgb (13.0-17.5) gm/dL Hct (39.0-53.0) % Sodium (137-145) mmol/L Creatinine (0.66-1.25) mg/dL Glucose (74-99) mg/dL POC Glucose (mg/dL) 281 H 140 H 160 H (75-99) mg/dL 11/25/18 11/25/18 11/25/18 Range/Units 07:06 08:24 08:24 RBC 3.04 L (4.30-5.90) m/uL Hgb 8.9 L D (13.0-17.5) gm/dL Hct 27.9 L (39.0-53.0) % Sodium 135 L (137-145) mmol/L Creatinine 0.33 L (0.66-1.25) mg/dL Glucose 182 H (74-99) mg/dL POC Glucose (mg/dL) 156 H (75-99) mg/dL Microbiology - Last 24 Hours (Table) 11/22/18 15:00 Blood Culture - Preliminary Blood No Growth after 48 hours 11/23/18 18:00 Gram Stain - Preliminary Hip - Left Wound Culture - Preliminary Assessment and Plan (1) Abscess, gluteal, left Narrative/Plan: He will continue with routine postop orthopedic protocol including pain management, wound care, PT, DVT prophylaxis, infectious disease and medical management. Hvac output monitoring. Intraop cultures pending. IV antibiotics per infectious disease. Further recommendations pending per clinical course. Current Visit: No Status: Acute Priority: Medium Code(s): L02.31 - CUTANEOUS ABSCESS OF BUTTOCK SNOMED Code(s): 90388880 Time with Patient: Less than 30
--- NOTE | 2018-11-25 11:43 | P.PN ---
Subjective Progress Note Date: 11/24/18 Principal diagnosis: Left gluteal abscess Covering for Dr. Lopez over the weekend. 58-year-old male admitted to the hospital for recurrent left gluteal abscess. Patient had I & D done of his left gluteal abscess done yesterday. Today the patient is lying comfortably in bed with his at the bedside. He appears to be in no acute distress. Patient has a wound VAC in place with some serosanguineous discharge. On review of systems- Patient denies having any chest pain or difficulty in breathing. No dysuria or hematuria. No cough or difficulty in breathing. No a bdominal pain nausea vomiting or diarrhea. Patient's labs and medications have been reviewed Active Medications Hydrocodone Bitart/Acetaminophen ([place] 10) 1 each PO TID PRN PRN Reason: Moderate Pain Last Admin: 11/24/18 09:42 Dose: 1 each Documented by: Hydrocodone Bitart/Acetaminophen ([place] 5-325) 1 each PO Q6HR PRN PRN Reason: Pain Scale 1 to 5 Hydrocodone Bitart/Acetaminophen ([place] 5-325) 2 each PO Q6HR PRN PRN Reason: Pain Scale 6 to 10 Hydrocodone Bitart/Acetaminophen ([place] 7.5-325) 1 each PO Q4H PRN PRN Reason: Pain Scale 1 to 5 Hydrocodone Bitart/Acetaminophen ([place] 7.5-325) 2 each PO Q6H PRN PRN Reason: Pain Scale 6 to 10 Amlodipine Besylate (Norvasc) 5 mg PO DAILY [facility] Last Admin: 11/24/18 08:34 Dose: 5 mg Documented by: Aspirin (Aspirin) 81 mg PO DAILY [facility] Last Admin: 11/24/18 08:34 Dose: 81 mg Documented by: Atorvastatin Calcium (Lipitor) 40 mg PO HS [facility] Last Admin: 11/23/18 21:51 Dose: 40 mg Documented by: Cefazolin Sodium (Kefzol) 2 gm IVP Q8H [facility] Last Admin: 11/24/18 06:16 Dose: 2 gm Documented by: Clopidogrel Bisulfate (Plavix) 75 mg PO DAILY [facility] Last Admin: 11/24/18 08:34 Dose: 75 mg Documented by: Gabapentin (Neurontin) 300 mg PO TID PRN PRN Reason: Pain Hydromorphone HCl (Dilaudid) 0.5 mg IVP Q3HR PRN PRN Reason: Breakthrough Pain Last Admin: 11/24/18 08:34 Dose: 0.5 mg Documented by: Sodium Chloride (Saline 0.9%) 1,000 mls @ 70 mls/hr IV .[id number] [facility] Last Admin: 11/24/18 00:51 Dose: 70 mls/hr Documented by: Vancomycin HCl 1,500 mg/ (Sodium Chloride) 250 mls @ 125 mls/hr IVPB Q8H [facility] Last Admin: 11/24/18 09:41 Dose: 125 mls/hr Documented by: Insulin Aspart (Novolog) 0 unit SQ ACHS [facility]; Protocol Last Admin: 11/24/18 12:25 Dose: 4 unit Documented by: Lisinopril (Zestril) 20 mg PO DAILY [facility] Last Admin: 11/24/18 08:34 Dose: 20 mg Documented by: Metformin HCl (Glucophage) 1,000 mg PO AC-BID [facility] Last Admin: 11/24/18 08:33 Dose: 1,000 mg Documented by: Metoprolol Tartrate (Lopressor) 50 mg PO BID [facility] Last Admin: 11/24/18 08:33 Dose: 50 mg Documented by: Miscellaneous Information (Vancomycin Trough Due) 0 each MISCELLANE DIRECTED ONE Stop: 11/25/18 08:01 Naloxone HCl (Narcan) 0.2 mg IV Q2M PRN PRN Reason: Opioid Reversal Nitroglycerin (Nitrostat) 0.4 mg SUBLINGUAL Q5M PRN PRN Reason: Chest Pain Ondansetron HCl (Zofran) 4 mg IVP Q24HR PRN PRN Reason: Nausea And Vomiting Tamsulosin HCl (Flomax) 0.4 mg PO DAILY [facility] Last Admin: 11/24/18 08:33 Dose: 0.4 mg Documented by: Objective - Vital Signs Vital signs: Vital Signs Temp 98.4 F 11/24/18 08:00 Pulse 76 11/24/18 08:00 Resp 16 11/24/18 08:00 BP 132/68 11/24/18 08:00 Pulse Ox 95 11/24/18 08:00 Intake & Output 11/23/18 11/24/18 11/24/18 18:59 06:59 18:59 Intake Total 1700 220 Output Total 600 Balance 1700 -380 Intake: IV 1700 220 Output: Urine 575 Estimated Blood Loss 25 Other: Voiding Method Toilet Toilet Toilet # Voids 1 - Exam GEN. APPEARANCE: alert, in no apparent distress HEAD EXAM: atraumatic, normocephalic, normal inspection EYE EXAM: normal appearance, PERRL, EOMI. Absent: scleral icterus, conjunctival injection, periorbital swelling ENT EXAM: normal exam, mucous membranes moist NECK EXAM: No lymphadenopathy. RESPIRATORY EXAM: Bilateral breath sounds are positive. No wheezes or crackles. CARDIOVASCULAR EXAM: regular rate, normal rhythm, normal heart sounds. Absent: systolic murmur, diastolic murmur, rubs, gallop, clicks GI/ABDOMINAL EXAM: soft, normal bowel sounds. Absent: distended, tenderness, guarding, rebound, rigid EXTREMITIES EXAM: Left lower extremity exam - surgical scar with rianna in place. Wound VAC with serous sanguinous discharge seen. Mild pitting edema in the left lower extremity. NEUROLOGICAL EXAM: alert, oriented X3, no focal neurological deficits PSYCHIATRIC EXAM: normal affect, normal mood SKIN EXAM: warm, dry, intact, normal color. - Labs CBC & Chem 7: 11/25/18 08:24 11/25/18 08:24 Labs: Abnormal Lab Results - Last 24 Hours (Table) 11/23/18 11/23/18 11/23/18 Range/Units 07:31 19:35 20:20 Hgb 12.9 L (13.0-17.5) gm/dL MCHC 30.7 L (31.0-37.0) g/dL Lymphocytes # 0.4 L (1.0-4.8) k/uL ESR 110 H (0-15) mm/hr POC Glucose (mg/dL) 202 H (75-99) mg/dL 11/23/18 11/24/18 11/24/18 Range/Units 22:18 08:07 11:37 Hgb (13.0-17.5) gm/dL MCHC (31.0-37.0) g/dL Lymphocytes # (1.0-4.8) k/uL ESR (0-15) mm/hr POC Glucose (mg/dL) 268 H 253 H 281 H (75-99) mg/dL Microbiology - Last 24 Hours (Table) 11/23/18 18:00 Gram Stain - Preliminary Hip - Left Wound Culture - Preliminary 11/23/18 18:00 Anaerobic Culture - Preliminary Hip - Left 11/22/18 15:00 Blood Culture - Preliminary Blood No Growth after 24 hours Assessment and Plan Assessment: ASSESSMENT Recurrent left gluteal abscess status post I&D Type 2 diabetes mellitus with hemoglobin A1c of 8.9 poorly controlled Essential hypertension Coronary artery disease status post stent placement in June 2018 Chronic nicotine dependence current smoker BPH PLAN: Patient had an I&D done last night. He is on antibiotics and infectious disease Dr. Pleitez on board for antibiotic stewardship. Discussed in detail with the patient and his that his diabetes has to be under better control for proper healing of his abscess. All the questions were answered. Continue with DVT prophylaxis. Further recommendations to follow depending on the progress of the patient.
--- NOTE | 2018-11-25 11:47 | P.PN ---
Subjective Progress Note Date: 11/25/18 Principal diagnosis: Left gluteal abscess Covering for Dr. Lopez over the weekend. 58-year-old male admitted to the hospital for recurrent left gluteal abscess. Patient had I & D done of his left gluteal abscess done on 11/23/18. Today the patient is lying comfortably in bed. He appears to be in no acute distress. Patient has a wound VAC in place with some dark reddish discharge. As per the nursing staff report that was 50 mL of fluid collection in the wound VAC. Patient still complains of soreness at the surgical site. On review of systems- Patient denies having any chest pain or difficulty in breathing. No dysuria or hematuria. No cough or difficulty in breathing. No abdominal pain nausea vomiting or diarrhea. Patient's labs and medications have been reviewed. Active Medications Hydrocodone Bitart/Acetaminophen (Jefferson 10) 1 each PO TID PRN PRN Reason: Moderate Pain Last Admin: 11/25/18 06:25 Dose: 1 each Documented by: Hydrocodone Bitart/Acetaminophen (Jefferson 5-325) 1 each PO Q6HR PRN PRN Reason: Pain Scale 1 to 5 Hydrocodone Bitart/Acetaminophen (Jefferson 5-325) 2 each PO Q6HR PRN PRN Reason: Pain Scale 6 to 10 Last Admin: 11/25/18 11:13 Dose: 2 each Documented by: Hydrocodone Bitart/Acetaminophen (Jefferson 7.5-325) 1 each PO Q4H PRN PRN Reason: Pain Scale 1 to 5 Hydrocodone Bitart/Acetaminophen (Jefferson 7.5-325) 2 each PO Q6H PRN PRN Reason: Pain Scale 6 to 10 Amlodipine Besylate (Norvasc) 5 mg PO DAILY [facility] Last Admin: 11/25/18 08:42 Dose: 5 mg Documented by: Aspirin (Aspirin) 81 mg PO DAILY [facility] Last Admin: 11/25/18 08:43 Dose: 81 mg Documented by: Atorvastatin Calcium (Lipitor) 40 mg PO HS [facility] Last Admin: 11/24/18 20:46 Dose: 40 mg Documented by: Cefazolin Sodium (Kefzol) 2 gm IVP Q8H [facility] Last Admin: 11/25/18 06:17 Dose: 2 gm Documented by: Clopidogrel Bisulfate (Plavix) 75 mg PO DAILY [facility] Last Admin: 11/25/18 08:42 Dose: 75 mg Documented by: Gabapentin (Neurontin) 300 mg PO TID PRN PRN Reason: Pain Hydromorphone HCl (Dilaudid) 0.5 mg IVP Q3HR PRN PRN Reason: Breakthrough Pain Last Admin: 11/25/18 08:49 Dose: 0.5 mg Documented by: Sodium Chloride (Saline 0.9%) 1,000 mls @ 70 mls/hr IV .[id number] [facility] Last Admin: 11/25/18 03:09 Dose: 70 mls/hr Documented by: Vancomycin HCl 1,500 mg/ (Sodium Chloride) 250 mls @ 125 mls/hr IVPB Q8H [facility] Last Admin: 11/25/18 08:43 Dose: 125 mls/hr Documented by: Insulin Aspart (Novolog) 0 unit SQ ACHS [facility]; Protocol Last Admin: 11/25/18 08:43 Dose: 1 unit Documented by: Lisinopril (Zestril) 20 mg PO DAILY [facility] Last Admin: 11/25/18 08:42 Dose: 20 mg Documented by: Metformin HCl (Glucophage) 1,000 mg PO AC-BID [facility] Last Admin: 11/25/18 08:42 Dose: 1,000 mg Documented by: Metoprolol Tartrate (Lopressor) 50 mg PO BID [facility] Last Admin: 11/25/18 08:42 Dose: 50 mg Documented by: Naloxone HCl (Narcan) 0.2 mg IV Q2M PRN PRN Reason: Opioid Reversal Nitroglycerin (Nitrostat) 0.4 mg SUBLINGUAL Q5M PRN PRN Reason: Chest Pain Ondansetron HCl (Zofran) 4 mg IVP Q24HR PRN PRN Reason: Nausea And Vomiting Tamsulosin HCl (Flomax) 0.4 mg PO DAILY [facility] Last Admin: 11/25/18 08:42 Dose: 0.4 mg Documented by: Objective - Vital Signs Vital signs: Vital Signs Temp 97.1 F L 11/25/18 05:22 Pulse 69 11/25/18 05:22 Resp 17 11/25/18 05:22 BP 144/76 11/25/18 05:22 Pulse Ox 97 11/25/18 05:22 Intake & Output 04/13/19 04/14/19 04/14/19 18:59 06:59 18:59 Intake Total 1200 Output Total 1050 1010 Balance 1200 -1050 -1010 Intake: Oral 1200 Output: Drainage 100 10 Left Hip 100 10 Urine 950 1000 Other: Voiding Method Toilet Toilet # Voids 1 - Exam GEN. APPEARANCE: alert, in no apparent distress HEAD EXAM: atraumatic, normocephalic, normal inspection EYE EXAM: normal appearance, PERRL, EOMI. Absent: scleral icterus, conjunctival injection, periorbital swelling ENT EXAM: normal exam, mucous membranes moist NECK EXAM: No lymphadenopathy. RESPIRATORY EXAM: Bilateral breath sounds are positive. No wheezes or crackles. CARDIOVASCULAR EXAM: regular rate, normal rhythm, normal heart sounds. Absent: systolic murmur, diastolic murmur, rubs, gallop, clicks GI/ABDOMINAL EXAM: soft, normal bowel sounds. Absent: distended, tenderness, guarding, rebound, rigid EXTREMITIES EXAM: Left lower extremity exam - surgical scar with rianna in place. Wound VAC with serous sanguinous discharge. Mild pitting edema in the left lower extremity. NEUROLOGICAL EXAM: alert, oriented X3, no focal neurological deficits PSYCHIATRIC EXAM: normal affect, normal mood SKIN EXAM: warm, dry, intact, normal color. - Labs CBC & Chem 7: 11/25/18 08:24 11/25/18 08:24 Labs: Abnormal Lab Results - Last 24 Hours (Table) 11/24/18 11/24/18 11/25/18 Range/Units 17:20 20:37 07:06 Sodium (137-145) mmol/L Creatinine (0.66-1.25) mg/dL Glucose (74-99) mg/dL POC Glucose (mg/dL) 140 H 160 H 156 H (75-99) mg/dL 11/25/18 Range/Units 08:24 Sodium 135 L (137-145) mmol/L Creatinine 0.33 L (0.66-1.25) mg/dL Glucose 182 H (74-99) mg/dL POC Glucose (mg/dL) (75-99) mg/dL Microbiology - Last 24 Hours (Table) 11/22/18 15:00 Blood Culture - Preliminary Blood No Growth after 48 hours 11/23/18 18:00 Gram Stain - Preliminary Hip - Left Wound Culture - Preliminary Assessment and Plan Assessment: ASSESSMENT Recurrent left gluteal abscess status post I&D Type 2 diabetes mellitus with hemoglobin A1c of 8.9 poorly controlled Essential hypertension Coronary artery disease status post stent placement in June 2018 Chronic nicotine dependence current smoker BPH PLAN: Patient had an I&D done on11/23/18. He is on antibiotics in the form of IV vancomycin and cefazolin as per infectious disease Dr. Pleitez. Blood pressure and blood sugars within normal limits. Continue with the rest of his medication regimen Continue with DVT prophylaxis. Dr. Lopez to follow the patient from tomorrow.
[2018-11-25 11:58] LABS: Glucose,Whole Blood 238 mg/dL (75-99)
[2018-11-25 12:08] LABS: Basophils % (A) 1 %; Mean Platelet Volume 6.3
[2018-11-25 12:14] LABS: Eosinophils # (A) 0.2 k/uL (0-0.7); Eosinophils % (A) 2 %; HCT 27.2 % (39.0-53.0); Lymphocytes # (A) 1.5 k/uL (1.0-4.8); Lymphocytes % (A) 22 %; MCH 27.9 pg (25.0-35.0); MCHC 31.7 g/dL (31.0-37.0); MCV 88.1 fL (80.0-100.0); Monocytes # (A) 0.5 k/uL (0-1.0); Monocytes % (A) 7 %; Neutrophils # (A) 4.7 k/uL (1.3-7.7); Neutrophils % (A) 67 %; Platelet Count 416 k/uL (150-450); RBC 3.08 m/uL (4.30-5.90); RDW 14.9 % (11.5-15.5)
[2018-11-25 12:18] LABS: HGB 8.6 gm/dL (13.0-17.5)
[2018-11-25 16:55] LABS: Glucose,Whole Blood 119 mg/dL (75-99)
[2018-11-25 20:09] LABS: Glucose,Whole Blood 151 mg/dL (75-99)
[2018-11-25] MEDS: ATORVASTATIN 40 MG TAB PO SCH (21:30)
[2018-11-26] MEDS: VANCOMYCIN 1,500 MG in SODIUM CHLORIDE 0.9% 250 ML IVPB SCH ×2 (01:28→07:58)
[2018-11-26] MEDS: HYDROcodone/APAP 7.5-325MG 1 EACH TAB PO PRN ×2 (01:58→07:58)
[2018-11-26] MEDS: ceFAZolin IN SWFI 2 GM/20 ML SYRINGE IVP SCH ×2 (06:18→13:52)
[2018-11-26 07:23] LABS: Glucose,Whole Blood 135 mg/dL (75-99)
[2018-11-26] MEDS: METOPROLOL TARTRATE 50 MG TAB PO SCH (07:53)
[2018-11-26] MEDS: CLOPIDOGREL 75 MG TAB PO SCH (07:53)
[2018-11-26] MEDS: ASPIRIN 81 MG PO SCH (07:53)
[2018-11-26] MEDS: metFORMIN 500 MG TAB PO SCH (07:53)
[2018-11-26] MEDS: TAMSULOSIN 0.4 MG CAP.ER.24H PO SCH (07:53)
[2018-11-26] MEDS: amLODIPine 5 MG TAB PO SCH (07:53)
[2018-11-26] MEDS: LISINOPRIL 20 MG TAB PO SCH (07:53)
[2018-11-26] MEDS: SODIUM CHLORIDE 0.9% 1,000 ML IV SCH (07:54)
[2018-11-26] MEDS: INSULIN ASPART (NovoLOG) 100 UNIT/ML VIAL SQ SCH ×2 (07:54→12:23)
[2018-11-26 08:06] LABS: Anion Gap 6 mmol/L; Blood Urea Nitrogen 8 mg/dL (9-20); Carbon Dioxide 28 mmol/L (22-30); Chloride 103 mmol/L (98-107); Glucose 131 mg/dL (74-99); Sodium 137 mmol/L (137-145)
--- NOTE | 2018-11-26 09:25 | P.PN ---
Subjective Progress Note Date: 11/26/18 This is a 58-year-old male who is status post repeat I&D of left gluteal abscess. This is postoperative day #3. Patient states that his pain is well controlled and he denies any new complaints today. Patient denies any fever/chills, numbness, weakness, tingling, abdominal pain, shortness of breath or chest pain. Objective - Vital Signs Vital signs: Vital Signs Temp 97.4 F L 11/26/18 05:31 Pulse 69 11/26/18 05:31 Resp 18 11/26/18 05:31 BP 133/71 11/26/18 05:31 Pulse Ox 95 11/26/18 05:31 Intake & Output 11/25/18 11/26/18 11/26/18 18:59 06:59 18:59 Intake Total 300 Output Total 1010 1550 Balance -1010 -1250 Intake: Oral 300 Output: Drainage 10 Left Hip 10 Urine 1000 1550 Other: # Voids 2 - Exam Vital signs are stable. Patient is in no acute distress and is alert and oriented 3. Calf is soft and nontender to palpation. Dressing is clean, dry, and intact. Drain is intact and empty. Patient has full foot and ankle motion without pain or difficulty. Neurovascular status and circulatory status are intact. - Labs CBC & Chem 7: 11/25/18 11:53 11/26/18 07:36 Labs: Abnormal Lab Results - Last 24 Hours (Table) 11/25/18 11/25/18 11/25/18 Range/Units 08:24 11:53 11:56 RBC 3.08 L (4.30-5.90) m/uL Hgb 8.6 L D (13.0-17.5) gm/dL Hct 27.2 L (39.0-53.0) % Sodium 135 L (137-145) mmol/L BUN (9-20) mg/dL Creatinine 0.33 L (0.66-1.25) mg/dL Glucose 182 H (74-99) mg/dL POC Glucose (mg/dL) 238 H (75-99) mg/dL 11/25/18 11/25/18 11/26/18 Range/Units 16:48 20:04 07:15 RBC (4.30-5.90) m/uL Hgb (13.0-17.5) gm/dL Hct (39.0-53.0) % Sodium (137-145) mmol/L BUN (9-20) mg/dL Creatinine (0.66-1.25) mg/dL Glucose (74-99) mg/dL POC Glucose (mg/dL) 119 H 151 H 135 H (75-99) mg/dL 11/26/18 Range/Units 07:36 RBC (4.30-5.90) m/uL Hgb (13.0-17.5) gm/dL Hct (39.0-53.0) % Sodium (137-145) mmol/L BUN 8 L (9-20) mg/dL Creatinine 0.33 L (0.66-1.25) mg/dL Glucose 131 H (74-99) mg/dL POC Glucose (mg/dL) (75-99) mg/dL Microbiology - Last 24 Hours (Table) 11/23/18 18:00 Anaerobic Culture - Preliminary Hip - Left 11/22/18 15:00 Blood Culture - Preliminary Blood No Growth after 72 hours 11/23/18 18:00 Gram Stain - Final Hip - Left Wound Culture - Final Assessment and Plan (1) Abscess, gluteal, left Current Visit: No Status: Acute Priority: Medium Code(s): L02.31 - CUTANEOUS ABSCESS OF BUTTOCK SNOMED Code(s): 75887191 Plan: 1. Keep the incision clean, dry and intact. 2. Drain is in place and output was 60 mL on 11/25/2018. 3. Continue routine postoperative care and pain control. 4. Appreciate input from medicine and infectious disease. 5. Cultures are negative so far. 6. Patient is doing well postoperatively. We will continue to follow throughout the patient's hospital stay.
[2018-11-26 12:18] LABS: Glucose,Whole Blood 163 mg/dL (75-99)
[2018-11-26] MEDS: HYDROmorphone 0.5 MG/0.5 ML SYRINGE IVP PRN (12:27)
[2018-11-26 13:13] VITALS: BP 116/61; PULSE 77; RESP 16; TEMP 98.9
--- NOTE | 2018-11-27 00:03 | P.PN ---
Subjective Progress Note Date: 11/26/18 58-year-old male with a history of recent hospitalization where he had uncontrolled hypertension, with alteration of his medications and cardiology intervention he had some improvement in was feeling somewhat better. He however several days ago suffered a fall. He denies loss of consciousness but likely was presyncopal ,he does not believe he had much injury but is now had progressive discomfort over the left buttocks and left hip area. He has a history of some chronic lower back pain which itself is not markedly worsened but has had increasing difficulties with day-to-day living because of increasing pain. He was seen by his primary care physician and advised for admission as of his changes of his status. Patient has a known history of diabetes mellitus type 2 also. Because of the pain at the site the patient imaging studies which failed to reveal evidence of fracture. However there was evidence of some phlegmon. Site was aspirated as well as a blood culture obtained both of which showed evidence of staph aureus. The patient eventually was taken to the operating room and had an extensive incision and drainage performed to the site. He was improved. He was up moving about and was discharged home on intravenous antibiotic therapy with Rocephin at the office. The patient noted the day before starting have some increasing difficulty with ambulation. And on the day of admission he again was having great increasing difficulty with pain and ambulation. Consequently presents to the emergency center for further evaluation. At the time of evaluation the patient relates that his fevers improved. His pain has improved since coming in receiving some medication. He is most comfortable. There is no significant drainage that can be seen at the suture line. 11/26/2018 patient now has significant improvement of his status. He is having incision and drainage of the seroma that was mildly bloody. New cultures are negative at this time is feeling better overall. Orthopedics is working for his discharge today now that is draining is been removed. Objective - Vital Signs Vital signs: Vital Signs Temp 98.9 F 11/26/18 13:00 Pulse 77 11/26/18 13:00 Resp 16 11/26/18 13:00 BP 116/61 11/26/18 13:00 Pulse Ox 97 11/26/18 13:00 Intake & Output 11/26/18 11/26/18 11/27/18 06:59 18:59 06:59 Intake Total 300 600 Output Total 1550 1500 Balance -1250 -900 Intake: Oral 300 600 Output: Urine 1550 1500 Other: # Voids 2 - Exam 58-year-old male mildly overweight not in distress HEENT: Anicteric conjunctiva are pink and moist nasal mucosa grossly intact without significant lesions, there is no thrush. Neck: The neck is supple without significant lymphadenopathy or thyromegaly. Lungs: Good bilateral air entry without significant crackles or wheezing. There is no significant bronchial sounds. There is no egophony or dullness. Heart: Regular rate and rhythm with an audible S1-S2, no S3 no S4. There is no significant murmur click or rub, PMI was nondisplaced. Abdomen: Positive bowel sounds soft and nontender without palpable masses or organomegaly. There was no guarding or rebound. Extremities: The upper extremities have excellent pulses they are symmetric, no significant petechiae or telangiectasia. No splinter hemorrhages were noted. The right total hip arthroplasty site is well-healed without tenderness or erythema. The left buttocks and hip are evaluated. The surgical incision is intact. [place] are in place. There is some minimal erythema. There is distinct tenderness over the site. There does seem to be some fluctuance still. The patient does have difficulty with ambulation because of discomfort. Neuro: Awake alert oriented to person place and time. There are no acute new gross focal sensory motor deficits. The patient is somewhat vague though as a historian - Labs CBC & Chem 7: 11/25/18 11:53 11/26/18 07:36 Labs: Abnormal Lab Results - Last 24 Hours (Table) 11/26/18 11/26/18 11/26/18 Range/Units 07:15 07:36 11:53 BUN 8 L (9-20) mg/dL Creatinine 0.33 L (0.66-1.25) mg/dL Glucose 131 H (74-99) mg/dL POC Glucose (mg/dL) 135 H 163 H (75-99) mg/dL Microbiology - Last 24 Hours (Table) 11/22/18 15:00 Blood Culture - Preliminary Blood No Growth after 96 hours 11/23/18 18:00 Anaerobic Culture - Preliminary Hip - Left Laboratory Results WBC 7.0 k/uL (3.8-10.6) 11/25/18 11:53 RBC 3.08 m/uL (4.30-5.90) L 11/25/18 11:53 Hgb 8.6 gm/dL (13.0-17.5) L D 11/25/18 11:53 Hct 27.2 % (39.0-53.0) L 11/25/18 11:53 MCV 88.1 fL (80.0-100.0) 11/25/18 11:53 MCH 27.9 pg (25.0-35.0) 11/25/18 11:53 MCHC 31.7 g/dL (31.0-37.0) 11/25/18 11:53 RDW 14.9 % (11.5-15.5) 11/25/18 11:53 Plt Count 416 k/uL (150-450) 11/25/18 11:53 Neutrophils % 67 % 11/25/18 11:53 Lymphocytes % 22 % 11/25/18 11:53 Monocytes % 7 % 11/25/18 11:53 Eosinophils % 2 % 11/25/18 11:53 Basophils % 1 % 11/25/18 11:53 Neutrophils # 4.7 k/uL (1.3-7.7) 11/25/18 11:53 Lymphocytes # 1.5 k/uL (1.0-4.8) 11/25/18 11:53 Monocytes # 0.5 k/uL (0-1.0) 11/25/18 11:53 Eosinophils # 0.2 k/uL (0-0.7) 11/25/18 11:53 Basophils # 0.0 k/uL (0-0.2) 11/25/18 11:53 Hypochromasia Not Reportable 11/25/18 08:24 ESR 110 mm/hr (0-15) H 11/23/18 07:31 PT 10.1 sec (9.0-12.0) 11/22/18 13:51 INR 0.9 (<1.2) 11/22/18 13:51 APTT 27.6 sec (22.0-30.0) 11/22/18 13:51 Sodium 137 mmol/L (137-145) 11/26/18 07:36 Potassium 4.0 mmol/L (3.5-5.1) 11/26/18 07:36 Chloride 103 mmol/L (98-107) 11/26/18 07:36 Carbon Dioxide 28 mmol/L (22-30) 11/26/18 07:36 Anion Gap 6 mmol/L 11/26/18 07:36 BUN 8 mg/dL (9-20) L 11/26/18 07:36 Creatinine 0.33 mg/dL (0.66-1.25) L 11/26/18 07:36 Est GFR (CKD-EPI)AfAm >90 (>60 ml/min/1.73 sqM) 11/26/18 07:36 Est GFR (CKD-EPI)NonAf >90 (>60 ml/min/1.73 sqM) 11/26/18 07:36 Glucose 131 mg/dL (74-99) H 11/26/18 07:36 POC Glucose (mg/dL) 163 mg/dL (75-99) H 11/26/18 11:53 POC Glu Integration Software Developer Vernell Morales 11/26/18 11:53 Lactic Ac Sepsis Rflx Y 11/22/18 15:24 Plasma Lactic Acid Timothy 1.3 mmol/L (0.7-2.0) 11/22/18 19:04 Calcium 9.0 mg/dL (8.4-10.2) 11/26/18 07:36 Total Bilirubin 0.4 mg/dL (0.2-1.3) 11/22/18 13:51 AST 100 U/L (17-59) H 11/22/18 13:51 ALT 34 U/L (21-72) 11/22/18 13:51 Alkaline Phosphatase 72 U/L (38-126) 11/22/18 13:51 C-Reactive Protein 33.4 mg/L (<10.0) H 11/23/18 07:31 Total Protein 7.6 g/dL (6.3-8.2) 11/22/18 13:51 Albumin 3.4 g/dL (3.5-5.0) L 11/22/18 13:51 Lipase 20 U/L (23-300) L 11/22/18 13:51 Urine Color Yellow 11/22/18 16:35 Urine Appearance Clear (Clear) 11/22/18 16:35 Urine pH 5.5 (5.0-8.0) 11/22/18 16:35 Ur Specific Mathews 1.034 (1.001-1.035) 11/22/18 16:35 Urine Protein Negative (Negative) 11/22/18 16:35 Urine Glucose (UA) Negative (Negative) 11/22/18 16:35 Urine Ketones Negative (Negative) 11/22/18 16:35 Urine Blood Negative (Negative) 11/22/18 16:35 Urine Nitrite Negative (Negative) 11/22/18 16:35 Urine Bilirubin Negative (Negative) 11/22/18 16:35 Urine Urobilinogen <2.0 mg/dL (<2.0) 11/22/18 16:35 Ur Leukocyte Esterase Negative (Negative) 11/22/18 16:35 Vancomycin Trough 11.4 ug/mL 11/25/18 08:24 Microbiology 11/22/18 15:00 Blood Blood Culture - Preliminary No Growth after 96 hours 11/23/18 18:00 Hip - Left Anaerobic Culture - Preliminary 11/23/18 18:00 Hip - Left Gram Stain - Final 11/23/18 18:00 Hip - Left Wound Culture - Final Assessment and Plan (1) Abscess, gluteal, left Status: Acute Priority: Medium Code(s): L02.31 - CUTANEOUS ABSCESS OF BUTTOCK SNOMED Code(s): 65421167 (2) Bacteremia due to Staphylococcus aureus Narrative/Plan: 58-year-old male presents to the emergency center with the relatively sudden worsening of his status. So from hospital a few days after the abscess of the developed of the left hip area, he had incision and drainage and has been on intravenous antibiotic therapy for the bacteremic abscess from the left hip. He had increasing difficulties with ambulation which worsened over a days. Time in counseling presented to the emergency center. Repeat imaging studies reveal evidence of ongoing fluid accumulation in the left hip area. Orthopedic surgery consult has been requested and infectious disease for antibiotic therapy. Vancomycin was initiated at this point in time pending further culture results and Ancef 2 g every 8 hours is initiated also. Pain control seems to be adequate. Dietary to help ensure is adequate protein intake to help the healing. Await orthopedic intervention as far as likely repeated surgical incision and drainage for this complex abscess. 11/26/2018 patient is status post incision and drainage and is living improvement of his status. He is up and walking without significant difficulty. The relief of the extensive pressure within the left hip. He feels considerab ly better and is ready for discharge home today. However with the discharge planners for him to receive his outpatient intravenous antibiotic therapy for the prior extensive his infection to the left hip area During his recent stay he had evidence of the extensive bacteremia and infection to the left hip area. MRSA isolated and he will resume his Rocephin for at least 4 weeks in the outpatient setting. Pain control is adequate. Status: Acute Code(s): R78.81 - BACTEREMIA SNOMED Code(s): 516492586
--- NOTE | 2018-11-27 00:11 | DS ---
DISCHARGE SUMMARY DATE OF ADMISSION: 11/22/2018. DATE OF DISCHARGE: 11/26/2018. FINAL DIAGNOSES: 1. Acute left gluteal abscess recurrent and possibly infected seroma. 2. Diabetes mellitus type 2. 3. Essential hypertension. 4. Coronary artery disease with stent in June of 2018. 5. Chronic nicotine dependence, patient is a cigarette smoker. 6. Benign prostatic hypertrophy. HOSPITAL COURSE: The patient has multiple medical problems, was recently in the hospital, had I and D carried out of the left gluteal abscess with MRSA. The patient was discharged on November 19 for 4 weeks of IV ceftriaxone. The patient was seen by Dr. Pleitez. The patient presented with increased pain and swelling in the area and was taken back to the OR by Orthopedics. It is possible patient may have had a infected seroma. Repeat cultures were negative. The patient is doing better, up and about. Pain is well controlled. Tolerating a diet. No fever. No chills. Patient's cultures all have been negative. The patient was cleared both by Orthopedics and Dr. Pleitez. Care was discussed with the patient and the . PHYSICAL EXAMINATION: Temperature 98.9 pulse 77 16 blood pressure 106/61, pulse ox 97% on room air. Left hip minimal tenderness. INVESTIGATIONS: Potassium 4, BUN 8, creatinine 0.33. Cultures negative. DISCHARGE MEDICATIONS: 1. Glucophage 1000 mg p.o. b.i.d. 2. Neurontin 300 mg p.o. t.i.d. p.r.n. 3. Gladys 10 one tablet p.o. t.i.d. p.r.n. 4. Nitrostat 0.4 sublingual every 5 p.r.n. 5. Lipitor 40 mg at bedtime. 6. Aspirin 81 mg p.o. daily. 7. Plavix 75 mg p.o. daily. 8. Lopressor 50 mg p.o. b.i.d. 9. Norvasc 5 mg p.o. daily. 10.Zestril 20 mg p.o. daily. 11.Januvia 100 mg p.o. daily. 12.Flomax 0.4 mg p.o. daily. 13.Ceftriaxone 2 grams IV piggyback every 24 hours 28 days. FOLLOWUP: 1. Follow up with Dr. Pleitez. 2. Follow up Dr. Jarvis on 11/26/2018. 3. Patient has been getting infusions at [facility]. 4. Follow up with Dr. Zuniga on 12/02/2018. CONSULTATIONS: Dr. Rdz from Orthopedics and Dr. Pleitez from Infectious Disease. MMDORENEL / IJN: [id number] /
--- NOTE | 2018-11-28 10:40 | CDI ---
Documentation Clarification Form Date: 11/28/18 From: Aide Lujan Phone: If questions call Ellie Juarez @ [phone], Hours-8:30 am & 5 pm M- F Admit Date: 11/23/2018 12:55:00 PM Patient Name: Santiago Jo Visit Number: [id number] Discharge Date: 11/26/2018 4:01:00 PM ATTENTION: The Clinical Documentation Specialists (CDI) and [facility] Coding Staff appreciate your assistance in clarifying documentation. Please respond to the clarification below the line at the bottom and electronically sign. The CDI & [facility] Coding staff will review the response and follow-up if needed. Please note: Queries are made part of the Legal Health Record. If you have any questions, please contact the author of this message via ITS. Dr. Hilton Lopez Bacteremia documented in the ED note, Dr Pleitez consult & PN on 11/26. Patient history/risk factors: gluteal abscess, DM, CAD, HTN Lactic acid: 2.1 Lactic Ac Sepsis Rflx: Y WBC: 5.2 Neutrophils: 68/88 Blood Culture: no growth Consult: Infectous disease Treatment: I&D left gluteal abscess Antibiotics: IV Rocephin, IV Vancomycin, IV Kefzol Bacteremia is considered a lab finding. Please clarify if that lab finding is clinical indicator of a more definitive medical diagnosis such as: Sepsis Infectious Process, please specify: Other, please specify Unable to determine left gluteal seroma infected; no sepsis MTDD
--- NOTE | 2018-11-28 10:52 | CDI ---
Documentation Clarification Form Date: 11/28/18 From: Aide Lujan Phone: If questions call Ellie Juarez @ [phone], Hours-8:30 am & 5 pm M- Jennifer Admit Date: 11/23/2018 12:55:00 PM Patient Name: Santiago Jo Visit Number: [id number] Discharge Date: 11/26/2018 4:01:00 PM ATTENTION: The Clinical Documentation Specialists (CDI) and [facility] Coding Staff appreciate your assistance in clarifying documentation. Please respond to the clarification below the line at the bottom and electronically sign. The CDI & [facility] Coding staff will review the response and follow-up if needed. Please note: Queries are made part of the Legal Health Record. If you have any questions, please contact the author of this message via ITS. Dr. Francisco Rdz Per your operative note, a debridement was performed on left gluteal abscess. History/Risk Factors: abscess left gluteal, Treatment: IV antibiotics In order to capture the severity of condition and code the appropriate procedure, could you please document the following related to technique used: Excisional debridement (removal of necrotic, devitalized tissue or slough by means of cutting away of tissue) or Non-excisional debridement (removal of necrotic, devitalized tissue or slough by means of flushing, brushing, or irrigation Other; please specify Excisional debridement MTDD
--- NOTE | 2018-11-28 11:03 | CDI ---
Documentation Clarification Form Date: 11/28/2018 From: Aide Lujan Phone: If questions call Ellie Juarez @ [phone], Hours-8:30 am & 5 pm M- F Admit Date: 11/23/2018 12:55:00 PM Patient Name: Santiago Jo Visit Number: [id number] Discharge Date: 11/26/2018 4:01:00 PM ATTENTION: The Clinical Documentation Specialists (CDI) and [facility] Coding Staff appreciate your assistance in clarifying documentation. Please respond to the clarification below the line at the bottom and electronically sign. The CDI & [facility] Coding staff will review the response and follow-up if needed. Please note: Queries are made part of the Legal Health Record. If you have any questions, please contact the author of this message via ITS. Dr. Hilton Lopez The patient has Type II diabetes, as indicated in ED note, H&P, both consults, several progress note & DS. POC glucose: 166, 159, 202, 268, 253, 281, 140, 160, 156, 238, 119, 151, 135, 163 Glucose: 223, 160, 182, 131 Treatment: Cover with adult NovoLOG sliding scale Per [facility] 2016 - query the provider for clarification whether the patient has hyperglycemia or hypoglycemia so that the appropriate code may be reported - uncontrolled diabetes indicates that the patient's blood sugar is not at an acceptable level, because it is either too high or too low. In order to capture the severity of Illness and necessary documentation specificity, please clarify if Type 2 uncontrolled diabetes is: Hyperglycemia Hypoglycemia Other, please specify Unable to Determine DM type 2 uncontrolled with hyperglycemia MTDD
== END 2018-11-26 16:01 | disposition home or self-care (01) | DRG 571 ==
LOC: EC 10:59 → 1SOBS 18:44 → OBSVTOIN 11-23 12:55 → 4MS4W 11-24 13:02
PROVIDERS: ADMIT Hospitalist; ATTEND Hospitalist
PROC: 0JBC0ZZ Excision of Pelvic Region Subcutaneous Tissue and Fascia, Open Approach (ICD-10-PCS; principal; 2018-11-23 10:10)
DX: L02.31 Cutaneous abscess of buttock (principal); M96.842 Postprocedural seroma of a musculoskeletal structure following a musculoskeletal system procedure; R78.81 Bacteremia; E11.42 Type 2 diabetes mellitus with diabetic polyneuropathy; B95.61 Methicillin susceptible Staphylococcus aureus infection as the cause of diseases classified elsewhere; I10 Essential (primary) hypertension; E78.5 Hyperlipidemia, unspecified; I25.10 Atherosclerotic heart disease of native coronary artery without angina pectoris; I25.2 Old myocardial infarction; N40.0 Benign prostatic hyperplasia without lower urinary tract symptoms; R91.1 Solitary pulmonary nodule; G89.29 Other chronic pain; M54.5 Low back pain; F17.210 Nicotine dependence, cigarettes, uncomplicated; Z79.82 Long term (current) use of aspirin; Z79.02 Long term (current) use of antithrombotics/antiplatelets; Z79.84 Long term (current) use of oral hypoglycemic drugs; Z79.899 Other long term (current) drug therapy; Z95.5 Presence of coronary angioplasty implant and graft; Z96.641 Presence of right artificial hip joint; Z82.49 Family history of ischemic heart disease and other diseases of the circulatory system; W19.XXXA Unspecified fall, initial encounter; E11.65 Type 2 diabetes mellitus with hyperglycemia
CPT/HCPCS: 36415; 74177; 80048; 80053; 80202; 81003; 83605; 83690; 85025; 85610; 85652; 85730; 86140; 87040; 87070; 87075; 87205; 96361; 96365; 96366; 96367; 96375; 99285

== ENCOUNTER → 2018-12-07 | Outpatient (CLI) | payer OTHER ==
--- NOTE | 2018-12-07 10:22 | CT ---
EXAMINATION TYPE: CT chest wo con DATE OF EXAM: 12/07/2018 COMPARISON: 11/22/2018 HISTORY: Follow up lung nodule CT DLP: 408.[address] of the chest was performed with lung and mediastinal window settings submitted. The la ck of contrast limits evaluation of the vascular, mediastinal and parenchymal structures including th e upper abdomen. LUNGS: Right upper lobe 3 mm pulmonary nodule image 33, right upper lobe pulmonary nodule image 36 me asures 4 mm, right lower lobe pulmonary nodule image 39 measures 4 mm subpleural nodule right lower l obe image 45 measures 3 mm, right lower lobe pulmonary nodule image 46 measures 5 mm, right lower lob e subpleural nodule right lateral sulcus image 48 measures 5 mm. 9.4 mm nodule lateral right lower lo be image 50, 6 mm pulmonary nodule left lower lobe image 50, left upper lobe 3 mm pulmonary nodules i dentified on the image 18 totally 2 in number. 3 mm subpleural nodule left apical region. No evidence for infiltrate or atelectasis. No pleural effusion identified. MEDIASTINUM/AMRIK: Thoracic aorta is of normal caliber with limited evaluation given lack of contrast . The heart is enlarged. Coronary artery calcifications identified. No evidence for mediastinal mass . No lymph nodes greater than 1cm. UPPER ABDOMEN: No significant abnormality is seen. OTHER: No significant other abnormality. IMPRESSION: 1. Multiple nonspecific pulmonary nodules may reflect noncalcified granulomas however metastatic dis ease is not excluded. Stability over a two-year timeframe is recommended. Follow-up CT of the chest i s advised in 3-6 months.
== END | disposition home or self-care (01) ==
LOC: RADCTMAIN 08:22
PROVIDERS: ATTEND Family Medicine
DX: R91.8 Other nonspecific abnormal finding of lung field (principal)
CPT/HCPCS: 71250

== ENCOUNTER → 2019-04-11 | Outpatient (CLI) | payer OTHER ==
--- NOTE | 2019-04-11 10:08 | CT ---
EXAMINATION TYPE: CT chest wo con DATE OF EXAM: 04/11/2019 COMPARISON: Chest CT December 07, 2018 HISTORY: Pulmonary lung nodules, abnormal prior CT. CT DLP: 408.3 mGycm. Automated Exposure Control for Dose Reduction was Utilized. TECHNIQUE: CT scan of the thorax is performed without IV contrast. FINDINGS: LUNGS: Stable 2 to 3 mm right mid lung nodule axial image 30 anteriorly. Prior visualized 4 mm nodule inferior posterior tip is not clearly seen on current study near image 31. Stable 3 mm right lower l obe nodule image 36. Stable 2 mm subpleural nodular opacity lateral right lung axial image 42. Previo usly visualized 5 mm posterolateral right lower lobe nodule not clearly seen near axial image 43. Sim ilar to the lower lateral right lung base 5 mm nodule. No new right-sided nodules are identified. Improved left basilar lateral 9 mm nodule axial image 48 with mild residual linear scarring. Nonvisua lization of medial 7 mm nodule on current study at lung base. Tiny nodules throughout the left lung m easuring under 4 mm in size are stable or less well seen. No new greater than 4 mm nodules are present bilaterally. Mild posterior left apical linear scarring redemonstrated. No pleural effusion or pneumothorax. MEDIASTINUM: Lack of IV contrast is noted to limit evaluation for mediastinal and especially hilar ad enopathy. There are no definitive greater than 1 cm hilar or mediastinal lymph nodes. No cardiomega ly or pericardial effusion is seen. Calcification at level of mitral and aortic valve.. Coronary eder ry calcification and/or stents. Enlarged main pulmonary artery 3.2 cm axial image 23 redemonstrated, CT finding suggesting underlying pulmonary hypertension. OTHER: Underlying dextroconvex scoliosis lumbar spine redemonstrated. IMPRESSION: Scattered small nodules stable or improved/resolved. No new nodules or nodules measuring greater than 4 mm in size identified on current study.
== END | disposition home or self-care (01) ==
LOC: RADCTMAIN 08:15
PROVIDERS: ATTEND Family Medicine
DX: R91.8 Other nonspecific abnormal finding of lung field (principal)
CPT/HCPCS: 71250

== ENCOUNTER → 2019-06-05 | Outpatient (CLI) | payer OTHER ==
[2019-06-05 15:13] LABS: HGB 13.3 gm/dL (13.0-17.5); MCH 30.4 pg (25.0-35.0); MCV 89.5 fL (80.0-100.0); Mean Platelet Volume 6.1; Platelet Count 261 k/uL (150-450); RBC 4.36 m/uL (4.30-5.90); RDW 12.8 % (11.5-15.5); WBC 5.8 k/uL (3.8-10.6)
[2019-06-05 16:32] LABS: Eosinophils # (M) 0.81 k/uL (0-0.7); Lymphocytes # (M) 1.62 k/uL (1.0-4.8); Neutrophils % (M) 46 %; Nucleated Red Blood Cells 0 /100 WBC (0-0); Total Cells Counted 100
[2019-06-05 16:45] LABS: Erythrocyte Sedimentation Rate 8 mm/hr (0-15)
== END | disposition home or self-care (01) ==
LOC: LABWHC1 14:14
PROVIDERS: ATTEND Orthopaedic Surgery
DX: Z51.89 Encounter for other specified aftercare (principal); M16.12 Unilateral primary osteoarthritis, left hip; E78.5 Hyperlipidemia, unspecified; E11.9 Type 2 diabetes mellitus without complications; I10 Essential (primary) hypertension; M25.552 Pain in left hip; Z98.890 Other specified postprocedural states
CPT/HCPCS: 36415; 85025; 85652; 86140

== ENCOUNTER → 2019-07-15 | Outpatient (CLI) | payer OTHER ==
--- NOTE | 2019-07-16 16:44 | MR ---
EXAMINATION TYPE: MR lumbar spine wo con DATE OF EXAM: 07/15/2019 COMPARISON: 11/30/2017 HISTORY: Low back pain into left leg TECHNIQUE: Multiplanar, multisequence images of the lumbar spine were acquired. FINDINGS: Coronal localizer images demonstrate a dextroscoliosis of the lumbar spine. T2 hyperintense and T1 hypointense probable right renal cyst that could be confirmed with ultrasound as seen enterin g the prior 2018. Vertebral body heights and alignment of the lumbar spine are maintained. Conus medu llaris terminates at approximately L2. Multilevel disc desiccation and degenerative changes of the sp ine. Right paraspinal atrophy at L4-S1. L1-L2: Facet arthropathy, right eccentric broad-based disc bulge, and ligamentum flavum buckling cont ribute to mild to moderate bilateral neural foraminal narrowing without canal stenosis. L2-L3: Prominent left-sided facet arthropathy contributes to moderate left neural foraminal narrowing and narrowing of the spinal canal in a transverse dimension. Right-sided facet arthropathy and a rig ht eccentric broad-based disc bulge also seen resulting in moderate right neural foraminal narrowing. L3-L4: Left eccentric disc bulge, facet arthropathy and ligamentum flavum buckling are seen narrowing the spinal canal in transverse dimension, mild. There is resultant severe left neural foraminal narr owing and moderate right neural foraminal narrowing. L4-L5: Central disc herniation and right eccentric disc bulge in combination with facet arthropathy a nd ligamentum flavum buckling create severe right and moderate left neural foraminal narrowing and mo derate spinal canal stenosis. L5-S1: Small central disc herniation and broad-based disc bulge, ligamentum flavum buckling and facet arthropathy contribute to mild left and moderate right neural foraminal narrowing without significan t spinal canal stenosis. IMPRESSION: 1. New central disc herniation and progressed right eccentric disc bulge at L4-L5 creates severe righ t neuroforaminal narrowing, moderate left neural foraminal narrowing and moderate spinal canal stenos is. 2. Small central disc herniation at L5-S1 and degenerative change contribute to moderate right and mi ld left neural foraminal narrowing. 3. Left eccentric disc bulge at L3-L4 with degenerative change create severe left neural foraminal na rrowing and moderate right neural foraminal narrowing as well as mild spinal canal stenosis. 4. Mild spinal canal stenosis at L2-L3 and moderate bilateral neural foraminal narrowing from degener ative disc disease. 5. Mild to moderate bilateral neural foraminal narrowing at L1-L2 secondary to degenerative disc dise ase. 6. Dextroscoliosis of the lumbar spine. 7. Probable right renal cyst as seen on the exam of 2018. This could be confirmed with ultrasound.
== END | disposition home or self-care (01) ==
LOC: RADMRIMAIN 18:49
PROVIDERS: ATTEND Family Medicine
DX: M51.17 Intervertebral disc disorders with radiculopathy, lumbosacral region (principal); M48.061 Spinal stenosis, lumbar region without neurogenic claudication; M41.86 Other forms of scoliosis, lumbar region; R93.421 Abnormal radiologic findings on diagnostic imaging of right kidney
CPT/HCPCS: 72148

== ENCOUNTER → 2019-10-22 | Outpatient (CLI) | payer OTHER ==
[2019-10-22 08:21] LABS: Basophils % (A) 1 %; Eosinophils # (A) 0.3 k/uL (0-0.7); Eosinophils % (A) 6 %; HCT 37.2 % (39.0-53.0); HGB 12.9 gm/dL (13.0-17.5); Lymphocytes # (A) 1.2 k/uL (1.0-4.8); Lymphocytes % (A) 23 %; MCH 31.2 pg (25.0-35.0); MCHC 34.8 g/dL (31.0-37.0); MCV 89.8 fL (80.0-100.0); Mean Platelet Volume 7.7; Monocytes # (A) 0.4 k/uL (0-1.0); Monocytes % (A) 8 %; Neutrophils # (A) 3.1 k/uL (1.3-7.7); Neutrophils % (A) 60 %; Platelet Count 229 k/uL (150-450); RBC 4.14 m/uL (4.30-5.90); RDW 12.9 % (11.5-15.5); WBC 5.1 k/uL (3.8-10.6)
[2019-10-22 08:29] LABS: INR 0.9 (<1.2); Partial Thromboplastin Time 22.5 sec (22.0-30.0); Prothrombin Time 9.7 sec (9.0-12.0)
[2019-10-22 08:56] LABS: ALT 22 U/L (4-49); AST 20 U/L (17-59); African American GFR (CKD) >90 (>60 ml/min/1.73 sqM); Albumin 4.2 g/dL (3.5-5.0); Alkaline Phosphatase 41 U/L (38-126); Anion Gap 12 mmol/L; Blood Urea Nitrogen 20 mg/dL (9-20); Calcium 9.3 mg/dL (8.4-10.2); Carbon Dioxide 23 mmol/L (22-30); Chloride 104 mmol/L (98-107); Glucose 190 mg/dL (74-99); Non-African American GFR(CKD) >90 (>60 ml/min/1.73 sqM); Potassium 4.6 mmol/L (3.5-5.1); Sodium 139 mmol/L (137-145); Total Bilirubin 0.4 mg/dL (0.2-1.3); Total Protein 6.9 g/dL (6.3-8.2)
[2019-10-22 09:35] LABS: Appearance,Urine Clear (Clear); Bilirubin,Urine Negative (Negative); Blood,Urine Negative (Negative); Color,Urine Yellow; Glucose,Urine (UA) Trace (Negative); Ketones,Urine Negative (Negative); Leukocyte Esterase,Urine Negative (Negative); Nitrite,Urine Negative (Negative); PH, Urine 5.5 (5.0-8.0); Protein,Urine Trace (Negative); Specific Gravity,Urine 1.023 (1.001-1.035); Urobilinogen,Urine <2.0 mg/dL (<2.0)
== END | disposition home or self-care (01) ==
LOC: LABPAT 07:20
PROVIDERS: ATTEND Orthopaedic Surgery
DX: Z01.812 Encounter for preprocedural laboratory examination (principal); M16.12 Unilateral primary osteoarthritis, left hip
CPT/HCPCS: 36415; 80053; 81003; 85025; 85610; 85730; 87070

== ENCOUNTER 2019-10-29 07:44 | Inpatient (IN) | payer OTHER ==
[2019-10-22 15:35] VITALS: BMI 30.2
[~2019-10-29 07:44] MED LIST: ACETAMINOPHEN TAB 500 MG TAB PO ONE; DEXAMETHASONE SOD PHOSPHATE 10 MG/ML 1 ML VIAL IV ONE; GABAPENTIN 300 MG CAP PO ONE; HYDROmorphone 0.5 MG/0.5 ML SYRINGE IVP PRN; MELOXICAM 7.5 MG TAB PO ONE; MIDAZOLAM 2 MG/2 ML VIAL IV PRN; ONDANSETRON 4 MG/2 ML VIAL IVP ONE; ROPIVACAINE 246.25 MG, EPINEPHrine 0.5 MG, KETOROLAC 30 MG, cloNIDine HCL/PF 80 MCG, WA... MISCELLANE ONE; SCOPOLAMINE 1.5MG/72HR PATCH TRANSDERM ONE; TRANEXAMIC ACID 1,000 MG in SODIUM CHLORIDE 0.9% 100 ML IVPB ONE
[2019-10-29 08:11] LABS: Glucose,Whole Blood 194 mg/dL (75-99)
[2019-10-29] MEDS: LACTATED RINGERS 1,000 ML IV SCH (08:14)
[2019-10-29] MEDS ORDERED: diphenhydrAMINE 50 MG/ML 1 ML VIAL ONE (09:21)
[2019-10-29] MEDS ORDERED: fentaNYL (PF) 50 MCG/ML 2 ML AMP ONE (09:21)
[2019-10-29] MEDS ORDERED: SODIUM CHLORIDE 0.9% 100 ML BAG ONE (09:21)
[2019-10-29] MEDS ORDERED: MIDAZOLAM 2 MG/2 ML VIAL ONE (09:21)
[2019-10-29] MEDS ORDERED: PHENYLEPHRINE-0.9% NACL SYG 1 MG/10 ML SYRINGE ONE (09:21)
[2019-10-29] MEDS ORDERED: PROPOFOL 10 MG/ML 20 ML VIAL IV ONE (09:21)
[2019-10-29] MEDS ORDERED: TRANEXAMIC ACID 1,000 MG/10 ML VIAL ONE (09:21)
[2019-10-29] MEDS ORDERED: SODIUM CHLORIDE 0.9% IRRIG 1,000 ML BTL IRRIGATION ONE (09:21)
[2019-10-29] MEDS ORDERED: HEPARIN SODIUM,PORCINE 10,000 UNIT/ML 1 ML VIAL ONE (09:21)
[2019-10-29] MEDS ORDERED: ceFAZolin 3,000 MG in SODIUM CHLORIDE 0.9% IRRIGATIO 3,000 ML IRRIGATION ONE (09:55)
[2019-10-29] MEDS ORDERED: LACTATED RINGERS 1,000 ML IV ONE (09:59)
--- NOTE | 2019-10-29 10:42 | P.OP ---
Date of Procedure: 10/29/19 Preoperative Diagnosis: Severe osteoarthritis left hip Postoperative Diagnosis: Severe osteoarthritis left hip Procedure(s) Performed: Left total hip arthroplasty with a direct anterior approach Implants: Jerez and nephew Polarstem size 6 standard Jerez [employer] Nephew R3, 3 hole acetabular shell, 52 mm Jerez [employer]hew reflection 6.5 mm cancellus screw, 20 mm 2 Jerez [employer]hew R3, XLPE 20 acetabular liner Jerez [employer] Nephew Oxinium femoral head 36 m, +4 All components were press-fit. The articulation is Oxinium on polyethylene. Anesthesia: spinal Surgeon: Jun Zuniga Special Certificate Dictator #1: Rad Ambrose Estimated Blood Loss (ml): 200 (65 mL returned with Cell Saver) Pathology: other (Femoral head) Condition: stable Disposition: PACU Indications for Procedure: After failure of conservative treatment we discussed the surgical and nonsurgical treatment options at length. Patient wishes to proceed with a total hip arthroplasty with a direct anterior approach. Complications specific to this procedure were discussed at length, including but not limited to infection, leg length discrepancy, dislocation, and nerve injury. Patient is aware of all these complications and informed consent was obtained Operative Findings: The operative findings are consistent with severe osteoarthritis of the left hip Description of Procedure: Patient was seen and evaluated in the preoperative area, consent was reviewed, and the surgical site was marked with a skin marker. Patient was then brought to the operating room and given prophylactic antibiotics intravenously. 1 g of Tranexamic acid was also given. A spinal anesthetic was administered by the anesthesia department. The patient was then placed on the Hartman table with the bony prominences well-padded. The hip area was then prepped and draped in usual sterile fashion. A universal timeout was then performed, which confirmed the patient's name, surgical site, ALLERGIES, and procedure being performed. Next the incision site was located at 1 cm distal and 1 cm lateral to the anterior superior iliac spine. The skin and subcutaneous tissues were sharply incised. Incision was carefully dissected down to the fascia overlying the tensor fascia beth muscle. This fascia was then incised in line with the incision. Next, using blunt finger dissection, the tensor fascia beth muscle was dissected off its investing fascia. The muscle was then carefully retracted laterally with a cobra retractor over the lateral neck of the femur. Next, the circumflex vessels were identified and cauterized using the AquaMantis device. The anterior hip capsule was then exposed. The capsule was then opened and an inverted T fashion. Cobra retractors were then placed intracapsularly. The proximal femur was then visu alized. The femoral neck was then osteotomized appropriate level above the lesser trochanter. Small amount of traction was placed with the Hartman table. A small wedge of bone was then removed from the remaining femoral head. Next, using a corkscrew femoral head was easily removed from the acetabulum. On gross visual inspection, the femoral head had complete loss of articular cartilage in multip le periarticular osteophytes. Attention was then turned to the acetabulum. the acetabulum was exposed and any remaining labrum was excised. Sequential reaming of the acetabulum was performed using fluoroscopic guidance. When the appropriate size was reached, a trial was then placed. The position and fit of the trial was checked with fluoroscopy. The trial was then removed. Then, using fluoroscopic guidance, the final implant was impacted at 20 of anteversion and 40 of abduction, and fully seated in the acetabulum. 2 screws were then placed in the acetabulum. Again fluoroscopy was used to check position of the screws. Next, the liner was then impacted, with a 20 elevated liner located in the anterior superior quadrant. Component locking was confirmed. Attention was then directed to the femur. With the aid of the Hartman table, the femur was externally rotated to approximately 130, extended, and abducted under the opposite leg. A side hook was then placed under the proximal femur, and the side hook elevator was used to elevate the proximal femur. Retractors were then placed. A capsular release was performed, as well as a release of the conjoined tendon, which afforded excellent visualization of the proximal femur. Next, a box osteotome was used to lateralize the proximal femur. A handkerchief presser was then used to locate the femoral canal. Sequential broaching was then performed with appropriate size which afforded excellent fixation in the proximal femur. A trial was then placed with appropriate head and neck, and the hip was gently reduced with the aid of the Hartman table. Fluoroscopy was then used to check position of the components, as well as to ensure equal leg lengths. The hip was then gently dislocated and the trials were then removed. Final implants were then impacted and the hip was again reduced. Final fluoroscopic x-rays confirmed that the components were in anatomic position, as well as equal leg lengths. The hip was also taken through range of motion, and found to be stable. The hip was then copiously irrigated with antibiotic solution with pulsatile lavage. The hip was then irrigated with Irrisept solution. The soft tissues were then injected with a ropivacaine solution, which consisted of 246.25 mg of ropivacaine, 0.5 mg of epinephrine, 30 mg of Toradol, 80 g of clonidine, and 48.45 mL of sterile water, for a total of 100 mL of fluid injected. A second dose of 1 g of Tranexamic acid was also given. the fascia was then closed with 2-0 strata fix suture. The subcutaneous tissue was closed with 3-0 Vicryl. The subcuticular tissue was closed with 3-0 strata fix suture. The skin was then closed with Dermabond glue and a sterile silver dressing. The patient was then transferred to the recovery room in stable condition. The mri assistant SANDHYA Armando was required due to the complexity of surgery, and the need for skilled surgical garment fitter for positioning, draping, exposure, retraction, and closure of the wound.
--- NOTE | 2019-10-29 11:04 | XR ---
EXAMINATION TYPE: XR Hip Limited LT, FL guidance operating room DATE OF EXAM: 10/29/2019 CLINICAL HISTORY: Fluoroscopic guidance during left hip arthroplasty. TECHNIQUE: Fluoroscopy. COMPARISON: None. FINDINGS: Fluoroscopic guidance was provided during procedure performed by Dr. Zuniga. A total of 44 seconds of fluoroscopic time was utilized during the procedure and 2 spot images was acquired dur ing left hip arthroplasty. IMPRESSION: As Above.
[2019-10-29] MEDS ORDERED: NALOXONE 0.4 MG/ML 1 ML VIAL IV PRN ×2 (11:21→11:23)
[2019-10-29] MEDS ORDERED: HYDROcodone/APAP 5-325MG 1 EACH TAB PO PRN ×2 (11:23)
[2019-10-29] MEDS ORDERED: HYDROmorphone 0.5 MG/0.5 ML SYRINGE IVP PRN ×2 (11:23)
[2019-10-29] MEDS ORDERED: ONDANSETRON 4 MG/2 ML VIAL IVP PRN (11:23)
[2019-10-29] MEDS ORDERED: hydrOXYzine PAMOATE 25 MG CAP PO PRN (11:23)
[2019-10-29 11:37] LABS: Glucose,Whole Blood 245 mg/dL (75-99)
[2019-10-29] MEDS ORDERED: INSULIN ASPART (NovoLOG) 100 UNIT/ML VIAL SQ ONE (11:42)
--- NOTE | 2019-10-29 11:46 | XR ---
EXAMINATION TYPE: XR Hip Limited LT DATE OF EXAM: 10/29/2019 CLINICAL HISTORY: Left hip pain and osteoarthritis. TECHNIQUE: Single AP portable view of left hip is obtained immediately postoperatively. COMPARISON: None. FINDINGS: Metallic hardware from left hip arthroplasty is seen and appears satisfactory in alignment and position. There is evidence of recent surgery with subcutaneous gas noted laterally. IMPRESSION: Metallic hardware from left hip arthroplasty is satisfactory in position.
[2019-10-29] MEDS: HYDROmorphone 1 MG/ML 1 ML SYRINGE IVP PRN (19:09)
[2019-10-29] MEDS: ASPIRIN 325 MG TAB PO SCH (19:10)
[2019-10-29] MEDS ORDERED: HYDROcodone/APAP 7.5-325MG 1 EACH TAB PO PRN (19:19)
[2019-10-29] MEDS ORDERED: NITROGLYCERIN SL TABS 0.4 MG TAB SUBLINGUAL PRN (19:44)
[2019-10-29 19:58] LABS: Glucose,Whole Blood 296 mg/dL (75-99)
[2019-10-29] MEDS: INSULIN ASPART (NovoLOG) 100 UNIT/ML VIAL SQ SCH (20:02)
[2019-10-29] MEDS: GABAPENTIN 300 MG CAP PO SCH (20:03)
[2019-10-29] MEDS: PANTOPRAZOLE 40 MG TABLET PO SCH (20:03)
[2019-10-29] MEDS: metFORMIN 500 MG TAB PO SCH (20:03)
[2019-10-29] MEDS: METOPROLOL TARTRATE 50 MG TAB PO SCH (20:04)
[2019-10-29] MEDS ORDERED: ATORVASTATIN 40 MG TAB PO SCH (21:00)
[2019-10-29] MEDS ORDERED: LISINOPRIL 20 MG TAB PO SCH (21:00)
[2019-10-29] MEDS ORDERED: LINAGLIPTIN 5 MG TABLET PO SCH (21:00)
[2019-10-29] MEDS ORDERED: SENNOSIDES-DOCUSATE SODIUM 1 EACH TAB PO SCH (21:00)
--- NOTE | 2019-10-29 22:07 | CONS ---
CONSULTATION REASON FOR CONSULTATION: Advice regarding diabetes and other multiple medical issues requested by Dr. Zuniga. HISTORY OF PRESENT ILLNESS: This 59-year-old gentleman with a past medical history of diabetes, hypertension, history of myocardial infarction being followed Dr. Jarvis in the outpatient setting underwent a left total hip joint arthroplasty by direct anterior approach by Dr. Zuniga. There is no history any chest pain, palpitations, headache, loss of consciousness or seizures. The patient is complaining of pain at the surgical site which is being managed by Orthopedic surgery. PAST MEDICAL HISTORY: History of diabetes, hypertension, hypothyroidism, myocardial infarction, CAD/stent. MEDICATIONS: Home medications are: 1. Januvia 100 mg q.h.s. 2. Glucophage 1000 mg b.i.d. 3. Nitrostat 0.4 mg sublingual p.r.n. 4. Zestril 20 mg q.h.s. 5. Lipitor 40 mg q.h.s. 6. Norvasc 5 mg q.a.m. 7. Flomax 0.4 daily. 8. Lopressor 50 mg p.o. b.i.d. 9. Ibuprofen 600 mg q.6h p.r.n. 10.Bonifay 10 mg t.i.d. p.r.n. 11.Neurontin 300 mg p.o. b.i.d. 12.Ecotrin 81 mg daily. 13.Plavix 75 mg p.o. daily. ALLERGIES: None. FAMILY HISTORY: History of myocardial infarction in the family. SOCIAL HISTORY: Previous history of smoking. No history of alcohol intake. REVIEW OF SYSTEMS: ENT: No diminished vision. No diminished hearing. CARDIOVASCULAR: No angina or palpitations. RESPIRATION as mentioned earlier. GI: No nausea or vomiting. no dysuria or hematuria. CENTRAL NERVOUS SYSTEM: No numbness or weakness. ALLERGY/IMMUNOLOGY: No asthma or hayfever. MUSCULOSKELETAL: As mentioned earlier. HEMATOLOGY/ONCOLOGY: No history of anemia. ENDOCRINE: No history of diabetes. CONSTITUTIONAL: As mentioned earlier. DERMATOLOGY: Negative. RHEUMATOLOGY: Negative. PSYCHIATRY: As mentioned earlier. PHYSICAL EXAMINATION: Alert and oriented x3. Pulse 74. Pressure 116/70, respiration 20. Temperature is normal. Pulse ox 92%. HEENT: Conjunctivae normal. NECK: No jugular venous distention. CARDIOVASCULAR: S1, S2 muffled. RESPIRATORY: Breath sounds diminished in the bases. No rhonchi. No crackles. ABDOMEN: Soft, nontender. LEGS: Status post hip arthroplasty. NERVOUS SYSTEM: Higher functions as mentioned earlier. Moves all four limbs. No focal deficits. LYMPHATICS: No lymph nodes palpable in the neck, axillae or groin. SKIN: No ulcers. No rashes or bleeding. JOINTS as mentioned earlier. LABS: Hemoglobin is 12.9, and coags are normal and CBC showed glucose 245, hemoglobin is A1c is 8.9. ASSESSMENT: 1. Status post left total hip joint arthroplasty for severe degenerative joint disease. 2. Diabetes mellitus type 2. 3. Hypertension. 4. Hyperlipidemia. 5. Myocardial infarction. 6. History of coronary artery disease/stent. 7. History of degenerative joint disease. 8. History of nicotine dependence. 9. FULL CODE. RECOMMENDATIONS AND DISCUSSION: This 59-year-old gentleman presented after surgery, at this time, I recommend to continue current medications. Resume the home medication. Accu-Cheks, a.c. and q.h.s. DVT prophylaxis. Recommend close followup with the primary physician after discharge. We will follow the patient closely while the patient is in the hospital. Thank you Dr. Zuniga for letting us participate in the care of your patient. MMODL / IJN: [id number] /
[2019-10-30] MEDS: HYDROcodone/APAP 7.5-325MG 1 EACH TAB PO PRN ×2 (00:23→07:22)
[2019-10-30] MEDS: HYDROmorphone 1 MG/ML 1 ML SYRINGE IVP PRN (03:08)
[2019-10-30] MEDS: LACTATED RINGERS 1,000 ML IV SCH (05:32)
[2019-10-30 06:56] LABS: Glucose,Whole Blood 151 mg/dL (75-99)
[2019-10-30] MEDS: metFORMIN 500 MG TAB PO SCH (07:21)
[2019-10-30] MEDS: ASPIRIN 325 MG TAB PO SCH (07:21)
[2019-10-30] MEDS: PANTOPRAZOLE 40 MG TABLET PO SCH (07:21)
[2019-10-30] MEDS: GABAPENTIN 300 MG CAP PO SCH (07:21)
[2019-10-30] MEDS: METOPROLOL TARTRATE 50 MG TAB PO SCH (07:22)
[2019-10-30 07:26] VITALS: RESP 16
[2019-10-30 07:26] LABS: Basophils % (A) 0 %; Eosinophils % (A) 0 %; HCT 31.2 % (39.0-53.0); HGB 10.3 gm/dL (13.0-17.5); Lymphocytes % (A) 11 %; MCHC 32.8 g/dL (31.0-37.0); MCV 91.2 fL (80.0-100.0); Mean Platelet Volume 8.1; Monocytes # (A) 0.8 k/uL (0-1.0); Monocytes % (A) 9 %; Neutrophils # (A) 7.2 k/uL (1.3-7.7); Neutrophils % (A) 77 %; Platelet Count 191 k/uL (150-450); RBC 3.42 m/uL (4.30-5.90); RDW 12.7 % (11.5-15.5); WBC 9.3 k/uL (3.8-10.6)
[2019-10-30] MEDS: INSULIN ASPART (NovoLOG) 100 UNIT/ML VIAL SQ SCH ×2 (07:40→15:31)
[2019-10-30] MEDS ORDERED: HYDROcodone/APAP 10-325MG 1 EACH TAB PO PRN ×2 (08:53)
[2019-10-30] MEDS ORDERED: amLODIPine 5 MG TAB PO SCH (09:00)
[2019-10-30] MEDS ORDERED: NON FORMULARY DRUG (Aspirin [Adult Low Dose Aspirin Ec] 81 MG) PO SCH (09:00)
[2019-10-30] MEDS ORDERED: TAMSULOSIN 0.4 MG CAP.ER.24H PO SCH (09:00)
[2019-10-30] MEDS ORDERED: CLOPIDOGREL 75 MG TAB PO SCH (09:00)
--- NOTE | 2019-10-30 09:02 | P.DS ---
Providers Date of admission: 10/29/19 07:44 Expected date of discharge: 10/30/19 Attending physician: Jun Zuniga Consults: 10/29/19 17:58 Consult Physician Routine Consulting Provider: Hilton Lopez Consult Reason/Comments: medical management Do you want consulting provider notified?: Already Contacted Primary care physician: Shaji Jarvis - Discharge Diagnosis(es) (1) Primary localized osteoarthritis of left hip Current Visit: Yes Status: Acute (2) Status post total hip replacement, left Current Visit: Yes Status: Acute (3) HTN (hypertension) Current Visit: No Status: Acute Hospital Course: This is a 59-year-old male with a known history of degenerative arthritis of the left hip. The patient presented to the orthopedic office for evaluation and treatment. After discussion and consideration the patient elects to proceed with a total hip arthroplasty. The patient was seen preoperatively by his primary care physician and cardiology and cleared for surgery. The patient was admitted to [facility] on 10/29/2019 for a left anterior total hip arthroplasty. The procedure was performed without complication or sequelae. The patient is doing well postoperatively. Labs and vital signs are stable the day of discharge. On the day of discharge the patient's hip incision is healing well. There is minimal erythema. There is no drainage noted at this time. There is minimal soft tissue swelling to the hip and thigh. The patient has full foot and ankle motion without difficulty or pain. Neurovascular status to the left lower extremity is intact. The patient will be discharged home today in good condition. Pertinent Studies: Laboratory Tests 10/30/19 10/30/19 06:55 11:21 WBC 9.3 RBC 3.42 L Hgb 10.3 L Hct 31.2 L POC Glucose (mg/dL) 254 H Patient Condition at Discharge: Stable Plan - Discharge Summary Discharge Rx Participant: Yes New Discharge Prescriptions: New Aspirin 325 mg PO BID #60 tab HYDROcodone/APAP 10-325MG [[place] 10-325] 1 - 2 tab PO Q4-6H PRN #24 tab PRN Reason: Pain Sennosides-Docusate Sodium [Senokot-S] 2 tab PO DAILY #30 tablet Discontinued Clopidogrel Bisulfate [Plavix] 75 mg PO DAILY No Action metFORMIN HCL [Glucophage] 1,000 mg PO BID Nitroglycerin Sl Tabs [Nitrostat] 0.4 mg SUBLINGUAL Q5M PRN PRN Reason: Chest Pain HYDROcodone/APAP 10-325MG [[place] 10-325] 1 tab PO TID PRN PRN Reason: Pain Gabapentin [Neurontin] 300 mg PO BID Atorvastatin [Lipitor] 40 mg PO HS #30 tab Aspirin [Adult Low Dose Aspirin EC] 81 mg PO DAILY Metoprolol Tartrate [Lopressor] 50 mg PO BID #60 tab sitaGLIPtin [Januvia] 100 mg PO HS Lisinopril [Zestril] 20 mg PO HS Tamsulosin [Flomax] 0.4 mg PO QAM amLODIPine [Norvasc] 5 mg PO QAM Ibuprofen 600 mg PO Q6H PRN PRN Reason: Pain Discharge Medication List metFORMIN HCL [Glucophage] 1,000 mg PO BID 02/16/17 [History] Gabapentin [Neurontin] 300 mg PO BID 06/27/18 [History] HYDROcodone/APAP 10-325MG [[place] 10-325] 1 tab PO TID PRN 06/27/18 [History] Nitroglycerin Sl Tabs [Nitrostat] 0.4 mg SUBLINGUAL Q5M PRN 06/27/18 [History] Atorvastatin [Lipitor] 40 mg PO HS #30 tab 06/30/18 [Rx] Aspirin [Adult Low Dose Aspirin EC] 81 mg PO DAILY 10/31/18 [History] Metoprolol Tartrate [Lopressor] 50 mg PO BID #60 tab 11/02/18 [Rx] Lisinopril [Zestril] 20 mg PO HS 11/09/18 [History] sitaGLIPtin [Januvia] 100 mg PO HS 11/09/18 [History] Tamsulosin [Flomax] 0.4 mg PO QAM 11/22/18 [History] Ibuprofen 600 mg PO Q6H PRN 10/22/19 [History] amLODIPine [Norvasc] 5 mg PO QAM 10/22/19 [History] Aspirin 325 mg PO BID #60 tab 10/30/19 [Rx] HYDROcodone/APAP 10-325MG [[place] 10-325] 1 - 2 tab PO Q4-6H PRN #24 tab 10/30/19 [Rx] Sennosides-Docusate Sodium [Senokot-S] 2 tab PO DAILY #30 tablet 10/30/19 [Rx] Follow up Appointment(s)/Referral(s): Shaji Jarvis MD [Primary Care Provider] - 11/11/19 9:45 am (Please bring someone with you.) Jun Zuniga DO [Doctor of Osteopathic Medicine] - 11/13/19 3:30 pm Patient Instructions/Handouts: Anterior Hip Replacement (DC) Activity/Diet/Wound Care/Special Instructions: Weightbearing as tolerated with walker Keep dressing in place for 10 days unless saturated Aspirin 325 mg twice a day. Stop Plavix per cardiology. May shower over dressing Follow up with Dr. uJn Zuniga in 2 weeks. Call [facility] with questions or concerns, Discharge Disposition: HOME SELF-CARE
[2019-10-30 11:23] LABS: Glucose,Whole Blood 254 mg/dL (75-99)
[2019-10-30 14:39] VITALS: BP 138/77; PULSE 66; TEMP 98.6
--- NOTE | 2019-11-02 21:19 | PN ---
PROGRESS NOTE DATE OF SERVICE: October 30, 2019. PRESENTING COMPLAINT: Left hip surgery. INTERVAL HISTORY: Patient is status post left total hip arthroplasty. Feeling better. No dizziness. No lightheadedness. Did tolerate a diet. Pain is controlled. Did work with therapy. REVIEW OF SYSTEMS: Done for constitutional, cardiovascular, GI, pulmonary, musculoskeletal and relevant findings as above. CURRENT MEDICATIONS: Reviewed in today's electronic records. PHYSICAL EXAMINATION: VITAL SIGNS: Temperature 98.6, pulse 60, respirations 16, blood pressure 130/77, pulse ox 99% on room air. GENERAL APPEARANCE: Sitting up, comfortable. EYES: Pupils equal. Conjunctivae normal. NECK: JVD not raised. Mass not palpable. RESPIRATORY: Effort normal. LUNGS: Fair entry. CARDIOVASCULAR: 1st and 2nd sounds normal. No edema. ABDOMEN: Soft, nontender. Liver and spleen not palpable. PSYCHIATRY: Alert and oriented times three. Mood and affect normal. MUSCULOSKELETAL: Dressing over the left hip. INVESTIGATIONS: White count 9.3, hemoglobin 10.3, hemoglobin was 12.9 on 10/22/2019. ASSESSMENT: 1. Left total hip arthroplasty. 2. Acute post procedure blood loss anemia expected from surgery. 3. Diabetes mellitus type 2. 4. Hyperlipidemia. 5. Essential hypertension. 6. Coronary artery disease with an myocardial infarction in 2018 with a stent. PLAN: Continue current medication and treatment plan. Care was discussed with the patient. Thank you Dr. Zuniga. MARAH / JONAS: [id number] /
== END 2019-10-30 16:15 | disposition home or self-care (01) | DRG 470 ==
LOC: 2ORMAIN 07:44 → EDSTATUS 11:40 → 4SSUR 11:49
PROVIDERS: ADMIT Orthopaedic Surgery; ATTEND Orthopaedic Surgery
PROC: 0SRB06A Replacement of Left Hip Joint with Oxidized Zirconium on Polyethylene Synthetic Substitute, Uncemented, Open Approach (ICD-10-PCS; principal; 2019-10-29 11:40)
DX: M16.12 Unilateral primary osteoarthritis, left hip (principal); D62 Acute posthemorrhagic anemia; N13.8 Other obstructive and reflux uropathy; E11.9 Type 2 diabetes mellitus without complications; I10 Essential (primary) hypertension; E03.9 Hypothyroidism, unspecified; I25.10 Atherosclerotic heart disease of native coronary artery without angina pectoris; I08.3 Combined rheumatic disorders of mitral, aortic and tricuspid valves; E78.2 Mixed hyperlipidemia; I73.9 Peripheral vascular disease, unspecified; N40.1 Benign prostatic hyperplasia with lower urinary tract symptoms; I25.2 Old myocardial infarction; Z79.82 Long term (current) use of aspirin; Z79.02 Long term (current) use of antithrombotics/antiplatelets; Z79.84 Long term (current) use of oral hypoglycemic drugs; Z79.899 Other long term (current) drug therapy; Z95.5 Presence of coronary angioplasty implant and graft; Z87.891 Personal history of nicotine dependence; Z98.890 Other specified postprocedural states; Z96.641 Presence of right artificial hip joint; Z82.49 Family history of ischemic heart disease and other diseases of the circulatory system; Z83.3 Family history of diabetes mellitus
CPT/HCPCS: 73501; 85025; 86850; 86891; 86900; 86901; 88300

== ENCOUNTER → 2020-03-10 | Outpatient (CLI) | payer OTHER ==
--- NOTE | 2020-03-10 11:46 | US ---
EXAMINATION TYPE: US venous doppler duplex LE RT DATE OF EXAM: 03/10/2020 11:34 AM COMPARISON: US CLINICAL HISTORY: R60.0 edema. Right foot swelling x 3 weeks; patient stated was told that he has old fracture right foot SIDE PERFORMED: Right TECHNIQUE: The lower extremity deep venous system is examined utilizing real time linear array sonog trev with graded compression, doppler sonography and color-flow sonography. VESSELS IMAGED: ) Common Femoral Vein Deep Femoral Vein Greater Saphenous Vein * Femoral Vein - dual noted Popliteal Vein Small Saphenous Vein * Proximal Calf Veins (* superficial vessels) Right Leg: Negative for DVT. Multiple right groin lymph nodes are seen with largest = 2.1 x 1.7 x 0 .7cm. Edema channels are noted anteriorly lower leg and foot. IMPRESSION: No evidence for DVT at this time.
== END ==
LOC: RADUSWWP 10:48
PROVIDERS: ATTEND Internal Medicine
DX: R60.0 Localized edema (principal)

== ENCOUNTER → 2021-09-30 | Outpatient (CLI) | payer OTHER ==
[2021-09-30 15:40] LABS: Basophils # (A) 0.05 X 10*3/uL (0.00-0.10); Basophils % (A) 0.8 %; Eosinophils # (A) 0.34 X 10*3/uL (0.04-0.35); Eosinophils % (A) 5.5 %; HCT 40.3 % (39.6-50.0); HGB 12.9 g/dL (13.0-17.0); Immature Grans, Automated 0.3 %; Lymphocytes # (A) 1.51 X 10*3/uL (0.90-5.00); Lymphocytes % (A) 24.5 %; MCH 30.1 pg (27.0-32.0); MCV 93.9 fL (80.0-97.0); Mean Platelet Volume 10.7 fL (9.5-12.2); Monocytes # (A) 0.67 X 10*3/uL (0.20-1.00); Monocytes % (A) 10.9 %; NRBC Per 100 WBC 0 /100 WBCS (0.0-0.0); Neutrophils # (A) 3.58 X 10*3/uL (1.80-7.70); Platelet Count 206 X 10*3/uL (140-440); RBC 4.29 X 10*6/uL (4.40-5.60); RDW 13.9 % (11.5-14.5); WBC 6.17 X 10*3/uL (4.50-10.00)
[2021-09-30 16:31] LABS: Anion Gap 12.2 mmol/L (10.00-18.00); Carbon Dioxide 22.8 mmol/L (20.0-27.5); Potassium 4.1 mmol/L (3.5-5.5)
== END | disposition home or self-care (01) ==
LOC: LABPAT 07:52
PROVIDERS: ATTEND Orthopaedic Surgery
DX: Z01.812 Encounter for preprocedural laboratory examination (principal); G56.02 Carpal tunnel syndrome, left upper limb
CPT/HCPCS: 36415; 80051; 85025

== ENCOUNTER 2021-10-08 11:03 | Day surgery (SDC) | payer OTHER ==
[2021-10-06 16:17] VITALS: BMI 26.6
--- NOTE | 2021-10-07 10:18 | HP ---
HISTORY AND PHYSICAL CHIEF COMPLAINT: Left hand pain and numbness. 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 He notes numbness and pain along with weakness. He is having night symptoms. He has tried bracing in addition and has had previous medications and injections with only temporary relief. PAST MEDICAL HISTORY: Significant for coronary artery disease, type 2 diabetes, hypercholesterolemia, hypertension in addition to previous myocardial infarction and osteoarthritis. PAST SURGICAL HISTORY: Significant for bilateral total hip arthroplasty, cardiac stent placement times seven. FAMILY HISTORY: Significant for heart disease. SOCIAL HISTORY: Negative for current tobacco or alcohol use. CURRENT MEDICATIONS: Amlodipine, aspirin, atorvastatin, hydrocodone, Januvia, lisinopril, meloxicam, metformin, metoprolol. ALLERGIES: He denies drug allergies. REVIEW OF SYSTEMS: 16-point review of systems otherwise reviewed and is noncontributory. PHYSICAL EXAMINATION: On examination, the patient is approximately 5 foot 9, 178 pounds of endomorphic habitus. HEENT exam is nonfocal. NECK is supple. On examination of his left wrist, he has a positive Tinel's over the carpal canal. He has moderate thenar atrophy. Adductor pollicis brevis strength 4+ over 5. Light touch is diminished in the left thumb, index, and middle finger. He has full digital range of motion. IMPRESSION: Symptomatic left carpal tunnel syndrome. RECOMMENDATIONS: I talked to the patient at length regarding his condition along with treatment options. At this point, he remains quite symptomatic despite previous conservative measures. After thorough discussion, he opts to proceed with surgery. We will plan to proceed with left carpal tunnel release utilizing local anesthetic and IV sedation. We will likely perform that as an outpatient procedure. Risks and benefits were discussed at length in layman's terms. MMODL / IJN: [id number] /
[~2021-10-08 11:03] MED LIST changes: -ACETAMINOPHEN TAB 500 MG TAB PO ONE; -DEXAMETHASONE SOD PHOSPHATE 10 MG/ML 1 ML VIAL IV ONE; +DEXAMETHASONE SOD PHOSPHATE 4 MG/ML 1 ML VIAL IV ONE; -GABAPENTIN 300 MG CAP PO ONE; +LACTATED RINGERS 1,000 ML IV SCH; -MELOXICAM 7.5 MG TAB PO ONE; -ROPIVACAINE 246.25 MG, EPINEPHrine 0.5 MG, KETOROLAC 30 MG, cloNIDine HCL/PF 80 MCG, WA... MISCELLANE ONE; -TRANEXAMIC ACID 1,000 MG in SODIUM CHLORIDE 0.9% 100 ML IVPB ONE
[2021-10-08 11:29] VITALS: TEMP 96.7
[2021-10-08 11:39] LABS: Glucose,Whole Blood 125 mg/dL (75-99)
[2021-10-08] MEDS ORDERED: KETAMINE 10 MG/ML 20 ML VIAL ONE (13:05)
[2021-10-08] MEDS ORDERED: MIDAZOLAM 2 MG/2 ML VIAL ONE (13:05)
[2021-10-08] MEDS ORDERED: fentaNYL (PF) 50 MCG/ML 2 ML AMP ONE (13:05)
[2021-10-08] MEDS ORDERED: PROPOFOL 10 MG/ML 20 ML VIAL IV ONE (13:05)
[2021-10-08] MEDS ORDERED: BUPIVACAINE (PF) 0.25% 30 ML VIAL SQ ONE (13:09)
--- NOTE | 2021-10-08 13:36 | P.OP ---
Date of Procedure: 10/08/21 Preoperative Diagnosis: Left carpal tunnel syndrome Postoperative Diagnosis: Same Procedure(s) Performed: Left carpal tunnel release Anesthesia: MAC, local Surgeon: Tye Lentz Estimated Blood Loss (ml): 1 Pathology: none sent Condition: stable Disposition: PACU Indications for Procedure: The patient's a 61-year-old male presents with progressive left hand pain and numbness despite conservative measures. Clinically and by EMG was noted have significant carpal tunnel syndrome. A discussion of the risks and benefits of operative intervention versus continued conservative measures was made with the patient. He opted to proceed with surgery. Operative risks to include i nfection, neurovascular injury, development of blood clots, possible recurrence, possible need for subsequent procedures was discussed. Informed consent was obtained. Operative Findings: As below Description of Procedure: The patient was brought to the operating room, and after induction of IV sedation the left upper extremity was prepped and draped in normal fashion. The proposed incision site was outlined skin marker in line with the radial aspect the fourth ray extending from the volar wrist crease distally 2-1/2 cm. One quarter percent plain Marcaine was injected into the proposed incision site. 9 mL was utilized. The tourniquet was inflated to 250 mmHg. The skin incision was then made. The skin was incised sharply. Subcutaneous tissues were divided sharply the superficial palmar fascia was identified and split in line with the skin incision. The transverse carpal ligament was identified and transected under direct visualization distally to level the palmar fat pad. Proximal was taken level of the volar wrist crease. A plane above and below the transverse carpal ligament was then bluntly developed with tenotomies. The confluence of the distal forearm fascia and the transverse carpal ligament was then transected under direct visualization proximally with the tines pointed in the ulnar direction. I felt this was adequate proximal release. Neural lysis was not performed. The wound was irrigated with normal saline. Electrocautery was used for hemostasis. The skin was reapproximated with simple 3-0 nylon sutures. A sterile dressing was applied. The tourniquet was deflated with less than 15 minutes total tourniquet time. Patient was awoken from sedation and transferred to the recovery room in good condition. Blood loss was estimated 1 mL. No complications were incurred. Sponge and needle counts were correct at the end the case.
[2021-10-08 14:02] VITALS: BP 135/81; PULSE 66; RESP 15
== END 2021-10-08 14:33 | disposition home or self-care (01) ==
LOC: OR 11:03
PROVIDERS: ATTEND Orthopaedic Surgery
DX: G56.02 Carpal tunnel syndrome, left upper limb (principal); I25.10 Atherosclerotic heart disease of native coronary artery without angina pectoris; I10 Essential (primary) hypertension; E11.9 Type 2 diabetes mellitus without complications; E78.00 Pure hypercholesterolemia, unspecified; I25.2 Old myocardial infarction; M19.90 Unspecified osteoarthritis, unspecified site; F17.210 Nicotine dependence, cigarettes, uncomplicated; Z96.643 Presence of artificial hip joint, bilateral; Z95.5 Presence of coronary angioplasty implant and graft; Z79.899 Other long term (current) drug therapy; Z79.82 Long term (current) use of aspirin; Z79.84 Long term (current) use of oral hypoglycemic drugs; Z97.2 Presence of dental prosthetic device (complete) (partial); Z82.49 Family history of ischemic heart disease and other diseases of the circulatory system
CPT/HCPCS: 64721; J2250; J1100; J0690; J2405; J3010; J2704

== ENCOUNTER → 2021-11-13 | Outpatient (CLI) | payer OTHER ==
[2021-11-13 11:56] LABS: Basophils # (A) 0.07 X 10*3/uL (0.00-0.10); Basophils % (A) 0.9 %; Eosinophils # (A) 0.37 X 10*3/uL (0.04-0.35); HCT 42.2 % (39.6-50.0); HGB 13.5 g/dL (13.0-17.0); Immature Grans, Automated 0.5 %; Lymphocytes # (A) 1.53 X 10*3/uL (0.90-5.00); Lymphocytes % (A) 20.7 %; MCH 30.1 pg (27.0-32.0); Mean Platelet Volume 10.6 fL (9.5-12.2); Monocytes # (A) 0.73 X 10*3/uL (0.20-1.00); Monocytes % (A) 9.9 %; NRBC Per 100 WBC 0 /100 WBCS (0.0-0.0); Neutrophils # (A) 4.64 X 10*3/uL (1.80-7.70); Platelet Count 235 X 10*3/uL (140-440); RBC 4.49 X 10*6/uL (4.40-5.60); RDW 13.4 % (11.5-14.5); WBC 7.38 X 10*3/uL (4.50-10.00)
[2021-11-13 12:01] LABS: Anion Gap 13.5 mmol/L (10.00-18.00); Carbon Dioxide 20.5 mmol/L (20.0-27.5); Potassium 3.9 mmol/L (3.5-5.5)
== END | disposition home or self-care (01) ==
LOC: LABPAT 08:47
PROVIDERS: ATTEND Orthopaedic Surgery
DX: Z01.812 Encounter for preprocedural laboratory examination (principal); G56.01 Carpal tunnel syndrome, right upper limb
CPT/HCPCS: 80051; 85025

== ENCOUNTER 2021-11-19 09:10 | Day surgery (SDC) | payer OTHER ==
[2021-11-17 16:07] VITALS: BMI 25.8
--- NOTE | 2021-11-18 10:42 | HP ---
HISTORY AND PHYSICAL CHIEF COMPLAINT: Right hand pain and numbness. HISTORY OF PRESENT ILLNESS: The patient is a 61-year-old male who presents with progressive right hand pain and numbness for the past several years, worsening recently. He notes numbness with activity and at night. He has tried bracing along with medications and injections, with only partial temporary relief. PAST MEDICAL HISTORY: Significant for type 2 diabetes, coronary artery disease, hypercholesterolemia, hypertension, previous myocardial infarction along with osteoarthritis. PAST SURGICAL HISTORY: Significant for total hip arthroplasty, multiple cardiac stent placements along with left carpal tunnel release. CURRENT MEDICATIONS: Amlodipine, aspirin, atorvastatin, [place], Januvia, lisinopril, meloxicam, metformin, metoprolol. ALLERGIES: HE DENIES DRUG ALLERGIES. FAMILY HISTORY: Significant for heart disease. SOCIAL HISTORY: Negative for current tobacco or alcohol use. REVIEW OF SYSTEMS: Sixteen-point review of systems otherwise reviewed and is noncontributory. PHYSICAL EXAMINATION: On examination, the patient is approximately 5 feet 9 inches, 180 pounds of mesomorphic habitus. HEENT exam is nonfocal. Neck is supple. He is nontender about the right shoulder and elbow. On examination of his right wrist, he has a positive Tinel's over the carpal canal. Light touch is diffusely diminished in the right thumb, index and middle finger. Abductor pollicis brevis strength is 5/5. He has full digital range of motion. Previous EMG report of the right upper extremity shows right median motor latency to carpal canal 8.4. IMPRESSION: Right carpal tunnel syndrome, symptomatic. RECOMMENDATIONS: I talked to the patient at length regarding his condition along with treatment options. At this point he is quite symptomatic despite previous conservative measures. After thorough discussion, he opts to proceed with surgery. We will plan to proceed with right carpal tunnel release. We will likely perform that utilizing local anesthetic and IV sedation as an outpatient procedure. Risks and benefits were discussed at length in layman's terms. MMODL / IJN: [id number] /
[~2021-11-19 09:10] MED LIST changes: +LIDOCAINE 1% (10MG/ML) FOR IV START INTRADERMA PRN; -SCOPOLAMINE 1.5MG/72HR PATCH TRANSDERM ONE
[2021-11-19 09:39] VITALS: TEMP 96.9
[2021-11-19 09:46] LABS: Glucose,Whole Blood 146 mg/dL (75-99)
[2021-11-19] MEDS ORDERED: PROPOFOL 10 MG/ML 20 ML VIAL IV ONE (11:05)
[2021-11-19] MEDS ORDERED: MIDAZOLAM 2 MG/2 ML VIAL ONE (11:05)
[2021-11-19] MEDS ORDERED: fentaNYL (PF) 50 MCG/ML 2 ML AMP ONE (11:05)
[2021-11-19] MEDS ORDERED: BUPIVACAINE (PF) 0.25% 30 ML VIAL SQ ONE (11:27)
--- NOTE | 2021-11-19 11:42 | P.OP ---
Date of Procedure: 11/19/21 Preoperative Diagnosis: Right carpal tunnel syndromesymptomatic Postoperative Diagnosis: Same Procedure(s) Performed: Right carpal tunnel release Anesthesia: MAC, local Surgeon: Tye Lentz Estimated Blood Loss (ml): 1 Pathology: none sent Condition: stable Disposition: PACU Indications for Procedure: The patient 61-year-old male presents with progressive right hand pain and numbness secondary to carpal tunnel syndrome despite conservative measures. A discussion of the risks and benefits of operative intervention versus continued conservative measures was made with the patient. He opted to proceed with surgery. Operative risks to include infection, neurovascular injury, development of blood clots, possible incomplete resolution of symptoms, possible recurrence of symptoms and need for subsequent procedures was discussed. Informed consent was obtained. Operative Findings: As below Description of Procedure: The patient was brought to the operating room, and after induction of IV sedation the right upper extremity was prepped and draped in normal fashion. The proposed incision site was outlined skin marker in line with the radial aspect the fourth ray extending from the volar wrist crease distally 2-1/2 cm. One quarter percent plain Marcaine was injected into the proposed incision site. 9 mL was utilized. The tourniquet was inflated to 250 mmHg. The skin incision was then made. The skin was incised sharply. Subcutaneous tissues were divided sharply the superficial palmar fascia was identified and split in line with the skin incision. The transverse carpal ligament was identified and transected under direct visualization distally to level the palmar fat pad. Proximal was taken level of the volar wrist crease. A plane above and below the transverse carpal ligament was then bluntly developed with tenotomies. The confluence of the distal forearm fascia and the transverse carpal ligament was then transected under direct visualization proximally with the tines pointed in the ulnar direction. I felt this was adequate proximal release. Neural lysis was not performed. The wound was irrigated with normal saline. Electrocautery was used for hemostasis. The skin was reapproximated with simple 3-0 nylon sutures. A sterile dressing was applied. The tourniquet was deflated with less than 15 minutes total tourniquet time. Patient was awoken from sedation and transferred to the recovery room in good condition. Blood loss was estimated 1 mL. No complications were incurred. Sponge and needle counts were correct at the end of the case.
[2021-11-19 11:49] VITALS: RESP 18
[2021-11-19 12:17] VITALS: BP 136/78; PULSE 68
== END 2021-11-19 12:45 | disposition home or self-care (01) ==
LOC: OR 09:10
PROVIDERS: ATTEND Orthopaedic Surgery
DX: G56.01 Carpal tunnel syndrome, right upper limb (principal); E11.9 Type 2 diabetes mellitus without complications; I25.10 Atherosclerotic heart disease of native coronary artery without angina pectoris; E78.00 Pure hypercholesterolemia, unspecified; I10 Essential (primary) hypertension; I25.2 Old myocardial infarction; M19.90 Unspecified osteoarthritis, unspecified site; Z79.82 Long term (current) use of aspirin; Z79.84 Long term (current) use of oral hypoglycemic drugs; Z79.899 Other long term (current) drug therapy; F17.210 Nicotine dependence, cigarettes, uncomplicated; Z96.649 Presence of unspecified artificial hip joint
CPT/HCPCS: 64721; J2250; J1100; J0690; J2405; J3010; J2704